=== PATIENT | female | born 1970 | race Caucasian/White ===

== ENCOUNTER 2016-08-02 17:43 | Emergency (ER) | payer OTHER ==
[2016-08-02] MEDS ORDERED: MORPHINE SULFATE 4 MG/ML SYRINGE IVP STA (18:19)
[2016-08-02] MEDS ORDERED: ONDANSETRON 4 MG/2 ML VIAL IVP STA (18:19)
[2016-08-02] MEDS ORDERED: SODIUM CHLORIDE 0.9% 1,000 ML IV ONE (18:19)
[2016-08-02 18:27] VITALS: RESP 18
[2016-08-02 18:36] LABS: Basophils % (A) 0 %; CH 33.9; CHCM 33.6; Eosinophils # (A) 0.4 k/uL (0-0.7); Eosinophils % (A) 4 %; HDW 2.15; HGB 14.3 gm/dL (11.4-16.0); Luc # (Auto) 0.26; Luc % (Auto) 3; Lymphocytes # (A) 2.9 k/uL (1.0-4.8); Lymphocytes % (A) 31 %; MCH 33.7 pg (25.0-35.0); MCHC 33.2 g/dL (31.0-37.0); MCV 101.5 fL (80.0-100.0); Mean Platelet Volume 6.4; Monocytes # (A) 0.5 k/uL (0-1.0); Monocytes % (A) 6 %; Neutrophils # (A) 5.3 k/uL (1.3-7.7); Neutrophils % (A) 56 %; RBC 4.24 m/uL (3.80-5.40); RDW 12.4 % (11.5-15.5); WBC 9.4 k/uL (3.8-10.6); WBC (Perox) 9.91
[2016-08-02 18:37] LABS: Appearance,Urine Cloudy (Clear); Bacteria,Urine Few /hpf; Bilirubin,Urine Negative (Negative); Glucose,Urine (UA) Negative (Negative); Ketones,Urine Negative (Negative); Leukocyte Esterase,Urine Negative (Negative); Mucus,Urine Rare /hpf; Nitrite,Urine Positive (Negative); Particle Count 68070; Protein,Urine Negative (Negative); RBC,Urine 2 /hpf (0-5); Specific Gravity,Urine 1.012 (1.001-1.035); Squamous Epithelial Cell,Urine 3 /hpf (0-4); UA Billing (MACRO vs. MICRO) MICRO; Urobilinogen,Urine <2.0 mg/dL (<2.0); WBC,Urine 5 /hpf (0-5)
[2016-08-02 18:57] LABS: ALT 26 U/L (9-52); AST 18 U/L (14-36); Alkaline Phosphatase 77 U/L (38-126); Anion Gap 10 mmol/L; Blood Urea Nitrogen 10 mg/dL (7-17); Calcium 9.2 mg/dL (8.4-10.2); Carbon Dioxide 26 mmol/L (22-30); Chloride 102 mmol/L (98-107); Glucose 91 mg/dL (74-99); Non-African American GFR(MDRD) >60 (>60 ml/min/1.73 sqM); Potassium 4.1 mmol/L (3.5-5.1); Sodium 138 mmol/L (137-145); Total Bilirubin 0.4 mg/dL (0.2-1.3); Total Protein 7.3 g/dL (6.3-8.2)
--- NOTE | 2016-08-02 19:13 | ED ---
Abdominal Pain HPI - General Chief Complaint: Abdominal Pain Stated Complaint: abd pain Time Seen by Provider: 08/02/16 18:03 Source: patient, RN notes reviewed Mode of arrival: ambulatory Limitations: no limitations - History of Present Illness Initial Comments: Patient is a 46-year-old female presents to the emergency room for evaluation of right lower quadrant pain. Patient states she had issues with uterine bleeding. Patient states she had a history of uterine bleeding every 2 weeks. Patient states that she had a uterine ablation done in August. Patient states the bleeding has subsided but she began getting right lower quadrant pain. Patient states she has been to various emergency rooms and has been following up with her INVESTMENT SALES ASSISTANT. Patient states she's received CT scans and ultrasounds. Patient states no one is able to figure out why she is having this pain. Patient does admit to history of chronic low back pain. Patient states she has a history of sciatica. Patient states the pain sometimes starts in her right lower back and radiates to her right groin. Patient also states that she has a history of recurrent urinary tract infections. Patient states she's been placed on Bactrim multiple times this past year. Patient states she' s had about 6 urinary tract infections this year. Patient states that she has some pain and burning during urination. Patient denies history of STDs. Patient states that she just saw her INVESTMENT SALES ASSISTANT last week. Patient states that she was told she had Trichomonas on Thursday and was treated with 1 tablet of Flagyl. Patient denies any abnormal vaginal discharge. Patient denies vaginal bleeding. Patient states she's been nauseous the past few days with some vomiting. Patient denies constipation or diarrhea. Patient has had dizziness. Patient denies chest pain or shortness of breath. Patient denies fevers or chills. - Related Data Home Medications Medication Instructions Recorded Confirmed Acetaminophen/Diphenhydramine 1 tab PO HS PRN 08/02/16 08/02/16 [Tylenol PM 500-25mg] Citalopram Hydrobromide [CeleXA] 60 mg PO DAILY 08/02/16 08/02/16 LORazepam [Ativan] 2 mg PO HS 08/02/16 08/02/16 Morphine Sulfate ER [Ms Contin 15 mg PO ONCE 08/02/16 08/02/16 15Mg] [place](Unknown) 1 tab PO TID 08/02/16 08/02/16 Omeprazole 20 mg PO BID 08/02/16 08/02/16 Zantac(Unknown) 1 tab PO DAILY 08/02/16 08/02/16 tiZANidine [Zanaflex] 4 mg PO BID PRN 08/02/16 08/02/16 Previous Rx's Medication Instructions Recorded Ciprofloxacin HCl [Cipro] 500 mg PO Q12HR 5 Days 08/02/16 Allergies Allergy/AdvReac Type Severity Reaction Status Date / Time famotidine [From Pepcid] Allergy Confusion Verified 08/02/16 18:09 Review of Systems ROS Statement: Those systems with pertinent positive or pertinent negative responses have been documented in the HPI. ROS Other: All systems not noted in ROS Statement are negative. Past Medical History Past Medical History: GERD/Reflux Additional Past Medical History / Comment(s): back pain, sciatica History of Any Multi-Drug Resistant Organisms: None Reported Past Surgical History: Bariatric Surgery, Uterine Ablation Past Psychological History: Anxiety, Depression Smoking Status: Current every day smoker Past Alcohol Use History: Occasional Past Drug Use History: None Reported General Exam - General Exam Comments Initial Comments: Sitting in exam room in no acute distress. Limitations: no limitations General appearance: alert, in no apparent distress Head exam: Present: atraumatic, normocephalic, normal inspection Eye exam: Present: normal appearance ENT exam: Present: normal exam Neck exam: Present: normal inspection Respiratory exam: Present: normal lung sounds bilaterally. Absent: respiratory distress Cardiovascular Exam: Present: regular rate, normal rhythm, normal heart sounds GI/Abdominal exam: Present: soft, tenderness (RLQ/groin), normal bowel sounds. Absent: distended, guarding, rebound, rigid External exam: Present: normal external exam Speculum exam: Present: vaginal discharge By manual exam: Present: normal by manual exam. Absent: cervical motion tenderness Extremities exam: Present: normal inspection Back exam: Present: normal inspection Neurological exam: Present: alert, oriented X3, CN II-XII intact, normal gait Psychiatric exam: Present: normal affect, normal mood Skin exam: Present: warm, dry, intact, normal color. Absent: rash Course Vital Signs 08/02/16 08/02/16 08/02/16 17:55 18:26 19:19 Temperature 98.4 F 99.0 F 98.5 F Pulse Rate 94 65 73 Respiratory 20 18 18 Rate Blood Pressure 126/94 140/89 129/61 O2 Sat by Pulse 99 96 99 Oximetry Medical Decision Making - Medical Decision Making Patient is a 46-year-old female presents to the emergency room for evaluation of recurrent right lower quadrant pain since August. Labs showed so significant findings. Patient's urine positive for nitrates. Will place patient on antibiotics to treat for urinary tract infection. Patient asked if she could have urology to follow-up with for recurrent urinary tract infections. Will provide patient with on-call urologist. Trichamonas negative. Other genital cultures pending. Advised patient to continue following up with her AUTOMATIC DRY STARCH OPERATOR. Patient's pain could also related to her chronic low back pain. Patient does admit that before her uterine ablation she used to receive hip injections and never had this right lower groin pain. Patient states as soon as the injections stopped, along the time she received her uterine ablation, she began having pain in the right lower quadrant/groin area. Advised patient to follow-up with her primary care provider for further evaluation of low back pain. Patient states she understands everything that was discussed with her. Return parameters discussed. Case discussed with Dr. Cortes. - Lab Data Result diagrams: 08/02/16 18:03 08/02/16 18:03 Lab Results 08/02/16 08/02/16 08/02/16 Range/Units 18:03 18:03 18:03 WBC 9.4 (3.8-10.6) k/uL RBC 4.24 (3.80-5.40) m/uL Hgb 14.3 (11.4-16.0) gm/dL Hct 43.0 (34.0-46.0) % MCV 101.5 H (80.0-100.0) fL MCH 33.7 (25.0-35.0) pg MCHC 33.2 (31.0-37.0) g/dL RDW 12.4 (11.5-15.5) % Plt Count 395 (150-450) k/uL Neutrophils % 56 % Lymphocytes % 31 % Monocytes % 6 % Eosinophils % 4 % Basophils % 0 % Neutrophils # 5.3 (1.3-7.7) k/uL Lymphocytes # 2.9 (1.0-4.8) k/uL Monocytes # 0.5 (0-1.0) k/uL Eosinophils # 0.4 (0-0.7) k/uL Basophils # 0.0 (0-0.2) k/uL Sodium 138 (137-145) mmol/L Potassium 4.1 (3.5-5.1) mmol/L Chloride 102 (98-107) mmol/L Carbon Dioxide 26 (22-30) mmol/L Anion Gap 10 mmol/L BUN 10 (7-17) mg/dL Creatinine 0.69 (0.52-1.04) mg/dL Est GFR (MDRD) Af Amer >60 (>60 ml/min/1.73 sqM) Est GFR (MDRD) Non-Af >60 (>60 ml/min/1.73 sqM) Glucose 91 (74-99) mg/dL Calcium 9.2 (8.4-10.2) mg/dL Total Bilirubin 0.4 (0.2-1.3) mg/dL AST 18 (14-36) U/L ALT 26 (9-52) U/L Alkaline Phosphatase 77 (38-126) U/L Total Protein 7.3 (6.3-8.2) g/dL Albumin 4.1 (3.5-5.0) g/dL Urine Color Yellow Urine Appearance Cloudy H (Clear) Urine pH 6.0 (5.0-8.0) Ur Specific [place] 1.012 (1.001-1.035) Urine Protein Negative (Negative) Urine Glucose (UA) Negative (Negative) Urine Ketones Negative (Negative) Urine Blood Trace H (Negative) Urine Nitrate Positive H (Negative) Urine Bilirubin Negative (Negative) Urine Urobilinogen <2.0 (<2.0) mg/dL Ur Leukocyte Esterase Negative (Negative) Urine RBC 2 (0-5) /hpf Urine WBC 5 (0-5) /hpf Ur Squamous Epith Cells 3 (0-4) /hpf Urine Bacteria Few H (None) /hpf Urine Mucus Rare H (None) /hpf Trichomonas Ag (Rapid) (Negative) 08/02/16 Range/Units 19:15 WBC (3.8-10.6) k/uL RBC (3.80-5.40) m/uL Hgb (11.4-16.0) gm/dL Hct (34.0-46.0) % MCV (80.0-100.0) fL MCH (25.0-35.0) pg MCHC (31.0-37.0) g/dL RDW (11.5-15.5) % Plt Count (150-450) k/uL Neutrophils % % Lymphocytes % % Monocytes % % Eosinophils % % Basophils % % Neutrophils # (1.3-7.7) k/uL Lymphocytes # (1.0-4.8) k/uL Monocytes # (0-1.0) k/uL Eosinophils # (0-0.7) k/uL Basophils # (0-0.2) k/uL Sodium (137-145) mmol/L Potassium (3.5-5.1) mmol/L Chloride (98-107) mmol/L Carbon Dioxide (22-30) mmol/L Anion Gap mmol/L BUN (7-17) mg/dL Creatinine (0.52-1.04) mg/dL Est GFR (MDRD) Af Amer (>60 ml/min/1.73 sqM) Est GFR (MDRD) Non-Af (>60 ml/min/1.73 sqM) Glucose (74-99) mg/dL Calcium (8.4-10.2) mg/dL Total Bilirubin (0.2-1.3) mg/dL AST (14-36) U/L ALT (9-52) U/L Alkaline Phosphatase (38-126) U/L Total Protein (6.3-8.2) g/dL Albumin (3.5-5.0) g/dL Urine Color Urine Appearance (Clear) Urine pH (5.0-8.0) Ur Specific [place] (1.001-1.035) Urine Protein (Negative) Urine Glucose (UA) (Negative) Urine Ketones (Negative) Urine Blood (Negative) Urine Nitrate (Negative) Urine Bilirubin (Negative) Urine Urobilinogen (<2.0) mg/dL Ur Leukocyte Esterase (Negative) Urine RBC (0-5) /hpf Urine WBC (0-5) /hpf Ur Squamous Epith Cells (0-4) /hpf Urine Bacteria (None) /hpf Urine Mucus (None) /hpf Trichomonas Ag (Rapid) Negative (Negative) Disposition Clinical Impression: Urinary tract infection Disposition: HOME SELF-CARE Condition: Good Instructions: Urinary Tract Infection in Women (ED) Additional Instructions: Take antibiotics as directed. Please follow up with INVESTMENT SALES ASSISTANT 1-2 days for reevaluation. Can also follow up with urologist for recurrent urinary tract infections. Continue taking her home pain medications as needed. If any new symptom arises, symptoms worsen or fever develops, return to ER as soon as possible. Prescriptions: Ciprofloxacin HCl [Cipro] 500 mg PO Q12HR 5 Days Referrals: Luis Alberto Gustafson DO [Primary Care Provider] - 1-2 days Wilian Benitez MD [STAFF PHYSICIAN] - 08/11/16 Time of Disposition: 19:57
[2016-08-02] MEDS ORDERED: KETOROLAC 30 MG/ML 1 ML VIAL IVP STA (19:52)
[2016-08-02 20:11] VITALS: BP 133/63; PULSE 64; TEMP 98.1
== END 2016-08-02 20:11 | disposition home or self-care (01) ==
LOC: EC 17:43
DX: N39.0 Urinary tract infection, site not specified (principal); K21.9 Gastro-esophageal reflux disease without esophagitis; F41.9 Anxiety disorder, unspecified; F32.9 Major depressive disorder, single episode, unspecified; F17.200 Nicotine dependence, unspecified, uncomplicated; Z88.8 Allergy status to other drugs, medicaments and biological substances; Z87.440 Personal history of urinary (tract) infections; Z79.899 Other long term (current) drug therapy
CPT/HCPCS: 36415; 80053; 87591; 87491; 85025; 81001; 87808; 87070; 87086; 87077; 87186; 99284; 96374; 96375 ×2; 96361; J2270; J2405; J1885; 87205

== ENCOUNTER 2016-10-28 07:21 | Day surgery (SDC) | payer OTHER ==
[2016-10-23 14:12] VITALS: BMI 26.6
[~2016-10-28 07:21] MED LIST: LIDOCAINE 1% 20 ML VIAL (10MG/ML) FOR IV START INTRADERMA PRN
[2016-10-28] MEDS: LACTATED RINGERS 1,000 ML IV SCH ×2 (07:56→08:27)
[2016-10-28 08:13] VITALS: RESP 16; TEMP 98.3
[2016-10-28] MEDS ORDERED: KETOROLAC 30 MG/ML 1 ML VIAL IM STA (08:18)
[2016-10-28] MEDS ORDERED: LIDOCAINE 1% INJ 10MG/ML (20 ML MDV) ONE (08:25)
[2016-10-28] MEDS ORDERED: PROPOFOL 10 MG/ML 20 ML VIAL IV ONE (08:25)
[2016-10-28] MEDS ORDERED: MIDAZOLAM 2 MG/2 ML VIAL ONE (08:25)
--- NOTE | 2016-10-28 08:54 | P.GSHP ---
History of Present Illness H&P Date: 10/28/16 Chief Complaint: Family history of colon cancer and GERD This a 46-year-old female who presents today for EGD colonoscopy. She has a strong family history of colon cancer. She states her sister was diagnosed HER in her 40s. She is also had issues with GERD and Sadler's esophagus. She presents today for EGD and colonoscopy. - Constitutional Constitutional: Reports as per HPI Past Medical History Past Medical History: GERD/Reflux, Hyperlipidemia, Musculoskeletal Disorder, Osteoarthritis (OA) Additional Past Medical History / Comment(s): DDD, SPINAL STENOSIS, HX OF MURMUR , SADLER'S ESOPHAGUS History of Any Multi-Drug Resistant Organisms: None Reported Past Surgical History: Bariatric Surgery, Section, Cholecystectomy, Orthopedic Surgery, Tubal Ligation, Uterine Ablation Additional Past Surgical History / Comment(s): GASTRIC BYPASS, GANGLION CYST REMOVED, LEFT THYMB TRIGGER FINGER, CARPAL TUNNEL ALYSON WRIST, BENIGN CYST REMOVED FROM OVARY RECTUM AND TAILBONE, MULT. D&C Past Anesthesia/Blood Transfusion Reactions: Previous Problems w/ Anesthesia Additional Past Anesthesia/Blood Transfusion Reaction / Comment(s): STATES HYPERVENTILATES WHEN SEES NEEDLES Past Psychological History: Anxiety, Depression Smoking Status: Current every day smoker Past Alcohol Use History: Occasional Additional Past Alcohol Use History / Comment(s): SMOKES 1/2 PPD SINCE AGE 15 ( 1984) Past Drug Use History: None Reported - Past Family History Sister(s) Family Medical History: Cancer Additional Family Medical History / Comment(s): COLON AND RECTAL CA Brother(s) Family Medical History: Cancer Additional Family Medical History / Comment(s): NON-HODGKIN'S LYMPHOMA Mother Family Medical History: Cancer Additional Family Medical History / Comment(s): NON-HODGKIN'S LYMPHOMA Medications and Allergies Home Medications Medication Instructions Recorded Confirmed Type Acetaminophen/Diphenhydramine 1 tab PO HS PRN 08/02/16 10/28/16 History [Tylenol PM 500-25mg] Citalopram Hydrobromide [CeleXA] 60 mg PO DAILY 08/02/16 10/28/16 History Omeprazole 20 mg PO BID 08/02/16 10/28/16 History tiZANidine [Zanaflex] 4 mg PO BID PRN 08/02/16 10/28/16 History Atorvastatin [Lipitor] 10 mg PO DAILY 10/23/16 10/28/16 History Diclofenac Potassium [Cataflam] 50 mg PO TID PRN 10/23/16 10/28/16 History Estradiol [Estrace Cream] 1 applicator VAGINAL DAILY PRN 10/23/16 10/28/16 History Gabapentin [Neurontin] 300 mg PO HS 10/23/16 10/28/16 History LORazepam [Lorazepam] 0.5 mg PO BID 10/23/16 10/28/16 History Metoclopramide [Reglan] 10 mg PO TID 10/23/16 10/28/16 History Ranitidine HCl [Zantac] 300 mg PO BID PRN 10/23/16 10/28/16 History Sulfamethox-Tmp 400-80Mg [Bactrim 1 tab PO DAILY 10/23/16 10/28/16 History SS 400-80 mg] HYDROcodone/APAP 5-325MG [Stephan 1 tab PO TID PRN 10/28/16 10/28/16 History 5-325] Allergies Allergy/AdvReac Type Severity Reaction Status Date / Time Cephalosporins Allergy RECTAL Verified 10/28/16 08:04 BLEEDING famotidine [From Pepcid] Allergy Confusion Verified 10/28/16 08:04 Surgical - Exam Vital Signs Temp Pulse Resp BP Pulse Ox 98.3 F 71 16 138/76 93 L 10/28/16 08:11 10/28/16 08:11 10/28/16 08:11 10/28/16 08:11 10/28/16 08:11 - General well developed, no distress - Eyes PERRL - ENT normal pinna - Neck no masses - Respiratory normal expansion - Cardiovascular Rhythm: regular - Abdomen Abdomen: soft, non tender Assessment and Plan Plan: GERD, family history colon cancer. We'll perform EGD and screening colonoscopy.
--- NOTE | 2016-10-28 09:21 | P.OP ---
Date of Procedure: 10/28/16 Preoperative Diagnosis: Screening colonoscopy Family history colon cancer GERD Postoperative Diagnosis: Antral gastritis Small hiatal hernia Mild esophagitis Normal colon with limited view of the mucosa secondary to poor prep Procedure(s) Performed: EGD Colonoscopy Anesthesia: MAC Surgeon: Dillon Alvarado Pathology: other (Antrum, esophagus) Condition: stable Disposition: PACU Description of Procedure: The patient's placed on the endoscopy table in the lateral. She received IV sedation. The gastroscope some placed oropharynx passed into the esophagus and into the stomach. Scope was then placed through the pylorus. The first and second portion of the duodenum this appeared Normal. Scope was then brought back the antrum this. Mildly inflamed. A biopsies was performed. The scope was then retroflexed and there was a small hiatal hernia. The distal esophagus was mildly inflamed a biopsy was performed. The proximal esophagus appeared normal. Scope was withdrawn for patient. Next digital rectal exam was performed which revealed no abnormalities. There is a large amount of stool the rectum. The colonoscope was then placed patient anus passed throughout the entire colon. Due to the large amount liquid stool there was a limited view of the mucosa. No tumors could be seen. There no polyps seen there were no diverticula seen. The view was quite limited due to the large amount liquid stool. The scope was then brought back the rectum and this appeared normal. Scope was withdrawn for patient.
[2016-10-28 09:50] VITALS: BP 112/79; PULSE 79
== END 2016-10-28 10:07 | disposition home or self-care (01) ==
LOC: ORWHC2ENDO 07:21
PROVIDERS: ATTEND Surgery
DX: Z12.11 Encounter for screening for malignant neoplasm of colon (principal); K21.0 Gastro-esophageal reflux disease with esophagitis; Z80.0 Family history of malignant neoplasm of digestive organs; K29.50 Unspecified chronic gastritis without bleeding; K44.9 Diaphragmatic hernia without obstruction or gangrene; Z98.84 Bariatric surgery status; E78.5 Hyperlipidemia, unspecified; F41.9 Anxiety disorder, unspecified; F32.9 Major depressive disorder, single episode, unspecified; F17.200 Nicotine dependence, unspecified, uncomplicated; Z79.02 Long term (current) use of antithrombotics/antiplatelets; Z79.891 Long term (current) use of opiate analgesic; Z79.899 Other long term (current) drug therapy; Z79.2 Long term (current) use of antibiotics; Z88.1 Allergy status to other antibiotic agents; Z88.8 Allergy status to other drugs, medicaments and biological substances
CPT/HCPCS: 88305; 88342; 84703; 43239; J2250; J2001; J1885; J2704; G0105; 45378

== ENCOUNTER → 2016-11-28 | Outpatient (CLI) | payer OTHER ==
--- NOTE | 2016-11-28 11:05 | FL ---
Upper GI with esophagram EXAMINATION TYPE: FL UGI w esophagus DATE OF EXAM: 11/28/2016 10:34 AM CLINICAL HISTORY: K21.9 GERD COMPARISON: NONE Patient ingested thin liquid barium without difficulty or delay. No evidence for esophageal filling d efect or mucosal irregularity. There is a small sliding-type hiatal hernia. Cervical esophagram revea ls no evidence for aspiration penetration or mass. There is been prior bariatric surgery with gastric pouch noted. There is narrowing at the gastroenteric anastomosis. Luminal narrowing is estimated at approximately 25%. There is no evidence for obstruction however. Contrast is noted to flow into irina l caliber small bowel. IMPRESSION: 1.There is narrowing at the gastroenteric anastomosis. Luminal narrowing is estimated at approximatel y 25%. 2. Small sliding-type hiatal hernia.
== END | disposition home or self-care (01) ==
LOC: RADFLWHC 09:48
PROVIDERS: ATTEND Surgery
DX: K22.8 Other specified diseases of esophagus (principal); K44.9 Diaphragmatic hernia without obstruction or gangrene; K21.9 Gastro-esophageal reflux disease without esophagitis
CPT/HCPCS: 74246

== ENCOUNTER 2016-12-09 10:49 | Inpatient (IN) | payer OTHER ==
[2016-12-03 13:38] VITALS: BMI 26.4
[2016-12-09] MEDS ORDERED: LIDOCAINE 1% 20 ML VIAL (10MG/ML) FOR IV START SQ ONE (11:07)
[2016-12-09] MEDS: LACTATED RINGERS 1,000 ML IV SCH (11:07)
--- NOTE | 2016-12-09 11:49 | P.GSHP ---
History of Present Illness H&P Date: 12/09/16 Chief Complaint: Dysphagia This a 46-year-old female who has a prior history of gastric bypass surgery. Patient has completed to dysphagia. Her recent esophagram shows evidence of stenosis of her gastrojejunostomy. Patient presents today for EGD. - Constitutional Constitutional: Reports as per HPI Past Medical History Past Medical History: GERD/Reflux, Hyperlipidemia, Musculoskeletal Disorder, Osteoarthritis (OA) Additional Past Medical History / Comment(s): DDD, SPINAL STENOSIS, HX OF MURMUR , SADLER'S ESOPHAGUS-states "no symptoms shown with last EGD",states "on UGI showed narrowing at the bottom of gastric bypass pouch and still having periods of vomiting". History of Any Multi-Drug Resistant Organisms: None Reported Past Surgical History: Bariatric Surgery, Section, Cholecystectomy, Orthopedic Surgery, Tubal Ligation, Uterine Ablation Additional Past Surgical History / Comment(s): GASTRIC BYPASS, GANGLION CYST REMOVED, LEFT THUMB TRIGGER FINGER, CARPAL TUNNEL ALYSON WRIST, BENIGN CYST REMOVED FROM OVARY RECTUM AND TAILBONE, MULT. D&C,C SECT X2 Past Anesthesia/Blood Transfusion Reactions: Previous Problems w/ Anesthesia Additional Past Anesthesia/Blood Transfusion Reaction / Comment(s): STATES HYPERVENTILATES WHEN SEES NEEDLES Past Psychological History: Anxiety, Depression Smoking Status: Current every day smoker Past Alcohol Use History: Occasional Additional Past Alcohol Use History / Comment(s): SMOKES 1/2 PPD SINCE AGE 15 ( 1984) Past Drug Use History: None Reported - Past Family History Sister(s) Family Medical History: Cancer Additional Family Medical History / Comment(s): COLON AND RECTAL CA Brother(s) Family Medical History: Cancer Additional Family Medical History / Comment(s): NON-HODGKIN'S LYMPHOMA Mother Family Medical History: Cancer Additional Family Medical History / Comment(s): NON-HODGKIN'S LYMPHOMA Medications and Allergies Home Medications Medication Instructions Recorded Confirmed Type Acetaminophen/Diphenhydramine 1 tab PO HS PRN 08/02/16 12/09/16 History [Tylenol PM 500-25mg] Citalopram Hydrobromide [CeleXA] 60 mg PO DAILY 08/02/16 12/09/16 History Omeprazole 20 mg PO BID 08/02/16 12/09/16 History tiZANidine [Zanaflex] 4 mg PO BID PRN 08/02/16 12/09/16 History Atorvastatin [Lipitor] 10 mg PO DAILY 10/23/16 12/09/16 History Diclofenac Potassium [Cataflam] 50 mg PO TID PRN 10/23/16 12/09/16 History Estradiol [Estrace Cream] 1 applicator VAGINAL DAILY PRN 10/23/16 12/09/16 History Gabapentin [Neurontin] 300 mg PO HS 10/23/16 12/09/16 History LORazepam [Lorazepam] 0.5 mg PO BID 10/23/16 12/09/16 History Metoclopramide [Reglan] 15 mg PO TID 10/23/16 12/09/16 History Ranitidine HCl [Zantac] 300 mg PO BID PRN 10/23/16 12/09/16 History Sulfamethox-Tmp 400-80Mg [Bactrim 1 tab PO DAILY 10/23/16 12/09/16 History SS 400-80 mg] Acetaminophen-Codeine 300-30mg 1 tab PO DAILY PRN 12/03/16 12/09/16 History [Tylenol #3] QUEtiapine FUMARATE [SEROquel] 300 mg PO HS 12/03/16 12/09/16 History Allergies Allergy/AdvReac Type Severity Reaction Status Date / Time Cephalosporins Allergy RECTAL Verified 12/09/16 11:09 BLEEDING famotidine [From Pepcid] Allergy Confusion Verified 12/09/16 11:09 Surgical - Exam Vital Signs Temp Pulse Resp BP Pulse Ox 97.9 F 73 16 146/86 98 12/09/16 11:02 12/09/16 11:02 12/09/16 11:02 12/09/16 11:02 12/09/16 11:02 - General well developed, no distress - Eyes PERRL - ENT normal pinna - Neck no masses - Respiratory normal expansion - Cardiovascular Rhythm: regular - Abdomen Abdomen: soft, non tender Assessment and Plan Plan: Surgeon gastric bypass, dysphagia. We'll perform EGD.
[2016-12-09] MEDS ORDERED: fentaNYL (PF) 50 MCG/ML 2 ML AMP ONE ×2 (11:50→13:05)
[2016-12-09] MEDS ORDERED: PROPOFOL 10 MG/ML 20 ML VIAL IV ONE ×2 (11:50→13:05)
[2016-12-09] MEDS ORDERED: LIDOCAINE 1% INJ 10MG/ML (20 ML MDV) ONE ×2 (11:50→13:05)
--- NOTE | 2016-12-09 12:07 | P.OP ---
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 She received IV sedation. The gastroscope some placed oropharynx and passed into the esophagus and into the stomach. The gastrojejunostomy was visualized. The gastrojejunostomy. Be stenotic. The scope was placed into the jejunum. At this point the scope was withdrawn and the 20 mm balloon was placed across the jejunostomy. The balloon was then insufflated and the gastrojejunostomy was dilated. The balloon was then withdrawn. The gastroscope some placed into the gastroenterostomy. And there appeared to be extraluminal fat in the gastrojejunostomy site. This was suggestive of a disruption of the anastomosis. At this point the procedure was Doppler. The scope was withdrawn. The patient was prepared for exploratory laparotomy to repair the gastrojejunostomy.
[2016-12-09] MEDS ORDERED: ENOXAPARIN 40 MG/0.4 ML SYRINGE SQ ONE (12:15)
[2016-12-09] MEDS ORDERED: LEVOFLOXACIN 500MG-D5W PMX 500 MG in DEXTROSE/WATER 1 100ML.BAG IVPB STA (12:17)
[2016-12-09] MEDS ORDERED: IV FLUID CONTINUATION 1,000 ML IV ONE (12:27)
[2016-12-09] MEDS: HYDROmorphone 1 MG/ML 1 ML SYRINGE IVP ONE ×2 (12:27→12:32)
[2016-12-09 12:51] LABS: Basophils # (A) 0.1 k/uL (0-0.2); Basophils % (A) 1 %; CH 32.7; CHCM 32.3; Eosinophils # (A) 0.5 k/uL (0-0.7); Eosinophils % (A) 7 %; HCT 42.1 % (34.0-46.0); HDW 2.39; HGB 13.7 gm/dL (11.4-16.0); Luc # (Auto) 0.18; Luc % (Auto) 2; Lymphocytes # (A) 2.6 k/uL (1.0-4.8); Lymphocytes % (A) 34 %; MCH 33.2 pg (25.0-35.0); MCHC 32.7 g/dL (31.0-37.0); MCV 101.7 fL (80.0-100.0); Macrocytosis Slight; Mean Platelet Volume 6.7; Monocytes # (A) 0.4 k/uL (0-1.0); Monocytes % (A) 5 %; Neutrophils # (A) 3.9 k/uL (1.3-7.7); Neutrophils % (A) 51 %; RBC 4.14 m/uL (3.80-5.40); RDW 13.5 % (11.5-15.5); WBC 7.6 k/uL (3.8-10.6); WBC (Perox) 7.55
[2016-12-09] MEDS ORDERED: fentaNYL (PF) 50 MCG/ML 2 ML AMP IV ONE (12:52)
[2016-12-09] MEDS ORDERED: SUCCINYLCHOLINE CHLORIDE 100 MG/5 ML SYR IV ONE (13:05)
[2016-12-09] MEDS ORDERED: ROCURONIUM BROMIDE 10 MG/ML 10 ML VIAL IV ONE (13:05)
[2016-12-09] MEDS ORDERED: MIDAZOLAM 2 MG/2 ML VIAL ONE (13:05)
[2016-12-09] MEDS ORDERED: GLYCOPYRROLATE 0.2 MG/ML 2 ML VIAL ONE (13:05)
[2016-12-09] MEDS ORDERED: NEOSTIGMINE 1 MG/ML 10 ML VIAL ONE (13:05)
[2016-12-09] MEDS ORDERED: ONDANSETRON 4 MG/2 ML VIAL IVP PRN (14:35)
[2016-12-09] MEDS ORDERED: LACTATED RINGERS 1,000 ML IV ONE (14:35)
[2016-12-09] MEDS ORDERED: NALOXONE 0.4 MG/ML 1 ML VIAL IV PRN (14:35)
--- NOTE | 2016-12-09 14:35 | P.OP ---
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 She received general anesthesia. Her abdomen was entered through a midline incision. The Bookwalter retractors placed a wound. The patient had a previous laparoscopic gastric bypass. There was a large gastric remnant seen. At the gastrojejunostomy there was evidence of a perforation at the stricture site. At this point the proximal jejunum was transected just below the gastrojejunostomy. The stomach was adherent to the defunctionalized stomach in this was dissected by lysing adhesions. Then using a TX 60 the gastrojejunostomy was excluded. The specimen sent to pathology. Next using a PAULETTE and TA stapler a [id number] functional end-to-end staple anastomosis created between the jejunum and stomach. A 3-0 GI silk sutures using a crotch stitch. The stomach was then insufflated with methylene blue normal saline. There is no evidence of any extravasation. There was free flow of saline into the jejunum. At this point the abdomen was irrigated. There is no bleeding seen. The fascia was closed with looped #1 PDS suture. The skin was closed cortez. Patient top she will was sent to recovery in stable condition.
[2016-12-09] MEDS ORDERED: HYDROmorphone 1 MG/ML 1 ML SYRINGE IVP ONE ×3 (15:19→15:24)
[2016-12-09] MEDS ORDERED: ONDANSETRON 4 MG/2 ML VIAL IVP ONE (15:19)
[2016-12-09] MEDS ORDERED: MEPERIDINE 50 MG/ML SYRINGE IVP ONE (15:25)
[2016-12-09] MEDS: HYDROmorphone 1 MG/ML 1 ML SYRINGE IVP PRN ×2 (17:52→20:58)
[2016-12-09] MEDS: AMPICILLIN-SULBACTAM 3 GM in SODIUM CHLORIDE 0.9% 100 ML IVPB SCH (17:52)
[2016-12-09] MEDS: KETOROLAC 30 MG/ML 1 ML VIAL IVP SCH ×2 (17:52→23:54)
[2016-12-09 18:18] LABS: Anion Gap 5 mmol/L; Blood Urea Nitrogen 9 mg/dL (7-17); Calcium 8.7 mg/dL (8.4-10.2); Carbon Dioxide 27 mmol/L (22-30); Chloride 106 mmol/L (98-107); Glucose 115 mg/dL (74-99); Non-African American GFR(MDRD) >60 (>60 ml/min/1.73 sqM); Potassium 4.3 mmol/L (3.5-5.1); Sodium 138 mmol/L (137-145)
[2016-12-09] MEDS: FLUCONAZOLE IN NACL,ISO-OSM 200 MG in SALINE 1 100ML.BAG IVPB SCH (22:20)
[2016-12-10] MEDS: AMPICILLIN-SULBACTAM 3 GM in SODIUM CHLORIDE 0.9% 100 ML IVPB SCH ×5 (00:01→23:40)
[2016-12-10] MEDS: HYDROmorphone 1 MG/ML 1 ML SYRINGE IVP PRN ×5 (00:01→12:06)
[2016-12-10] MEDS: KETOROLAC 30 MG/ML 1 ML VIAL IVP SCH ×4 (05:51→23:40)
[2016-12-10] MEDS: LACTATED RINGERS 1,000 ML IV SCH ×3 (05:58→18:02)
--- NOTE | 2016-12-10 07:41 | CONS ---
DATE OF CONSULTATION: 12/09/2016 REASON FOR CONSULTATION: Perforated stomach and secondary peritonitis and antibiotic recommendation with antibiotic allergies. HISTORY OF PRESENT ILLNESS: The patient is a 46-year-old female with past medical history significant for gastric bypass surgery. The patient has been complaining of dysphagia for which the patient did have a recent esophagram that did show evidence of stenosis of the gastrojejunostomy. Patient has been electively admitted to the hospital for an EGD and the balloon dilatation of the gastrojejunostomy stricture. After the proceed the patient noticed to have gastric disruption. Patient subsequently taken to the OR and is status post laparotomy with lysis of adhesion, partial gastrectomy with excision of the previous gastrojejunostomy and creation of a new gastrojejunostomy. Patient subsequently has been admitted to the hospital where the patient started on Levaquin. I was asked to see the patient for further recommendation. Patient has been complaining of abdominal pain which is dull, diffuse, aching. 7-8/10 and no radiation. The patient complaining of nausea, but no vomiting. Not passing any gas. Denies any high grade fever or chills. REVIEW OF SYSTEMS: CONSTITUTIONAL: Positive for weakness and fever. EYES: No complaint. ENT: No complaint. RESPIRATORY: No complaint. CARDIOVASCULAR: No complaint. GENITOURINARY: No complaint. GASTROINTESTINAL: As per HPI. MUSCULOSKELETAL: No complaint. INTEGUMENTARY: No complaint. PSYCHOLOGIC: No complaint. ENDOCRINE: No complaint. NEUROLOGIC: No complaint. PAST MEDICAL HISTORY: Significant for hyperlipidemia, spinal stenosis, gastroesophageal reflux disease, Anna's esophagus. PAST SURGICAL HISTORY: Bariatric surgery with gastrojejunostomy, , cholecystectomy, tubal ligation, uterine ablation. SOCIAL HISTORY: Patient currently an ever day smoker, smoked since the age of 15. Rarely drinks. No drug use. FAMILY HISTORY: Sister with history of colorectal cancer. Brother and mother with history of non-Hodgkin lymphoma ALLERGIES: CEPHALOSPORIN. The patient did mention she was put on Ceftin for a tooth infection and hence, she developed some bloody stool. Denies having any rash or any anaphylaxis Medications currently include the patient is on Lovenox, Dilaudid, Toradol, lactated Ringer, Narcan and Zofran, Protonix and Levaquin. On examination, blood pressure 132/86 with a pulse of 83, temperature 97.1. She is 92% on 2-L nasal cannula. General description is a middle-age female lying in bed in no distress. No tachypnea or accessory muscle of respiration use. HEENT shows no pallor or scleral icterus. Oral mucus membrane dry. NECK: Trachea central. There is no thyromegaly. LUNGS: Unlabored breathing. Clear to auscultation anteriorly. No wheeze or crackle. HEART: S1, S2. Regular rate and rhythm. ABDOMEN: Soft. She was mildly distended and tender with no guarding, no rigidity. EXTREMITIES: No edema of feet. SKIN: No rash or mass palpable. NEUROLOGICAL: The patient is awake, alert, oriented x3. Mood and affect normal. LABS: Hemoglobin is 13.7, white count 7.6 with a BUN of 9, creatinine 0.65. No OR culture. DIAGNOSTIC IMPRESSION AND PLAN: 1. Patient with secondary peritonitis from distention of the gastrojejunostomy site after balloon dilatation. The likely organism that we need to cover would be the enteric gram-negative and the less likely [place]. 2. Patient did have several allergies seem to be more of a side effect rather than true allergy. PLAN: 1. Discontinue the Levaquin. 2. Start the patient on Unasyn 3 grams q.6 and Diflucan 200 daily. 3. Blood cultures have been obtained. I would repeat if the patient spiking any new fever. 4. Will follow up on the clinical condition and cultures to further adjust the medication if needed. Thank you for this consultation. We will follow this patient along with you. MATEO
[2016-12-10 08:08] LABS: Basophils % (A) 0 %; CH 32.7; CHCM 32.4; Eosinophils # (A) 0.3 k/uL (0-0.7); Eosinophils % (A) 3 %; HCT 35.8 % (34.0-46.0); HDW 2.24; HGB 11.9 gm/dL (11.4-16.0); Luc # (Auto) 0.09; Luc % (Auto) 1; Lymphocytes # (A) 0.4 k/uL (1.0-4.8); Lymphocytes % (A) 3 %; MCH 33.7 pg (25.0-35.0); MCHC 33.2 g/dL (31.0-37.0); MCV 101.5 fL (80.0-100.0); Macrocytosis Slight; Mean Platelet Volume 6.6; Monocytes # (A) 0.4 k/uL (0-1.0); Monocytes % (A) 3 %; Neutrophils # (A) 11.2 k/uL (1.3-7.7); Neutrophils % (A) 90 %; RBC 3.53 m/uL (3.80-5.40); RDW 13.3 % (11.5-15.5); WBC 12.4 k/uL (3.8-10.6); WBC (Perox) 13.23
[2016-12-10 08:22] LABS: ALT 35 U/L (9-52); AST 36 U/L (14-36); Alkaline Phosphatase 58 U/L (38-126); Anion Gap 7 mmol/L; Blood Urea Nitrogen 8 mg/dL (7-17); Calcium 8.2 mg/dL (8.4-10.2); Carbon Dioxide 25 mmol/L (22-30); Chloride 106 mmol/L (98-107); Glucose 103 mg/dL (74-99); Non-African American GFR(MDRD) >60 (>60 ml/min/1.73 sqM); Potassium 3.7 mmol/L (3.5-5.1); Sodium 138 mmol/L (137-145); Total Bilirubin 0.9 mg/dL (0.2-1.3); Total Protein 5.4 g/dL (6.3-8.2)
[2016-12-10] MEDS: ENOXAPARIN 40 MG/0.4 ML SYRINGE SQ SCH (09:02)
[2016-12-10] MEDS: PANTOPRAZOLE 40 MG/10 ML VIAL IV SCH (09:02)
[2016-12-10] MEDS: FLUCONAZOLE IN NACL,ISO-OSM 200 MG in SALINE 1 100ML.BAG IVPB SCH (09:02)
[2016-12-10] MEDS ORDERED: LEVOFLOXACIN 500MG-D5W PMX 500 MG in DEXTROSE/WATER 1 100ML.BAG IVPB SCH (12:00)
[2016-12-10] MEDS ORDERED: NALOXONE 0.4 MG/ML 1 ML VIAL IV PRN (14:16)
[2016-12-10] MEDS: HYDROmorphone PCA 5 MG/25 ML SYRINGE IV PRN ×2 (14:32→21:32)
[2016-12-10] MEDS: LORazepam 2 MG/ML SYRINGE IV PRN ×3 (15:18→23:40)
--- NOTE | 2016-12-10 15:43 | P.PN ---
Subjective Patient is a 46-year-old female, patient of Dr. Mónica Morris in the outpatient setting, with medical history significant for prior gastric bypass surgery. Patient had been having problems with dysphagia with recent esophagram showing evidence of stenosis of her gastrojejunostomy. Patient presented to the hospital on 12/09/2016 for elective EGD with balloon dilatation. During procedure, the gastrojejunostomy stricture perforated. Patient subsequently underwent exploratory laparotomy with lysis of adhesions; partial gastrectomy with excision of gastrojejunostomy; and creation of a new gastric jejunostomy. Patient tolerated procedure well. Patient is evaluated on the surgical unit, where she is postop day #1. Patient is sitting up in a chair complaining of intractable abdominal pain. Patient currently rates pain 10 out of 10. Denies chills, fever, nausea, vomiting, shortness of breath, or chest pain. Patient is very anxious and worried about not getting her anti- anxiety and antidepressant medications. Patient denies flatus or bowel movement. T-max the last 24 hours 99 at 2 AM last night. WBC 12.4. Objective - Vital Signs Vital signs: Vital Signs Temp 98.2 F 12/10/16 07:00 Pulse 80 12/10/16 14:53 Resp 16 12/10/16 14:53 BP 139/81 12/10/16 14:53 Pulse Ox 92 L 12/10/16 14:53 Intake & Output 12/09/16 12/10/16 12/10/16 18:59 06:59 18:59 Intake Total 2100 1700 Output Total 700 900 350 Balance 1400 800 -350 Intake: IV 2100 Intake, IV Titration 1700 Amount Ampicillin-Sulbactam 3 gm 100 In Sodium Chloride 0.9% 100 ml @ 100 mls/hr IVPB Q6HR [facility] Rx#:[id number] Fluconazole in NaCl,Iso- 100 Osm 200 mg In Saline 1 100ml.bag @ 100 mls/hr IVPB DAILY [facility] Rx#: [id number] Lactated Ringers 1,000 ml 1500 @ 150 mls/hr IV .Q6H40M [facility] Rx#:[id number] Output: Urine 600 900 350 Uretheral (Paige) 350 Estimated Blood Loss 100 Other: Voiding Method Indwelling Catheter Indwelling Catheter - Exam GENERAL: Pt awake and alert, sitting up in a chair, appears anxious. LUNGS: Breath sounds clear to auscultation bilaterally. No wheezes, rales, or rhonchi. HEART: Heart S1, S2, no S3 or S4. Regular rate and rhythm. No murmurs, rubs or gallops. ABDOMEN: Soft, incisional tenderness, nondistended, hypoactive bowel sounds. Voluntary guarding. Abdominal incision with old serosanguineous drainage. EXTREMITIES: 2+ peripheral pulses. No edema, clubbing or cyanosis. No calf tenderness. NEUROLOGICAL: Pt oriented x 3. - Labs CBC & Chem 7: 12/10/16 07:33 12/10/16 07:33 Labs: Abnormal Lab Results - Last 24 Hours (Table) 12/09/16 12/10/16 12/10/16 Range/Units 17:39 07:33 07:33 WBC 12.4 H (3.8-10.6) k/uL RBC 3.53 L (3.80-5.40) m/uL MCV 101.5 H (80.0-100.0) fL Neutrophils # 11.2 H (1.3-7.7) k/uL Lymphocytes # 0.4 L (1.0-4.8) k/uL Glucose 115 H 103 H (74-99) mg/dL Calcium 8.2 L (8.4-10.2) mg/dL Total Protein 5.4 L (6.3-8.2) g/dL Albumin 2.8 L (3.5-5.0) g/dL Assessment and Plan Plan: Impression: 1. 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 2. Secondary peritonitis status post balloon dilatation and perforation. 3. Intractable abdominal pain, postoperative. Plan: Continue IV antibiotics per infectious disease consult. Will start patient on a SACK REPAIRER pump for better pain control. Keep patient nothing by mouth. Continue GI and DVT prophylaxis. Continue IV hydration. Continue incentive spirometry 10 times an hour while awake. Consult Dr. Comer for medical management. Repeat CBC and BMP in a.m. The above impression and plan have been discussed and directed by Dr. Vidales. Yarely RAO-Ashlie acting as scribe for Dr. Alvarado.
--- NOTE | 2016-12-10 17:23 | PN ---
DATE OF SERVICE: 12/10/2016 REASON FOR FOLLOWUP: Secondary peritonitis. INTERVAL HISTORY: The patient is afebrile. She seems to be slightly upset and was asking questions about what happened yesterday. The patient, though, denies significant chest pain or cough. Abdominal pain is currently controlled with pain medication. No nausea or vomiting. On examination, blood pressure is 139/81 with a pulse of 80, temperature 98. She is 92% on 3 L nasal cannula. General description is a middle-aged female up in the chair in no distress. RESPIRATORY SYSTEM: Unlabored breathing. Clear to auscultation anteriorly. HEART: S1, S2. Regular rate and rhythm. ABDOMEN: Soft. Mildly tender LABS: Hemoglobin 11.9, white count 12.4. BUN of 8, creatinine 0.64. Cultures so far negative. DIAGNOSTIC IMPRESSION AND PLAN: Patient with secondary peritonitis from disruption of the gastrojejunostomy anastomotic site, currently on Unasyn and Diflucan. That will be continued while waiting for the culture to finalize. Continue supportive care. MTDD
[2016-12-11] MEDS: LACTATED RINGERS 1,000 ML IV SCH ×4 (02:37→19:56)
[2016-12-11] MEDS: LORazepam 2 MG/ML SYRINGE IV PRN ×3 (04:41→18:13)
[2016-12-11] MEDS: KETOROLAC 30 MG/ML 1 ML VIAL IVP SCH ×2 (06:09→12:45)
[2016-12-11] MEDS: AMPICILLIN-SULBACTAM 3 GM in SODIUM CHLORIDE 0.9% 100 ML IVPB SCH ×4 (06:56→23:18)
[2016-12-11 07:28] LABS: Basophils % (A) 0 %; CH 32.6; CHCM 32.2; Eosinophils # (A) 0.5 k/uL (0-0.7); Eosinophils % (A) 6 %; HCT 33.7 % (34.0-46.0); HDW 2.25; Luc % (Auto) 1; Lymphocytes # (A) 0.9 k/uL (1.0-4.8); Lymphocytes % (A) 9 %; MCH 33.3 pg (25.0-35.0); MCHC 32.7 g/dL (31.0-37.0); MCV 101.7 fL (80.0-100.0); Macrocytosis Slight; Mean Platelet Volume 6.5; Monocytes # (A) 0.4 k/uL (0-1.0); Monocytes % (A) 5 %; Neutrophils # (A) 7.4 k/uL (1.3-7.7); Neutrophils % (A) 80 %; RBC 3.31 m/uL (3.80-5.40); RDW 13.2 % (11.5-15.5); WBC 9.4 k/uL (3.8-10.6)
[2016-12-11 07:49] LABS: Anion Gap 7 mmol/L; Blood Urea Nitrogen 8 mg/dL (7-17); Calcium 8.3 mg/dL (8.4-10.2); Carbon Dioxide 24 mmol/L (22-30); Chloride 107 mmol/L (98-107); Glucose 84 mg/dL (74-99); Non-African American GFR(MDRD) >60 (>60 ml/min/1.73 sqM); Potassium 3.8 mmol/L (3.5-5.1); Sodium 138 mmol/L (137-145)
[2016-12-11] MEDS: FLUCONAZOLE IN NACL,ISO-OSM 200 MG in SALINE 1 100ML.BAG IVPB SCH (08:40)
[2016-12-11] MEDS: PANTOPRAZOLE 40 MG/10 ML VIAL IV SCH (08:40)
[2016-12-11] MEDS: ENOXAPARIN 40 MG/0.4 ML SYRINGE SQ SCH (08:40)
[2016-12-11] MEDS: NICOTINE 21MG/24HR PATCH TRANSDERM SCH (10:59)
[2016-12-11] MEDS: HYDROmorphone PCA 5 MG/25 ML SYRINGE IV PRN (12:37)
--- NOTE | 2016-12-11 15:25 | P.CONS ---
History of Present Illness - Reason for Consult Consult date: 12/11/16 Medical management Requesting physician: Dillon Alvarado - Chief Complaint Dysphagia - History of Present Illness This is a 46-year-old female with a known past medical history of hyperlipidemia , GERD, nicotine dependence, previous history of Sadler's esophagus, anxiety and depression. Patient underwent an elective EGD on 12/09/2016 with a balloon dilation. During procedure, the gastrojejunostomy stricture perforated. Patient then underwent exploratory laparotomy with lysis of adhesions, partial gastrectomy with excision of gastrojejunostomy, and creation of new gastrojejunostomy. We have been consulted for medical management. Patient is currently on IV antibiotics to treat the peritonitis due to the perforation. Patient's oxygen saturation drops down to the 80s on room air. On 2 L she setting in the 90s. She denies any cough or shortness of breath. Denies any lung problems. However she is a smoker she smokes about a pack a day. She reports no history of official diagnosis of COPD or obstructive sleep apnea. She denies any chest pain, nausea or vomiting, abdominal pain, urinary symptoms. She is passing gas no bowel movement yet. She is currently nothing by mouth. Scheduled for esophagram tomorrow Review of Systems Please refer to HPI otherwise unremarkable Past Medical History Past Medical History: GERD/Reflux, Hyperlipidemia, Musculoskeletal Disorder, Osteoarthritis (OA) Additional Past Medical History / Comment(s): DDD, SPINAL STENOSIS, HX OF MURMUR , SADLER'S ESOPHAGUS-states "no symptoms shown with last EGD",states "on UGI showed narrowing at the bottom of gastric bypass pouch and still having periods of vomiting". History of Any Multi-Drug Resistant Organisms: None Reported Past Surgical History: Bariatric Surgery, Section, Cholecystectomy, Orthopedic Surgery, Tubal Ligation, Uterine Ablation Additional Past Surgical History / Comment(s): GASTRIC BYPASS, GANGLION CYST REMOVED, LEFT THUMB TRIGGER FINGER, CARPAL TUNNEL ALYSON WRIST, BENIGN CYST REMOVED FROM OVARY RECTUM AND TAILBONE, MULT. D&C,C SECT X2 Past Anesthesia/Blood Transfusion Reactions: Previous Problems w/ Anesthesia Additional Past Anesthesia/Blood Transfusion Reaction / Comm: STATES HYPERVENTILATES WHEN SEES NEEDLES Past Psychological History: Anxiety, Depression Smoking Status: Current every day smoker Past Alcohol Use History: Occasional Additional Past Alcohol Use History / Comment(s): SMOKES 1/2 PPD SINCE AGE 15 ( 1984) Past Drug Use History: None Reported - Past Family History Sister(s) Family Medical History: Cancer Additional Family Medical History / Comment(s): COLON AND RECTAL CA Brother(s) Family Medical History: Cancer Additional Family Medical History / Comment(s): NON-HODGKIN'S LYMPHOMA Mother Family Medical History: Cancer Additional Family Medical History / Comment(s): NON-HODGKIN'S LYMPHOMA Medications and Allergies Home Medications Medication Instructions Recorded Confirmed Type Acetaminophen/Diphenhydramine 1 tab PO HS PRN 08/02/16 12/09/16 History [Tylenol PM 500-25mg] Citalopram Hydrobromide [CeleXA] 60 mg PO DAILY 08/02/16 12/09/16 History Omeprazole 20 mg PO BID 08/02/16 12/09/16 History tiZANidine [Zanaflex] 4 mg PO BID PRN 08/02/16 12/09/16 History Atorvastatin [Lipitor] 10 mg PO DAILY 10/23/16 12/09/16 History Diclofenac Potassium [Cataflam] 50 mg PO TID PRN 10/23/16 12/09/16 History Estradiol [Estrace Cream] 1 applicator VAGINAL DAILY PRN 10/23/16 12/09/16 History Gabapentin [Neurontin] 300 mg PO HS 10/23/16 12/09/16 History LORazepam [Lorazepam] 0.5 mg PO BID 10/23/16 12/09/16 History Metoclopramide [Reglan] 15 mg PO TID 10/23/16 12/09/16 History Ranitidine HCl [Zantac] 300 mg PO BID PRN 10/23/16 12/09/16 History Sulfamethox-Tmp 400-80Mg [Bactrim 1 tab PO DAILY 10/23/16 12/09/16 History SS 400-80 mg] Acetaminophen-Codeine 300-30mg 1 tab PO DAILY PRN 12/03/16 12/09/16 History [Tylenol #3] QUEtiapine FUMARATE [SEROquel] 300 mg PO HS 12/03/16 12/09/16 History Allergies Allergy/AdvReac Type Severity Reaction Status Date / Time Cephalosporins Allergy RECTAL Verified 12/09/16 18:27 BLEEDING famotidine [From Pepcid] Allergy Confusion Verified 12/09/16 18:27 Physical Exam Vitals: Vital Signs Temp Pulse Pulse Resp BP Pulse Ox 12/11/16 15:00 98.0 F 83 16 111/68 94 L 12/11/16 14:16 95 12/11/16 08:00 85 89 16 12/11/16 07:00 98.8 F 89 16 123/73 90 L 12/11/16 02:32 98.3 F 84 16 105/58 94 L Intake and Output 12/11/16 12/11/16 12/11/16 06:59 14:59 22:59 Intake Total 1700 Output Total 950 400 Balance 750 -400 Intake: Intake, IV Titration 1700 Amount Ampicillin-Sulbactam 3 gm 200 In Sodium Chloride 0.9% 100 ml @ 100 mls/hr IVPB Q6HR [facility] Rx#:[id number] Lactated Ringers 1,000 ml 1500 @ 150 mls/hr IV .Q6H40M [facility] Rx#:[id number] Output: Urine 950 400 Other: Voiding Method Toilet # Voids 3 Head normocephalic Neck supple Lungs diminished Heart regular rate and rhythm S1-S2, no rub or gallop Abdomen is soft and abdominal binder in place area tender incision site Extremities no edema Neuro alert and orientated to 3 Results CBC & Chem 7: 12/11/16 07:05 12/11/16 07:05 Labs: Abnormal Lab Results - Last 24 Hours (Table) 12/11/16 12/11/16 Range/Units 07:05 07:05 RBC 3.31 L (3.80-5.40) m/uL Hgb 11.0 L (11.4-16.0) gm/dL Hct 33.7 L (34.0-46.0) % MCV 101.7 H (80.0-100.0) fL Lymphocytes # 0.9 L (1.0-4.8) k/uL Calcium 8.3 L (8.4-10.2) mg/dL Microbiology - Last 24 Hours (Table) 12/09/16 18:11 Blood Culture - Preliminary Blood No Growth after 24 hours 12/09/16 17:39 Blood Culture - Preliminary Blood No Growth after 24 hours Assessment and Plan Plan: 1. Gastrojejunostomy stricture status post EGD with perforation after balloon dilation requiring lysis of adhesions, partial gastrectomy with excision of gastrojejunostomy and creation of new gastrojejunostomy. Patient scheduled for esophagram on Thursday. She is currently nothing by mouth 2. Peritonitis secondary to gastrojejunostomy perforation: Continue with antibiotics per infectious disease. White count improved. Blood cultures negative so far 3. Hypoxia with oxygen saturation at in the 80s on room air. Check chest x- ray add nebulizer treatments. Continue incentive spirometer 4. GERD continue with IV Protonix 5. Nicotine dependence: Start nicotine patch 6. Generalized anxiety disorder and depression home medications currently on hold due to nothing by mouth status. Agree with Ativan IV as needed GI prophylaxis Protonix and DVT prophylaxis Lovenox Thank you for this consultation. We will continue to follow along with you Time with Patient: Greater than 30 (Greater than 50% of the total time spent in counseling and coordination of care. I performed an examination of the patient and discussed their management with the physician Dental Hygienist. I have reviewed the Physician Dental Hygienist's notes and agree with the documented findings and plan of care)
[2016-12-11] MEDS: IPRATROPIUM-ALBUTEROL 3 ML NEB INHALATION SCH ×2 (15:57→20:22)
--- NOTE | 2016-12-11 16:08 | XR ---
EXAMINATION TYPE: XR chest 2V DATE OF EXAM: 12/11/2016 4:02 PM COMPARISON: NONE HISTORY: hypoxia TECHNIQUE: Frontal and lateral views of the chest are obtained. FINDINGS: Basilar atelectasis and small effusions. Developing infiltrate difficult to exclude. No evidence for pneumothorax. The cardiac silhouette size is within normal limits. The osseous structures are grossly intact. IMPRESSION: 1. Basilar atelectasis and small effusions. Developing infiltrate difficult to exclude.
--- NOTE | 2016-12-11 17:31 | P.PN ---
Subjective Patient is a 46-year-old female, patient of Dr. Mónica Morris in the outpatient setting, with medical history significant for prior gastric bypass surgery. Patient had been having problems with dysphagia with recent esophagram showing evidence of stenosis of her gastrojejunostomy. Patient presented to the hospital on 12/09/2016 for elective EGD with balloon dilatation. During procedure, the gastrojejunostomy stricture perforated. Patient subsequently underwent exploratory laparotomy with lysis of adhesions; partial gastrectomy with excision of gastrojejunostomy; and creation of a new gastric jejunostomy. Patient tolerated procedure well. Patient is evaluated on the surgical unit, where she is postop day #2. Patient reports improvement in abdominal pain since yesterday. Denies chills, fever, nausea, vomiting, shortness of breath, or chest pain. Patient reports flatus without bowel movement. Afebrile. WBC 9.4. Hemoglobin stable at 11. Objective - Vital Signs Vital signs: Vital Signs Temp 98.0 F 12/11/16 15:00 Pulse 89 12/11/16 16:00 Resp 16 12/11/16 16:00 BP 111/68 12/11/16 15:00 Pulse Ox 94 L 12/11/16 15:00 Intake & Output 12/10/16 12/11/16 12/11/16 18:59 06:59 18:59 Intake Total 900 1700 240 Output Total 581 564 2958 Balance 550 750 -960 Intake: IV 900 Lactated Ringers 1,000 ml 900 @ 150 mls/hr IV .Q6H40M [facility] Rx#:[id number] Intake, IV Titration 1700 Amount Ampicillin-Sulbactam 3 gm 200 In Sodium Chloride 0.9% 100 ml @ 100 mls/hr IVPB Q6HR [facility] Rx#:[id number] Lactated Ringers 1,000 ml 1500 @ 150 mls/hr IV .Q6H40M [facility] Rx#:[id number] Oral 240 Output: Urine 161 811 1824 Uretheral (Paige) 350 Other: Voiding Method Indwelling Catheter Toilet # Voids 3 - Exam GENERAL: Pt awake and alert, lying in bed, in no apparent distress. LUNGS: Breath sounds clear to auscultation bilaterally. No wheezes, rales, or rhonchi. HEART: Heart S1, S2, no S3 or S4. Regular rate and rhythm. No murmurs, rubs or gallops. ABDOMEN: Soft, incisional tenderness, nondistended, hypoactive bowel sounds. No peritoneal signs. Abdominal incision with old serosanguineous drainage. NEUROLOGICAL: Pt oriented x 3. - Labs CBC & Chem 7: 12/11/16 07:05 12/11/16 07:05 Labs: Abnormal Lab Results - Last 24 Hours (Table) 12/11/16 12/11/16 Range/Units 07:05 07:05 RBC 3.31 L (3.80-5.40) m/uL Hgb 11.0 L (11.4-16.0) gm/dL Hct 33.7 L (34.0-46.0) % MCV 101.7 H (80.0-100.0) fL Lymphocytes # 0.9 L (1.0-4.8) k/uL Calcium 8.3 L (8.4-10.2) mg/dL Microbiology - Last 24 Hours (Table) 12/09/16 18:11 Blood Culture - Preliminary Blood No Growth after 24 hours 12/09/16 17:39 Blood Culture - Preliminary Blood No Growth after 24 hours Assessment and Plan Plan: Impression: 1. Gastro-jejunostomy stricture status post EGD with perforation after balloon dilatation status post lysis of adhesions; partial gastrectomy with excision of gastrojejunostomy; and creation of new gastrojejunostomy on 12/10/2016 on 2016. 2. Secondary peritonitis status post balloon dilatation and perforation. Plan: Continue IV antibiotics per infectious disease consult. Keep patient nothing by mouth. Continue GI and DVT prophylaxis. Continue IV hydration. Continue incentive spirometry 10 times an hour while awake. Patient will undergo esophagram tomorrow. Continue to follow with medical service. Repeat CBC and BMP in a.m. The above impression and plan have been discussed and directed by Dr. Vidales. Yarely MALONE acting as scribe for Dr. Alvarado.
[2016-12-12] MEDS: LORazepam 2 MG/ML SYRINGE IV PRN ×3 (03:33→12:15)
[2016-12-12] MEDS: LACTATED RINGERS 1,000 ML IV SCH ×3 (05:17→17:48)
[2016-12-12] MEDS: AMPICILLIN-SULBACTAM 3 GM in SODIUM CHLORIDE 0.9% 100 ML IVPB SCH ×3 (05:18→17:46)
[2016-12-12 07:27] LABS: ALT 27 U/L (9-52); AST 21 U/L (14-36); Alkaline Phosphatase 56 U/L (38-126); Anion Gap 11 mmol/L; Blood Urea Nitrogen 8 mg/dL (7-17); Calcium 8.2 mg/dL (8.4-10.2); Carbon Dioxide 20 mmol/L (22-30); Chloride 107 mmol/L (98-107); Glucose 69 mg/dL (74-99); Non-African American GFR(MDRD) >60 (>60 ml/min/1.73 sqM); Potassium 3.4 mmol/L (3.5-5.1); Sodium 138 mmol/L (137-145); Total Bilirubin 0.9 mg/dL (0.2-1.3); Total Protein 5.5 g/dL (6.3-8.2)
[2016-12-12 07:28] LABS: Basophils % (A) 0 %; CH 33.2; Eosinophils # (A) 0.9 k/uL (0-0.7); Eosinophils % (A) 10 %; HDW 2.41; HGB 11.1 gm/dL (11.4-16.0); Luc # (Auto) 0.13; Luc % (Auto) 1; Lymphocytes % (A) 11 %; MCH 33.1 pg (25.0-35.0); MCHC 33.7 g/dL (31.0-37.0); MCV 98.1 fL (80.0-100.0); Mean Platelet Volume 6.5; Monocytes # (A) 0.3 k/uL (0-1.0); Monocytes % (A) 4 %; Neutrophils # (A) 6.8 k/uL (1.3-7.7); Neutrophils % (A) 74 %; RBC 3.36 m/uL (3.80-5.40); RDW 13.1 % (11.5-15.5); WBC 9.2 k/uL (3.8-10.6); WBC (Perox) 9.69
[2016-12-12] MEDS: IPRATROPIUM-ALBUTEROL 3 ML NEB INHALATION SCH ×4 (07:46→21:04)
--- NOTE | 2016-12-12 08:37 | PN ---
DATE OF SERVICE: 12/11/2016 Reason for followup is secondary peritonitis with gastrojejunostomy site perforation. INTERVAL HISTORY: The patient is afebrile. The patient's pain is currently controlled with Dilaudid. No nausea or vomiting has been noticed or any significant diarrhea. On examination, blood pressure is 142/78 with the pulse of 77, temperature 98. She is 96% on 2 L nasal cannula. General description is a middle-age female lying in bed in no distress. RESPIRATORY SYSTEM: Unlabored breathing. Clear to auscultation anteriorly. HEART: S1, S2. Regular rate and rhythm. ABDOMEN: Soft. LABS: Hemoglobin is 11, white count 9.4, BUN of 8, creatinine 0.62. Blood culture so far negative. DIAGNOSTIC IMPRESSION AND PLAN: Patient with secondary peritonitis from a gastrojejunostomy perforation Patient's white count has normalized. The patient is continued on Unasyn and Diflucan. Cultures so far are negative. Once oral intake is improved and the patient continues to improve, hopefully finish therapy with oral antibiotics. Continue supportive care. MATEO
[2016-12-12] MEDS ORDERED: Potassium Replacement Protocol 1 EACH MISC MISCELLANE PRN (08:51)
[2016-12-12] MEDS: FLUCONAZOLE IN NACL,ISO-OSM 200 MG in SALINE 1 100ML.BAG IVPB SCH (09:21)
[2016-12-12] MEDS: ENOXAPARIN 40 MG/0.4 ML SYRINGE SQ SCH (09:21)
[2016-12-12] MEDS: PANTOPRAZOLE 40 MG/10 ML VIAL IV SCH (09:22)
[2016-12-12] MEDS: NICOTINE 21MG/24HR PATCH TRANSDERM SCH (09:22)
[2016-12-12] MEDS: HYDROmorphone PCA 5 MG/25 ML SYRINGE IV PRN (10:22)
--- NOTE | 2016-12-12 10:22 | FL ---
EXAMINATION TYPE: FL UGI air w esophagus DATE OF EXAM: 12/12/2016 9:11 AM COMPARISON: 28 Nov 2016 HISTORY: post instrumentation, perforation TECHNIQUE: Limited exam for evaluation at surgical site, gastroesophageal junction FINDINGS: Bibasilar increased density is present, there is blunting of the costophrenic angles. Posto p changes noted to the abdomen. Following contrast ingestion postop changes are noted at the level of the stomach, gastroesophageal j unction. There is no extravasation of contrast evident. No obstruction to flow. Retained contrast is present within the colon from previous exam. IMPRESSION: No evident complication status post esophageal dilation and repair.
[2016-12-12] MEDS: POTASSIUM CHLORIDE 10 MEQ, LIDOCAINE 2% INJ 10 MG in SODIUM CHLORIDE 0.9% 100 ML IV SCH ×2 (11:54→13:25)
--- NOTE | 2016-12-12 12:04 | CDI ---
In responding to this query, please exercise your independent professional judgment. The [facility] Coding Staff and Clinical Documentation Specialists appreciate your assistance in clarifying documentation, maintaining compliance with coding guidelines, accurately documenting patients condition and capturing severity of illness. The fact that a question is asked does not imply that any particular answer is desired or expected. Communication forms are a method of clarifying documentation and are not made part of the Legal Health Record. Thank you in advance for your clarification. Last Revision, Aug 2016 Artur Mehta [address] [place] [address] Documentation Clarification Form Date: 12/12/2016 11:37:00 AM From: Coleenmichele Jansen Admit Date: 12/09/2016 3:08:00 PM Patient Name: Lary Dent Visit Number: [id number] Discharge Date: Dr. Dillon Alvarado Gastrojejunostomy stricture with perforation is documented in the Operative report and progress notes. Patients Admitting Diagnosis: Gastro-jejunostomy stricture Post-Operative Diagnosis: Gastrojejunostomy stricture with anastomotic disruption after balloon dilation Procedure performed: EGD with balloon dilation, Partial gastrectomy with excision of gastrojejunostomy, Creation of new gastrojejunostomy, Lysis of adhesions History/Risk Factors: Gastric bypass, Dysphagia, current every day smoker, Clinical Indicators: Dysphagia. with recent esophagram showing evidence of stenosis of her gastrojejunostomy. Treatment: EGD with balloon dilation, Partial gastrectomy with excision of gastrojejunostomy, Creation of new gastrojejunostomy, Lysis of adhesions Unasyn IV Dilaudid [employer] IV Fluids Zofran IV PRN In order to accurately reflect this patients severity of illness, please clarify if the post-operative diagnosis is: An expected post-procedural or post-surgical condition Integral to the procedure Inherent to the procedure An unexpected post-procedural or post-surgical condition, related to surgical care, or related to patient comorbidities (specify) Other, please specify Unable to determine Please document in your progress notes and discharge summary in order to capture severity of illness and risk of mortality. Include clinical findings that support your diagnosis. FYI: Press F11 to launch patient chart Place X here if this finding has no clinical significance, is not applicable or if you are not able to provide any additional documentation. MTDD
[2016-12-12] MEDS ORDERED: FAMOTIDINE 20 MG TAB PO PRN (12:50)
--- NOTE | 2016-12-12 12:56 | P.PN ---
Subjective this is a 46-year-old female with a known past medical history of hyperlipidemia , GERD, nicotine dependence, previous history of Anna's esophagus, anxiety and depression. Patient underwent an elective EGD on 12/09/2016 with a balloon dilation. During procedure, the gastrojejunostomy stricture perforated. Patient then underwent exploratory laparotomy with lysis of adhesions, partial gastrectomy with excision of gastrojejunostomy, and creation of new gastrojejunostomy. We have been consulted for medical management. Patient is currently on IV antibiotics to treat the peritonitis due to the perforation. Patient's oxygen saturation drops down to the 80s on room air. On 2 L she setting in the 90s. Chest x-ray showed evidence of atelectasis. She was started on nebulizer treatments and the incident extremities are yesterday. Oxygen saturation saturations been in the mid 90s on 2 L. Patient's underwent the esophagram today and has been started on a bariatric clear liquid diet. Therefore we will proceed with restarting her home medications. After the esophagram patient reported to nursing staff that she was having chest pain in the center of her chest that went up into her jaw. EKG was performed and showing a normal sinus rhythm. Patient has no cardiac history. Symptoms resolved on their own. At this time patient is reporting no chest pain, shortness of breath, nausea or vomiting. She is passing gas no bowel movement yet. No difficulty urinating. Objective - Vital Signs Vital signs: Vital Signs Temp 97.8 F 12/12/16 07:00 Pulse 83 12/12/16 11:26 Resp 14 12/12/16 07:58 BP 126/73 12/12/16 07:00 Pulse Ox 96 12/12/16 07:49 Intake & Output 12/11/16 12/12/16 12/12/16 18:59 06:59 18:59 Intake Total 240 Output Total 1200 600 400 Balance -960 -600 -400 Intake: Oral 240 Output: Urine 1200 600 400 Other: Voiding Method Toilet # Voids 3 - Exam Head normocephalic Neck supple Lungs diminished at bases Heart regular rate and rhythm S1-S2, no rub or gallop Abdomen is soft and abdominal binder in place positive bowel sounds Extremities no edema Neuro alert and orientated to 3 - Labs CBC & Chem 7: 12/12/16 06:50 12/12/16 06:47 Labs: Abnormal Lab Results - Last 24 Hours (Table) 12/12/16 12/12/16 Range/Units 06:47 06:50 RBC 3.36 L (3.80-5.40) m/uL Hgb 11.1 L (11.4-16.0) gm/dL Hct 33.0 L (34.0-46.0) % Eosinophils # 0.9 H (0-0.7) k/uL Potassium 3.4 L (3.5-5.1) mmol/L Carbon Dioxide 20 L (22-30) mmol/L Glucose 69 L (74-99) mg/dL Calcium 8.2 L (8.4-10.2) mg/dL Total Protein 5.5 L (6.3-8.2) g/dL Albumin 2.8 L (3.5-5.0) g/dL Microbiology - Last 24 Hours (Table) 12/09/16 18:11 Blood Culture - Preliminary Blood No Growth after 48 hours 12/09/16 17:39 Blood Culture - Preliminary Blood No Growth after 48 hours Assessment and Plan Plan: 1. Gastrojejunostomy stricture status post EGD with perforation after balloon dilation requiring lysis of adhesions, partial gastrectomy with excision of gastrojejunostomy and creation of new gastrojejunostomy. Patient completed esophagram has been started on a bariatric clear liquid diet per surgery 2. Peritonitis secondary to gastrojejunostomy perforation: Continue with antibiotics per infectious disease. White count improved. Blood cultures negative so far 3. Hypoxia with oxygen saturation at in the 80s on room air. Likely secondary to atelectasis. Encourage incentive spirometry use. Chest x-ray showed evidence of atelectasis by basilar and small effusion. 4. GERD continue with IV Protonix 5. Nicotine dependence: Start nicotine patch 6. Generalized anxiety disorder and depression: Resume patient's home medications Medications have been reviewed. Home medications have been restarted. We'll leave the Reglan surgery to restart GI prophylaxis Protonix and DVT prophylaxis Lovenox
--- NOTE | 2016-12-12 15:40 | P.PN ---
Subjective Patient is a 46-year-old female, patient of Dr. Mónica Morris in the outpatient setting, with medical history significant for prior gastric bypass surgery. Patient had been having problems with dysphagia with recent esophagram showing evidence of stenosis of her gastrojejunostomy. Patient presented to the hospital on 12/09/2016 for elective EGD with balloon dilatation. During procedure, the gastrojejunostomy stricture perforated. Patient subsequently underwent exploratory laparotomy with lysis of adhesions; partial gastrectomy with excision of gastrojejunostomy; and creation of a new gastric jejunostomy. Patient tolerated procedure well. Patient is evaluated on the surgical unit, where she is postop day #3. Patient reports improvement in abdominal pain since yesterday. Denies chills, fever, nausea, vomiting, shortness of breath, or chest pain. Patient reports flatus without bowel movement. Esophagram with no evidence of leak or obstruction. Afebrile. WBC 9.2. Hemoglobin stable at 11.1. Objective - Vital Signs Vital signs: Vital Signs Temp 97.8 F 12/12/16 15:00 Pulse 88 12/12/16 15:00 Resp 16 12/12/16 15:00 BP 131/75 12/12/16 15:00 Pulse Ox 96 12/12/16 15:00 Intake & Output 12/11/16 12/12/16 12/12/16 18:59 06:59 18:59 Intake Total 240 Output Total 1200 600 400 Balance -960 -600 -400 Weight 59.421 kg Intake: Oral 240 Output: Urine 1200 600 400 Other: Voiding Method Toilet # Voids 3 2 - Exam GENERAL: Pt awake and alert, lying in bed, in no apparent distress. LUNGS: Breath sounds clear to auscultation bilaterally. No wheezes, rales, or rhonchi. HEART: Heart S1, S2, no S3 or S4. Regular rate and rhythm. No murmurs, rubs or gallops. ABDOMEN: Soft, incisional tenderness, nondistended, active bowel sounds. No peritoneal signs. Abdominal incision with old serosanguineous drainage. NEUROLOGICAL: Pt oriented x 3. - Labs CBC & Chem 7: 12/12/16 06:50 12/12/16 06:47 Labs: Abnormal Lab Results - Last 24 Hours (Table) 12/12/16 12/12/16 Range/Units 06:47 06:50 RBC 3.36 L (3.80-5.40) m/uL Hgb 11.1 L (11.4-16.0) gm/dL Hct 33.0 L (34.0-46.0) % Eosinophils # 0.9 H (0-0.7) k/uL Potassium 3.4 L (3.5-5.1) mmol/L Carbon Dioxide 20 L (22-30) mmol/L Glucose 69 L (74-99) mg/dL Calcium 8.2 L (8.4-10.2) mg/dL Total Protein 5.5 L (6.3-8.2) g/dL Albumin 2.8 L (3.5-5.0) g/dL Microbiology - Last 24 Hours (Table) 12/09/16 18:11 Blood Culture - Preliminary Blood No Growth after 48 hours 12/09/16 17:39 Blood Culture - Preliminary Blood No Growth after 48 hours Assessment and Plan Plan: Impression: 1. Gastro-jejunostomy stricture status post EGD with perforation after balloon dilatation status post lysis of adhesions; partial gastrectomy with excision of gastrojejunostomy; and creation of new gastrojejunostomy on 12/10/2016 on 2016. 2. Secondary peritonitis status post balloon dilatation and perforation. Plan: Continue IV antibiotics per infectious disease consult. Start patient on clear liquid diet. Continue GI and DVT prophylaxis. Continue IV hydration. Continue incentive spirometry 10 times an hour while awake. Continue to follow with medical service. Repeat CBC and BMP in a.m. The above impression and plan have been discussed and directed by Dr. Vidales. Yarely MALONE acting as scribe for Dr. Alvarado.
[2016-12-12] MEDS: PANTOPRAZOLE 40 MG TABLET PO SCH (17:47)
[2016-12-12] MEDS ORDERED: OLANZapine 2.5 MG TAB PO SCH (21:00)
[2016-12-12] MEDS ORDERED: GABAPENTIN 300 MG CAP PO SCH (21:00)
[2016-12-12] MEDS: LORazepam 0.5 MG TAB PO SCH (21:19)
[2016-12-12 21:40] VITALS: RESP 14
--- NOTE | 2016-12-12 22:32 | PN ---
DATE OF SERVICE: 12/12/2016 REASON FOR FOLLOWUP: Secondary peritonitis from disruption of the gastrojejunostomy anastomosis. INTERVAL HISTORY: The patient is afebrile. Her pain is currently controlled. Denies significant nausea. No vomiting. The patient denies having any diarrhea or chest pain. On examination, blood pressure 154/80 with a pulse of 84, temperature 97.8. She is 98% on room air. General description is a middle-aged female up in the bed in no distress. RESPIRATORY SYSTEM: Unlabored breathing. Clear to auscultation anteriorly. HEART: S1, S2. Regular rate and rhythm. ABDOMEN: Soft. No tenderness. LABS: Hemoglobin is 11.1, white count 9.2 with a BUN of 8, creatinine 0.67. Blood culture has been negative so far. The patient did have an upper GI series with no evidence of any leakage. DIAGNOSTIC IMPRESSION AND PLAN: Patient with secondary peritonitis from disruption of the gastrojejunostomy perforation. So far the patient seems to be responding to Unasyn. That will be continued. Once her oral intake has improved and ready to be discharged, she will be switched to oral antibiotic therapy. Family present at the bedside. Their questions were answered. MATEO
[2016-12-13] MEDS: AMPICILLIN-SULBACTAM 3 GM in SODIUM CHLORIDE 0.9% 100 ML IVPB SCH ×2 (00:36→05:56)
[2016-12-13] MEDS: HYDROmorphone PCA 5 MG/25 ML SYRINGE IV PRN (00:36)
[2016-12-13] MEDS: LACTATED RINGERS 1,000 ML IV SCH (05:56)
[2016-12-13 07:01] VITALS: BP 152/84; TEMP 98.1
[2016-12-13 07:24] LABS: Basophils % (A) 0 %; CH 33.4; CHCM 34.2; Eosinophils # (A) 1.1 k/uL (0-0.7); Eosinophils % (A) 15 %; HCT 36.3 % (34.0-46.0); HDW 2.45; HGB 12.1 gm/dL (11.4-16.0); Luc # (Auto) 0.14; Luc % (Auto) 2; Lymphocytes # (A) 1.3 k/uL (1.0-4.8); Lymphocytes % (A) 17 %; MCH 32.7 pg (25.0-35.0); MCHC 33.3 g/dL (31.0-37.0); MCV 98.1 fL (80.0-100.0); Mean Platelet Volume 6.4; Monocytes # (A) 0.4 k/uL (0-1.0); Monocytes % (A) 6 %; Neutrophils # (A) 4.4 k/uL (1.3-7.7); Neutrophils % (A) 60 %; RDW 13.3 % (11.5-15.5); WBC 7.4 k/uL (3.8-10.6); WBC (Perox) 7.29
[2016-12-13 07:41] LABS: ALT 22 U/L (9-52); AST 16 U/L (14-36); Alkaline Phosphatase 64 U/L (38-126); Anion Gap 10 mmol/L; Blood Urea Nitrogen 4 mg/dL (7-17); Calcium 8.6 mg/dL (8.4-10.2); Carbon Dioxide 24 mmol/L (22-30); Chloride 106 mmol/L (98-107); Glucose 89 mg/dL (74-99); Non-African American GFR(MDRD) >60 (>60 ml/min/1.73 sqM); Potassium 3.4 mmol/L (3.5-5.1); Sodium 140 mmol/L (137-145); Total Bilirubin 0.8 mg/dL (0.2-1.3)
[2016-12-13] MEDS: PANTOPRAZOLE 40 MG TABLET PO SCH (07:55)
[2016-12-13] MEDS: NICOTINE 21MG/24HR PATCH TRANSDERM SCH (07:55)
[2016-12-13] MEDS: ENOXAPARIN 40 MG/0.4 ML SYRINGE SQ SCH (07:55)
[2016-12-13] MEDS: IPRATROPIUM-ALBUTEROL 3 ML NEB INHALATION SCH (07:57)
[2016-12-13] MEDS: LORazepam 0.5 MG TAB PO SCH (07:59)
[2016-12-13] MEDS: FLUCONAZOLE IN NACL,ISO-OSM 200 MG in SALINE 1 100ML.BAG IVPB SCH (07:59)
[2016-12-13] MEDS ORDERED: ATORVASTATIN 10 MG TAB PO SCH (09:00)
[2016-12-13 09:31] VITALS: PULSE 73
[2016-12-13] MEDS: POTASSIUM CHLORIDE ER 20 MEQ TAB.ER PO SCH ×2 (09:48→10:37)
[2016-12-13] MEDS ORDERED: HYDROcodone/APAP 7.5-325MG 1 EACH TAB PO PRN (10:14)
--- NOTE | 2016-12-13 10:26 | P.DS ---
Providers Date of admission: 12/09/16 15:08 Expected date of discharge: 12/13/16 Attending physician: Dillon Alvarado Consults: 12/09/16 14:35 Consult Physician Routine Consulting Provider: Aurora Comer Consult Reason/Comments: Medical management Do you want consulting provider notified?: Yes Consult Physician Routine Consulting Provider: Marlin Conde Consult Reason/Comments: Antibiotic coverage, sepsis Do you want consulting provider notified?: Yes Primary care physician: Mónica Morris Hospital Course: This a 46-year-old female who underwent repair of gastrojejunostomy after balloon dilatation of gastrojejunostomy. The patient was found to have disruption of her gastrojejunostomy.. Patient did well postoperative. Please see hospital chart for details. Procedures: Gastrojejunostomy Patient Condition at Discharge: Good Plan - Discharge Summary New Discharge Prescriptions: Docusate [Colace] 100 mg PO BID #20 capsule HYDROcodone/APAP 7.5-325MG [[place] 7.5] 1 each PO Q4H PRN #60 tab PRN Reason: Pain Discharge Medication List Acetaminophen/Diphenhydramine [Tylenol PM 500-25mg] 1 tab PO HS PRN 08/02/16 [ History] Omeprazole 20 mg PO BID 08/02/16 [History] tiZANidine [Zanaflex] 4 mg PO BID PRN 08/02/16 [History] Atorvastatin [Lipitor] 10 mg PO DAILY 10/23/16 [History] Diclofenac Potassium [Cataflam] 50 mg PO TID PRN 10/23/16 [History] Estradiol [Estrace Cream] 1 applicator VAGINAL DAILY PRN 10/23/16 [History] Gabapentin [Neurontin] 300 mg PO HS 10/23/16 [History] LORazepam [Lorazepam] 0.5 mg PO BID 10/23/16 [History] Metoclopramide [Reglan] 15 mg PO TID 10/23/16 [History] Ranitidine HCl [Zantac] 300 mg PO BID PRN 10/23/16 [History] Hydrocodone/Acetaminophen [[place] 5-325 mg Tablet] 1 tab PO TID 12/12/16 [ History] OLANZapine [ZyPREXA] 1 tab PO HS 12/12/16 [History] Docusate [Colace] 100 mg PO BID #20 capsule 12/13/16 [Rx] HYDROcodone/APAP 7.5-325MG [[place] 7.5] 1 each PO Q4H PRN #60 tab 12/13/16 [Rx] Follow up Appointment(s)/Referral(s): Dillon Avlarado MD [STAFF PHYSICIAN] - 1 Week (FOLLOW UP WITH DR ALVARADO Thursday12-18-2016) Activity/Diet/Wound Care/Special Instructions: Full liquid diet
== END 2016-12-13 11:41 | disposition home or self-care (01) | DRG 326 ==
LOC: ORWHC2ENDO 10:49 → 3SUR 15:08
PROVIDERS: ADMIT Surgery; ATTEND Surgery
PROC: 0D7A8ZZ Dilation of Jejunum, Via Natural or Artificial Opening Endoscopic (ICD-10-PCS; principal; 2016-12-09 09:15)
PROC: 0DB60ZZ Excision of Stomach, Open Approach (ICD-10-PCS; principal; 2016-12-09 09:15)
PROC: 0D768ZZ Dilation of Stomach, Via Natural or Artificial Opening Endoscopic (ICD-10-PCS; principal; 2016-12-09 09:15)
PROC: 0D160ZA Bypass Stomach to Jejunum, Open Approach (ICD-10-PCS; principal; 2016-12-09 09:15)
DX: K95.89 Other complications of other bariatric procedure (principal); K65.9 Peritonitis, unspecified; J98.11 Atelectasis; E78.5 Hyperlipidemia, unspecified; K94.23 Gastrostomy malfunction; Y83.2 Surgical operation with anastomosis, bypass or graft as the cause of abnormal reaction of the patient, or of later complication, without mention of misadventure at the time of the procedure; F17.210 Nicotine dependence, cigarettes, uncomplicated; K21.9 Gastro-esophageal reflux disease without esophagitis; K22.70 Barrett's esophagus without dysplasia; R13.10 Dysphagia, unspecified; Z79.899 Other long term (current) drug therapy; Z80.0 Family history of malignant neoplasm of digestive organs; Z88.1 Allergy status to other antibiotic agents
CPT/HCPCS: 44799; 71020; 74246; 80048; 80053; 84132; 85025; 87040; 88307; 93005; 94640; 94760; 94762

== ENCOUNTER → 2017-01-23 | Outpatient (CLI) | payer OTHER ==
--- NOTE | 2017-01-26 07:17 | MR ---
EXAMINATION TYPE: MR lumbar spine wo con DATE OF EXAM: 01/23/2017 COMPARISON: Report of 05/23/2016. Images were not available from thumb MRI. HISTORY: lumbago, lower back pain radiating to legs TECHNIQUE: T1 and T2 axial and sagittal images of the lumbar spine are submitted. FINDINGS: There is no abnormal signal seen within the visualized spinal cord or paraspinal soft tissu es. At L1-2 there is no disc herniation, canal stenosis, or foraminal encroachment. At L2-3 there is no disc herniation, canal stenosis, or foraminal encroachment. At L3-4 there is moderate degenerative disc disease. Significant facet arthropathy noted with mild li gamentum flavum atrophy. Mild circumferential disc bulging greater laterally to left with mild bilate ral foraminal encroachment greater on the left. Borderline central stenosis. At L4-5 there is mild degenerative change. Mild circumferential disc bulging and facet arthropathy. N o Canal stenosis. Mild bilateral foraminal encroachment which appears greater on the left on today's exam secondary to greater lateral disc bulging to the left.. At L5-S1 there is degenerative disc disease with central disc broad-based protrusion with annular tea r. There is posterior extrusion of the disc extending along the posterior margin of the superior aspe ct of S1 measuring 1.7 cm. Mild bilateral foraminal encroachment. No Canal stenosis.. There is mild e ffacement of thecal sac anteriorly. Neural foramina patent. IMPRESSION: 1. Annular tear with central disc protrusion L5-S1. There is extrusion along the posterior superior m argin of S1 measuring 1.7 mm and previously measuring 2.8 mm. 2. Degenerative disc changes at levels L3-S1. 3. Disc bulging and hypertrophic changes L5-S1 greater laterally to left with mild bilateral foramina l encroachment greater on the left and borderline canal stenosis
== END | disposition home or self-care (01) ==
LOC: RADMRIMAIN 08:45
PROVIDERS: ATTEND Nurse Practitioner Acute Care
DX: M51.27 Other intervertebral disc displacement, lumbosacral region (principal); M48.07 Spinal stenosis, lumbosacral region; M51.37 Other intervertebral disc degeneration, lumbosacral region
CPT/HCPCS: 72148

== ENCOUNTER → 2017-02-13 | Outpatient (CLI) | payer OTHER ==
[2017-02-13 11:01] LABS: EKG EKG PERFORMED
[2017-02-13 11:20] LABS: Basophils # (A) 0.1 k/uL (0-0.2); Basophils % (A) 1 %; CH 31.8; Eosinophils # (A) 0.5 k/uL (0-0.7); Eosinophils % (A) 4 %; HCT 37.9 % (34.0-46.0); HDW 2.38; HGB 12.4 gm/dL (11.4-16.0); Luc # (Auto) 0.21; Luc % (Auto) 2; Lymphocytes # (A) 4.2 k/uL (1.0-4.8); Lymphocytes % (A) 31 %; MCH 32.7 pg (25.0-35.0); MCHC 32.7 g/dL (31.0-37.0); MCV 99.9 fL (80.0-100.0); Macrocytosis Slight; Mean Platelet Volume 6.4; Monocytes # (A) 0.5 k/uL (0-1.0); Monocytes % (A) 4 %; Neutrophils # (A) 8.1 k/uL (1.3-7.7); Neutrophils % (A) 59 %; RDW 14.6 % (11.5-15.5); WBC 13.6 k/uL (3.8-10.6); WBC (Perox) 13.87
[2017-02-13 11:36] LABS: Anion Gap 10 mmol/L; Blood Urea Nitrogen 5 mg/dL (7-17); Calcium 9.1 mg/dL (8.4-10.2); Carbon Dioxide 29 mmol/L (22-30); Chloride 103 mmol/L (98-107); Glucose 80 mg/dL (74-99); Non-African American GFR(MDRD) >60 (>60 ml/min/1.73 sqM); Potassium 4.7 mmol/L (3.5-5.1); Sodium 142 mmol/L (137-145)
== END | disposition home or self-care (01) ==
LOC: LABWHC1 10:53
PROVIDERS: ATTEND Orthopaedic Surgery
DX: D61.3 Idiopathic aplastic anemia (principal); I49.9 Cardiac arrhythmia, unspecified
CPT/HCPCS: 36415; 80048; 85025; 93005

== ENCOUNTER 2017-04-04 14:09 | Emergency (ER) | payer OTHER ==
[2017-04-04 14:16] VITALS: BP 114/63; PULSE 99; RESP 18; TEMP 98
--- NOTE | 2017-04-04 14:51 | ED ---
Psych HPI - General Chief Complaint: Psychiatric Symptoms Stated Complaint: suicidal thoughts Time Seen by Provider: 04/04/17 14:25 Source: patient, family, RN notes reviewed Mode of arrival: ambulatory - History of Present Illness Initial Comments: This is a 46-year-old female who presents with complaints of feeling depressed and suicidal. She states she was just discharged from hospital yesterday but still feels no better. She apparently was evaluated by a psychiatrist at another facility. Patient states she thinks was suicide in different opportunities including shooting himself with a gun jumping out of a tree stand cutting herself with a knife. No definite triggers. Patient denies any recent alcohol or drugs she does occasionally smoke marijuana. She also complains of chronic low back pain she does have a history of OCD. MD Complaint: suicidal ideation, feels depressed - Related Data Home Medications Medication Instructions Recorded Confirmed Omeprazole 20 mg PO BID 08/02/16 04/04/17 Atorvastatin [Lipitor] 10 mg PO HS 10/23/16 04/04/17 Diclofenac Potassium [Cataflam] 50 mg PO TID PRN 10/23/16 04/04/17 Gabapentin [Neurontin] 300 mg PO TID 10/23/16 04/04/17 LORazepam [Lorazepam] 0.5 mg PO Q6H 10/23/16 04/04/17 Ranitidine HCl [Zantac] 150 mg PO BID PRN 10/23/16 04/04/17 Cetirizine HCl [Zyrtec] 10 mg PO HS 04/02/17 04/04/17 Citalopram Hydrobromide [CeleXA] 60 mg PO DAILY 04/02/17 04/04/17 Fluticasone Propionate [Flonase 2 spray EA NOSTRIL DAILY 04/02/17 04/04/17 Allergy Relief] HYDROcodone/APAP 5-325MG [[place] 1 tab PO BID 04/04/17 04/04/17 5-325] Allergies Allergy/AdvReac Type Severity Reaction Status Date / Time Cephalosporins Allergy RECTAL Verified 04/04/17 14:56 BLEEDING famotidine [From Pepcid] Allergy Confusion Verified 04/04/17 14:56 lurasidone [From Latuda] Allergy SUICIDAL Verified 04/04/17 14:56 THOUGHTS olanzapine [From Zyprexa] AdvReac WEIGHT GAIN Verified 04/04/17 14:56 Review of Systems ROS Statement: Those systems with pertinent positive or pertinent negative responses have been documented in the HPI. ROS Other: All systems not noted in ROS Statement are negative. Past Medical History Past Medical History: GERD/Reflux, Hyperlipidemia, Musculoskeletal Disorder, Osteoarthritis (OA) Additional Past Medical History / Comment(s): DDD, SPINAL STENOSIS, HX OF MURMUR , History of Any Multi-Drug Resistant Organisms: None Reported Past Surgical History: Bariatric Surgery, Section, Cholecystectomy, Orthopedic Surgery, Tubal Ligation, Uterine Ablation Additional Past Surgical History / Comment(s): EGD WITH DILATION, REVISION OF GASTROJEJUNOSTOMY, HX GASTRIC BYPASS, GANGLION CYST REMOVED, LEFT THUMB TRIGGER FINGER, CARPAL TUNNEL ALYSON WRIST, AND REVISION. BENIGN CYST REMOVED FROM OVARY RECTUM AND TAILBONE, MULT. D&C, C SEC X2 Past Anesthesia/Blood Transfusion Reactions: Previous Problems w/ Anesthesia Additional Past Anesthesia/Blood Transfusion Reaction / Comment(s): STATES HYPERVENTILATES WHEN SEES NEEDLES Past Psychological History: Anxiety, Depression Smoking Status: Current every day smoker Past Alcohol Use History: Occasional Past Drug Use History: Marijuana - Past Family History Sister(s) Family Medical History: Cancer Additional Family Medical History / Comment(s): COLON AND RECTAL CA Brother(s) Family Medical History: Cancer Additional Family Medical History / Comment(s): NON-HODGKIN'S LYMPHOMA Mother Family Medical History: Cancer Additional Family Medical History / Comment(s): NON-HODGKIN'S LYMPHOMA General Exam - General Exam Comments Initial Comments: This is a well-developed well-nourished awake alert oriented 3 female Limitations: no limitations General appearance: alert, in no apparent distress Head exam: Present: atraumatic, normocephalic, normal inspection Eye exam: Present: normal appearance, PERRL, EOMI. Absent: scleral icterus, conjunctival injection, periorbital swelling ENT exam: Present: normal exam, mucous membranes moist Neck exam: Present: normal inspection. Absent: tenderness, meningismus, lymphadenopathy Respiratory exam: Present: normal lung sounds bilaterally. Absent: respiratory distress, wheezes, rales, rhonchi, stridor Cardiovascular Exam: Present: regular rate, normal rhythm, normal heart sounds. Absent: systolic murmur, diastolic murmur, rubs, gallop, clicks GI/Abdominal exam: Present: soft, normal bowel sounds. Absent: distended, tenderness, guarding, rebound, rigid Extremities exam: Present: normal inspection, full ROM, normal capillary refill. Absent: tenderness, pedal edema, joint swelling, calf tenderness Back exam: Present: normal inspection Neurological exam: Present: alert, oriented X3, CN II-XII intact Psychiatric exam: Present: depressed, flat affect, suicidal ideation Skin exam: Present: warm, dry, intact, normal color. Absent: rash Course Vital Signs 04/04/17 14:12 Temperature 98.0 F Pulse Rate 99 Respiratory 18 Rate Blood Pressure 114/63 O2 Sat by Pulse 97 Oximetry Medical Decision Making - Medical Decision Making Patient was evaluated by psychiatric service he currently is not a risk to herself she'll be discharged with outpatient follow-up. Patient is good with this she will not hurt herself or do anything and she was invited back if anything happens to the contrary. Disposition Clinical Impression: Adjustment reaction, Depression Disposition: HOME SELF-CARE Condition: Good Instructions: Depression (ED), Anxiety (ED), Suicide Prevention for Adults (ED) Referrals: Mónica Morris DO [Primary Care Provider] - 1-2 days
[2017-04-04] MEDS ORDERED: NICOTINE 21MG/24HR PATCH TRANSDERM STA (15:51)
[2017-04-04] MEDS ORDERED: LORazepam 1 MG TAB PO STA (17:02)
== END 2017-04-04 17:48 | disposition home or self-care (01) ==
LOC: EC 14:09
DX: F32.9 Major depressive disorder, single episode, unspecified (principal); F43.20 Adjustment disorder, unspecified; K21.9 Gastro-esophageal reflux disease without esophagitis; E78.5 Hyperlipidemia, unspecified; M19.90 Unspecified osteoarthritis, unspecified site; F41.9 Anxiety disorder, unspecified; F17.200 Nicotine dependence, unspecified, uncomplicated; Z79.899 Other long term (current) drug therapy; Z88.1 Allergy status to other antibiotic agents; Z88.8 Allergy status to other drugs, medicaments and biological substances
CPT/HCPCS: 82075; 99284; S4990

== ENCOUNTER → 2017-04-07 | Outpatient (CLI) | payer OTHER ==
[2017-04-07 10:52] LABS: Basophils # (A) 0.1 k/uL (0-0.2); Basophils % (A) 1 %; CH 32.2; CHCM 32.9; Eosinophils # (A) 0.7 k/uL (0-0.7); Eosinophils % (A) 8 %; HCT 39.7 % (34.0-46.0); HDW 2.35; HGB 12.6 gm/dL (11.4-16.0); Luc % (Auto) 2; Lymphocytes # (A) 2.9 k/uL (1.0-4.8); Lymphocytes % (A) 32 %; MCH 31.1 pg (25.0-35.0); MCHC 31.6 g/dL (31.0-37.0); MCV 98.4 fL (80.0-100.0); Mean Platelet Volume 6.7; Monocytes # (A) 0.5 k/uL (0-1.0); Monocytes % (A) 6 %; Neutrophils # (A) 4.6 k/uL (1.3-7.7); Neutrophils % (A) 52 %; RBC 4.04 m/uL (3.80-5.40); RDW 15.3 % (11.5-15.5); WBC 8.9 k/uL (3.8-10.6); WBC (Perox) 8.96
[2017-04-07 11:03] LABS: ALT 34 U/L (9-52); AST 22 U/L (14-36); Alkaline Phosphatase 92 U/L (38-126); Anion Gap 8 mmol/L; Blood Urea Nitrogen 14 mg/dL (7-17); Calcium 9.2 mg/dL (8.4-10.2); Carbon Dioxide 29 mmol/L (22-30); Chloride 100 mmol/L (98-107); Glucose 89 mg/dL (74-99); Non-African American GFR(MDRD) >60 (>60 ml/min/1.73 sqM); Potassium 4.6 mmol/L (3.5-5.1); Sodium 137 mmol/L (137-145); Total Bilirubin 0.3 mg/dL (0.2-1.3)
== END | disposition home or self-care (01) ==
LOC: LABPAT 09:59
PROVIDERS: ATTEND Surgery
DX: Z01.812 Encounter for preprocedural laboratory examination (principal)
CPT/HCPCS: 80053; 85025

== ENCOUNTER 2017-04-08 07:30 | Day surgery (SDC) | payer OTHER ==
[2017-04-02 09:54] VITALS: BMI 29.7
[~2017-04-08 07:30] MED LIST changes: +HEPARIN SODIUM,PORCINE 5,000 UNIT/ML 1 ML VIAL SQ ONE; +HYDROmorphone 1 MG/ML 1 ML SYRINGE IVP PRN; +LACTATED RINGERS 1,000 ML IV SCH; -LIDOCAINE 1% 20 ML VIAL (10MG/ML) FOR IV START INTRADERMA PRN; +ceFAZolin 2 GM in SODIUM CHLORIDE 0.9% 100 ML IVPB ONE; +fentaNYL (PF) 50 MCG/ML 2 ML AMP IV PRN
[2017-04-08 07:50] VITALS: RESP 16
[2017-04-08] MEDS ORDERED: LIDOCAINE 1% 20 ML VIAL (10MG/ML) FOR IV START INTRADERMA ONE (08:04)
[2017-04-08] MEDS ORDERED: ONDANSETRON 4 MG/2 ML VIAL IVP ONE ×2 (08:06→10:41)
[2017-04-08] MEDS ORDERED: DEXAMETHASONE SOD PHOSPHATE 10 MG/ML 1 ML VIAL IV ONE (08:08)
[2017-04-08] MEDS ORDERED: MIDAZOLAM 2 MG/2 ML VIAL ONE (08:47)
[2017-04-08] MEDS ORDERED: NEOSTIGMINE 1 MG/ML 10 ML VIAL ONE (08:47)
[2017-04-08] MEDS ORDERED: SODIUM CHLORIDE 0.9% 100 ML with CLINDAMYCIN 600 MG IV ONE ×2 (08:47)
[2017-04-08] MEDS ORDERED: ROCURONIUM BROMIDE 10 MG/ML 10 ML VIAL IV ONE (08:47)
[2017-04-08] MEDS ORDERED: PROPOFOL 10 MG/ML 20 ML VIAL IV ONE (08:47)
[2017-04-08] MEDS ORDERED: SUCCINYLCHOLINE CHLORIDE 100 MG/5 ML SYR IV ONE (08:47)
[2017-04-08] MEDS ORDERED: fentaNYL (PF) 50 MCG/ML 2 ML AMP ONE (08:47)
[2017-04-08] MEDS ORDERED: LIDOCAINE 1% INJ 10MG/ML (20 ML MDV) ONE (08:47)
[2017-04-08] MEDS ORDERED: KETOROLAC 30 MG/ML 1 ML VIAL ONE (08:47)
[2017-04-08] MEDS ORDERED: GLYCOPYRROLATE 0.2 MG/ML 2 ML VIAL ONE (08:47)
[2017-04-08] MEDS ORDERED: HYDROmorphone (PF) 1 MG/ML ONE (08:47)
--- NOTE | 2017-04-08 08:58 | P.GSHP ---
History of Present Illness H&P Date: 04/08/17 Chief Complaint: Incisional hernia This is a 46-year-old female referred from Nanda Hernandez. Patient presents today for laparoscopic robotic system repair of incisional hernia. She's had a previous history of an open gastric bypass. Past Medical History Past Medical History: GERD/Reflux, Hyperlipidemia, Musculoskeletal Disorder, Osteoarthritis (OA) Additional Past Medical History / Comment(s): DDD, SPINAL STENOSIS, HX OF MURMUR , History of Any Multi-Drug Resistant Organisms: None Reported Past Surgical History: Bariatric Surgery, Section, Cholecystectomy, Orthopedic Surgery, Tubal Ligation, Uterine Ablation Additional Past Surgical History / Comment(s): EGD WITH DILATION, REVISION OF GASTROJEJUNOSTOMY, HX GASTRIC BYPASS, GANGLION CYST REMOVED, LEFT THUMB TRIGGER FINGER, CARPAL TUNNEL ALYSON WRIST, AND REVISION. BENIGN CYST REMOVED FROM OVARY RECTUM AND TAILBONE, MULT. D&C, C SEC X2 Past Anesthesia/Blood Transfusion Reactions: Previous Problems w/ Anesthesia Additional Past Anesthesia/Blood Transfusion Reaction / Comment(s): STATES HYPERVENTILATES WHEN SEES NEEDLES Past Psychological History: Anxiety, Depression Smoking Status: Current every day smoker Past Alcohol Use History: Occasional Past Drug Use History: Marijuana - Past Family History Sister(s) Family Medical History: Cancer Additional Family Medical History / Comment(s): COLON AND RECTAL CA Brother(s) Family Medical History: Cancer Additional Family Medical History / Comment(s): NON-HODGKIN'S LYMPHOMA Mother Family Medical History: Cancer Additional Family Medical History / Comment(s): NON-HODGKIN'S LYMPHOMA Medications and Allergies Home Medications Medication Instructions Recorded Confirmed Type Omeprazole 20 mg PO BID 08/02/16 04/08/17 History Atorvastatin [Lipitor] 10 mg PO HS 10/23/16 04/08/17 History Diclofenac Potassium [Cataflam] 50 mg PO TID PRN 10/23/16 04/08/17 History Gabapentin [Neurontin] 300 mg PO TID 10/23/16 04/08/17 History LORazepam [Lorazepam] 0.5 mg PO Q6H 10/23/16 04/08/17 History Ranitidine HCl [Zantac] 150 mg PO BID PRN 10/23/16 04/08/17 History Cetirizine HCl [Zyrtec] 10 mg PO HS 04/02/17 04/08/17 History Citalopram Hydrobromide [CeleXA] 60 mg PO DAILY 04/02/17 04/08/17 History Fluticasone Propionate [Flonase 2 spray EA NOSTRIL DAILY 04/02/17 04/08/17 History Allergy Relief] HYDROcodone/APAP 5-325MG [[place] 1 tab PO BID 04/04/17 04/08/17 History 5-325] Allergies Allergy/AdvReac Type Severity Reaction Status Date / Time Cephalosporins Allergy RECTAL Verified 04/08/17 07:50 BLEEDING famotidine [From Pepcid] Allergy Confusion Verified 04/08/17 07:50 lurasidone [From Latuda] Allergy SUICIDAL Verified 04/08/17 07:50 THOUGHTS olanzapine [From Zyprexa] AdvReac WEIGHT GAIN Verified 04/08/17 07:50 Surgical - Exam Vital Signs Temp Pulse Resp BP Pulse Ox 97.3 F L 70 16 108/67 97 04/08/17 07:49 04/08/17 07:49 04/08/17 07:49 04/08/17 07:49 04/08/17 07:49 - General well developed, no distress - Eyes PERRL - ENT normal pinna - Neck no masses - Respiratory normal expansion - Cardiovascular Rhythm: regular - Abdomen Abdomen: soft, non tender Hernia: incisional (5 cm incisional hernia located at the midportion of her incision scar.) Assessment and Plan Plan: Incisional hernia. We'll perform laparoscopic robotic assistance repair.
[2017-04-08] MEDS ORDERED: BUPIVACAIN-EPI 0.5%-1:200,000 30 ML VIAL SQ ONE (09:06)
[2017-04-08] MEDS ORDERED: LACTATED RINGERS 1,000 ML IV ONE ×2 (09:31→12:30)
[2017-04-08] MEDS: MEPERIDINE 50 MG/ML SYRINGE IVP ONE ×2 (10:40→10:56)
[2017-04-08] MEDS ORDERED: METOCLOPRAMIDE 5 MG/ML 2 ML VIAL IVP ONE ×2 (10:46→10:59)
[2017-04-08] MEDS ORDERED: PROMETHAZINE INJ 25 MG/ML 1 ML VIAL IVPB ONE (10:49)
[2017-04-08 10:53] VITALS: TEMP 97.2
[2017-04-08] MEDS ORDERED: HYDROcodone/APAP 7.5-325MG 1 EACH TAB PO ONE (12:47)
[2017-04-08 14:11] VITALS: BP 124/67; PULSE 80
--- NOTE | 2017-04-08 14:17 | P.OP ---
Date of Procedure: 04/08/17 Preoperative Diagnosis: Incisional hernia Postoperative Diagnosis: Incisional hernia Adhesions Procedure(s) Performed: Laparoscopic robotic-assisted repair of incisional hernia Lysis of adhesions Anesthesia: DELMA Surgeon: Dillon Alvarado Estimated Blood Loss (ml): 5 Pathology: none sent Condition: stable Disposition: PACU Description of Procedure: Patient's placed on the operative table in supine position. She received general anesthesia. Her abdomen was prepped and draped usual sterile fashion. The skin incision sites were anesthetized 1% local Xylocaine. Using an 11 blade the skin was incised in the left upper quadrant. Next a 5 mm blade was trocar was placed. Cavity under direct visualization. The abdomen was insufflated after adequate insufflation the laparoscope was placed in the peritoneal cavity. Next a 5 mm trocar was placed in the left lower quadrant and a 12 mm trocar was placed the left lateral position. And the original 55 mm trocar was exchanged for an 8 mm robotic trocar. The patient was undocked the robot in the left side up position. The patient had extensive adhesions along her midline incision. These were lysed using electrocautery and sharp dissection. The incisional hernia was then seen. The fascia was closed with # 1 strep suture. And then the ventral light ST mesh was placed over top of the repair and secured with 20 strep exudative. This point the patient was undocked the robot. The needles were retrieved. The 12 mm trocar site was closed with 0 Ethibond suture. The skin was closed interrupted 3-0 Monocryl suture. Dermabond was applied.
== END 2017-04-08 15:29 | disposition home or self-care (01) ==
LOC: OR 07:30
PROVIDERS: ATTEND Surgery
DX: K43.2 Incisional hernia without obstruction or gangrene (principal); E78.5 Hyperlipidemia, unspecified; F32.9 Major depressive disorder, single episode, unspecified; K21.9 Gastro-esophageal reflux disease without esophagitis; M19.90 Unspecified osteoarthritis, unspecified site; Z98.84 Bariatric surgery status; F17.200 Nicotine dependence, unspecified, uncomplicated; Z79.899 Other long term (current) drug therapy; Z88.5 Allergy status to narcotic agent; Z88.3 Allergy status to other anti-infective agents
CPT/HCPCS: 81025; 86900; 86901; 86850; 49654; C1781; J2250; J1644; J1100; J2550; J2710; J2765; J2175; J2405; J2001; J3010; J1885; J1170; J0330; J2704

== ENCOUNTER → 2017-06-15 | Outpatient (CLI) | payer OTHER ==
--- NOTE | 2017-06-16 10:37 | MM ---
Reason for exam: screening (asymptomatic). Last mammogram was performed 1 year and 7 months ago. History: Family history of breast cancer in 5 aunts and breast cancer in cousin. Physical Findings: A clinical breast exam by your physician is recommended on an annual basis and results should be correlated with mammographic findings. MG 3D Screening Mammo W/Cad Bilateral CC and MLO view(s) were taken. Prior study comparison: November 22, 2015, mammogram, performed at [facility]. April 10, 2015, mammogram, performed at [facility]. The breast tissue is heterogeneously dense. This may lower the sensitivity of mammography. There is no discrete abnormality. No significant changes when compared with prior studies. ASSESSMENT: Negative, BI-RAD 1 RECOMMENDATION: Routine screening mammogram of both breasts in 1 year.
== END | disposition home or self-care (01) ==
LOC: RADMAMWWP 14:33
PROVIDERS: ATTEND Family Medicine
DX: Z12.31 Encounter for screening mammogram for malignant neoplasm of breast (principal)
CPT/HCPCS: 77063; G0202

== ENCOUNTER 2017-08-02 13:55 | Emergency (ER) | payer OTHER ==
[2017-08-02] MEDS ORDERED: ALBUTEROL NEBULIZED 2.5 MG/3 ML INHALATION STA (14:13)
[2017-08-02] MEDS ORDERED: SODIUM CHLORIDE 0.9% 1,000 ML IV STA (14:13)
[2017-08-02] MEDS ORDERED: DEXAMETHASONE SOD PHOSPHATE 10 MG/ML 1 ML VIAL IV STA (14:13)
[2017-08-02] MEDS ORDERED: ACETAMINOPHEN TAB 500 MG TAB PO STA (14:13)
[2017-08-02] MEDS ORDERED: IPRATROPIUM 0.5 MG/2.5 ML NEBU INHALATION STA (14:13)
--- NOTE | 2017-08-02 14:17 | ED ---
General Adult HPI - General Chief complaint: Upper Respiratory Infection Stated complaint: flu symptoms Time Seen by Provider: 08/02/17 14:06 Source: patient, RN notes reviewed Mode of arrival: ambulatory Limitations: no limitations - History of Present Illness Initial comments: 47-year-old female presenting for evaluation of cough and fever. Patient has past medical history of COPD. She has had a productive cough for the past 24 hours. She also complains of fever and diffuse body aches. Patient states she did receive influenza vaccine this year. She has a family member with similar symptoms who she has been in contact with. Denies any central radiating chest pain. She does have some chest congestion. Denies sore throat or rhinorrhea. Denies nausea vomiting. She's had one episode of diarrhea. No abdominal pain. - Related Data Home Medications Medication Instructions Recorded Confirmed Atorvastatin [Lipitor] 10 mg PO HS 10/23/16 08/02/17 Diclofenac Potassium [Cataflam] 50 mg PO TID PRN 10/23/16 08/02/17 Cetirizine HCl [Zyrtec] 10 mg PO HS 04/02/17 08/02/17 Citalopram Hydrobromide [CeleXA] 60 mg PO DAILY 04/02/17 08/02/17 Fluticasone Propionate [Flonase 2 spray EA NOSTRIL DAILY 04/02/17 08/02/17 Allergy Relief] HYDROcodone/APAP 5-325MG [[place] 1 tab PO BID 04/04/17 08/02/17 5-325] ARIPiprazole [Abilify] 5 mg PO DAILY 08/02/17 08/02/17 Albuterol Inhaler [Ventolin Hfa 1 - 2 puff INHALATION RT-Q6H PRN 08/02/17 Inhaler] Budesonide/Formoterol Fumarate 2 puff INHALATION RT-BID 08/02/17 08/02/17 [Symbicort 160-4.5 Mcg Inhaler] Gabapentin 600 mg PO TID 08/02/17 08/02/17 Mirtazapine [Remeron] 15 mg PO HS 08/02/17 08/02/17 Montelukast Sodium [Singulair] 10 mg PO DAILY 08/02/17 08/02/17 Sulfamethox-Tmp 800-160Mg [Bactrim 1 tab PO Q12HR 08/02/17 08/02/17 DS 800-160 mg] Topiramate [Topamax] 100 mg PO DAILY 08/02/17 08/02/17 buPROPion HCL [Wellbutrin XL] 150 mg PO DAILY 08/02/17 08/02/17 Previous Rx's Medication Instructions Recorded Oseltamivir [Tamiflu] 75 mg PO Q12HR #10 cap 08/02/17 predniSONE 50 mg PO DAILY #5 tab 08/02/17 Allergies Allergy/AdvReac Type Severity Reaction Status Date / Time Cephalosporins Allergy RECTAL Verified 08/02/17 14:18 BLEEDING famotidine [From Pepcid] Allergy Confusion Verified 08/02/17 14:18 lurasidone [From Latuda] Allergy SUICIDAL Verified 08/02/17 14:18 THOUGHTS olanzapine [From Zyprexa] AdvReac WEIGHT GAIN Verified 08/02/17 14:18 Review of Systems ROS Statement: Those systems with pertinent positive or pertinent negative responses have been documented in the HPI. ROS Other: All systems not noted in ROS Statement are negative. Past Medical History Past Medical History: COPD, GERD/Reflux, Hyperlipidemia, Musculoskeletal Disorder, Osteoarthritis (OA) Additional Past Medical History / Comment(s): DDD, SPINAL STENOSIS, HX OF MURMUR , History of Any Multi-Drug Resistant Organisms: None Reported Past Surgical History: Bariatric Surgery, Section, Cholecystectomy, Orthopedic Surgery, Tubal Ligation, Uterine Ablation Additional Past Surgical History / Comment(s): EGD WITH DILATION, REVISION OF GASTROJEJUNOSTOMY, HX GASTRIC BYPASS, GANGLION CYST REMOVED, LEFT THUMB TRIGGER FINGER, CARPAL TUNNEL ALYSON WRIST, AND REVISION. BENIGN CYST REMOVED FROM OVARY RECTUM AND TAILBONE, MULT. D&C, C SEC X2 Past Anesthesia/Blood Transfusion Reactions: Previous Problems w/ Anesthesia Additional Past Anesthesia/Blood Transfusion Reaction / Comment(s): STATES HYPERVENTILATES WHEN SEES NEEDLES Past Psychological History: Anxiety, Depression Smoking Status: Current every day smoker Past Alcohol Use History: Occasional Past Drug Use History: Marijuana - Past Family History Sister(s) Family Medical History: Cancer Additional Family Medical History / Comment(s): COLON AND RECTAL CA Brother(s) Family Medical History: Cancer Additional Family Medical History / Comment(s): NON-HODGKIN'S LYMPHOMA Mother Family Medical History: Cancer Additional Family Medical History / Comment(s): NON-HODGKIN'S LYMPHOMA General Exam Limitations: no limitations General appearance: alert, in no apparent distress Head exam: Present: atraumatic, normocephalic Eye exam: Present: normal appearance, PERRL, EOMI ENT exam: Present: normal exam Neck exam: Present: normal inspection. Absent: tenderness, meningismus Respiratory exam: Present: prolonged expiratory, other (Bronchospastic cough). Absent: respiratory distress Cardiovascular Exam: Present: normal rhythm, tachycardia GI/Abdominal exam: Present: soft. Absent: distended, tenderness, guarding Extremities exam: Present: normal inspection, normal capillary refill. Absent: pedal edema Back exam: Present: normal inspection, full ROM Neurological exam: Present: alert, oriented X3, CN II-XII intact. Absent: motor sensory deficit Psychiatric exam: Present: normal affect, normal mood Skin exam: Present: warm, intact, diaphoretic Course Vital Signs 08/02/17 08/02/17 08/02/17 14:02 14:35 15:17 Temperature 100 F H 98.4 F Pulse Rate 114 H 84 110 H Respiratory 20 16 20 Rate Blood Pressure 99/55 105/56 O2 Sat by Pulse 99 95 Oximetry Medical Decision Making - Medical Decision Making 47-year-old female history of COPD presenting with flulike symptoms. Patient's is influenza positive. Her flu test is negative although I have a high suspicion given her symptoms. Laboratory studies are obtained, white blood cell count normal 7.6, hemoglobin 11.2, creatinine 1.25 elevated from baseline 0.8, patient does receive 1 L IV hydration in the emergency department. BMP 107 which is normal, troponin negative. Chest x-ray shows no focal pneumonia. Patient will be empirically started on Tamiflu given her COPD history as well as a short course of oral steroids. She will continue her breathing treatments at home. Return with any worsening symptoms. UTI shows 14 WBCs, patient has chronic cystitis, she is currently on Bactrim. Diagnosis: COPD exacerbation, suspect influenza. - Lab Data Result diagrams: 08/02/17 14:22 08/02/17 14:22 Lab Results 08/02/17 08/02/17 08/02/17 Range/Units 14:22 14:22 14:22 WBC 7.6 (3.8-10.6) k/uL RBC 3.70 L (3.80-5.40) m/uL Hgb 11.2 L (11.4-16.0) gm/dL Hct 35.7 (34.0-46.0) % MCV 96.5 (80.0-100.0) fL MCH 30.2 (25.0-35.0) pg MCHC 31.3 (31.0-37.0) g/dL RDW 16.9 H (11.5-15.5) % Plt Count 373 (150-450) k/uL Neutrophils % 81 % Lymphocytes % 9 % Monocytes % 3 % Eosinophils % 6 % Basophils % 0 % Neutrophils # 6.2 (1.3-7.7) k/uL Lymphocytes # 0.7 L (1.0-4.8) k/uL Monocytes # 0.2 (0-1.0) k/uL Eosinophils # 0.5 (0-0.7) k/uL Basophils # 0.0 (0-0.2) k/uL Hypochromasia Slight Anisocytosis Slight Macrocytosis Slight Sodium 141 (137-145) mmol/L Potassium 4.3 (3.5-5.1) mmol/L Chloride 110 H (98-107) mmol/L Carbon Dioxide 23 (22-30) mmol/L Anion Gap 8 mmol/L BUN 13 (7-17) mg/dL Creatinine 1.25 H (0.52-1.04) mg/dL Est GFR (MDRD) Af Amer 56 (>60 ml/min/1.73 sqM) Est GFR (MDRD) Non-Af 46 (>60 ml/min/1.73 sqM) Glucose 114 H (74-99) mg/dL Calcium 8.5 (8.4-10.2) mg/dL Magnesium 1.9 (1.6-2.3) mg/dL Total Bilirubin 0.2 (0.2-1.3) mg/dL AST 23 (14-36) U/L ALT 38 (9-52) U/L Alkaline Phosphatase 82 (38-126) U/L Total Creatine Kinase 70 (30-135) U/L CK-MB (CK-2) 0.6 (0.0-2.4) ng/mL CK-MB (CK-2) Rel Index 0.9 Troponin I <0.012 (0.000-0.034) ng/mL NT-Pro-B Natriuret Pep pg/mL Total Protein 6.3 (6.3-8.2) g/dL Albumin 3.5 (3.5-5.0) g/dL Urine Color Urine Appearance (Clear) Urine pH (5.0-8.0) Ur Specific [place] (1.001-1.035) Urine Protein (Negative) Urine Glucose (UA) (Negative) Urine Ketones (Negative) Urine Blood (Negative) Urine Nitrite (Negative) Urine Bilirubin (Negative) Urine Urobilinogen (<2.0) mg/dL Ur Leukocyte Esterase (Negative) Urine RBC (0-5) /hpf Urine WBC (0-5) /hpf Ur Squamous Epith Cells (0-4) /hpf Urine Bacteria (None) /hpf Urine Mucus (None) /hpf Influenza Type A RNA (Not Detectd) Influenza Type B (PCR) (Not Detectd) 08/02/17 08/02/17 08/02/17 Range/Units 14:22 14:22 15:56 WBC (3.8-10.6) k/uL RBC (3.80-5.40) m/uL Hgb (11.4-16.0) gm/dL Hct (34.0-46.0) % MCV (80.0-100.0) fL MCH (25.0-35.0) pg MCHC (31.0-37.0) g/dL RDW (11.5-15.5) % Plt Count (150-450) k/uL Neutrophils % % Lymphocytes % % Monocytes % % Eosinophils % % Basophils % % Neutrophils # (1.3-7.7) k/uL Lymphocytes # (1.0-4.8) k/uL Monocytes # (0-1.0) k/uL Eosinophils # (0-0.7) k/uL Basophils # (0-0.2) k/uL Hypochromasia Anisocytosis Macrocytosis Sodium (137-145) mmol/L Potassium (3.5-5.1) mmol/L Chloride (98-107) mmol/L Carbon Dioxide (22-30) mmol/L Anion Gap mmol/L BUN (7-17) mg/dL Creatinine (0.52-1.04) mg/dL Est GFR (MDRD) Af Amer (>60 ml/min/1.73 sqM) Est GFR (MDRD) Non-Af (>60 ml/min/1.73 sqM) Glucose (74-99) mg/dL Calcium (8.4-10.2) mg/dL Magnesium (1.6-2.3) mg/dL Total Bilirubin (0.2-1.3) mg/dL AST (14-36) U/L ALT (9-52) U/L Alkaline Phosphatase (38-126) U/L Total Creatine Kinase (30-135) U/L CK-MB (CK-2) (0.0-2.4) ng/mL CK-MB (CK-2) Rel Index Troponin I (0.000-0.034) ng/mL NT-Pro-B Natriuret Pep 107 pg/mL Total Protein (6.3-8.2) g/dL Albumin (3.5-5.0) g/dL Urine Color Yellow Urine Appearance Cloudy H (Clear) Urine pH 5.5 (5.0-8.0) Ur Specific [place] 1.015 (1.001-1.035) Urine Protein Negative (Negative) Urine Glucose (UA) Negative (Negative) Urine Ketones Negative (Negative) Urine Blood Negative (Negative) Urine Nitrite Negative (Negative) Urine Bilirubin Negative (Negative) Urine Urobilinogen <2.0 (<2.0) mg/dL Ur Leukocyte Esterase Moderate H (Negative) Urine RBC 1 (0-5) /hpf Urine WBC 14 H (0-5) /hpf Ur Squamous Epith Cells 9 H (0-4) /hpf Urine Bacteria Few H (None) /hpf Urine Mucus Rare H (None) /hpf Influenza Type A RNA Not Detected (Not Detectd) Influenza Type B (PCR) Not Detected (Not Detectd) Disposition Clinical Impression: Influenza, COPD exacerbation Disposition: HOME SELF-CARE Condition: Fair Instructions: Influenza (ED), COPD (Chronic Obstructive Pulmonary Disease) (ED) Prescriptions: Oseltamivir [Tamiflu] 75 mg PO Q12HR #10 cap predniSONE 50 mg PO DAILY #5 tab Referrals: Mónica Morris DO [Primary Care Provider] - 1-2 days Time of Disposition: 16:24
[2017-08-02 14:33] LABS: Anisocytosis Slight; Basophils % (A) 0 %; Eosinophils # (A) 0.5 k/uL (0-0.7); Eosinophils % (A) 6 %; HCT 35.7 % (34.0-46.0); HGB 11.2 gm/dL (11.4-16.0); Hypochromasia Slight; Lymphocytes # (A) 0.7 k/uL (1.0-4.8); Lymphocytes % (A) 9 %; MCH 30.2 pg (25.0-35.0); MCHC 31.3 g/dL (31.0-37.0); MCV 96.5 fL (80.0-100.0); Macrocytosis Slight; Monocytes # (A) 0.2 k/uL (0-1.0); Monocytes % (A) 3 %; Neutrophils # (A) 6.2 k/uL (1.3-7.7); Neutrophils % (A) 81 %; Platelet Count 373 k/uL (150-450); RDW 16.9 % (11.5-15.5); WBC 7.6 k/uL (3.8-10.6)
[2017-08-02 14:44] LABS: Albumin 3.5 g/dL (3.5-5.0); Calcium 8.5 mg/dL (8.4-10.2); Magnesium 1.9 mg/dL (1.6-2.3); Potassium 4.3 mmol/L (3.5-5.1); Total Bilirubin 0.2 mg/dL (0.2-1.3); Total Protein 6.3 g/dL (6.3-8.2)
[2017-08-02 15:04] LABS: Creatine Kinase 70 U/L (30-135)
--- NOTE | 2017-08-02 15:12 | XR ---
EXAMINATION TYPE: XR chest 2V DATE OF EXAM: 08/02/2017 COMPARISON: 12/11/2016 HISTORY: Difficulty breathing TECHNIQUE: Frontal and lateral views of the chest are obtained. FINDINGS: There is improved aeration of the lungs in comparison to the prior. There is no focal air space opacity, pleural effusion, or pneumothorax seen. The cardiac silhouette size is within normal limits. The osseous structures are intact. Minimal multilevel degenerative changes of the thoracic spine are noted. IMPRESSION: No acute cardiopulmonary process. Improved aeration of the lungs in comparison to the pr ior exam.
[2017-08-02 15:16] LABS: Creatine Kinase MB 0.6 ng/mL (0.0-2.4); Troponin I <0.012 ng/mL (0.000-0.034)
[2017-08-02 15:18] VITALS: RESP 20
[2017-08-02 16:22] LABS: Appearance,Urine Cloudy (Clear); Bacteria,Urine Few /hpf; Bilirubin,Urine Negative (Negative); Blood,Urine Negative (Negative); Color,Urine Yellow; Glucose,Urine (UA) Negative (Negative); Ketones,Urine Negative (Negative); Leukocyte Esterase,Urine Moderate (Negative); Mucus,Urine Rare /hpf; Nitrite,Urine Negative (Negative); PH, Urine 5.5 (5.0-8.0); Protein,Urine Negative (Negative); RBC,Urine 1 /hpf (0-5); Specific Gravity,Urine 1.015 (1.001-1.035); Squamous Epithelial Cell,Urine 9 /hpf (0-4); Urobilinogen,Urine <2.0 mg/dL (<2.0); WBC,Urine 14 /hpf (0-5)
[2017-08-02 16:34] VITALS: BP 105/66; PULSE 78; TEMP 98.5
== END 2017-08-02 16:33 | disposition home or self-care (01) ==
LOC: EC 13:55
DX: J11.1 Influenza due to unidentified influenza virus with other respiratory manifestations (principal); J44.1 Chronic obstructive pulmonary disease with (acute) exacerbation; E78.5 Hyperlipidemia, unspecified; K21.9 Gastro-esophageal reflux disease without esophagitis; M19.90 Unspecified osteoarthritis, unspecified site; F32.9 Major depressive disorder, single episode, unspecified; F41.9 Anxiety disorder, unspecified; F17.200 Nicotine dependence, unspecified, uncomplicated; Z79.51 Long term (current) use of inhaled steroids; Z79.899 Other long term (current) drug therapy; Z88.1 Allergy status to other antibiotic agents; Z88.8 Allergy status to other drugs, medicaments and biological substances
CPT/HCPCS: 36415; 94640; 83880; 80053; 82550; 82553; 83735; 84484; 85025; 81001; 87502; 71046; 99284; 96374; 96361 ×2; J1100

== ENCOUNTER → 2017-10-20 | Outpatient (CLI) | payer OTHER ==
--- NOTE | 2017-10-21 05:54 | CT ---
EXAMINATION TYPE: CT abdomen pelvis w con DATE OF EXAM: 10/20/2017 COMPARISON: NONE HISTORY: 47-year-old female left ventral hernia, ABDOMINAL PAIN WITH LEFT SIDE LUMP TECHNIQUE: Contiguous axial scanning of the abdomen and pelvis following administration of 100 ml Omn ipaque 300 IV contrast. Delayed images through the kidneys and coronal/sagittal reconstructions perf ormed. CT DLP: 1565 mGycm Automated exposure control for dose reduction was used. FINDINGS: The heart is normal size without pericardial effusion. Emphysematous changes noted in the visualized lower lungs with some strandy middle lobe and inferior lingular atelectasis. No pleural effusion. Liver measures upper limits of normal in size at 16.7 cm. No focal lesion. Portal venous system is pa tent. The splenic vein appears somewhat small in caliber. Bile duct mildly prominent status post chol ecystectomy. Adrenal glands, kidneys, spleen, and mildly atrophic pancreas show no gross abnormality. Post surgical changes of Chris-en-Y gastric bypass. No dilated small bowel, free fluid, or free air. F ew scattered prominent mesenteric lymph nodes measure up to 5 mm. No retroperitoneal lymphadenopathy. There is prior ventral abdominal wall hernia repair along the supraumbilical region. There is persist ent rectus diastases and fatty hernia bulge above the mesh material measuring 5.9 cm wide, axial imag e 27 and sagittal image 38. Additional persistent fat containing umbilical hernia below the mesh mate rial measuring 3.8 cm wide, axial image 45 and sagittal image 38. In addition, there is a left-sided spigelian hernia with the abdominal wall defect measuring 4.8 cm w yang hernia measuring 8.2 cm wide by 8.3 cm craniocaudal by 2.4 cm thick. The hernia contains opacified and nonopacified bowel loops. No abnormal dilatation to suggest bowel o bstruction. Normal appendix. Mild to moderate stool in the right hemicolon. No pericolonic inflammatory change. Mild circumferential bladder wall thickening. Uterus and ovaries are visualized. Tubal ligation clips are present. No abnormal fluid collection in the pelvis or pelvic lymphadenopathy. Bones: No osseous destructive process. IMPRESSION: 1. LEFT-SIDED SPIGELIAN HERNIA AT THE PALPABLE SITE CONTAINING A FEW SMALL BOWEL LOOPS. THE HERNIA RDZ S A 4.8 CM WIDE NECK AND MEASURES 8.2 X 8.3 X 2.4 CM. 2. PRIOR SUPRAUMBILICAL VENTRAL ABDOMINAL WALL HERNIA REPAIR. THERE IS SMALL AREA OF PERSISTENT RECTU S DIASTASES ABOVE THE MESH MATERIAL WITH BULGING FAT AND ADDITIONAL FAT CONTAINING UMBILICAL HERNIA B ELOW THE MESH MATERIAL DESCRIBED ABOVE. 3. MILD CIRCUMFERENTIAL BLADDER WALL THICKENING COULD REPRESENT CHRONIC BLADDER WALL HYPERTROPHY OR C YSTITIS. CLINICALLY CORRELATE.
== END | disposition home or self-care (01) ==
LOC: RADCTMAIN 15:44
PROVIDERS: ATTEND Surgery
DX: K43.2 Incisional hernia without obstruction or gangrene (principal); Q79.59 Other congenital malformations of abdominal wall
CPT/HCPCS: 74177; Q9967

== ENCOUNTER 2017-11-04 09:31 | Day surgery (SDC) | payer OTHER ==
[2017-10-28 16:20] VITALS: BMI 38.7
[~2017-11-04 09:31] MED LIST changes: +DEXAMETHASONE SOD PHOSPHATE 10 MG/ML 1 ML VIAL IV ONE; -HYDROmorphone 1 MG/ML 1 ML SYRINGE IVP PRN; -LACTATED RINGERS 1,000 ML IV SCH; +LIDOCAINE 1% 20 ML VIAL (10MG/ML) FOR IV START INTRADERMA PRN; +SCOPOLAMINE 1.5MG/72HR PATCH TRANSDERM ONE; -ceFAZolin 2 GM in SODIUM CHLORIDE 0.9% 100 ML IVPB ONE; +ceFAZolin IN SWFI 2 GM/20 ML SYRINGE IVP ONE; -fentaNYL (PF) 50 MCG/ML 2 ML AMP IV PRN
--- NOTE | 2017-11-04 12:05 | P.GSHP ---
History of Present Illness H&P Date: 11/04/17 Chief Complaint: Left spigelian hernia This is a 47-year-old female who is complaints of left lateral abdominal wall mass. Patient awake CAT scan is found have evidence of a left spigelian hernia. She presents today for laparoscopic robotic-assisted repair. 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 History of Any Multi-Drug Resistant Organisms: None Reported Past Surgical History: Bariatric Surgery, Section, Cholecystectomy, Orthopedic Surgery, Tubal Ligation, Uterine Ablation Additional Past Surgical History / Comment(s): EGD WITH DILATION, REVISION OF GASTROJEJUNOSTOMY, HX GASTRIC BYPASS, GANGLION CYST REMOVED, LEFT THUMB TRIGGER FINGER, CARPAL TUNNEL ALYSON WRIST, AND REVISION. BENIGN CYST REMOVED FROM OVARY RECTUM AND TAILBONE, MULT. D&C, C SEC X2, WRIST TENDONITIS SURGERY. Past Anesthesia/Blood Transfusion Reactions: No Reported Reaction Additional Past Anesthesia/Blood Transfusion Reaction / Comment(s): STATES HYPERVENTILATES WHEN SEES NEEDLES Past Psychological History: Anxiety, Depression Smoking Status: Current every day smoker Past Alcohol Use History: Occasional Additional Past Alcohol Use History / Comment(s): SMOKES 1/2 - 3/4 PPD . SMOKING SINCE AGE 15. SMOKING 35 YEARS. Past Drug Use History: Marijuana Additional Drug Use History / Comment(s): OCCASIONAL USE, INSTRUCTED TO HOLD 24 HRS PRIOR TO SURGERY. - Past Family History Sister(s) Family Medical History: Cancer Additional Family Medical History / Comment(s): COLON AND RECTAL CA Brother(s) Family Medical History: Cancer Additional Family Medical History / Comment(s): NON-HODGKIN'S LYMPHOMA Mother Family Medical History: Cancer Additional Family Medical History / Comment(s): NON-HODGKIN'S LYMPHOMA Medications and Allergies Home Medications Medication Instructions Recorded Confirmed Type Atorvastatin [Lipitor] 10 mg PO DAILY 10/23/16 11/04/17 History Diclofenac Potassium [Cataflam] 50 mg PO TID PRN 10/23/16 11/04/17 History Cetirizine HCl [Zyrtec] 10 mg PO HS 09/14/17 04/11/18 History Fluticasone Propionate [Flonase 2 spray EA NOSTRIL DAILY 04/02/17 10/28/17 History Allergy Relief] Albuterol Inhaler [Ventolin Hfa 1 - 2 puff INHALATION Q6HR PRN 08/02/17 History Inhaler] Budesonide/Formoterol Fumarate 2 puff INHALATION BID 08/02/17 11/04/17 History [Symbicort 160-4.5 Mcg Inhaler] Gabapentin 600 mg PO BID 08/02/17 10/28/17 History Montelukast Sodium [Singulair] 10 mg PO DAILY 08/02/17 10/28/17 History Topiramate [Topamax] 100 mg PO DAILY 08/02/17 10/28/17 History Acetaminophen [Tylenol Extra 500 mg PO Q8HR PRN 10/28/17 11/04/17 History Strength] Aclidinium Sprague [Tudorza 1 puff PO HS 10/28/17 10/28/17 History Pressair] Gabapentin [Neurontin] 300 mg PO DAILY@1500 10/28/17 11/04/17 History Gas Relief 1 dose PO DAILY PRN 10/28/17 History Mirtazapine [Remeron] 45 mg PO HS 10/28/17 10/28/17 History Ranitidine HCl [Zantac] 150 mg PO BID 10/28/17 10/28/17 History Sulfamethoxazole/Trimethoprim 1 each PO HS 10/28/17 11/04/17 History [Bactrim SS 400-80 mg] buPROPion HCL [Wellbutrin XL] 300 mg PO DAILY 10/28/17 10/28/17 History hydrOXYzine PAMOATE [Vistaril] 25 mg PO BID PRN 10/28/17 11/04/17 History Allergies Allergy/AdvReac Type Severity Reaction Status Date / Time Cephalosporins Allergy RECTAL Verified 10/28/17 15:22 BLEEDING famotidine [From Pepcid] Allergy Confusion Verified 10/28/17 15:22 lurasidone [From Latuda] Allergy SUICIDAL Verified 10/28/17 15:22 THOUGHTS olanzapine [From Zyprexa] AdvReac WEIGHT GAIN Verified 10/28/17 15:22 Surgical - Exam Vital Signs Temp Pulse Resp BP Pulse Ox 98.4 F 92 18 117/84 96 11/04/17 11:21 11/04/17 11:21 11/04/17 11:21 11/04/17 11:21 11/04/17 11:21 - General well developed, no distress - Eyes PERRL - ENT normal pinna - Neck no masses - Respiratory normal expansion - Cardiovascular Rhythm: regular - Abdomen 10 cm left lateral abdominal wall hernia consistent with a spigelian hernia. Abdomen: soft, non tender Assessment and Plan Plan: Left spigelian hernia. We'll perform laparoscopic robotic-assisted repair.
[2017-11-04] MEDS: LACTATED RINGERS 1,000 ML IV SCH (12:16)
[2017-11-04] MEDS: ONDANSETRON 4 MG/2 ML VIAL IVP ONE ×2 (12:17→14:08)
[2017-11-04] MEDS ORDERED: SUCCINYLCHOLINE CHLORIDE 100 MG/5 ML SYR IV ONE (12:36)
[2017-11-04] MEDS ORDERED: PHENYLEPHRINE-0.9% NACL SYG 1 MG/10 ML SYRINGE ONE (12:36)
[2017-11-04] MEDS ORDERED: ESMOLOL 100 MG/10 ML VIAL ONE (12:36)
[2017-11-04] MEDS ORDERED: LIDOCAINE 1% INJ 10MG/ML (20 ML MDV) ONE (12:36)
[2017-11-04] MEDS ORDERED: fentaNYL (PF) 50 MCG/ML 2 ML AMP ONE (12:36)
[2017-11-04] MEDS ORDERED: MEPERIDINE 50 MG/ML SYRINGE ONE (12:36)
[2017-11-04] MEDS ORDERED: GLYCOPYRROLATE 0.2 MG/ML 2 ML VIAL ONE (12:36)
[2017-11-04] MEDS ORDERED: NEOSTIGMINE 1 MG/ML 10 ML VIAL ONE (12:36)
[2017-11-04] MEDS ORDERED: ROCURONIUM BROMIDE 10 MG/ML 10 ML VIAL IV ONE (12:36)
[2017-11-04] MEDS ORDERED: PROPOFOL 10 MG/ML 20 ML VIAL IV ONE (12:36)
[2017-11-04] MEDS ORDERED: BUPIVACAINE (PF) 0.25% 30 ML VIAL SQ ONE (12:54)
[2017-11-04 13:59] VITALS: TEMP 97.1
[2017-11-04] MEDS: MORPHINE SULFATE 2 MG/ML SYRINGE IV PRN ×4 (14:04→14:53)
[2017-11-04] MEDS ORDERED: KETOROLAC 30 MG/ML 1 ML VIAL IVP ONE (14:07)
[2017-11-04] MEDS ORDERED: diphenhydrAMINE 50 MG/ML 1 ML VIAL IVP ONE (14:08)
[2017-11-04 14:14] VITALS: RESP 16
[2017-11-04] MEDS ORDERED: fentaNYL (PF) 50 MCG/ML 2 ML AMP IVP ONE (15:05)
[2017-11-04] MEDS ORDERED: HYDROcodone/APAP 7.5-325MG 1 EACH TAB PO ONE (15:40)
[2017-11-04 15:56] VITALS: BP 122/79; PULSE 73
--- NOTE | 2017-11-05 12:01 | P.OP ---
Date of Procedure: 11/04/17 Preoperative Diagnosis: Left spigelian hernia Postoperative Diagnosis: Left incisional hernia Procedure(s) Performed: Laparoscopic robotic is repair of incisional hernia Anesthesia: DELMA Surgeon: Dillon Alvarado Estimated Blood Loss (ml): 5 Pathology: none sent Condition: stable Disposition: PACU Description of Procedure: The patient was placed on the operating table in the supine position. He received general anesthesia. His abdomen was prepped and draped usual fashion. Using a 5 mm optical trocar under direct visualization the peritoneal cavity was entered in the right lower quadrant. The abdomen was then insufflated. The laparoscope was placed back into the perineal cavity. Next a 8 mm robotic trocar was placed in the right upper quadrant and a 12 mm robotic trocar was placed in the left lateral position. The original 5 mm trocar was exchanged for a 8 mm robotic trocar. The patient's placed in the left side up position. And the patient was docked to the robot. The incisional hernia was visualized. The hernia was originally thought to be a spigelian hernia. However a Prolene suture could be seen in the hernia sac. It. This hernia was related to her gastric bypass and appeared to be where the stapler was then placed for her laparoscopic gastric bypass. Using hook cautery the peritoneum over the incisional hernia was excised. The fascial opening was repaired using 0V LOC suture. Next a piece of 11 cm round ventral light ST mesh was placed into the. Cavity and secured with 2 OV lock suture. The patient was undocked the robot. The needles were retrieved. The fascia of the 12 mm trocar site was closed with 0 Ethibond suture. Skin was closed interrupted 3-0 Monocryl suture. Dermabond dressings was applied. Patient tolerated procedure well and was sent to recovery room stable condition.
== END 2017-11-04 16:34 | disposition home or self-care (01) ==
LOC: OR 09:31
PROVIDERS: ATTEND Surgery
DX: K43.2 Incisional hernia without obstruction or gangrene (principal); J44.9 Chronic obstructive pulmonary disease, unspecified; K21.9 Gastro-esophageal reflux disease without esophagitis; E78.5 Hyperlipidemia, unspecified; M19.90 Unspecified osteoarthritis, unspecified site; M51.26 Other intervertebral disc displacement, lumbar region; M48.00 Spinal stenosis, site unspecified; F41.9 Anxiety disorder, unspecified; F32.9 Major depressive disorder, single episode, unspecified; F17.210 Nicotine dependence, cigarettes, uncomplicated; Z79.51 Long term (current) use of inhaled steroids; Z79.899 Other long term (current) drug therapy; Z88.1 Allergy status to other antibiotic agents; Z88.8 Allergy status to other drugs, medicaments and biological substances; Z87.440 Personal history of urinary (tract) infections; Z98.84 Bariatric surgery status; Z90.49 Acquired absence of other specified parts of digestive tract; Z98.51 Tubal ligation status
CPT/HCPCS: 49654; 86900; 86901; 86850; 36415; C1781; J1200; J1644; J1100; J2710; J2175; J2405; J2001; J3010; J1885; J2270; J2370; J0330; J2704; J0690

== ENCOUNTER → 2018-06-16 | Outpatient (CLI) | payer OTHER ==
[2018-06-09 11:15] VITALS: BMI 41.5
--- NOTE | 2018-06-16 16:19 | P.PAINCN ---
History of Present Illness - Reason for Consult Consult date: 06/16/18 - Chief Complaint Low back pain - History of Present Illness This a 48 showed woman with a long-standing history of chronic back pain. She was referred to our office by her primary care team for bilateral sacroiliac joint injections. She has had these in the past and they've afforded her significant relief of her low back and leg pain. She also complains of significant orthopedic history in her feet. She reports her pain is worse with standing as well as sitting. It tends to run always down her legs into her feet. She says her Achilles tendons are exquisitely tender. 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 History of Any Multi-Drug Resistant Organisms: None Reported Past Surgical History: Bariatric Surgery, Section, Cholecystectomy, Hernia Repair, Orthopedic Surgery, Tubal Ligation, Uterine Ablation Additional Past Surgical History / Comment(s): EGD WITH DILATION, REVISION OF GASTROJEJUNOSTOMY (2016), HX GASTRIC BYPASS (2004), GANGLION CYST REMOVED, LEFT THUMB TRIGGER FINGER, CARPAL TUNNEL ALYSON WRIST, AND REVISION. BENIGN CYST REMOVED FROM OVARY RECTUM AND TAILBONE, MULT. D&C, C SEC X2, WRIST TENDONITIS SURGERY., INCISIONAL HERNIA. Past Anesthesia/Blood Transfusion Reactions: No Reported Reaction Additional Past Anesthesia/Blood Transfusion Reaction / Comm: STATES HYPERVENTILATES WHEN SEES NEEDLES Smoking Status: Current every day smoker - Past Family History Sister(s) Family Medical History: Cancer Additional Family Medical History / Comment(s): COLON AND RECTAL CA Brother(s) Family Medical History: Cancer Additional Family Medical History / Comment(s): NON-HODGKIN'S LYMPHOMA Mother Family Medical History: Cancer Additional Family Medical History / Comment(s): NON-HODGKIN'S LYMPHOMA Medications and Allergies Home Medications Medication Instructions Recorded Confirmed Type Atorvastatin [Lipitor] 10 mg PO HS 10/23/16 06/09/18 History Diclofenac Potassium [Cataflam] 50 mg PO TID PRN 10/23/16 06/09/18 History Cetirizine HCl [Zyrtec] 10 mg PO HS 04/02/17 06/09/18 History Fluticasone Propionate [Flonase 2 spray EA NOSTRIL DAILY 04/02/17 06/09/18 History Allergy Relief] Albuterol Inhaler [Ventolin Hfa 1 - 2 puff INHALATION Q4-6H PRN 08/02/17 History Inhaler] Budesonide/Formoterol Fumarate 2 puff INHALATION BID 08/02/17 06/09/18 History [Symbicort 160-4.5 Mcg Inhaler] Gabapentin 600 mg PO QID 08/02/17 06/16/18 History Montelukast Sodium [Singulair] 10 mg PO HS 08/02/17 06/09/18 History Topiramate [Topamax] 100 mg PO DAILY 08/02/17 06/09/18 History Aclidinium [place] [Tudorza 1 puff PO HS PRN 10/28/17 06/09/18 History Pressair] Ranitidine HCl [Zantac] 150 mg PO BID 10/28/17 06/09/18 History Sulfamethoxazole/Trimethoprim 1 each PO HS 10/28/17 06/09/18 History [Bactrim SS 400-80 mg] buPROPion HCL [Wellbutrin XL] 300 mg PO DAILY 10/28/17 06/09/18 History Escitalopram [Lexapro] 20 mg PO DAILY 06/09/18 06/09/18 History Hydrocodone/Acetaminophen [[place] 1 tab PO DAILY PRN 06/09/18 06/09/18 History 5-325] metFORMIN HCL [Glucophage] 500 mg PO DAILY 06/09/18 06/09/18 History traZODone HCL [Desyrel] 100 mg PO HS 06/09/18 06/09/18 History HYDROcodone/APAP 7.5-325MG [[place] 1 tab PO TID 06/16/18 06/16/18 History 7.5-325] Allergies Allergy/AdvReac Type Severity Reaction Status Date / Time Cephalosporins Allergy RECTAL Verified 06/09/18 10:36 BLEEDING famotidine [From Pepcid] Allergy Confusion Verified 06/09/18 10:36 lurasidone [From Latuda] Allergy SUICIDAL Verified 06/09/18 10:36 THOUGHTS olanzapine [From Zyprexa] AdvReac WEIGHT GAIN Verified 06/09/18 10:36 Physical Exam - Musculoskeletal Lower extremities: Strength is normal bilaterally. Sensation is normal bilaterally. Reflexes are preserved and symmetric bilaterally. Straight leg raise is negative bilaterally.Exquisitely tender to palpation bilaterally over her Achilles tendons. She is also tender over her quadratus lumborum muscles bilaterally in her sacroiliac joints bilaterally. Musculoskeletal: strength equal bilaterally - Psychiatric Patient is intermittently tearful and crying. Results Results: Patient has a lumbar spine MRI from 2017 which demonstrated a herniated nucleus pulposus at L5-S1 with neural foraminal narrowing. Assessment and Plan Plan: Plan of Care 1. Medications: I will prescribe [place] 7.5/325 one by mouth 3 times a day for this patient. I will do this for 1 month. She will then return back to her primary care physician [facility] for opiate prescribing. She will continue with gabapentin. In the future, I believe that lowering this dose would be appropriate however given her current state of discomfort I think it would be unwise. I have reviewed the patient's MAPS report and it reveals expected results. Patient has signed an opiate agreement as well as opiate consent for treatment in our clinic. They understand the risks and benefits of opiate medications. They are aware of the potential for addiction. 2. Interventions: We will schedule her for bilateral sacroiliac joint injections at these have been helpful in the past for her. We will then consider a lumbar epidural steroid injection at L5-S1. 3. Referrals: None 4. Testing: None 5. Follow-up: Bilateral sacroiliac joint injections under fluoroscopy. PQRS Measure Charge Sheet PQRS Narrative: Smoking Status Current every day smoker Do You Want the Pneumonia Vaccine Up to Date Vaccine AT THIS TIME? Pain Intensity [Generalized] 8 Hx Alcohol Use (MH) No Home Medications: Ambulatory Orders Atorvastatin [Lipitor] 10 mg PO HS 10/23/16 Diclofenac Potassium [Cataflam] 50 mg PO TID PRN 10/23/16 Cetirizine HCl [Zyrtec] 10 mg PO HS 04/02/17 Fluticasone Propionate [Flonase Allergy Relief] 2 spray EA NOSTRIL DAILY Albuterol Inhaler [Ventolin Hfa Inhaler] 1 - 2 puff INHALATION Q4-6H PRN Budesonide/Formoterol Fumarate [Symbicort 160-4.5 Mcg Inhaler] 2 puff INHALATION BID 08/02/17 Gabapentin 600 mg PO QID 08/02/17 Montelukast Sodium [Singulair] 10 mg PO HS 08/02/17 Topiramate [Topamax] 100 mg PO DAILY 08/02/17 Aclidinium [place] [Tudorza Pressair] 1 puff PO HS PRN 10/28/17 Ranitidine HCl [Zantac] 150 mg PO BID 10/28/17 Sulfamethoxazole/Trimethoprim [Bactrim SS 400-80 mg] 1 each PO HS 10/28/17 buPROPion HCL [Wellbutrin XL] 300 mg PO DAILY 10/28/17 Escitalopram [Lexapro] 20 mg PO DAILY 06/09/18 Hydrocodone/Acetaminophen [[place] 5-325] 1 tab PO DAILY PRN 06/09/18 metFORMIN HCL [Glucophage] 500 mg PO DAILY 06/09/18 traZODone HCL [Desyrel] 100 mg PO HS 06/09/18 HYDROcodone/APAP 7.5-325MG [[place] 7.5-325] 1 tab PO TID 06/16/18
== END ==
LOC: PNWHC3 12:59
PROVIDERS: ATTEND Pain Medicine Pain Medicine
DX: G89.29 Other chronic pain (principal); M51.27 Other intervertebral disc displacement, lumbosacral region; E78.5 Hyperlipidemia, unspecified; J44.9 Chronic obstructive pulmonary disease, unspecified; K21.9 Gastro-esophageal reflux disease without esophagitis; F17.200 Nicotine dependence, unspecified, uncomplicated; Z79.899 Other long term (current) drug therapy; Z79.2 Long term (current) use of antibiotics; Z79.84 Long term (current) use of oral hypoglycemic drugs; Z79.891 Long term (current) use of opiate analgesic; Z88.8 Allergy status to other drugs, medicaments and biological substances
CPT/HCPCS: 99211

== ENCOUNTER 2018-06-30 07:48 | Day surgery (SDC) | payer OTHER ==
[~2018-06-30 07:48] MED LIST changes: -DEXAMETHASONE SOD PHOSPHATE 10 MG/ML 1 ML VIAL IV ONE; -HEPARIN SODIUM,PORCINE 5,000 UNIT/ML 1 ML VIAL SQ ONE; -LIDOCAINE 1% 20 ML VIAL (10MG/ML) FOR IV START INTRADERMA PRN; -SCOPOLAMINE 1.5MG/72HR PATCH TRANSDERM ONE; +SODIUM CHLORIDE 0.9% 500 ML 500 ML IV SCH; -ceFAZolin IN SWFI 2 GM/20 ML SYRINGE IVP ONE
[2018-06-30] MEDS ORDERED: LACTATED RINGERS 1,000 ML IV ONE (09:00)
[2018-06-30] MEDS ORDERED: LIDOCAINE 1% 20 ML VIAL (10MG/ML) FOR IV START INTRADERMA ONE (09:00)
[2018-06-30 09:14] VITALS: TEMP 97.4
[2018-06-30 09:22] LABS: Glucose,Whole Blood 106 mg/dL (75-99)
[2018-06-30] MEDS ORDERED: IV FLUID CONTINUATION 1,000 ML IV ONE ×2 (09:53)
[2018-06-30 10:11] VITALS: BP 109/70; PULSE 72; RESP 18
--- NOTE | 2018-06-30 10:32 | P.PCN ---
Date of Procedure: 06/30/18 Surgeon: Kev Dill Description of Procedure: Preoperative diagnoses: Bilateral sacroilitis Postoperative diagnoses: Bilateral sacroilitis. Procedure: Bilateral sacroiliac joint steroid injection under fluoroscopic guidance. Surgeon: Kev Dill MD Anesthesia: IV sedation per hospital guidelines EBL: None Procedure indication: The patient had a history of severe chronic low back pain , diagnosed with bilateral sacroiliitis unresponsive to conservative treatment. Procedure description: The patient was seen and identified in the preoperative holding area, risks and benefits and alternative of the procedure and possible complications discussed with the patient, and he agreed with the preceding, patient signed the consent, an IV was started, and vital signs were monitored and were stable throughout the procedure, patient was placed in the prone position or table and the lumbosacral area was prepped and draped with a sterile fashion, vital signs were closely monitored during the procedure, the fluoroscopy camera was placed in the contralateral oblique view on the right sacroiliac joint and the lower part of the joint was identified a 2 mL then a 25 -gauge Quincke-type spinal needle advanced slowly under fluoroscopy and placed in the posterior and inferior border of the right sacroiliac joint, placement confirmed with AP and lateral view, and after appropriate needle placement confirmed and after negative aspiration for heme and CSF and there was , 3 ml of Marcaine 0.5% and 40 mg of Kenalog injected after negative aspiration, no paresthesia during the injection, no resistance to injection, and the needle was removed. The entire same procedure was repeated for the left sacroiliac joint Patient tolerated the procedure well without any complication. The patient returned to supine position after the back was cleaned and a Band- Aid applied, the patient transported to recovery room in stable condition and he was monitored for 30 minutes before he was discharged home and then patient was reexamined before going home and patient was discharged in stable condition and patient will follow up with the pain clinic in a few weeks
--- NOTE | 2018-06-30 12:08 | FL ---
EXAMINATION TYPE: FL guided pain mgmt statistic DATE OF EXAM: 06/30/2018 COMPARISON: NONE HISTORY: Sacroiliac joint pain TECHNIQUE: Fluoroscopy. FINDINGS/IMPRESSION: Fluoroscopic guidance was provided during procedure performed by Dr. Dill. A total of 4 seconds of fluoroscopic time was utilized during the procedure and 2 spot images was acqu ired demonstrating localization of the sacroiliac joint spaces and surgical clips within the pelvis.
== END 2018-06-30 10:26 | disposition home or self-care (01) ==
LOC: ORPAIN 07:48
PROVIDERS: ATTEND Pain Medicine Pain Medicine
DX: G89.29 Other chronic pain (principal); M46.1 Sacroiliitis, not elsewhere classified; M48.00 Spinal stenosis, site unspecified; M51.26 Other intervertebral disc displacement, lumbar region; J44.9 Chronic obstructive pulmonary disease, unspecified; K21.9 Gastro-esophageal reflux disease without esophagitis; E78.5 Hyperlipidemia, unspecified; M19.90 Unspecified osteoarthritis, unspecified site; R73.03 Prediabetes; F17.200 Nicotine dependence, unspecified, uncomplicated; Z79.51 Long term (current) use of inhaled steroids; Z79.899 Other long term (current) drug therapy; Z79.2 Long term (current) use of antibiotics; Z79.84 Long term (current) use of oral hypoglycemic drugs; Z88.1 Allergy status to other antibiotic agents; Z88.8 Allergy status to other drugs, medicaments and biological substances; Z98.84 Bariatric surgery status; Z90.49 Acquired absence of other specified parts of digestive tract; Z98.51 Tubal ligation status; Z87.440 Personal history of urinary (tract) infections
CPT/HCPCS: 81025; J2250; J3301; G0260

== ENCOUNTER → 2018-07-14 | Outpatient (CLI) | payer OTHER ==
--- NOTE | 2018-07-16 09:28 | MM ---
Reason for exam: screening (asymptomatic). Last mammogram was performed 1 year and 1 month ago. History: Family history of breast cancer in 5 aunts and breast cancer in cousin. Physical Findings: A clinical breast exam by your physician is recommended on an annual basis and results should be correlated with mammographic findings. MG Screening Mammo w CAD Bilateral CC and MLO view(s) were taken. XCCL view(s) were taken of the right breast. Prior study comparison: June 15, 2017, bilateral MG 3d screening mammo w/cad. November 22, 2015, mammogram, performed at [facility]. There are scattered fibroglandular densities. There is chronic nodularity bilaterally. No significant changes when compared with prior studies. ASSESSMENT: Negative, BI-RAD 1 RECOMMENDATION: Routine screening mammogram of both breasts in 1 year.
== END | disposition home or self-care (01) ==
LOC: RADMAMWWP 07:54
PROVIDERS: ATTEND Family Medicine
DX: Z12.31 Encounter for screening mammogram for malignant neoplasm of breast (principal)
CPT/HCPCS: 77067

== ENCOUNTER 2018-07-21 07:46 | Day surgery (SDC) | payer OTHER ==
[2018-07-14 18:26] VITALS: BMI 38.1
[2018-07-21] MEDS ORDERED: LACTATED RINGERS 1,000 ML IV ONE (08:19)
[2018-07-21] MEDS ORDERED: LIDOCAINE 1% 20 ML VIAL (10MG/ML) FOR IV START INTRADERMA ONE (08:20)
[2018-07-21 08:27] VITALS: TEMP 97.2
[2018-07-21 08:39] LABS: Glucose,Whole Blood 109 mg/dL (75-99)
--- NOTE | 2018-07-21 09:43 | P.PCN ---
Date of Procedure: 07/21/18 Surgeon: Yessica Campbell Pathology: none sent Condition: stable Disposition: PACU Description of Procedure: Preoperative diagnoses= Bilateral sacroiliac joint dysfunction and sacroiliitis Postoperative diagnoses= same as preoperative diagnosis. Procedure= Bilateral sacroiliac joint steroid injection under fluoroscopic guidance. Anesthesia= local anesthesia with lidocaine 1% and IV moderate conscious sedation with fentanyl and Versed Estimated blood loss=minimal. Procedure indication= the patient had a history of severe chronic low back pain , diagnosed with sacroiliitis and lumbar sacral facet arthropathy unresponsive to conservative treatment. Procedure description= the patient was seen and identified in the preoperative holding area, risks and benefits and alternative of the procedure and possible complications discussed with the patient, patient signed the consent. an IV was started, and vital signs were monitored and were stable throughout the procedure , patient was placed in the prone position or table and the lumbosacral area was prepped and draped with a sterile fashion, vital signs were closely monitored during the procedure.The sacroiliac joint was identified on the AP view of fluoroscopy then the C-arm was tilted to the contralateral oblique position to superimpose the anterior and posterior joint lines on each other and to have a unified joint line with the target point at the inferior one third of this line. I used 22-gauge 3-1/2 inch Quincke spinal needle for this procedure and after getting into the right sacroiliac joint I injected 20 mg of Kenalog +2 MLS of Ropivacaine 0.5%. The procedure was repeated in the same manner on the left side. Patient tolerated the procedure well without any complication, The patient returned to supine position after the back was cleaned and a Band- Aid applied, the patient transported to recovery room in stable condition and he was monitored for 30 minutes before he was discharged home and then patient was reexamined before going home and patient was discharged in stable condition and patient will follow up with the pain clinic in a few weeks
[2018-07-21] MEDS ORDERED: IV FLUID CONTINUATION 1,000 ML IV ONE (09:50)
[2018-07-21 09:53] VITALS: RESP 18
[2018-07-21 10:12] VITALS: BP 111/66; PULSE 72
--- NOTE | 2018-07-21 10:42 | FL ---
EXAMINATION TYPE: FL guided pain mgmt statistic DATE OF EXAM: 07/21/2018 COMPARISON: NONE HISTORY: Sacroiliac joint pain TECHNIQUE: Fluoroscopy. FINDINGS/IMPRESSION: Fluoroscopic guidance was provided during procedure performed by Dr. Campbell. A total of 11 seconds of fluoroscopic time was utilized during the procedure and 2 spot images was acquired.
== END 2018-07-21 10:25 | disposition home or self-care (01) ==
LOC: ORPAIN 07:46
PROVIDERS: ATTEND Anesthesiology
DX: M53.3 Sacrococcygeal disorders, not elsewhere classified (principal); J44.9 Chronic obstructive pulmonary disease, unspecified; E11.9 Type 2 diabetes mellitus without complications; E66.9 Obesity, unspecified; Z68.38 Body mass index [BMI] 38.0-38.9, adult; Z88.8 Allergy status to other drugs, medicaments and biological substances
CPT/HCPCS: 81025; J2250; J3301; J3010; G0260

== ENCOUNTER → 2018-08-05 | Outpatient (CLI) | payer OTHER ==
[2018-08-05 17:13] LABS: Basophils % (A) 0 %; Eosinophils # (A) 0.2 k/uL (0-0.7); Eosinophils % (A) 2 %; HCT 40.3 % (34.0-46.0); HGB 12.6 gm/dL (11.4-16.0); Hypochromasia Slight; Lymphocytes # (A) 3.4 k/uL (1.0-4.8); Lymphocytes % (A) 30 %; MCH 32.5 pg (25.0-35.0); MCHC 31.3 g/dL (31.0-37.0); MCV 103.7 fL (80.0-100.0); Macrocytosis Moderate; Mean Platelet Volume 6.4; Monocytes # (A) 0.5 k/uL (0-1.0); Monocytes % (A) 5 %; Neutrophils # (A) 7.2 k/uL (1.3-7.7); Neutrophils % (A) 62 %; Platelet Count 469 k/uL (150-450); RBC 3.88 m/uL (3.80-5.40); RDW 14.9 % (11.5-15.5); WBC 11.6 k/uL (3.8-10.6)
== END ==
LOC: LABPAT 15:45
PROVIDERS: ATTEND Surgery
DX: Z01.812 Encounter for preprocedural laboratory examination (principal); K43.2 Incisional hernia without obstruction or gangrene; K43.9 Ventral hernia without obstruction or gangrene
CPT/HCPCS: 36415; 85025; 86850; 86900; 86901

== ENCOUNTER 2018-08-11 09:37 | Observation (INO) | payer OTHER ==
[2018-08-06 12:50] VITALS: BMI 40.4
[~2018-08-11 09:37] MED LIST changes: +CLINDAMYCIN 900 MG in DEXTROSE 5% IN WATER 50 ML IVPB ONE; +DEXAMETHASONE SOD PHOSPHATE 10 MG/ML 1 ML VIAL IV ONE; +HEPARIN SODIUM,PORCINE 5,000 UNIT/ML 1 ML VIAL SQ ONE; +LIDOCAINE 1% 20 ML VIAL (10MG/ML) FOR IV START INTRADERMA PRN; +MIDAZOLAM (PF) 2 MG/2 ML VIAL IV PRN; -SODIUM CHLORIDE 0.9% 500 ML 500 ML IV SCH
[2018-08-11] MEDS: LACTATED RINGERS 1,000 ML IV SCH ×3 (10:13→15:23)
[2018-08-11 10:23] LABS: Glucose,Whole Blood 108 mg/dL (75-99)
[2018-08-11] MEDS: ONDANSETRON 4 MG/2 ML VIAL IVP ONE ×2 (10:24→13:28)
[2018-08-11] MEDS ORDERED: DEXAMETHASONE SOD PHOSPHATE 10 MG/ML 1 ML VIAL IV ONE (10:25)
[2018-08-11] MEDS: fentaNYL (PF) 50 MCG/ML 2 ML AMP IV PRN ×4 (10:40→14:10)
--- NOTE | 2018-08-11 10:46 | P.GSHP ---
History of Present Illness H&P Date: 08/11/18 Chief Complaint: Incisional hernia This a 48-year-old female who developed a periumbilical incisional hernia. Patient presents today for laparoscopic robotic repair. She's had a previous midline surgery scar related to previous gastric bypass revision of gastric bypass. 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 History of Any Multi-Drug Resistant Organisms: None Reported Past Surgical History: Bariatric Surgery, Section, Cholecystectomy, Hernia Repair, Orthopedic Surgery, Tubal Ligation, Uterine Ablation Additional Past Surgical History / Comment(s): EGD WITH DILATION, REVISION OF GASTROJEJUNOSTOMY, HX GASTRIC BYPASS, GANGLION CYST REMOVED, LEFT THUMB TRIGGER FINGER, CARPAL TUNNEL BILATERAL WRISTS, AND REVISION. BENIGN CYSTS REMOVED FROM OVARY, RECTUM AND TAILBONE, MULTIPLE. D&C's, C- SECTION X2, WRIST TENDONITIS SURGERY. Pain Injections. Past Anesthesia/Blood Transfusion Reactions: No Reported Reaction Additional Past Anesthesia/Blood Transfusion Reaction / Comment(s): STATES HYPERVENTILATES WHEN SEES NEEDLES, but that this has gotten better recently. Past Psychological History: Anxiety, Depression Additional Psychological History / Comment(s): Mood Disorder. Smoking Status: Current every day smoker Past Alcohol Use History: None Reported Additional Past Alcohol Use History / Comment(s): SMOKES 1/2 PPD. HAS BEEN SMOKING FOR 33 YEARS. Past Drug Use History: None Reported - Past Family History Sister(s) Family Medical History: Cancer Additional Family Medical History / Comment(s): COLORECTAL CANCER. Brother(s) Family Medical History: Cancer Additional Family Medical History / Comment(s): NON-HODGKIN'S LYMPHOMA. Mother Family Medical History: Cancer Additional Family Medical History / Comment(s): NON-HODGKIN'S LYMPHOMA. Medications and Allergies Home Medications Medication Instructions Recorded Confirmed Type Atorvastatin [Lipitor] 10 mg PO HS 10/23/16 08/11/18 History Diclofenac Potassium [Cataflam] 50 mg PO TID PRN 10/23/16 08/11/18 History Cetirizine HCl [Zyrtec] 10 mg PO HS 04/02/17 08/11/18 History Fluticasone Propionate [Flonase 2 spray EA NOSTRIL DAILY 04/02/17 08/11/18 History Allergy Relief] Albuterol Inhaler [Ventolin Hfa 1 - 2 puff INHALATION Q4-6H PRN 08/02/17 History Inhaler] Budesonide/Formoterol Fumarate 2 puff INHALATION HS 08/02/17 08/11/18 History [Symbicort 160-4.5 Mcg Inhaler] Gabapentin 600 mg PO QID 08/02/17 08/11/18 History Montelukast Sodium [Singulair] 10 mg PO HS 08/02/17 08/11/18 History Topiramate [Topamax] 100 mg PO DAILY 08/02/17 08/11/18 History Aclidinium [place] [[place]or[place] 1 puff PO HS PRN 10/28/17 08/11/18 History Pressair] Ranitidine HCl [Zantac] 150 mg PO BID 10/28/17 08/11/18 History Sulfamethoxazole/Trimethoprim 1 each PO HS 10/28/17 08/11/18 History [Bactrim SS 400-80 mg] buPROPion HCL [Wellbutrin XL] 300 mg PO QAM 10/28/17 08/11/18 History Escitalopram [Lexapro] 20 mg PO QAM 06/09/18 08/11/18 History metFORMIN HCL [Glucophage] 500 mg PO BID 06/09/18 08/11/18 History traZODone HCL [Desyrel] 100 mg PO HS 06/09/18 08/11/18 History HYDROcodone/APAP 5-325MG [[place] 1 tab PO DAILY 08/06/18 08/11/18 History 5-325] Vitamin B Complex 1 each PO DAILY 08/06/18 08/11/18 History Allergies Allergy/AdvReac Type Severity Reaction Status Date / Time Cephalosporins Allergy RECTAL Verified 08/11/18 09:56 BLEEDING famotidine [From Pepcid] Allergy Confusion Verified 08/11/18 09:56 lurasidone [From Latuda] Allergy SUICIDAL Verified 08/11/18 09:56 THOUGHTS olanzapine [From Zyprexa] AdvReac WEIGHT GAIN Verified 08/11/18 09:56 Surgical - Exam Vital Signs Temp Pulse Resp BP Pulse Ox 97 F L 77 16 121/80 97 08/11/18 09:58 08/11/18 09:58 08/11/18 09:58 08/11/18 09:58 08/11/18 09:58 - General well developed, well nourished, no distress - Eyes PERRL - ENT normal pinna - Neck no masses - Respiratory normal expansion - Cardiovascular Rhythm: regular - Abdomen 5 cm incisional hernia Abdomen: soft, non tender Results - Labs Abnormal Lab Results - Last 24 Hours (Table) 08/11/18 Range/Units 10:12 POC Glucose (mg/dL) 108 H (75-99) mg/dL Assessment and Plan Assessment: Incisional hernia. We'll perform laparoscopic robotic-assisted repair.
[2018-08-11] MEDS ORDERED: ROPIVACAINE 5 MG/ML 30 ML VIAL ONE (11:05)
[2018-08-11] MEDS ORDERED: SUCCINYLCHOLINE CHLORIDE 100 MG/5 ML SYR IV ONE (11:05)
[2018-08-11] MEDS ORDERED: PROPOFOL 10 MG/ML 20 ML VIAL IV ONE (11:05)
[2018-08-11] MEDS ORDERED: NEOSTIGMINE 1 MG/ML 10 ML VIAL ONE (11:05)
[2018-08-11] MEDS ORDERED: LIDOCAINE 1% INJ 10MG/ML (20 ML MDV) ONE (11:05)
[2018-08-11] MEDS ORDERED: GLYCOPYRROLATE 0.2 MG/ML 2 ML VIAL ONE (11:05)
[2018-08-11] MEDS ORDERED: fentaNYL (PF) 50 MCG/ML 2 ML AMP ONE (11:05)
[2018-08-11] MEDS ORDERED: MIDAZOLAM 2 MG/2 ML VIAL ONE (11:05)
[2018-08-11] MEDS ORDERED: ROCURONIUM BROMIDE 10 MG/ML 10 ML VIAL IV ONE (11:05)
[2018-08-11] MEDS ORDERED: LIDOCAINE 0.5% (PF) 5 MG/ML (50 ML SDV) ONE (11:05)
--- NOTE | 2018-08-11 11:23 | P.ONQ ---
Anesthesiology Proc Note - PNB - Peripheral Nerve Block Performed Bilateral Rectus Abdominis Single Time Out Performed: Yes Procedure Start Time: 10:40 Indication: Acute Post-Operative Pain Specifically requested for management of pain by DrRoss: Dillon Alvarado Sedation Type: Sedate with meaningful contact maintained Preparation: Sterile Prep Position: Supine Catheter: None Needle Types: Other (see comment) (Pajunk) Needle Size: 100mm (4") Needle Gauge: 21 Technique: Ultrasound Injectate: Other (see comment) (0.25% ropivacaine/0.5% lidocaine 30 mL per side) Adjunct: Epinephrine (see comment for dilution ratio) (1:200,000) Blood Aspirated: No Pain Paresthesia on Injection Noted: No Resistance on Injection: Normal Events: Uneventful and Well Tolerated
[2018-08-11] MEDS ORDERED: BUPIVACAIN-EPI 0.25%-1:200,000 30 ML VIAL SQ ONE (11:41)
[2018-08-11] MEDS ORDERED: ACETAMINOPHEN TAB 325 MG TAB PO PRN (13:05)
[2018-08-11] MEDS ORDERED: ONDANSETRON 4 MG/2 ML VIAL IVP PRN (13:05)
[2018-08-11] MEDS ORDERED: NALOXONE 0.4 MG/ML 1 ML VIAL IV PRN (13:05)
--- NOTE | 2018-08-11 13:10 | P.OP ---
Date of Procedure: 08/11/18 Preoperative Diagnosis: Recurrent incisional hernia Postoperative Diagnosis: Recurrent incisional hernia Adhesions Procedure(s) Performed: Endoscopic device pair of recurrent incisional hernia Laparoscopic lysis of adhesions Anesthesia: DELMA Surgeon: Dillon Alvarado Estimated Blood Loss (ml): 10 Pathology: none sent Condition: stable Disposition: PACU Description of Procedure: The patient was placed on the operating table in the supine position. He received general anesthesia. His abdomen was prepped and draped usual fashion. Using a 5 mm optical trocar under direct visualization the peritoneal cavity was entered in the left upper quadrant. The abdomen was then insufflated. The laparoscope was placed back into the perineal cavity. Next a 8 mm robotic trocar was placed in the left lower quadrant and a 12 mm robotic trocar was placed in the left lateral position. The original 5 mm trocar was exchanged for a 8 mm robotic trocar. The patient's placed in the left side up position. And the patient was docked to the robot. There was adhesions along her midline scar. These were lysed using hook cautery. Approximately 20 minutes of operative time used to lyse adhesions. The incisional hernia was visualized. Using hook cautery the peritoneum over the incisional hernia was excised. The fascial opening was repaired using 0V LOC suture. Next a piece of 11 cm round ventral light ST mesh was placed into the. Cavity and secured with 2 OV lock suture. The patient was undocked the robot. The needles were retrieved. The fascia of the 12 mm trocar site was closed with 0 Ethibond suture. Skin was closed interrupted 3-0 Monocryl suture. Dermabond dressings was applied. Patient tolerated procedure well and was sent to recovery room stable condition.
[2018-08-11] MEDS ORDERED: KETOROLAC 30 MG/ML 1 ML VIAL IVP SCH (13:15)
[2018-08-11 13:31] LABS: Glucose,Whole Blood 218 mg/dL (75-99)
[2018-08-11] MEDS ORDERED: SODIUM CHLORIDE 0.9% 1,000 ML IV ONE (13:35)
[2018-08-11] MEDS: HYDROmorphone 1 MG/ML 1 ML SYRINGE IVP PRN ×3 (16:23→22:48)
[2018-08-11] MEDS: DOCUSATE 100 MG CAP PO SCH (19:43)
[2018-08-11] MEDS: LACTATED RINGERS 1,000 ML IV ONE (19:44)
[2018-08-12] MEDS: KETOROLAC 30 MG/ML 1 ML VIAL IVP SCH ×4 (00:15→11:35)
[2018-08-12] MEDS: HYDROcodone/APAP 5-325MG 1 EACH TAB PO PRN ×2 (04:58→11:22)
[2018-08-12] MEDS: LACTATED RINGERS 1,000 ML IV ONE (04:59)
[2018-08-12] MEDS: DOCUSATE 100 MG CAP PO SCH (07:35)
[2018-08-12 07:41] VITALS: BP 113/53; PULSE 61; RESP 16; TEMP 97.7
[2018-08-12] MEDS ORDERED: DICLOFENAC POTASSIUM 50 MG PO PRN (08:25)
[2018-08-12] MEDS ORDERED: ALBUTEROL NEBULIZED 2.5 MG/3 ML INHALATION PRN (08:25)
[2018-08-12] MEDS ORDERED: IPRATROPIUM 0.5 MG/2.5 ML NEBU INHALATION PRN (08:25)
[2018-08-12 08:52] LABS: Basophils % (A) 0 %; Eosinophils # (A) 0.1 k/uL (0-0.7); Eosinophils % (A) 1 %; HCT 35.9 % (34.0-46.0); HGB 11.3 gm/dL (11.4-16.0); Hypochromasia Slight; Lymphocytes # (A) 2.4 k/uL (1.0-4.8); Lymphocytes % (A) 24 %; MCH 32.6 pg (25.0-35.0); MCHC 31.4 g/dL (31.0-37.0); MCV 103.8 fL (80.0-100.0); Macrocytosis Moderate; Mean Platelet Volume 6.2; Monocytes # (A) 0.4 k/uL (0-1.0); Monocytes % (A) 4 %; Neutrophils % (A) 70 %; Platelet Count 380 k/uL (150-450); RBC 3.46 m/uL (3.80-5.40); RDW 15.3 % (11.5-15.5); WBC 10.1 k/uL (3.8-10.6)
[2018-08-12 08:58] LABS: Albumin 3.6 g/dL (3.5-5.0); Calcium 8.9 mg/dL (8.4-10.2); Potassium 4.8 mmol/L (3.5-5.1); Total Bilirubin 0.5 mg/dL (0.2-1.3); Total Protein 6.2 g/dL (6.3-8.2)
[2018-08-12] MEDS ORDERED: NON-FORMULARY DRUG (Ranitidine Hcl [Zantac] 150 MG) PO SCH (09:00)
[2018-08-12] MEDS ORDERED: GABAPENTIN 300 MG CAP PO SCH (09:00)
[2018-08-12] MEDS ORDERED: ESCITALOPRAM 20 MG TAB PO SCH (09:00)
[2018-08-12] MEDS ORDERED: metFORMIN 500 MG TAB PO SCH (09:00)
[2018-08-12] MEDS ORDERED: FLUTICASONE 50MCG/SPRAY NASAL 16GM EA NOSTRIL SCH (09:00)
[2018-08-12] MEDS ORDERED: ENOXAPARIN 40 MG/0.4 ML SYRINGE SQ SCH (09:00)
[2018-08-12] MEDS ORDERED: TOPIRAMATE 100 MG TAB PO SCH (09:00)
[2018-08-12] MEDS ORDERED: NON-FORMULARY DRUG (Vitamin B Complex [Vitamin B Complex] 1 CAP) PO SCH (09:00)
[2018-08-12] MEDS ORDERED: buPROPion XL 300 MG TAB.ER.24H PO SCH (09:00)
--- NOTE | 2018-08-12 11:16 | P.CONS ---
History of Present Illness - Reason for Consult Consult date: 08/12/18 Medical management Requesting physician: Dillon Alvarado - Chief Complaint Incisional hernia - History of Present Illness This is a 48-year-old female, patient of [facility]. Patient has a known past medical history of diabetes mellitus type 2, COPD, GERD, hyperlipidemia, chronic back pain. Patient developed a periumbilical incisional hernia. She presented yesterday to the hospital for a laparoscopic robotic repair of the hernia. Patient underwent surgery yesterday with Dr. Adams as she had laparoscopic lysis of adhesions and umbilical incisional hernia repair. Patient tolerated surgery well. She's tolerating diet. And they're anticipating discharge today. Review of Systems Please refer to HPI otherwise unremarkable Past Medical History Past Medical History: COPD, GERD/Reflux, Hyperlipidemia, Musculoskeletal Disorder, Osteoarthritis (OA) Additional Past Medical History / Comment(s): DDD, SPINAL STENOSIS, HERNIATED DISCS L-4,L-5, HERNIA, BACK PAIN AND BILATERAL ANKLE PAIN, BILATERAL PLANTAR FACSITIS, CHRONIC UTI'S, PAST HX OF DIABETES-RESOLVED WITH BARIATRIC SURGERY, BUT NOW CURRENTLY PRE-DIABETIC AND ON METFORMIN TWICE A DAY. History of Any Multi-Drug Resistant Organisms: None Reported Past Surgical History: Bariatric Surgery, Section, Cholecystectomy, Hernia Repair, Orthopedic Surgery, Tubal Ligation, Uterine Ablation Additional Past Surgical History / Comment(s): EGD WITH DILATION, REVISION OF GASTROJEJUNOSTOMY, HX GASTRIC BYPASS, GANGLION CYST REMOVED, LEFT THUMB TRIGGER FINGER, CARPAL TUNNEL BILATERAL WRISTS, AND REVISION. BENIGN CYSTS REMOVED FROM OVARY, RECTUM AND TAILBONE, MULTIPLE. D&C's, C- SECTION X2, WRIST TENDONITIS SURGERY. Pain Injections. Past Anesthesia/Blood Transfusion Reactions: No Reported Reaction Additional Past Anesthesia/Blood Transfusion Reaction / Comm: STATES HYPERVENTILATES WHEN SEES NEEDLES, but that this has gotten better recently. Past Psychological History: Anxiety, Depression Additional Psychological History / Comment(s): Mood Disorder. Smoking Status: Current every day smoker Past Alcohol Use History: None Reported Additional Past Alcohol Use History / Comment(s): SMOKES 1/2 PPD. HAS BEEN SMOKING FOR 33 YEARS. Past Drug Use History: None Reported Additional Drug Use History / Comment(s): OCCASIONAL USE, INSTRUCTED TO HOLD 24 HRS PRIOR TO SURGERY. - Past Family History Sister(s) Family Medical History: Cancer Additional Family Medical History / Comment(s): COLORECTAL CANCER. Brother(s) Family Medical History: Cancer Additional Family Medical History / Comment(s): NON-HODGKIN'S LYMPHOMA. Mother Family Medical History: Cancer Additional Family Medical History / Comment(s): NON-HODGKIN'S LYMPHOMA. Medications and Allergies Home Medications Medication Instructions Recorded Confirmed Type Atorvastatin [Lipitor] 10 mg PO HS 10/23/16 08/12/18 History Diclofenac Potassium [Cataflam] 50 mg PO TID PRN 10/23/16 08/12/18 History Cetirizine HCl [Zyrtec] 10 mg PO HS 04/02/17 08/12/18 History Fluticasone Propionate [Flonase 2 spray EA NOSTRIL DAILY 04/02/17 08/12/18 History Allergy Relief] Albuterol Inhaler [Ventolin Hfa 1 - 2 puff INHALATION RT-Q6H PRN 08/02/17 History Inhaler] Budesonide/Formoterol Fumarate 2 puff INHALATION RT-HS 08/02/17 08/12/18 History [Symbicort 160-4.5 Mcg Inhaler] Gabapentin 600 mg PO QID 08/02/17 08/12/18 History Montelukast Sodium [Singulair] 10 mg PO HS 08/02/17 08/12/18 History Topiramate [Topamax] 100 mg PO DAILY 08/02/17 08/12/18 History Aclidinium [place] [Tudorza 1 puff PO RT-HS PRN 10/28/17 08/12/18 History Pressair] Ranitidine HCl [Zantac] 150 mg PO BID 10/28/17 08/12/18 History Sulfamethoxazole/Trimethoprim 1 tab PO HS 10/28/17 08/12/18 History [Bactrim SS 400-80 mg] buPROPion HCL [Wellbutrin XL] 300 mg PO QAM 10/28/17 08/12/18 History Escitalopram [Lexapro] 20 mg PO QAM 06/09/18 08/12/18 History metFORMIN HCL [Glucophage] 500 mg PO BID 06/09/18 08/12/18 History traZODone HCL [Desyrel] 100 mg PO HS 06/09/18 08/12/18 History HYDROcodone/APAP 5-325MG [[place] 1 tab PO DAILY 08/06/18 08/12/18 History 5-325] Vitamin B Complex 1 cap PO DAILY 08/06/18 08/12/18 History Docusate [Colace] 100 mg PO BID #30 capsule 08/12/18 Rx HYDROcodone/APAP 5-325MG [[place] 2 each PO Q6HR PRN #24 tab 08/12/18 Rx 5-325] Allergies Allergy/AdvReac Type Severity Reaction Status Date / Time Cephalosporins Allergy RECTAL Verified 08/12/18 07:15 BLEEDING famotidine [From Pepcid] Allergy Confusion Verified 08/12/18 07:15 lurasidone [From Latuda] Allergy SUICIDAL Verified 08/12/18 07:15 THOUGHTS olanzapine [From Zyprexa] AdvReac WEIGHT GAIN Verified 08/12/18 07:15 Physical Exam Vitals: Vital Signs Temp Pulse Pulse Resp BP Pulse Ox 08/12/18 08:00 16 08/12/18 07:20 97.7 F 61 16 113/53 95 08/12/18 05:30 97.9 F 58 L 18 120/78 92 L 08/12/18 00:00 97.9 F 68 18 101/68 92 L 08/11/18 18:35 66 16 102/67 95 08/11/18 17:35 67 16 104/66 94 L 08/11/18 16:35 65 16 108/70 94 L 08/11/18 16:05 73 16 106/67 95 08/11/18 15:35 78 16 101/68 94 L 08/11/18 15:29 16 08/11/18 15:20 79 16 105/70 97 08/11/18 15:05 77 16 113/72 97 08/11/18 14:50 97.0 F L 75 16 108/72 94 L 08/11/18 13:58 76 18 122/66 93 L 08/11/18 13:43 74 16 121/67 94 L 08/11/18 13:27 81 16 128/63 93 L 08/11/18 13:12 80 16 131/63 95 08/11/18 12:57 97.6 F 88 12 129/65 96 Intake and Output 08/11/18 08/12/18 08/12/18 22:59 06:59 14:59 Intake Total 1700 600 Output Total 600 Balance 1100 600 Intake: Oral 1700 600 Output: Urine 600 Other: # Voids 1 1 Head normocephalic Neck supple Lungs clear to auscultation bilaterally no wheezing or crackles Heart regular rate and rhythm S1-S2, no rub or gallop Abdomen is soft positive bowel sounds tender incision sites Extremities no edema Neuro alert and orientated to 3 Results CBC & Chem 7: 08/12/18 08:34 08/12/18 08:34 Labs: Abnormal Lab Results - Last 24 Hours (Table) 08/11/18 08/12/18 08/12/18 Range/Units 13:20 08:34 08:34 RBC 3.46 L (3.80-5.40) m/uL Hgb 11.3 L (11.4-16.0) gm/dL MCV 103.8 H (80.0-100.0) fL Glucose 143 H (74-99) mg/dL POC Glucose (mg/dL) 218 H (75-99) mg/dL Total Protein 6.2 L (6.3-8.2) g/dL Assessment and Plan Assessment: 1. Recurrent incisional hernia and adhesions status post endoscopic device repair of recurrent incisional hernia and laparoscopic lysis of adhesions 2. Diabetes mellitus type 2 continue metformin 3. COPD stable no exacerbation 4. Chronic back pain with known herniated disks and spinal stenosis and degenerative disc disease 5. Osteoarthritis 6. Hyperlipidemia 7. Chronic recurrent UTIs on daily Bactrim Thank you for this consultation. Medications and labs have been reviewed. Patient is medically stable for discharge. We'll have her follow-up with her PCP in 1 week Time with Patient: Greater than 30 (Greater than 50% of the total time spent in counseling and coordination of care.I performed an examination of the patient and discussed their management with the physician Corporate Account Executive. I have reviewed the Physician Corporate Account Executive's notes and agree with the documented findings and plan of care)
--- NOTE | 2018-08-12 11:47 | P.DS ---
Providers Date of admission: 08/11/18 23:46 Expected date of discharge: 08/12/18 Attending physician: Dillon Alvarado Consults: 08/11/18 13:05 Consult Physician Routine Consulting Provider: Aurora Comer Consult Reason/Comments: Medical management Do you want consulting provider notified?: Yes Primary care physician: Mónica [place] Hospital Course: 48 year old female who underwent laparoscopic repair of recurrent incisional hernia and laparoscopic lysis of adhesions. The patient is doing well postoperatively without any immediate consultations. She is tolerating PO intake. Passing flatus. Denies nausea or vomiting. She is hemodynamically stable. Pain is tolerable. The patient is stable for discharge home today. Please see EMR for further details. Discharge diagnosis 1. Status post laparoscopic repair of recurrent incisional hernia and laparoscopic lysis of adhesions Nurse practitioner note has been reviewed by physician. Signing provider agrees with the documented findings, assessment, and plan of care. Plan - Discharge Summary Discharge Rx Participant: Yes New Discharge Prescriptions: New HYDROcodone/APAP 5-325MG [[place] 5-325] 2 each PO Q6HR PRN #24 tab PRN Reason: Moderate To Severe Pain Docusate [Colace] 100 mg PO BID #30 capsule Continue Atorvastatin [Lipitor] 10 mg PO HS Diclofenac Potassium [Cataflam] 50 mg PO TID PRN PRN Reason: Pain Cetirizine HCl [Zyrtec] 10 mg PO HS Fluticasone Propionate [Flonase Allergy Relief] 2 spray EA NOSTRIL DAILY Montelukast Sodium [Singulair] 10 mg PO HS Albuterol Inhaler [Ventolin Hfa Inhaler] 1 - 2 puff INHALATION RT-Q6H PRN PRN Reason: Shortness Of Breath Budesonide/Formoterol Fumarate [Symbicort 160-4.5 Mcg Inhaler] 2 puff INHALATION RT-HS Topiramate [Topamax] 100 mg PO DAILY Gabapentin 600 mg PO QID Aclidinium [place] [Tudorza Pressair] 1 puff PO RT-HS PRN PRN Reason: Shortness Of Breath buPROPion HCL [Wellbutrin XL] 300 mg PO QAM Ranitidine HCl [Zantac] 150 mg PO BID Sulfamethoxazole/Trimethoprim [Bactrim SS 400-80 mg] 1 tab PO HS metFORMIN HCL [Glucophage] 500 mg PO BID Escitalopram [Lexapro] 20 mg PO QAM traZODone HCL [Desyrel] 100 mg PO HS Vitamin B Complex 1 cap PO DAILY Discontinued HYDROcodone/APAP 5-325MG [[place] 5-325] 1 tab PO DAILY Discharge Medication List Atorvastatin [Lipitor] 10 mg PO HS 10/23/16 [History] Diclofenac Potassium [Cataflam] 50 mg PO TID PRN 10/23/16 [History] Cetirizine HCl [Zyrtec] 10 mg PO HS 04/02/17 [History] Fluticasone Propionate [Flonase Allergy Relief] 2 spray EA NOSTRIL DAILY [History] Albuterol Inhaler [Ventolin Hfa Inhaler] 1 - 2 puff INHALATION RT-Q6H PRN [History] Budesonide/Formoterol Fumarate [Symbicort 160-4.5 Mcg Inhaler] 2 puff INHALATION RT-HS 08/02/17 [History] Gabapentin 600 mg PO QID 08/02/17 [History] Montelukast Sodium [Singulair] 10 mg PO HS 08/02/17 [History] Topiramate [Topamax] 100 mg PO DAILY 08/02/17 [History] Aclidinium [place] [Tudorza Pressair] 1 puff PO RT-HS PRN 10/28/17 [History] Ranitidine HCl [Zantac] 150 mg PO BID 10/28/17 [History] Sulfamethoxazole/Trimethoprim [Bactrim SS 400-80 mg] 1 tab PO HS 10/28/17 [ History] buPROPion HCL [Wellbutrin XL] 300 mg PO QAM 10/28/17 [History] Escitalopram [Lexapro] 20 mg PO QAM 06/09/18 [History] metFORMIN HCL [Glucophage] 500 mg PO BID 06/09/18 [History] traZODone HCL [Desyrel] 100 mg PO HS 06/09/18 [History] Vitamin B Complex 1 cap PO DAILY 08/06/18 [History] Docusate [Colace] 100 mg PO BID #30 capsule 08/12/18 [Rx] HYDROcodone/APAP 5-325MG [[place] 5-325] 2 each PO Q6HR PRN #24 tab 01/24/19 [Rx] Follow up Appointment(s)/Referral(s): Mónica Morris DO [Primary Care Provider] - 1 Week Dillon Alvarado MD [STAFF PHYSICIAN] - 08/17/18 3:30 pm Activity/Diet/Wound Care/Special Instructions: No driving while taking [place] No lifting over 10 pounds You may shower. No soaking or tub baths Discharge Disposition: HOME SELF-CARE
[2018-08-12] MEDS ORDERED: INSULIN ASPART 100 UNIT/ML 1 ML 10 ML VIAL SQ SCH (12:30)
[2018-08-12 18:39] LABS: Hemoglobin A1C 6.8 % (4.0-6.0)
[2018-08-12] MEDS ORDERED: SYMBICORT 160-4.5 MCG INHALER INHALATION SCH (20:00)
[2018-08-12] MEDS ORDERED: traZODone HCL 100 MG TAB PO SCH (21:00)
[2018-08-12] MEDS ORDERED: LORATADINE 10 MG TAB PO SCH (21:00)
[2018-08-12] MEDS ORDERED: MONTELUKAST 10 MG TAB PO SCH (21:00)
[2018-08-12] MEDS ORDERED: ATORVASTATIN 10 MG TAB PO SCH (21:00)
== END 2018-08-12 11:49 | disposition home or self-care (01) ==
LOC: OR 09:37 → 6PED 12:48 → OR 23:58
PROVIDERS: ADMIT Surgery; ATTEND Surgery
DX: K43.2 Incisional hernia without obstruction or gangrene (principal); Z98.84 Bariatric surgery status; J44.9 Chronic obstructive pulmonary disease, unspecified; K21.9 Gastro-esophageal reflux disease without esophagitis; E78.5 Hyperlipidemia, unspecified; M19.90 Unspecified osteoarthritis, unspecified site; M48.00 Spinal stenosis, site unspecified; M51.26 Other intervertebral disc displacement, lumbar region; M54.9 Dorsalgia, unspecified; M25.572 Pain in left ankle and joints of left foot; M25.571 Pain in right ankle and joints of right foot; M72.2 Plantar fascial fibromatosis; R73.03 Prediabetes; G89.29 Other chronic pain; F41.9 Anxiety disorder, unspecified; F32.9 Major depressive disorder, single episode, unspecified; F17.200 Nicotine dependence, unspecified, uncomplicated; N39.0 Urinary tract infection, site not specified; Z90.49 Acquired absence of other specified parts of digestive tract; Z80.0 Family history of malignant neoplasm of digestive organs; Z80.7 Family history of other malignant neoplasms of lymphoid, hematopoietic and related tissues; Z79.899 Other long term (current) drug therapy; Z79.84 Long term (current) use of oral hypoglycemic drugs; Z79.891 Long term (current) use of opiate analgesic; Z79.2 Long term (current) use of antibiotics; Z88.8 Allergy status to other drugs, medicaments and biological substances; K66.0 Peritoneal adhesions (postprocedural) (postinfection)
CPT/HCPCS: 81025; 64486; 80053; 85025; 83036; 49656; 49329; G0378 ×2; C1781 ×2; J2250 ×2; J1100; J2710; J2405; J2001 ×2; J1650; J3010; J1885 ×2; J1170; J2795; J0330; J2704

== ENCOUNTER → 2018-08-19 | Outpatient (CLI) | payer OTHER ==
[2018-08-19 14:54] VITALS: BP 129/85; PULSE 95; RESP 16
--- NOTE | 2018-08-19 15:22 | P.PAINPG ---
Subjective Progress Note Date: 08/19/18 This is a follow-up visit for this 48 years old female with a chronic history of low back pain, radiation to the lower extremity bilaterally ,and to the feet , patient diagnosed with sacroiliitis and lumbar herniated disc disease, recently we have done bilateral sacroiliac joint steroid injection, x2 ,patient had no benefit from it, continued to have low back pain with radiation to the lower extremity, she has no fever or night sweats she has no motor or sensory deficit, and no change in the bowel movements or urination. Objective - Vital Signs Vital signs: Vital Signs Temp Pulse 95 08/19/18 14:45 Resp 16 08/19/18 14:45 BP 129/85 08/19/18 14:45 Pulse Ox 96 08/19/18 14:45 Intake & Output 08/18/18 08/19/18 08/19/18 18:59 06:59 18:59 Weight 88.451 kg - Exam Physical Examinations : 1-Constitutiona : Cooperative , not in acute distress . 2-HEENT : nech ; supple , no Lymphadenopathy , normal thyroid size . eyes : no ptosis , no icterus, no photophobia . ENT : normal of hearing , normal oropharynx , no Thrush . 3- Respiratory : Chest clear to auscultations Bilaterally , no wheezing , no Rhonchi . 4- Cardiovascular : regular rate and rhythem , S1 , S2 , no S3 , no S4. 5- Gastrointestinal : abdomen soft no tenderness , bowel sounds , no organomegally . 6- Genitourinary : Defferred . 7- neurologic : Cranial nerve II to XII intact , no focal neurological deffecit . 8-psychatric : alert , oriented X 3 , appropriate affect , intact judgment and insight . 9-Lymphatic : no Lymphadenopathy . 10- musculoskeltal : Lumber spine moter stegnth lower extremities , thigh and legs 5/5 Right side , 5/5 Left side deep tendon reflexes : normal Knee Jerk , normal ankle Jerk lumber facet Loading Test = positive on the left side , negative on the right Range of motion of the lumbar spine Flexion 60 degrees, extension 30 degrees strait leg raising test , positive at 30 degree bilaterally Fabere test positive RT ,and positive LT . moderate tenderness over the Sacroiliac joint on the R and L sides Previous MRI of the lumbar spine= L5-S1 lumbar herniated disc disease Assessment and Plan Plan: Assessment and plan= chronic severe low back pain secondary to lumbar herniated disc disease, sacroiliitis. She had no benefit from bilateral sacroiliac joint steroid injections done twice. she will be good candidate, to have lumbar epidural steroid injection ,at the L5-S1 level, or seizure risk and benefits and alternative Discussed with the patient she agreed with the preceding Time with Patient: Less than 30 PQRS Measure Charge Sheet Measure #130: Documentation of Current Meds in Medical Chart: Patient's medications documented in chart Measure #226: Tobacco Use: Screen & Cessation Intervention: Pt screened for tobacco use AND intervention given Measure #111: Pneumonia Vaccination: Pneumococcal vaccine NOT administered or previously given Measure #47: Advance Care Plan: Advance care planning discussed & documented, pt chose/unable to give Measure #412: Opioid Treatment Agreement: No documentation of signed opioid treatment agreement Measure #408: Opioid Therapy Follow-up Evaluation: Patient had NO f/u eval minimum every 3 months during opioid therapy Measure #317: Preventitive Care & Scrn High Bld Press & F/U: Normal blood pressure, f/u not required Measure #128: Body Mass Index (BMI) Screening & Follow-up: BMI documented ABOVE normal parameters - f/u documented Measure #131: Pain Assessment & Follow-up: Pain positive & plan documented, Follow-up scheduled Measure #431: Unhealthy Alcohol Use Preventative Care & Scrn: Patient not identified as an unhealthy alcohol user PQRS Narrative: Smoking Status Current every day smoker Blood Pressure 129/85 Pain Intensity [Bilateral 8 Lower Back] Scale Used Numeric (1 - 10) Hx Alcohol Use (MH) No Home Medications: Ambulatory Orders Atorvastatin [Lipitor] 10 mg PO HS 10/23/16 Diclofenac Potassium [Cataflam] 50 mg PO TID 10/23/16 Cetirizine HCl [Zyrtec] 10 mg PO HS 04/02/17 Fluticasone Propionate [Flonase Allergy Relief] 2 spray EA NOSTRIL DAILY Albuterol Inhaler [Ventolin Hfa Inhaler] 1 - 2 puff INHALATION RT-Q6H PRN Budesonide/Formoterol Fumarate [Symbicort 160-4.5 Mcg Inhaler] 2 puff INHALATION RT-HS 08/02/17 Gabapentin 600 mg PO QID 08/02/17 Montelukast Sodium [Singulair] 10 mg PO HS 08/02/17 Topiramate [Topamax] 100 mg PO DAILY 08/02/17 Aclidinium [place] [Tudorza Pressair] 1 puff PO RT-HS PRN 10/28/17 Ranitidine HCl [Zantac] 150 mg PO BID 10/28/17 Sulfamethoxazole/Trimethoprim [Bactrim SS 400-80 mg] 1 tab PO HS 10/28/17 buPROPion HCL [Wellbutrin XL] 300 mg PO QAM 10/28/17 Escitalopram [Lexapro] 20 mg PO QAM 06/09/18 metFORMIN HCL [Glucophage] 500 mg PO BID 06/09/18 traZODone HCL [Desyrel] 100 mg PO HS 06/09/18 Vitamin B Complex 1 cap PO DAILY 08/06/18 Docusate [Colace] 100 mg PO BID #30 capsule 08/12/18 HYDROcodone/APAP 5-325MG [[place] 5-325] 1 each PO DAILY PRN 08/19/18 Controlled Substance Measures - Controlled Substance Measures Is patient prescribed a controlled substance at discharge?: No When asked, does pt state using other controlled substances?: No If prescribed controlled substance>3 days was MAPS reviewed?: No If Rx opioid, was Start Talking consent form obtained?: No If opioid is for acute pain is fill amount 7 days or less?: No Was information provided regarding opioid addiction?: No
== END | disposition home or self-care (01) ==
LOC: PNWHC3 14:18
PROVIDERS: ATTEND Specialist
DX: G89.29 Other chronic pain (principal); M51.26 Other intervertebral disc displacement, lumbar region; M46.1 Sacroiliitis, not elsewhere classified; F17.200 Nicotine dependence, unspecified, uncomplicated; Z79.1 Long term (current) use of non-steroidal anti-inflammatories (NSAID)
CPT/HCPCS: 99211

== ENCOUNTER 2018-08-28 08:48 | Emergency (ER) | payer OTHER ==
[2018-08-28 08:57] VITALS: RESP 18
[2018-08-28] MEDS ORDERED: SODIUM CHLORIDE 0.9% 1,000 ML IV STA (09:35)
--- NOTE | 2018-08-28 10:04 | ED ---
General Adult HPI - General Chief complaint: Abdominal Pain Stated complaint: Constipation Time Seen by Provider: 08/28/18 09:19 Source: patient, RN notes reviewed, old records reviewed Mode of arrival: ambulatory Limitations: no limitations - History of Present Illness Initial comments: Patient is a 48-year-old female who presents emergency Department today with complaints of constipation. Patient reports that she had hernia surgery by Dr. Bernal on August 11. Patient states that since then she's been having a difficult time with having bowel movements. Patient relates that she has had episodes of vomiting today. Patient reports that she is follow-up with her primary care provider and has been taking MiraLAX, Colace. She did have one small thin and warm-like stool on . Patient states that she has had no change in urination. She states that she feels very full. She's had his area multiple abdominal surgeries. - Related Data Home Medications Medication Instructions Recorded Confirmed Atorvastatin [Lipitor] 10 mg PO HS 10/23/16 08/28/18 Diclofenac Potassium [Cataflam] 50 mg PO TID 10/23/16 08/28/18 Cetirizine HCl [Zyrtec] 10 mg PO HS 04/02/17 08/28/18 Fluticasone Propionate [Flonase 2 spray EA NOSTRIL DAILY 04/02/17 08/28/18 Allergy Relief] Albuterol Inhaler [Ventolin Hfa 1 - 2 puff INHALATION RT-Q6H PRN 08/02/17 Inhaler] Budesonide/Formoterol Fumarate 2 puff INHALATION RT-DAILY 08/02/17 08/28/18 [Symbicort 160-4.5 Mcg Inhaler] Gabapentin 600 mg PO QID 08/02/17 08/28/18 Montelukast Sodium [Singulair] 10 mg PO HS 08/02/17 08/28/18 Topiramate [Topamax] 100 mg PO DAILY 08/02/17 08/28/18 Aclidinium [place] [Tudorza 1 puff PO RT-HS PRN 10/28/17 08/28/18 Pressair] Ranitidine HCl [Zantac] 150 mg PO BID 10/28/17 08/28/18 Sulfamethoxazole/Trimethoprim 1 tab PO HS 10/28/17 08/28/18 [Bactrim SS 400-80 mg] buPROPion HCL [Wellbutrin XL] 300 mg PO QAM 10/28/17 08/28/18 Escitalopram [Lexapro] 20 mg PO QAM 06/09/18 08/28/18 metFORMIN HCL [Glucophage] 500 mg PO BID 06/09/18 08/28/18 traZODone HCL [Desyrel] 100 mg PO HS 06/09/18 08/28/18 Vitamin B Complex 1 cap PO DAILY 08/06/18 08/28/18 HYDROcodone/APAP 5-325MG [[place] 1 tab PO DAILY PRN 08/19/18 08/28/18 5-325] Previous Rx's Medication Instructions Recorded Docusate [Colace] 100 mg PO BID #30 capsule 08/12/18 Allergies Allergy/AdvReac Type Severity Reaction Status Date / Time Cephalosporins Allergy RECTAL Verified 08/28/18 09:29 BLEEDING famotidine [From Pepcid] Allergy Confusion Verified 08/28/18 09:29 lurasidone [From Latuda] Allergy SUICIDAL Verified 08/28/18 09:29 THOUGHTS olanzapine [From Zyprexa] AdvReac WEIGHT GAIN Verified 08/28/18 09:29 Review of Systems ROS Statement: Those systems with pertinent positive or pertinent negative responses have been documented in the HPI. ROS Other: All systems not noted in ROS Statement are negative. Past Medical History Past Medical History: COPD, Diabetes Mellitus, GERD/Reflux, Hyperlipidemia, Musculoskeletal Disorder, Osteoarthritis (OA) Additional Past Medical History / Comment(s): DDD, SPINAL STENOSIS, HERNIATED DISCS L-4,L-5, HERNIA, BACK PAIN AND BILATERAL ANKLE PAIN, BILATERAL PLANTAR FACSITIS, CHRONIC UTI'S, PAST HX OF DIABETES-RESOLVED WITH BARIATRIC SURGERY, BUT NOW CURRENTLY PRE-DIABETIC AND ON METFORMIN TWICE A DAY. ABDOMINAL INCISIONAL HERNIA RESPAIR WITH MESH 08/11/18 History of Any Multi-Drug Resistant Organisms: None Reported Past Surgical History: Bariatric Surgery, Section, Cholecystectomy, Hernia Repair, Orthopedic Surgery, Tubal Ligation, Uterine Ablation Additional Past Surgical History / Comment(s): EGD WITH DILATION, REVISION OF GASTROJEJUNOSTOMY, HX GASTRIC BYPASS, GANGLION CYST REMOVED, LEFT THUMB TRIGGER FINGER, CARPAL TUNNEL BILATERAL WRISTS, AND REVISION. BENIGN CYSTS REMOVED FROM OVARY, RECTUM AND TAILBONE, MULTIPLE. D&C's, C- SECTION X2, WRIST TENDONITIS SURGERY. Pain Injections. Past Anesthesia/Blood Transfusion Reactions: No Reported Reaction Additional Past Anesthesia/Blood Transfusion Reaction / Comment(s): STATES HYPERVENTILATES WHEN SEES NEEDLES, but that this has gotten better recently. Past Psychological History: Anxiety, Depression Smoking Status: Current every day smoker Past Alcohol Use History: None Reported Past Drug Use History: None Reported - Past Family History Sister(s) Family Medical History: Cancer Additional Family Medical History / Comment(s): COLORECTAL CANCER. Brother(s) Family Medical History: Cancer Additional Family Medical History / Comment(s): NON-HODGKIN'S LYMPHOMA. Mother Family Medical History: Cancer Additional Family Medical History / Comment(s): NON-HODGKIN'S LYMPHOMA. General Exam - General Exam Comments Initial Comments: 48-year-old female. Patient's abdomen is distended. Limitations: no limitations General appearance: alert, in no apparent distress Head exam: Present: atraumatic, normocephalic, normal inspection Eye exam: Present: normal appearance ENT exam: Present: normal exam, mucous membranes moist Neck exam: Present: normal inspection. Absent: tenderness, meningismus, lymphadenopathy Respiratory exam: Present: normal lung sounds bilaterally. Absent: respiratory distress, wheezes, rales, rhonchi, stridor Cardiovascular Exam: Present: regular rate, normal rhythm, normal heart sounds. Absent: systolic murmur, diastolic murmur, rubs, gallop, clicks GI/Abdominal exam: Present: soft, normal bowel sounds. Absent: distended, tenderness, guarding, rebound, rigid Extremities exam: Present: normal inspection, full ROM, normal capillary refill. Absent: tenderness, pedal edema, joint swelling, calf tenderness Back exam: Present: normal inspection Neurological exam: Present: alert, oriented X3, CN II-XII intact Psychiatric exam: Present: normal affect, normal mood Skin exam: Present: warm, dry, intact, normal color. Absent: rash Course Vital Signs 08/28/18 08:53 Temperature 97.8 F Pulse Rate 87 Respiratory 18 Rate Blood Pressure 140/69 O2 Sat by Pulse 98 Oximetry - Reevaluation(s) Reevaluation #1: 08/28/18 13:36 Patient was reevaluated. She is feeling much better at this time after having an enema. Will be discharged with follow-up with PCP. Medical Decision Making - Lab Data Result diagrams: 08/28/18 09:50 08/28/18 09:50 Lab Results 08/28/18 08/28/18 08/28/18 Range/Units 09:50 09:50 09:50 WBC 10.2 (3.8-10.6) k/uL RBC 3.74 L (3.80-5.40) m/uL Hgb 11.7 (11.4-16.0) gm/dL Hct 37.5 (34.0-46.0) % MCV 100.2 H (80.0-100.0) fL MCH 31.2 (25.0-35.0) pg MCHC 31.1 (31.0-37.0) g/dL RDW 15.1 (11.5-15.5) % Plt Count 505 H (150-450) k/uL Neutrophils % 53 % Lymphocytes % 30 % Monocytes % 5 % Eosinophils % 10 % Basophils % 1 % Neutrophils # 5.4 (1.3-7.7) k/uL Lymphocytes # 3.0 (1.0-4.8) k/uL Monocytes # 0.5 (0-1.0) k/uL Eosinophils # 1.0 H (0-0.7) k/uL Basophils # 0.1 (0-0.2) k/uL Macrocytosis Slight PT 9.4 (9.0-12.0) sec INR 0.8 (<1.2) APTT 23.1 (22.0-30.0) sec Sodium 142 (137-145) mmol/L Potassium 4.3 (3.5-5.1) mmol/L Chloride 108 H (98-107) mmol/L Carbon Dioxide 24 (22-30) mmol/L Anion Gap 10 mmol/L BUN 13 (7-17) mg/dL Creatinine 0.98 (0.52-1.04) mg/dL Est GFR (CKD-EPI)AfAm 80 (>60 ml/min/1.73 sqM) Est GFR (CKD-EPI)NonAf 69 (>60 ml/min/1.73 sqM) Glucose 103 H (74-99) mg/dL Calcium 9.4 (8.4-10.2) mg/dL Total Bilirubin 0.3 (0.2-1.3) mg/dL AST 20 (14-36) U/L ALT 37 (9-52) U/L Alkaline Phosphatase 94 (38-126) U/L Total Protein 7.1 (6.3-8.2) g/dL Albumin 4.2 (3.5-5.0) g/dL Amylase 41 (30-110) U/L Lipase 27 (23-300) U/L Urine Color Urine Appearance (Clear) Urine pH (5.0-8.0) Ur Specific [place] (1.001-1.035) Urine Protein (Negative) Urine Glucose (UA) (Negative) Urine Ketones (Negative) Urine Blood (Negative) Urine Nitrite (Negative) Urine Bilirubin (Negative) Urine Urobilinogen (<2.0) mg/dL Ur Leukocyte Esterase (Negative) Urine RBC (0-5) /hpf Urine WBC (0-5) /hpf Ur Squamous Epith Cells (0-4) /hpf Urine Bacteria (None) /hpf 08/28/18 Range/Units 09:50 WBC (3.8-10.6) k/uL RBC (3.80-5.40) m/uL Hgb (11.4-16.0) gm/dL Hct (34.0-46.0) % MCV (80.0-100.0) fL MCH (25.0-35.0) pg MCHC (31.0-37.0) g/dL RDW (11.5-15.5) % Plt Count (150-450) k/uL Neutrophils % % Lymphocytes % % Monocytes % % Eosinophils % % Basophils % % Neutrophils # (1.3-7.7) k/uL Lymphocytes # (1.0-4.8) k/uL Monocytes # (0-1.0) k/uL Eosinophils # (0-0.7) k/uL Basophils # (0-0.2) k/uL Macrocytosis PT (9.0-12.0) sec INR (<1.2) APTT (22.0-30.0) sec Sodium (137-145) mmol/L Potassium (3.5-5.1) mmol/L Chloride (98-107) mmol/L Carbon Dioxide (22-30) mmol/L Anion Gap mmol/L BUN (7-17) mg/dL Creatinine (0.52-1.04) mg/dL Est GFR (CKD-EPI)AfAm (>60 ml/min/1.73 sqM) Est GFR (CKD-EPI)NonAf (>60 ml/min/1.73 sqM) Glucose (74-99) mg/dL Calcium (8.4-10.2) mg/dL Total Bilirubin (0.2-1.3) mg/dL AST (14-36) U/L ALT (9-52) U/L Alkaline Phosphatase (38-126) U/L Total Protein (6.3-8.2) g/dL Albumin (3.5-5.0) g/dL Amylase (30-110) U/L Lipase (23-300) U/L Urine Color Yellow Urine Appearance Cloudy H (Clear) Urine pH 5.5 (5.0-8.0) Ur Specific [place] 1.005 (1.001-1.035) Urine Protein Negative (Negative) Urine Glucose (UA) Negative (Negative) Urine Ketones Negative (Negative) Urine Blood Negative (Negative) Urine Nitrite Negative (Negative) Urine Bilirubin Negative (Negative) Urine Urobilinogen <2.0 (<2.0) mg/dL Ur Leukocyte Esterase Negative (Negative) Urine RBC <1 (0-5) /hpf Urine WBC 3 (0-5) /hpf Ur Squamous Epith Cells 5 H (0-4) /hpf Urine Bacteria Rare H (None) /hpf Disposition Clinical Impression: Constipation Disposition: HOME SELF-CARE Condition: Good Instructions (If sedation given, give patient instructions): Constipation (ED) Additional Instructions: Patient is to use the magnesium citrate at home. Follow-up with her primary care physician and surgeon. Patient should return to the emergency department if any alarming signs or symptoms occur. Is patient prescribed a controlled substance at d/c from ED?: No Referrals: Mónica Morris DO [Primary Care Provider] - 1-2 days Time of Disposition: 13:20
[2018-08-28 10:24] LABS: Basophils # (A) 0.1 k/uL (0-0.2); Basophils % (A) 1 %; Eosinophils % (A) 10 %; HCT 37.5 % (34.0-46.0); HGB 11.7 gm/dL (11.4-16.0); Lymphocytes % (A) 30 %; MCH 31.2 pg (25.0-35.0); MCHC 31.1 g/dL (31.0-37.0); MCV 100.2 fL (80.0-100.0); Macrocytosis Slight; Mean Platelet Volume 6.9; Monocytes # (A) 0.5 k/uL (0-1.0); Monocytes % (A) 5 %; Neutrophils # (A) 5.4 k/uL (1.3-7.7); Neutrophils % (A) 53 %; Platelet Count 505 k/uL (150-450); RBC 3.74 m/uL (3.80-5.40); RDW 15.1 % (11.5-15.5); WBC 10.2 k/uL (3.8-10.6)
--- NOTE | 2018-08-28 10:25 | XR ---
EXAMINATION TYPE: XR KUB DATE OF EXAM: 08/28/2018 10:21 AM CLINICAL HISTORY: Abdominal pain and nausea TECHNIQUE: Single supine KUB image of the abdomen is obtained. COMPARISON: CT abdomen pelvis 10/20/2017. FINDINGS: No evidence of pneumoperitoneum. No dilated large or small bowel. Numerous surgical clips are seen th roughout the abdomen and pelvis. No evidence of visceromegaly. Minimal scoliotic curvature of the tho racolumbar spine. Osseous structures are without acute pathology. IMPRESSION: No acute radiographic process is evident.
[2018-08-28 10:28] LABS: Appearance,Urine Cloudy (Clear); Bacteria,Urine Rare /hpf; Bilirubin,Urine Negative (Negative); Blood,Urine Negative (Negative); Color,Urine Yellow; Glucose,Urine (UA) Negative (Negative); Ketones,Urine Negative (Negative); Leukocyte Esterase,Urine Negative (Negative); Nitrite,Urine Negative (Negative); PH, Urine 5.5 (5.0-8.0); Protein,Urine Negative (Negative); RBC,Urine <1 /hpf (0-5); Specific Gravity,Urine 1.005 (1.001-1.035); Squamous Epithelial Cell,Urine 5 /hpf (0-4); Urobilinogen,Urine <2.0 mg/dL (<2.0); WBC,Urine 3 /hpf (0-5)
[2018-08-28 10:36] LABS: INR 0.8 (<1.2); Partial Thromboplastin Time 23.1 sec (22.0-30.0); Prothrombin Time 9.4 sec (9.0-12.0)
[2018-08-28 10:41] LABS: Albumin 4.2 g/dL (3.5-5.0); Calcium 9.4 mg/dL (8.4-10.2); Potassium 4.3 mmol/L (3.5-5.1); Total Bilirubin 0.3 mg/dL (0.2-1.3); Total Protein 7.1 g/dL (6.3-8.2)
[2018-08-28] MEDS ORDERED: DOCUSATE 283 MG/5 ML ENEMA RECTAL STA (11:12)
[2018-08-28] MEDS ORDERED: MAGNESIUM CITRATE 296 ML BOTTLE PO ONE (13:21)
[2018-08-28 14:08] VITALS: BP 120/84; PULSE 71; TEMP 97.1
== END 2018-08-28 14:07 | disposition home or self-care (01) ==
LOC: EC 08:48
DX: K59.00 Constipation, unspecified (principal); R11.10 Vomiting, unspecified; J44.9 Chronic obstructive pulmonary disease, unspecified; E11.9 Type 2 diabetes mellitus without complications; K21.9 Gastro-esophageal reflux disease without esophagitis; E78.5 Hyperlipidemia, unspecified; M19.90 Unspecified osteoarthritis, unspecified site; F41.9 Anxiety disorder, unspecified; F32.9 Major depressive disorder, single episode, unspecified; F17.200 Nicotine dependence, unspecified, uncomplicated; Z87.19 Personal history of other diseases of the digestive system; Z98.84 Bariatric surgery status; Z90.49 Acquired absence of other specified parts of digestive tract; Z98.890 Other specified postprocedural states; Z98.51 Tubal ligation status; Z79.1 Long term (current) use of non-steroidal anti-inflammatories (NSAID); Z79.51 Long term (current) use of inhaled steroids; Z79.84 Long term (current) use of oral hypoglycemic drugs; Z79.899 Other long term (current) drug therapy; Z88.1 Allergy status to other antibiotic agents; Z88.8 Allergy status to other drugs, medicaments and biological substances
CPT/HCPCS: 36415; 74018; 80053; 81001; 82150; 83690; 85025; 85610; 85730; 96360; 99284

== ENCOUNTER 2018-08-31 06:12 | Day surgery (SDC) | payer OTHER ==
[2018-08-27 15:26] VITALS: BMI 40.8
[2018-08-31] MEDS ORDERED: SODIUM CHLORIDE 0.9% 500 ML 500 ML IV SCH (06:46)
[2018-08-31 07:00] VITALS: TEMP 98.3
[2018-08-31] MEDS ORDERED: LACTATED RINGERS 1,000 ML IV ONE (07:09)
[2018-08-31] MEDS ORDERED: LIDOCAINE 1% 20 ML VIAL (10MG/ML) FOR IV START INTRADERMA ONE (07:10)
[2018-08-31 07:22] LABS: Glucose,Whole Blood 107 mg/dL (75-99)
--- NOTE | 2018-08-31 07:44 | P.PCN ---
Date of Procedure: 08/31/18 Procedure(s) Performed: PREOPERATIVE DIAGNOSIS: 1- Lumbar Degenerative Disc Diseases 2-Lumbar spondylosis with Facet arthropathy without myelopathy 3-sacroiliitis POSTOPERATIVE DIAGNOSIS: 1-Lumber Degenerative Disc Diseases 2-Lumbar spondylosis with Facet arthropathy without myelopathy. 3-sacroiliitis PROCEDURE 1. Lumbar epidural steroid injection under fluoroscopic guidance at the L5-S1 level. 2. Lumbar epidurogram. ANESTHESIA: Local with 1% lidocaine 3 ml and , moderate sedation with intravenous Versed 2 mg ,and fentanyle 150 Mcg EBL: Minimal PROCEDURE INDICATION: The patient with low back pain and radiculitis symptoms unresponsive to conservative treatment. Fluoroscopy was used to optimize visualization of the needle placement and to maximize safety. PROCEDURE DESCRIPTION / TECHNIQUE: The patient was seen and identified in the preoperative area. Risks, benefits , complications including but not limited to infections ,bleeding ,allergic reaction to the medications ,nerve damage and not complete pain releife , and alternatives were discussed with the patient. The patient agreed to proceed with the procedure and signed the consent. IV was started, and vital signs were stable. Patient was taken to the OR and time out was completed. The patient was placed in the prone position on procedure table and a pillow was placed under the abdomen to reduce lumbar lordosis. The lumbosacral area was prepped and draped in the usual sterile fashion.ere closely monitored during the procedure. Conscious sedation was used during the procedure to decrease patients anxiety. Vital signs was monitered during the entire procedure. Using anterior-posterior fluoroscopy, the L5-S1 interlaminar space was identified and the skin over this site was marked and then infiltrated with 1% lidocaine subcutaneously. Subsequently, a 18 -gauge 6 inches long Tuohy epidural needle was inserted and advanced toward the epidural space using the `` Loss of resistance technique and guided by AP and lateral fluoroscopy. The correct needle position in the epidural space was verified with the injection of 2 mL of the water soluble contrast dye Isovue 200 contrast and observing an excellent epidurogram with the epidural spread of the dye, after negative aspiration for blood and CSF and in the absence of paresthesias. Again after negative aspiration, a 6 ml mixture containing 80 mg of Depo-medrol , and 2 ml of preservative free Normal Saline, and 2 ml of preservative free lidocaine 1 % solution was injected and a washout of epidurogram was seen. Needle was withdrawn intact, skin was cleansed, and bandages were applied. COMPLICATIONS: None DISPOSITION / PLANS: The patient was placed in a supine position and transferred to the recovery area in a stable condition for observation. There was no evidence of lower extremity motor or sensory deficit after the procedure. Patient was discharged from the recovery room after meeting discharge criteria. Home discharge instructions were given to the patient by the staff. The patient was reexamined prior to discharge. The patient will schedule a follow up in the clinic in 2-4 weeks.
[2018-08-31] MEDS ORDERED: IV FLUID CONTINUATION 700 ML IV ONE (07:57)
--- NOTE | 2018-08-31 08:10 | FL ---
EXAMINATION TYPE: FL guided pain mgmt statistic DATE OF EXAM: 08/31/2018 CLINICAL HISTORY: Low back pain. TECHNIQUE: Fluoroscopy. COMPARISON: None. FINDINGS: Fluoroscopic guidance was provided during pain relief procedure performed by Dr. Bar . A total of 17 seconds of fluoroscopic time was utilized during the procedure and single spot fluor oscopic image is acquired. Single image acquired shows needle localization at level of L5 with contr ast injection. IMPRESSION: As Above.
[2018-08-31 08:20] VITALS: RESP 18
[2018-08-31 08:28] LABS: Glucose,Whole Blood 123 mg/dL (75-99)
[2018-08-31 09:08] VITALS: BP 110/70; PULSE 80
== END 2018-08-31 09:13 | disposition home or self-care (01) ==
LOC: ORPAIN 06:12
PROVIDERS: ATTEND Specialist
DX: G89.29 Other chronic pain (principal); M47.26 Other spondylosis with radiculopathy, lumbar region; M51.16 Intervertebral disc disorders with radiculopathy, lumbar region; M46.1 Sacroiliitis, not elsewhere classified; J44.9 Chronic obstructive pulmonary disease, unspecified; E11.9 Type 2 diabetes mellitus without complications; F17.200 Nicotine dependence, unspecified, uncomplicated; Z79.84 Long term (current) use of oral hypoglycemic drugs; Z79.51 Long term (current) use of inhaled steroids; Z79.899 Other long term (current) drug therapy; Z88.1 Allergy status to other antibiotic agents; Z88.8 Allergy status to other drugs, medicaments and biological substances
CPT/HCPCS: 81025; 62323; J2250; J1030; J3010; Q9966; 99152

== ENCOUNTER → 2018-09-07 | Outpatient (CLI) | payer OTHER ==
[2018-09-07 13:30] VITALS: BP 125/87; PULSE 95; RESP 18
--- NOTE | 2018-09-07 14:48 | P.PN ---
Subjective Progress Note Date: 09/07/18 Lisa is a 48-year-old female who presents today after having lumbar epidural steroid injection. She reports that the injection did not help her. She reports injection made her pain worse. She is complaining of pain across low back in the same area where she had pain before the injection but reports that there is more pain across both hips and into both legs which is worse than it was before having the injection. She also went on to spend that she had a similar scenario that was done at another physician's office years ago. She feels that her pain is worse than it has been in the past, she sees another pain doctor who manages her pain medications and he did not want to see her until she was seen in our clinic and evaluated. So had SI joint injection in the past which she feels did not help significantly either. Objective - Vital Signs Vital signs: Vital Signs Temp Pulse 95 09/07/18 13:17 Resp 18 09/07/18 13:17 BP 125/87 09/07/18 13:17 Pulse Ox 97 09/07/18 13:17 Intake & Output 09/06/18 09/07/18 09/07/18 18:59 06:59 18:59 Weight 91.172 kg - Exam General: Awake and alert oriented 3 mild distress Respiratory exam: No audible wheezing no accessory muscle usage Cardiovascular exam: regular rate, no obvious lower extremity edema Abdominal exam: Obese abdomen, nontender to palpation over the lateral abdomen Cervical spine: Normal alignment, limited range of motion Lumbar spine: Loss of lumbar lordosis, normal alignment, tender to palpation over bilateral paraspinal muscles as well as over the spinous processes, facet loading is positive bilaterally. There is no signs of erythema, there is no fluctuance noted, there is no swelling noted. Patient has significant pain with lateral sidebending as well as lateral twisting. Twisting motion was significantly limited as the patient does not move her hip she only twists her arms to simulate moving. Greg sign is positive Sacroiliac joints: Tender to palpation over both SI joints Neuro exam: Normal sensation in bilateral upper extremities, deep tendon reflexes are 2+ in the lower extremities over the patella as well as Achilles reflex. Psych exam: Cooperative, anxious Assessment and Plan Assessment: #1 lumbar spondylosis without myelopathy #2 obesity #3 chronic opioid dependence Plan: I discussed with the patient her pain symptoms as well as her signs. I discussed that there is no signs of any ill effects from the epidural steroid injection. There is no local signs of any infection or swelling. There is no red flag symptoms from her history or on examination. The patient is concerned that her primary care physician/pain doctor would not see her until we have seen in our clinic. She is fixated on pain medications and increasing the dose to her primary care physician. I advised her that the epidural steroid injection may not have helped her but I do not see any signs or symptoms of any ill effects from the epidural injection. She did have another epidural steroid injection scheduled and I will cancel on today's visit. I do not believe we have very much to offer this patient. I think that she needs to work on significant weight loss and exercise in order to improve her overall health. I do not believe she will improve with the current medication regimen through a pain physician or with any injections that we have to offer her. At this time I believe the patient should follow-up with her pain doctor and should participate in extensive physical therapy and weight loss regimen to improve her overall health.
== END ==
LOC: PNWHC3 13:07
PROVIDERS: ATTEND Hospitalist
DX: M47.816 Spondylosis without myelopathy or radiculopathy, lumbar region (principal); E66.9 Obesity, unspecified; Z79.891 Long term (current) use of opiate analgesic
CPT/HCPCS: 99211

== ENCOUNTER → 2018-11-26 | Outpatient (CLI) | payer OTHER ==
--- NOTE | 2018-11-26 10:11 | BD ---
EXAMINATION TYPE: Axial Bone Density DATE OF EXAM: 11/26/2018 COMPARISON: NONE CLINICAL HISTORY: Height: 4 FT 11 1/2 IN Weight: 196 FRAX RISK QUESTIONS: Secondary Osteoporosis: 3. Menopause before 45: YES Current Tobacco Use: YES RISK FACTORS HISTORY OF: Surgery to Spine/Hip(right/left)/Wrist (right/left): ALYSON WRIST CARPAL TUNNEL When: 1998 AND 1995 1996 2016 Family History of Osteoporosis: YES Postmenopausal woman: ABLATION 2014 Poor Health: YES MEDICATIONS: Additional Medications: GABAPENTIN, MONTELUKAST, HYDROCODONE, LEXYPRO, BACTRIM,DICLOFENAC SODIUM, MAXWELL TAC, ZERTEC, LIPITOR, TRAZADONE, METFROMIN, TOPIRAMATE, FLONASE, WELLBUTRIN, TUDORZA, SYMBICORT, VENT KAM, VIT B Additional History: GASTRIC BYPASS 2005 REVISION 2018 EXAM MEASUREMENTS: Bone mineral densitometry was performed using the [employer]. Bone mineral density as measured about the Lumbar spine is: ----- L1-L4(G/cm2): 0.953 T Score Values are as follows: ----- L2: -2.3 ----- L3: -1.8 ----- L4: -1.7 ----- L1-L4: -1.9 BASELINE Bone mineral density about the R hip (g/cm2): 0.683 Bone mineral density about the L hip (g/cm2): 0.682 T Score values are as follows: -----R Neck: -2.6 -----L Neck: -2.6 -----R Total: -1.4 -----L Total: -1.3 BASELINE IMPRESSION: Osteopenia NOTE: T-SCORE=SD OF THE YOUNG ADULT MEAN.
== END ==
LOC: RADBDWWP 08:47
PROVIDERS: ATTEND Psychiatry & Neurology Neurology
DX: M85.80 Other specified disorders of bone density and structure, unspecified site (principal)
CPT/HCPCS: 77080

== ENCOUNTER → 2019-03-17 | Outpatient (CLI) | payer OTHER ==
[2019-03-17 10:39] LABS: HGB 11.2 gm/dL (11.4-16.0); MCH 32.2 pg (25.0-35.0); MCHC 32.1 g/dL (31.0-37.0); MCV 100.2 fL (80.0-100.0); Macrocytosis Slight; Mean Platelet Volume 6.5; Platelet Count 442 k/uL (150-450); RBC 3.49 m/uL (3.80-5.40); WBC 7.9 k/uL (3.8-10.6)
[2019-03-17 10:45] LABS: INR 0.9 (<1.2); Partial Thromboplastin Time 23.4 sec (22.0-30.0); Prothrombin Time 9.4 sec (9.0-12.0)
--- NOTE | 2019-03-17 10:50 | XR ---
EXAMINATION TYPE: XR chest 2V DATE OF EXAM: 03/17/2019 COMPARISON: Chest x-ray August 02, 2017. HISTORY: History of COPD, previous back surgery. TECHNIQUE: Frontal and lateral views of the chest are obtained. FINDINGS: There is no focal air space opacity, pleural effusion, or pneumothorax seen. The cardiac silhouette size is within normal limits. Cholecystectomy clips are noted on lateral view. The osseou s structures are intact. IMPRESSION: No acute cardiopulmonary process on current study.
[2019-03-17 16:44] LABS: African American GFR (CKD) 69.7 (60.0-200.0); Albumin/Globulin Ratio 2.22 (1.60-3.17); BUN/Creat Ratio 9.09 Ratio (12.00-20.00); Calcium 8.7 mg/dL (8.7-10.3); Globulin 1.8 g/dL (1.6-3.3); Potassium 4.8 mmol/L (3.5-5.5); Total Bilirubin 0.2 mg/dL (0.2-1.2); Total Protein 5.8 g/dL (6.2-8.2)
== END | disposition home or self-care (01) ==
LOC: LABWHC1 09:54 → EDSTATUS 10:00
PROVIDERS: ATTEND Neurological Surgery
DX: Z01.818 Encounter for other preprocedural examination (principal); Z01.812 Encounter for preprocedural laboratory examination; S33.39 Dislocation of other parts of lumbar spine and pelvis; M54.16 Radiculopathy, lumbar region
CPT/HCPCS: 36415; 71046; 80053; 85027; 85610; 85730; 93005

== ENCOUNTER → 2019-04-01 | Outpatient (CLI) | payer OTHER ==
--- NOTE | 2019-04-01 10:45 | XR ---
EXAMINATION TYPE: XR lumbar spine with bend/flex DATE OF EXAM: 04/01/2019 CLINICAL HISTORY: Low back pain into left leg. History of prior surgery. TECHNIQUE: Frontal, lateral, and dynamic flexion and extension lateral images of the lumbar spine are obtained. COMPARISON: CT abdomen and pelvis October 20, 2017 FINDINGS: There are 5 lumbar type vertebral bodies redemonstrated. The lumbar spine shows new surgi swati change with metallic disc spacer at L5-S1 level. There is new slight grade 1 anterolisthesis of L 3 on L4 on current study. Mild disc space narrowing and spurring is seen at this level. Dynamic image s show limited flexion and extension without increased subluxation or disc space narrowing. Remainder vertebral body heights and disc space heights are maintained. Vascular calcification overlie abdominal aorta is noted. Cholecystectomy clips are seen. There are sc attered sutures and clips throughout the right mid abdomen and left upper quadrant from prior bowel s urgery redemonstrated. IMPRESSION: As above.
== END | disposition home or self-care (01) ==
LOC: RADXRMAIN 10:18
PROVIDERS: ATTEND Neurological Surgery
DX: M48.061 Spinal stenosis, lumbar region without neurogenic claudication (principal); M43.16 Spondylolisthesis, lumbar region; Z98.890 Other specified postprocedural states
CPT/HCPCS: 72114

== ENCOUNTER → 2019-06-10 | Outpatient (CLI) | payer OTHER ==
--- NOTE | 2019-06-10 16:47 | MR ---
EXAMINATION TYPE: MR lumbar spine wo/w con DATE OF EXAM: 06/10/2019 COMPARISON: Plain film 04/03/2019 HISTORY: Rt hip pain and low back pain TECHNIQUE: Multiplanar, multisequence images of the lumbar spine were acquired utilizing [address] gadolinium contrast. L1-L2: Normal disc appearance without desiccation. No herniation, protrusion or disc bulging. No ca nal stenosis is present. Foramina are patent bilaterally. L2-L3: Normal disc appearance without desiccation. No herniation, protrusion or disc bulging. No ca nal stenosis is present. Foramina are patent bilaterally. L3-L4: There is some loss of disc height and signal compatible disc desiccation and degenerative disc disease. No significant foraminal encroachment or spinal stenosis. Some facet arthropathy changes pr esent. L4-L5: Lateral extension of endplate encroaches somewhat on the left neural foramen greater than righ t. No significant spinal stenosis or evident disc herniation. There is some facet arthropathy change present. L5-S1: Circumferential extension of endplate may cause some foraminal encroachment. There is no evide nt spinal stenosis. No disc herniation evident. Lumbar segments are intact. No paraspinal masses are identified. Conus medullaris has a normal appe arance. Postop changes are noted at the lumbosacral junction, there is metallic susceptibility artifa ct. Within the subcutaneous fat there is a T1 hypointense, T2 hyperintense collection extending to th e skin surface measuring approximately 3.9 x 3.1 x 5.7 cm which likely represents postop seroma. Ther e may be some internal septations. There is peripheral enhancement. Laminectomies are present at L5. Enhancing granulation tissue present at the laminectomy site. Mild deformity of the thecal sac this l evel, there is enhancement extending to the posterior margins of the thecal sac. There is a spinal cu rvature. IMPRESSION: There are postop changes as described. Postop fluid collection in the subcutaneous tissues may repres ent seroma but is indeterminate, correlate to exclude infection. Additional findings above.
== END ==
LOC: RADMRIMAIN 14:36
PROVIDERS: ATTEND Neurological Surgery
DX: R93.89 Abnormal findings on diagnostic imaging of other specified body structures (principal); Z98.890 Other specified postprocedural states
CPT/HCPCS: 72158; A9585

== ENCOUNTER → 2019-08-03 | Outpatient (CLI) | payer OTHER | END | disposition home or self-care (01) | LOC: LABWHC1 05:30 | DX: R19.7 Diarrhea, unspecified (principal) | CPT/HCPCS: 83630 ==

== ENCOUNTER 2019-08-04 08:13 | Day surgery (SDC) | payer OTHER ==
[2019-08-02 17:58] VITALS: BMI 36.3
[~2019-08-04 08:13] MED LIST changes: -CLINDAMYCIN 900 MG in DEXTROSE 5% IN WATER 50 ML IVPB ONE; -DEXAMETHASONE SOD PHOSPHATE 10 MG/ML 1 ML VIAL IV ONE; -HEPARIN SODIUM,PORCINE 5,000 UNIT/ML 1 ML VIAL SQ ONE; +LACTATED RINGERS 1,000 ML IV SCH; -LIDOCAINE 1% 20 ML VIAL (10MG/ML) FOR IV START INTRADERMA PRN; -MIDAZOLAM (PF) 2 MG/2 ML VIAL IV PRN
[2019-08-04 08:33] VITALS: TEMP 97.7
[2019-08-04] MEDS ORDERED: LIDOCAINE 1% 20 ML VIAL (10MG/ML) FOR IV START INTRADERMA ONE (08:39)
[2019-08-04 08:49] LABS: Glucose,Whole Blood 120 mg/dL (75-99)
[2019-08-04] MEDS ORDERED: PROPOFOL 10 MG/ML 20 ML VIAL IV ONE (09:12)
--- NOTE | 2019-08-04 09:50 | P.PCN ---
Date of Procedure: 08/04/19 Description of Procedure: BRIEF HISTORY: Patient is a 49-year-old female presenting for outpatient colonoscopy for evaluation of diarrhea. Patient follows up in the gastroenterology clinic and was previously treated for IBS constipation predominant but recently has been having altered bowel function with multiple loose bowel movements. Previous colonoscopy in 2017 was limited due to poor prep. She does have a family history of colon cancer in her sister diagnosed in her 50s. PROCEDURE PERFORMED: Colonoscopy with biopsy. PREOPERATIVE DIAGNOSIS: Diarrhea, altered bowel function, last colonoscopy in 2017 limited due to poor prep. ESTIMATED BLOOD LOSS: Minimal. IV sedation per Anesthesia. PROCEDURE: After informed consent was obtained, the patient, was brought into the endoscopy unit. IV sedation was administered by Anesthesia under continuous monitoring. Digital rectal examination was normal. Initially the Olympus CF-190 flexible video colonoscope was then inserted in the rectum, gradually advanced into the cecum without any difficulty. Careful examination was performed as the scope was gradually being withdrawn. Ileocecal valve and the appendiceal orifice were visualized and appeared normal. Prep was excellent. Mucosa of the cecum, ascending colon, transverse colon, descending colon, sigmoid colon, and rectum appeared normal. Random biopsies taken of the right and left colon in the setting of altered bowel function. Retroflexion was performed in the rectum and no lesions were seen. The patient tolerated the procedure well. IMPRESSION: Normal-appearing colon from rectum to cecum, with random biopsies taken of the right and left colon in the setting of altered bowel function. RECOMMENDATIONS: Findings of this examination were discussed with the patient and her family. Okay to resume diet. Okay to resume medications. Await pathology from tatianai terry. Follow up in gastroenterology clinic as previously scheduled. Recommend repeat colonoscopy in 5 years for family history of colon cancer.
[2019-08-04 10:29] VITALS: RESP 16
[2019-08-04 11:02] VITALS: BP 122/74; PULSE 74
== END 2019-08-04 11:02 | disposition home or self-care (01) ==
LOC: ORWHC2ENDO 08:13
PROVIDERS: ATTEND Internal Medicine
DX: R19.7 Diarrhea, unspecified (principal); J44.9 Chronic obstructive pulmonary disease, unspecified; E78.5 Hyperlipidemia, unspecified; E11.9 Type 2 diabetes mellitus without complications; K21.9 Gastro-esophageal reflux disease without esophagitis; Z80.0 Family history of malignant neoplasm of digestive organs; Z87.891 Personal history of nicotine dependence; Z98.890 Other specified postprocedural states; Z88.1 Allergy status to other antibiotic agents; Z88.8 Allergy status to other drugs, medicaments and biological substances; Z98.84 Bariatric surgery status
CPT/HCPCS: 81025; 88305; 45380; J2704

== ENCOUNTER → 2019-08-04 | Outpatient (CLI) | payer OTHER ==
[2019-08-04 08:40] LABS: HGB 11.9 gm/dL (11.4-16.0); MCH 30.1 pg (25.0-35.0); MCHC 31.3 g/dL (31.0-37.0); MCV 96.1 fL (80.0-100.0); Platelet Count 321 k/uL (150-450); RBC 3.95 m/uL (3.80-5.40); RDW 15.2 % (11.5-15.5)
[2019-08-04 09:51] LABS: Erythrocyte Sedimentation Rate 18 mm/hr (0-20)
[2019-08-04 17:19] LABS: Gliadin AB IgA, Deaminated NEGATIVE (NEGATIVE); Gliadin AB IgA, Unit 0.9 U/mL; Gliadin AB IgG, Deaminated NEGATIVE (NEGATIVE)
[2019-08-04 17:39] LABS: ALT 22 U/L (8-44); AST 20 U/L (13-35); African American GFR (CKD) 69.2 (60.0-200.0); Albumin/Globulin Ratio 2.21 (1.60-3.17); Alkaline Phosphatase 86 U/L (41-126); BUN/Creat Ratio 8.18 Ratio (12.00-20.00); C Reactive Protein <0.4 mg/dL (0.0-0.8); Carbon Dioxide 26.1 mmol/L (21.6-31.8); Chloride 106 mmol/L (96-109); Globulin 1.9 g/dL (1.6-3.3); Glucose 110 mg/dL (70-110); Non-African American GFR(CKD) 59.7 (60.0-200.0); Potassium 4.8 mmol/L (3.5-5.5); Sodium 141 mmol/L (135-145); Total Bilirubin 0.3 mg/dL (0.3-1.2); Total Protein 6.1 g/dL (6.2-8.2)
== END | disposition home or self-care (01) ==
LOC: LABWHC1 07:42
DX: R19.7 Diarrhea, unspecified (principal)
CPT/HCPCS: 36415; 80053; 83516; 84443; 85027; 85652; 86140

== ENCOUNTER → 2019-08-16 | Outpatient (CLI) | payer OTHER ==
--- NOTE | 2019-08-16 10:16 | US ---
EXAMINATION TYPE: US venous doppler duplex LE RT DATE OF EXAM: 08/16/2019 9:58 AM COMPARISON: NONE CLINICAL HISTORY: M25.561 Pain in R leg. Pain in right leg. No swelling. No redness. No hx DVT. N ot on blood thinners. SIDE PERFORMED: Right TECHNIQUE: The lower extremity deep venous system is examined utilizing real time linear array sonog lisa with graded compression, doppler sonography and color-flow sonography. VESSELS IMAGED: External Iliac Vein (EIV) Common Femoral Vein Deep Femoral Vein Greater Saphenous Vein * Femoral Vein Popliteal Vein Small Saphenous Vein * Proximal Calf Veins (* superficial vessels) Grayscale, color doppler, spectral doppler imaging performed of the deep veins of the right lower ext remity. There is normal flow, compressibility, vascular waveforms. Right Leg: Negative for DVT IMPRESSION: No sonographic evidence of deep venous thrombosis within the right lower extremity.
== END | disposition home or self-care (01) ==
LOC: RADUSWWP 09:38
PROVIDERS: ATTEND Orthopaedic Surgery
DX: I80.3 Phlebitis and thrombophlebitis of lower extremities, unspecified (principal); M25.561 Pain in right knee; Z98.1 Arthrodesis status

== ENCOUNTER → 2019-08-18 | Outpatient (CLI) | payer OTHER ==
--- NOTE | 2019-08-18 12:23 | XR ---
EXAMINATION TYPE: XR chest 2V DATE OF EXAM: 08/18/2019 COMPARISON: Chest x-ray March 17, 2019. HISTORY: COPD. TECHNIQUE: Frontal and lateral views of the chest are obtained. FINDINGS: There is no focal air space opacity, pleural effusion, or pneumothorax seen. The cardiac silhouette size is within normal limits. The osseous structures are intact. Cholecystectomy clips n oted on lateral view. IMPRESSION: No acute cardiopulmonary process. No significant change from prior.
== END | disposition home or self-care (01) ==
LOC: RADXRMAIN 12:01
PROVIDERS: ATTEND Internal Medicine Sleep Medicine
DX: J44.9 Chronic obstructive pulmonary disease, unspecified (principal)
CPT/HCPCS: 71046

== ENCOUNTER → 2019-08-18 | Outpatient (CLI) | payer OTHER ==
[2019-08-19 14:46] LABS: Alt. alternata IgE Class CLASS 0; Alternaria alternata IgE <0.10 kU/L (<0.10); Asperg. fumagatus IgE <0.10 kU/L (<0.10); Asperg. fumagatus IgE Class CLASS 0; Candida albicans IgE Class CLASS 0; Clad herbarum IgE <0.10 kU/L (<0.10); Clad herbarum IgE Class CLASS 0; Latex IgE Class CLASS 0; Mucor racemosus IgE <0.10 kU/L (<0.10); Mucor racemosus IgE Class CLASS 0; Penicillium chrysogenum IgE <0.10 kU/L (<0.10); Penicillium chrysogenum IgE Cl CLASS 0
== END | disposition home or self-care (01) ==
LOC: LABWHC1 12:13
PROVIDERS: ATTEND Internal Medicine Sleep Medicine
DX: B44.81 Allergic bronchopulmonary aspergillosis (principal)
CPT/HCPCS: 36415; 82785; 86001; 86003; 86606; 86609

== ENCOUNTER 2019-09-14 06:44 | Day surgery (SDC) | payer OTHER ==
[2019-09-09 15:36] VITALS: BMI 35.3
[~2019-09-14 06:44] MED LIST changes: +LIDOCAINE 1% (10MG/ML) FOR IV START INTRADERMA PRN
[2019-09-14] MEDS ORDERED: LACTATED RINGERS 1,000 ML IV ONE (07:02)
[2019-09-14 07:16] VITALS: TEMP 96.8
[2019-09-14 07:16] LABS: Glucose,Whole Blood 144 mg/dL (75-99)
[2019-09-14] MEDS ORDERED: LIDOCAINE 1% INJ 10MG/ML (20 ML MDV) ONE (07:45)
[2019-09-14] MEDS ORDERED: PROPOFOL 10 MG/ML 20 ML VIAL IV ONE (07:45)
--- NOTE | 2019-09-14 08:00 | P.GSHP ---
History of Present Illness H&P Date: 09/14/19 Chief Complaint: Dysphagia This a 49-year-old female who presents today for EGD. She's had issues with dysphagia. Her recent esophagram shows a possible GE junction stricture. Past Medical History Past Medical History: COPD, Diabetes Mellitus, GERD/Reflux, Hyperlipidemia, Osteoarthritis (OA) Additional Past Medical History / Comment(s): DDD, SPINAL STENOSIS, HERNIA, BACK PAIN AND BILATERAL ANKLE PAIN, BILATERAL PLANTAR FASCIITIS, CHRONIC UTI'S, OCCULAR HYPERTENSION , HX STOMACH ULCERS, IBS/C, STATES HAVING NAUSEA, VOMITING AND WT LOSS. History of Any Multi-Drug Resistant Organisms: None Reported Past Surgical History: Back Surgery, Bariatric Surgery, Section, Cholecystectomy, Hernia Repair, Orthopedic Surgery, Tubal Ligation, Uterine Ablation Additional Past Surgical History / Comment(s): EGD WITH DILATION, REVISION OF GASTROJEJUNOSTOMY, HX GASTRIC BYPASS, GANGLION CYST , LEFT THUMB TRIGGER FINGER, CARPAL TUNNEL ALYSON AND REVISION. BENIGN CYSTS REMOVED FROM OVARY, PILONIDAL CYST SURGERY , MULTIPLE. D&C's, C- SECTION X2, WRIST TENDONITIS SURGERY. Pain Injections. DECOMPRESSION BACK SURGERY L-4 & L-5 AND FUSION L5 & S1 MAR 2019 Past Anesthesia/Blood Transfusion Reactions: No Reported Reaction Additional Past Anesthesia/Blood Transfusion Reaction / Comment(s): STATES HYPERVENTILATES WHEN SEES NEEDLES-BUT HAS IMPROVED. Past Psychological History: Anxiety, Depression Additional Psychological History / Comment(s): Mood Disorder. Smoking Status: Former smoker Past Alcohol Use History: None Reported Additional Past Alcohol Use History / Comment(s): STARTED SMOKING AT AGE 15 QUIT DECEMBER 2018 SMOKED 1PPD Past Drug Use History: Marijuana Additional Drug Use History / Comment(s): SMOKES MARIJUANA - Past Family History Sister(s) Family Medical History: Cancer Additional Family Medical History / Comment(s): COLON CANCER. Brother(s) Family Medical History: Cancer Additional Family Medical History / Comment(s): NON-HODGKIN'S LYMPHOMA. Mother Family Medical History: Cancer Additional Family Medical History / Comment(s): NON-HODGKIN'S LYMPHOMA. Medications and Allergies Home Medications Medication Instructions Recorded Confirmed Type Atorvastatin [Lipitor] 20 mg PO HS 10/23/16 09/14/19 History Diclofenac Potassium [Cataflam] 50 mg PO TID 10/23/16 09/14/19 History Cetirizine HCl [Zyrtec] 10 mg PO HS 04/02/17 09/14/19 History Albuterol Inhaler [Ventolin Hfa 1 - 2 puff INHALATION RT-Q6H PRN 08/02/17 09/14/19 History Inhaler] Montelukast Sodium [Singulair] 10 mg PO HS 08/02/17 09/14/19 History Ranitidine HCl [Zantac] 150 mg PO BID 10/28/17 09/14/19 History Sulfamethoxazole/Trimethoprim 1 tab PO HS 10/28/17 09/14/19 History [Bactrim SS 400-80 mg] metFORMIN HCL [Glucophage] 500 mg PO BID 06/09/18 09/14/19 History Vitamin B Complex 1 cap PO DAILY 08/06/18 09/14/19 History Diazepam [Valium] 5 mg PO TID PRN 08/02/19 09/14/19 History Ergocalciferol [Vitamin D2] 50,000 unit PO 08/02/19 09/14/19 History hydrOXYzine HCL [Atarax] 25 mg PO TID PRN 08/02/19 09/14/19 History tiZANidine [Zanaflex] 4 mg PO BID PRN 08/02/19 09/14/19 History Brimonidine Tartrate [Alphagan P 1 drops BOTH EYES BID 09/09/19 09/14/19 History 0.2% Ophth Soln] Cariprazine HCl [Vraylar] 1.5 mg PO DAILY 09/09/19 09/14/19 History Dicyclomine [Bentyl] 10 mg PO TID 09/09/19 09/14/19 History Fioricet (Unknown Dose) 1 tab PO Q8HR PRN 09/09/19 09/14/19 History Fluticasone Nasal [place] [Flonase 2 spr EA NOSTRIL BID 09/09/19 09/14/19 History Nasal [place]] rOPINIRole HCL [Requip] 0.5 mg PO HS 09/09/19 09/14/19 History traZODone HCL 200 mg PO HS 09/09/19 09/14/19 History Allergies Allergy/AdvReac Type Severity Reaction Status Date / Time Cephalosporins Allergy RECTAL Verified 09/09/19 14:57 BLEEDING famotidine [From Pepcid] Allergy Confusion Verified 09/09/19 14:57 lurasidone [From Latuda] Allergy SUICIDAL Verified 09/09/19 14:57 THOUGHTS olanzapine [From Zyprexa] AdvReac WEIGHT GAIN Verified 09/09/19 14:57 Surgical - Exam Vital Signs Temp Pulse Resp BP Pulse Ox 96.8 F L 87 18 141/77 97 09/14/19 07:14 09/14/19 07:14 09/14/19 07:14 09/14/19 07:14 09/14/19 07:14 - General well developed, well nourished, no distress - Eyes PERRL - ENT normal pinna - Neck no masses - Respiratory normal expansion - Cardiovascular Rhythm: regular - Abdomen Abdomen: soft, non tender Results - Labs Abnormal Lab Results - Last 24 Hours (Table) 09/14/19 Range/Units 07:14 POC Glucose (mg/dL) 144 H (75-99) mg/dL Assessment and Plan Assessment: Dysphagia. We'll perform EGD. With possible balloon dilatation.
[2019-09-14 08:30] VITALS: BP 118/77; PULSE 79; RESP 18
[2019-09-14] MEDS ORDERED: ACETAMINOPHEN TAB 325 MG TAB PO ONE (08:34)
--- NOTE | 2019-09-19 15:23 | P.OP ---
Date of Procedure: 09/14/19 Preoperative Diagnosis: Dysphagia Postoperative Diagnosis: No evidence of gastric outlet obstruction Procedure(s) Performed: EGD Anesthesia: MAC Surgeon: Dillon Alvarado Pathology: other (Esophagus) Condition: stable Disposition: PACU Description of Procedure: The patient's placed on the endoscopy table in the lateral position. She received IV sedation. The gastroscope placed oropharynx and passed in the esophagus and stomach. Patient a previous gastrojejunostomy. The gastrojejunostomy was patent. The scope was placed in the jejunum. There is no evidence of obstruction. Scope summer back and stomach. This appeared to be without evidence of inflammation. The GE junction was at 47 is. The distal esophagus minimally inflamed a biopsy was performed. The proximal esophagus. Normal scope was withdrawn for patient.
== END 2019-09-14 08:56 | disposition home or self-care (01) ==
LOC: ORWHC2ENDO 06:44
PROVIDERS: ATTEND Surgery
DX: R13.19 Other dysphagia (principal); K21.9 Gastro-esophageal reflux disease without esophagitis; J44.9 Chronic obstructive pulmonary disease, unspecified; E11.9 Type 2 diabetes mellitus without complications; E78.5 Hyperlipidemia, unspecified; M19.90 Unspecified osteoarthritis, unspecified site; M51.9 Unspecified thoracic, thoracolumbar and lumbosacral intervertebral disc disorder; M48.00 Spinal stenosis, site unspecified; M72.2 Plantar fascial fibromatosis; H40.059 Ocular hypertension, unspecified eye; K58.1 Irritable bowel syndrome with constipation; R11.2 Nausea with vomiting, unspecified; R63.4 Abnormal weight loss; F41.9 Anxiety disorder, unspecified; F32.9 Major depressive disorder, single episode, unspecified; Z87.19 Personal history of other diseases of the digestive system; Z87.440 Personal history of urinary (tract) infections; Z87.11 Personal history of peptic ulcer disease; Z68.35 Body mass index [BMI] 35.0-35.9, adult; Z98.890 Other specified postprocedural states; Z98.84 Bariatric surgery status; Z90.49 Acquired absence of other specified parts of digestive tract; Z98.51 Tubal ligation status; Z86.69 Personal history of other diseases of the nervous system and sense organs; Z87.42 Personal history of other diseases of the female genital tract; Z87.39 Personal history of other diseases of the musculoskeletal system and connective tissue; Z98.1 Arthrodesis status; Z91.89 Other specified personal risk factors, not elsewhere classified; Z87.891 Personal history of nicotine dependence; Z79.899 Other long term (current) drug therapy; Z79.84 Long term (current) use of oral hypoglycemic drugs; Z88.1 Allergy status to other antibiotic agents; Z88.8 Allergy status to other drugs, medicaments and biological substances; Z97.2 Presence of dental prosthetic device (complete) (partial); Z80.0 Family history of malignant neoplasm of digestive organs; Z80.7 Family history of other malignant neoplasms of lymphoid, hematopoietic and related tissues
CPT/HCPCS: 81025; 88305; 43239; J2001; J2704

== ENCOUNTER → 2019-12-13 | Outpatient (CLI) | payer OTHER ==
--- NOTE | 2019-12-15 10:29 | MM ---
Reason for exam: screening (asymptomatic). Last mammogram was performed 1 year and 5 months ago. History: Family history of breast cancer in 5 aunts and breast cancer in cousin. Physical Findings: A clinical breast exam by your physician is recommended on an annual basis and results should be correlated with mammographic findings. MG 3D Screening Mammo W/Cad Bilateral CC and MLO view(s) were taken. Prior study comparison: July 14, 2018, bilateral MG screening mammo w CAD. June 15, 2017, bilateral MG 3d screening mammo w/cad. The breast tissue is heterogeneously dense. This may lower the sensitivity of mammography. There are benign appearing round calcifications bilaterally. There is chronic nodularity bilaterally. There is no discrete abnormality. ASSESSMENT: Benign, BI-RAD 2 RECOMMENDATION: Routine screening mammogram of both breasts in 1 year.
== END | disposition home or self-care (01) ==
LOC: RADMAMWWP 14:55
PROVIDERS: ATTEND Family Medicine
DX: Z12.31 Encounter for screening mammogram for malignant neoplasm of breast (principal)
CPT/HCPCS: 77063; 77067

== ENCOUNTER → 2020-01-17 | Outpatient (CLI) | payer OTHER ==
--- NOTE | 2020-01-17 13:42 | XR ---
EXAMINATION TYPE: XR chest 2V DATE OF EXAM: 01/17/2020 COMPARISON: 08/18/2019 HISTORY: 49-year-old female presurgical testing for cervical fusion TECHNIQUE: Frontal and lateral views FINDINGS: The cardiomediastinal silhouette, aorta, and pulmonary vasculature are within normal limits. Lungs an d pleural spaces are clear. IMPRESSION: No acute cardiopulmonary process.
[2020-01-17 13:55] LABS: HCT 38.9 % (34.0-46.0); HGB 12.8 gm/dL (11.4-16.0); MCH 32.8 pg (25.0-35.0); MCHC 32.9 g/dL (31.0-37.0); MCV 99.6 fL (80.0-100.0); Platelet Count 396 k/uL (150-450); WBC 11.5 k/uL (3.8-10.6)
[2020-01-17 18:46] LABS: African American GFR (CKD) 62.3 (60.0-200.0); Albumin 4.4 g/dL (3.80-4.90); Albumin/Globulin Ratio 1.83 (1.60-3.17); BUN/Creat Ratio 14.17 Ratio (12.00-20.00); Calcium 9.5 mg/dL (8.7-10.3); Globulin 2.4 g/dL (1.6-3.3); Non-African American GFR(CKD) 53.8 (60.0-200.0); Potassium 4.2 mmol/L (3.5-5.5); Total Bilirubin 0.2 mg/dL (0.2-1.2); Total Protein 6.8 g/dL (6.2-8.2)
[2020-01-17 23:40] LABS: INR 0.94 (0.90-1.11); Partial Thromboplastin Time 25.1 sec (24.7-29.9); Prothrombin Time 10.1 sec (9.9-11.9)
== END | disposition home or self-care (01) ==
LOC: LABWHC1 11:38
PROVIDERS: ATTEND Neurological Surgery
DX: S13.161A Dislocation of C5/C6 cervical vertebrae, initial encounter (principal); S13.171A Dislocation of C6/C7 cervical vertebrae, initial encounter
CPT/HCPCS: 36415; 71046; 80053; 85027; 85610; 85730; 93005

== ENCOUNTER → 2020-09-10 | Outpatient (CLI) | payer OTHER ==
--- NOTE | 2020-09-10 09:46 | XR ---
EXAMINATION TYPE: XR chest 2V DATE OF EXAM: 09/10/2020 COMPARISON: 01/17/2020 HISTORY: 50-year-old female R05, cough TECHNIQUE: Frontal and lateral views FINDINGS: ACDF hardware. Cardiomediastinal silhouette, aorta, and pulmonary vasculature are within normal limit s. Mild interstitial prominence. No consolidation or pleural effusion. Cholecystectomy clips. IMPRESSION: Chronic changes without acute cardiopulmonary process.
== END | disposition home or self-care (01) ==
LOC: RADXRMAIN 09:14
PROVIDERS: ATTEND Internal Medicine Sleep Medicine
DX: J98.4 Other disorders of lung (principal)
CPT/HCPCS: 71046

== ENCOUNTER 2020-11-27 07:59 | Observation (INO) | payer OTHER ==
[2020-11-27] MEDS ORDERED: IOPAMIDOL CONTRAST (ORAL USE) VIAL PO PRN (08:19)
[2020-11-27] MEDS ORDERED: SODIUM CHLORIDE 0.9% 1,000 ML IV STA (08:19)
[2020-11-27] MEDS ORDERED: PANTOPRAZOLE 40 MG/10 ML VIAL IVP STA (08:19)
[2020-11-27] MEDS ORDERED: ONDANSETRON 4 MG/2 ML VIAL IVP STA (08:19)
--- NOTE | 2020-11-27 08:22 | ED ---
General Adult HPI - General Chief complaint: ENT Stated complaint: Dysphagia Time Seen by Provider: 11/27/20 08:05 Source: patient, RN notes reviewed Mode of arrival: ambulatory Limitations: no limitations - History of Present Illness Initial comments: Patient is a pleasant 50-year-old female presenting to the emergency Department with complaints of dysphagia. Patient did have some GI symptoms including mild nausea vomiting diarrhea a couple weeks ago. No upper respiratory symptoms. With the past couple of weeks patient has had some difficulty with oral intake and swelling, significantly increased since yesterday. Patient is having difficulty swallowing her saliva and taking sips of water at this time. Patient does not feel comfortable trying solid food. Patient does have history of similar symptoms previously. Patient had previous bariatric surgery. Patient previously has been dilated. Patient also has complication of previous esop hageal rupture after dilation. No urinary symptoms. - Related Data Home Medications Medication Instructions Recorded Confirmed Atorvastatin [Lipitor] 20 mg PO HS 10/23/16 09/14/19 Diclofenac Potassium [Cataflam] 50 mg PO TID 10/23/16 09/14/19 Cetirizine HCl [Zyrtec] 10 mg PO HS 04/02/17 09/14/19 Albuterol Inhaler (Mhu) [Ventolin 1 - 2 puff INHALATION RT-Q6H PRN 08/02/17 09/14/19 Hfa Inhaler (Mhu)] Montelukast Sodium [Singulair] 10 mg PO HS 08/02/17 09/14/19 Ranitidine HCl [Zantac] 150 mg PO BID 10/28/17 09/14/19 Sulfamethoxazole/Trimethoprim 1 tab PO HS 10/28/17 09/14/19 [Bactrim SS 400-80 mg] metFORMIN HCL [Glucophage] 500 mg PO BID 06/09/18 09/14/19 Vitamin B Complex 1 cap PO DAILY 08/06/18 09/14/19 Diazepam [Valium] 5 mg PO TID PRN 08/02/19 09/14/19 Ergocalciferol [Vitamin D2] 50,000 unit PO TU 08/02/19 09/14/19 hydrOXYzine HCL [Atarax] 25 mg PO TID PRN 08/02/19 09/14/19 tiZANidine [Zanaflex] 4 mg PO BID PRN 08/02/19 09/14/19 Brimonidine Tartrate [Alphagan P 1 drops BOTH EYES BID 09/09/19 09/14/19 0.2% Ophth Soln] Cariprazine HCl [Vraylar] 1.5 mg PO DAILY 09/09/19 09/14/19 Dicyclomine [Bentyl] 10 mg PO TID 09/09/19 09/14/19 Fioricet (Unknown Dose) 1 tab PO Q8HR PRN 09/09/19 09/14/19 Fluticasone Nasal [place] [Flonase 2 spr EA NOSTRIL BID 09/09/19 09/14/19 Nasal [place]] rOPINIRole HCL [Requip] 0.5 mg PO HS 09/09/19 09/14/19 traZODone HCL 200 mg PO HS 09/09/19 09/14/19 Allergies Allergy/AdvReac Type Severity Reaction Status Date / Time Cephalosporins Allergy RECTAL Verified 11/27/20 08:04 BLEEDING famotidine [From Pepcid] Allergy Confusion Verified 11/27/20 08:04 lurasidone [From Latuda] Allergy SUICIDAL Verified 11/27/20 08:04 THOUGHTS olanzapine [From Zyprexa] AdvReac WEIGHT GAIN Verified 11/27/20 08:04 Review of Systems ROS Statement: Those systems with pertinent positive or pertinent negative responses have been documented in the HPI. ROS Other: All systems not noted in ROS Statement are negative. Constitutional: Denies: fever, chills Eyes: Denies: eye pain ENT: Denies: ear pain Respiratory: Denies: cough, dyspnea Cardiovascular: Denies: chest pain Endocrine: Denies: fatigue Gastrointestinal: Reports: as per HPI, nausea Genitourinary: Denies: dysuria Musculoskeletal: Denies: back pain Skin: Denies: rash Past Medical History Past Medical History: COPD, Diabetes Mellitus, GERD/Reflux, Hyperlipidemia, Osteoarthritis (OA) Additional Past Medical History / Comment(s): DDD, SPINAL STENOSIS, HERNIA, BACK PAIN AND BILATERAL ANKLE PAIN, BILATERAL PLANTAR FASCIITIS, CHRONIC UTI'S, OCCULAR HYPERTENSION , HX STOMACH ULCERS, IBS/C, STATES HAVING NAUSEA, VOMITING AND WT LOSS. History of Any Multi-Drug Resistant Organisms: None Reported Past Surgical History: Back Surgery, Bariatric Surgery, Section, Cholecystectomy, Hernia Repair, Orthopedic Surgery, Tubal Ligation, Uterine Ablation Additional Past Surgical History / Comment(s): EGD WITH DILATION, REVISION OF GASTROJEJUNOSTOMY, HX GASTRIC BYPASS, GANGLION CYST , LEFT THUMB TRIGGER FINGER, CARPAL TUNNEL ALYSON AND REVISION. BENIGN CYSTS REMOVED FROM OVARY, PILONIDAL CYST SURGERY , MULTIPLE. D&C's, C- SECTION X2, WRIST TENDONITIS SURGERY. Pain Injections. DECOMPRESSION BACK SURGERY L-4 & L-5 AND FUSION L5 & S1 MAR 2019 Past Anesthesia/Blood Transfusion Reactions: No Reported Reaction Additional Past Anesthesia/Blood Transfusion Reaction / Comment(s): STATES HYPERVENTILATES WHEN SEES NEEDLES-BUT HAS IMPROVED. Past Psychological History: Anxiety, Depression Smoking Status: Current every day smoker Past Alcohol Use History: None Reported Past Drug Use History: Marijuana - Past Family History Sister(s) Family Medical History: Cancer Additional Family Medical History / Comment(s): COLON CANCER. Brother(s) Family Medical History: Cancer Additional Family Medical History / Comment(s): NON-HODGKIN'S LYMPHOMA. Mother Family Medical History: Cancer Additional Family Medical History / Comment(s): NON-HODGKIN'S LYMPHOMA. General Exam Limitations: no limitations General appearance: alert, in no apparent distress Head exam: Present: normocephalic Eye exam: Present: normal appearance Neck exam: Present: normal inspection Respiratory exam: Present: normal lung sounds bilaterally Cardiovascular Exam: Present: regular rate, normal rhythm Expanded Peripheral pulses: 2+: Posterior Tibialis (R), Posterior Tibialis (L) GI/Abdominal exam: Present: soft. Absent: tenderness Extremities exam: Present: normal inspection Neurological exam: Present: alert Psychiatric exam: Present: normal affect, normal mood Skin exam: Present: normal color Course Vital Signs 11/27/20 11/27/20 11/27/20 08:00 08:16 10:28 Temperature 99.7 F H 98.3 F Pulse Rate 120 H 88 Respiratory 20 16 18 Rate Blood Pressure 148/77 110/77 O2 Sat by Pulse 96 96 Oximetry EKG Findings - EKG Comments: EKG Findings:: Normal sinus rhythm at 96. MN 136. QRS 84. QT 346. QTc 437. Normal axis. Normal QRS. No acute ST change. Medical Decision Making - Medical Decision Making Patient reevaluated and updated. Patient updated on pulmonary nodule and need for follow-up regarding this. Case was discussed with Dr. Alvarado who will admit his patient for dehydration and requests esophagram. - Lab Data Result diagrams: 11/27/20 08:26 11/27/20 08:26 Lab Results 11/27/20 11/27/20 11/27/20 Range/Units 08:26 08:26 08:26 WBC 13.9 H (3.8-10.6) k/uL RBC 4.85 (3.80-5.40) m/uL Hgb 15.0 (11.4-16.0) gm/dL Hct 44.7 (34.0-46.0) % MCV 92.2 (80.0-100.0) fL MCH 31.0 (25.0-35.0) pg MCHC 33.6 (31.0-37.0) g/dL RDW 13.9 (11.5-15.5) % Plt Count 418 (150-450) k/uL MPV 7.0 Neutrophils % 79 % Lymphocytes % 13 % Monocytes % 4 % Eosinophils % 4 % Basophils % 0 % Neutrophils # 11.0 H (1.3-7.7) k/uL Lymphocytes # 1.7 (1.0-4.8) k/uL Monocytes # 0.5 (0-1.0) k/uL Eosinophils # 0.6 (0-0.7) k/uL Basophils # 0.0 (0-0.2) k/uL PT 9.3 (9.0-12.0) sec INR 0.8 (<1.2) APTT 22.3 (22.0-30.0) sec Sodium (137-145) mmol/L Potassium (3.5-5.1) mmol/L Chloride (98-107) mmol/L Carbon Dioxide (22-30) mmol/L Anion Gap mmol/L BUN (7-17) mg/dL Creatinine (0.52-1.04) mg/dL Est GFR (CKD-EPI)AfAm (>60 ml/min/1.73 sqM) Est GFR (CKD-EPI)NonAf (>60 ml/min/1.73 sqM) Glucose (74-99) mg/dL Calcium (8.4-10.2) mg/dL Total Bilirubin (0.2-1.3) mg/dL AST (14-36) U/L ALT (4-34) U/L Alkaline Phosphatase (38-126) U/L Troponin I (0.000-0.034) ng/mL Total Protein (6.3-8.2) g/dL Albumin (3.5-5.0) g/dL Amylase (30-110) U/L Lipase (23-300) U/L Urine Color Urine Appearance (Clear) Urine pH (5.0-8.0) Ur Specific [place] (1.001-1.035) Urine Protein (Negative) Urine Glucose (UA) (Negative) Urine Ketones (Negative) Urine Blood (Negative) Urine Nitrite (Negative) Urine Bilirubin (Negative) Urine Urobilinogen (<2.0) mg/dL Ur Leukocyte Esterase (Negative) Urine RBC (0-5) /hpf Urine WBC (0-5) /hpf Ur Squamous Epith Cells (0-4) /hpf Urine Bacteria (None) /hpf Urine Mucus (None) /hpf Coronavirus (PCR) Not Detected (Not Detectd) 11/27/20 11/27/20 11/27/20 Range/Units 08:26 08:26 08:26 WBC (3.8-10.6) k/uL RBC (3.80-5.40) m/uL Hgb (11.4-16.0) gm/dL Hct (34.0-46.0) % MCV (80.0-100.0) fL MCH (25.0-35.0) pg MCHC (31.0-37.0) g/dL RDW (11.5-15.5) % Plt Count (150-450) k/uL MPV Neutrophils % % Lymphocytes % % Monocytes % % Eosinophils % % Basophils % % Neutrophils # (1.3-7.7) k/uL Lymphocytes # (1.0-4.8) k/uL Monocytes # (0-1.0) k/uL Eosinophils # (0-0.7) k/uL Basophils # (0-0.2) k/uL PT (9.0-12.0) sec INR (<1.2) APTT (22.0-30.0) sec Sodium 139 (137-145) mmol/L Potassium 4.2 (3.5-5.1) mmol/L Chloride 105 (98-107) mmol/L Carbon Dioxide 25 (22-30) mmol/L Anion Gap 9 mmol/L BUN 12 (7-17) mg/dL Creatinine 0.92 (0.52-1.04) mg/dL Est GFR (CKD-EPI)AfAm 85 (>60 ml/min/1.73 sqM) Est GFR (CKD-EPI)NonAf 74 (>60 ml/min/1.73 sqM) Glucose 126 H (74-99) mg/dL Calcium 9.5 (8.4-10.2) mg/dL Total Bilirubin 0.5 (0.2-1.3) mg/dL AST 24 (14-36) U/L ALT 15 (4-34) U/L Alkaline Phosphatase 123 (38-126) U/L Troponin I <0.012 (0.000-0.034) ng/mL Total Protein 7.7 (6.3-8.2) g/dL Albumin 4.4 (3.5-5.0) g/dL Amylase 67 (30-110) U/L Lipase 39 (23-300) U/L Urine Color Light Yellow Urine Appearance Cloudy H (Clear) Urine pH 5.5 (5.0-8.0) Ur Specific [place] 1.007 (1.001-1.035) Urine Protein Negative (Negative) Urine Glucose (UA) Negative (Negative) Urine Ketones Negative (Negative) Urine Blood Negative (Negative) Urine Nitrite Negative (Negative) Urine Bilirubin Negative (Negative) Urine Urobilinogen <2.0 (<2.0) mg/dL Ur Leukocyte Esterase Negative (Negative) Urine RBC <1 (0-5) /hpf Urine WBC 2 (0-5) /hpf Ur Squamous Epith Cells 6 H (0-4) /hpf Urine Bacteria Occasional H (None) /hpf Urine Mucus Rare H (None) /hpf Coronavirus (PCR) (Not Detectd) - Radiology Data Radiology results: report reviewed (Computed tomography scan abdomen pelvis does not reveal acute abnormality. There is concern for pulmonary nodule postsurgical changes), image reviewed (Chest x-ray shows no acute process) Disposition Clinical Impression: Dehydration, Dysphagia Disposition: ADMITTED IP TO THIS HOSP Is patient prescribed a controlled substance at d/c from ED?: No Referrals: Mónica Morris DO [Primary Care Provider] - 1-2 days Decision Time: 10:52
[2020-11-27 08:55] LABS: Basophils % (A) 0 %; Eosinophils # (A) 0.6 k/uL (0-0.7); Eosinophils % (A) 4 %; HCT 44.7 % (34.0-46.0); Lymphocytes # (A) 1.7 k/uL (1.0-4.8); Lymphocytes % (A) 13 %; MCHC 33.6 g/dL (31.0-37.0); MCV 92.2 fL (80.0-100.0); Monocytes # (A) 0.5 k/uL (0-1.0); Monocytes % (A) 4 %; Neutrophils % (A) 79 %; Platelet Count 418 k/uL (150-450); RBC 4.85 m/uL (3.80-5.40); RDW 13.9 % (11.5-15.5); WBC 13.9 k/uL (3.8-10.6)
--- NOTE | 2020-11-27 08:56 | XR ---
EXAMINATION TYPE: XR chest 2V DATE OF EXAM: 11/27/2020 COMPARISON: 09/10/2020 INDICATION: Abdomen pain TECHNIQUE: Single frontal view of the chest is obtained. FINDINGS: The heart size is normal. The pulmonary vasculature is normal. The lungs are clear. No radiopaque foreign bodies identified. IMPRESSION: 1. No acute pulmonary process.
[2020-11-27 09:06] LABS: Albumin 4.4 g/dL (3.5-5.0); Calcium 9.5 mg/dL (8.4-10.2); Potassium 4.2 mmol/L (3.5-5.1); Total Bilirubin 0.5 mg/dL (0.2-1.3); Total Protein 7.7 g/dL (6.3-8.2)
[2020-11-27 09:16] LABS: INR 0.8 (<1.2); Partial Thromboplastin Time 22.3 sec (22.0-30.0); Prothrombin Time 9.3 sec (9.0-12.0)
[2020-11-27 09:23] LABS: Appearance,Urine Cloudy (Clear); Bacteria,Urine Occasional /hpf; Bilirubin,Urine Negative (Negative); Blood,Urine Negative (Negative); Color,Urine Light Yellow; Glucose,Urine (UA) Negative (Negative); Ketones,Urine Negative (Negative); Leukocyte Esterase,Urine Negative (Negative); Mucus,Urine Rare /hpf; Nitrite,Urine Negative (Negative); PH, Urine 5.5 (5.0-8.0); Protein,Urine Negative (Negative); RBC,Urine <1 /hpf (0-5); Specific Gravity,Urine 1.007 (1.001-1.035); Squamous Epithelial Cell,Urine 6 /hpf (0-4); Urobilinogen,Urine <2.0 mg/dL (<2.0); WBC,Urine 2 /hpf (0-5)
--- NOTE | 2020-11-27 10:05 | CT ---
EXAMINATION TYPE: CT abdomen pelvis w con DATE OF EXAM: 11/27/2020 COMPARISON: None INDICATION: Feels like a foreign body is stuck in esophagus DLP: 1477.8 mGycm, Automated exposure control for dose reduction was used. CONTRAST: 100 mL of Isovue 300. Study performed with Oral Contrast TECHNIQUE: Axial images were obtained from above the diaphragm to the pubic rami in the axial plane a t 5 mm thick sections. Reconstructed images are reviewed on the computer in the coronal plane. FINDINGS: Limited CT sections are obtained the lung bases. There is a 0.6 cm nodule in the posterior right roman g base. Series 201 image 3.. There is a small amount of oral contrast within the distal esophagus. N o radiopaque foreign body is evident. CT ABDOMEN: There is an anterior abdominal wall hernia in the periumbilical space containing mesenter ic fat. No loops of bowel are involved. Previous Bell's hernia is not identified. Liver: Normal Spleen: Normal Pancreas: Atrophic Adrenal glands: The adrenal glands are normal. Gallbladder: Surgically absent Kidneys: No masses are evident. No hydronephrosis is present. No cysts are present. Delayed images were obtained through the kidneys, which remain unremarkable. Aorta: Vascular calcification is within the aorta. Inferior vena cava: Normal. CT PELVIS: Loops of bowel within the abdomen and pelvis are normal. There are loops of bowel which are incom pletely distended or lack oral contrast limiting their evaluation. Postsurgical changes are within th e stomach and within the proximal jejunum. There is some prominence of the distal duodenal loops. Thi s is similar to the 10/20/2017 comparison. Appendix: Normal as visualized. Urinary bladder: Normal. Genitourinary structures: Uterus contains hypodense endometrial canal. Surgical clips are in the broa d ligament. Adnexal regions appear unremarkable. No free fluid is within the pelvis. Osseous structures: No suspicious lytic or sclerotic lesions. Postsurgical changes are in the L5-S1 l evel. IMPRESSIONS: 1. No suspicious distal esophageal abnormality. 2. Postsurgical changes within the stomach and proximal small bowel. 3. Posterior right lung base nodule. Follow-up is recommended, CT chest 6 months.
[2020-11-27 10:28] VITALS: TEMP 98.3
[2020-11-27] MEDS ORDERED: NALOXONE 0.4 MG/ML 1 ML VIAL IV PRN (10:53)
[2020-11-27] MEDS ORDERED: ONDANSETRON 4 MG/2 ML VIAL IVP PRN (10:54)
[2020-11-27] MEDS ORDERED: SODIUM CHLORIDE 0.9% 1,000 ML IV SCH (11:00)
[2020-11-27 11:53] VITALS: BP 115/72; PULSE 86; RESP 16
--- NOTE | 2020-11-27 11:53 | FL ---
EXAMINATION TYPE: FL esophagus cervic/pharynx DATE OF EXAM: 11/27/2020 HISTORY: Dysphasia COMPARISON: NONE TECHNIQUE: A single contrast esophagram is performed utilizing air and barium. 50 seconds of fluoro scopy provided. 31 images submitted. 50 cc of [id number] utilized. FINDINGS: The esophagus shows normal motility and emptying into the stomach. No evidence of obstruction or str icture noted. No significant gastroesophageal reflux was seen during real time performance of this st udy. Postsurgical change overlying the cervical spine. IMPRESSION: No significant abnormality is seen to account for patient's symptoms.
--- NOTE | 2020-11-27 15:15 | P.GSHP ---
History of Present Illness H&P Date: 11/27/20 CHIEF COMPLAINT: Dysphagia HISTORY OF PRESENT ILLNESS: This is a 50-year-old female with a known past medical history of gastric bypass in 2004 out of [facility]. 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 tello. Patient has had prior EGD with dilation's. Her last EGD was in September 2019. She also has a surgical history of cholecystectomy, incisional hernia repair and . Patient presents to the hospital with complaints of difficulty with swallowing. She reports that she had been doing with nausea and vomiting over the last 3 weeks. She felt that symptoms were again starting to be related to an esophageal stricture. Yesterday she started having difficulty with swallowing. She was even unable to swallow her own spit. Therefore she came into the ER for further evaluation and treatment. She denies any abdominal pain. She feels that when she tries to swallow things are getting stuck and sitting in the center of her chest. She has complaints of heartburn and indigestion. Computed tomography scan of the abdomen and pelvis shows no suspicious distal esophageal abnormality. Postsurgical changes within the stomach and proximal small bowel. Posterior right lung base nodule. Upper GI no significant abnormality is seen to account for patient's symptoms. Patient also complaining of feeling bloated and has history of IBS. Patient denies any change in bowel habits. Denies any fever chills or sweats. PAST MEDICAL HISTORY: See list. PAST SURGICAL HISTORY: See list. MEDICATIONS: See list. ALLERGIES: See list. SOCIAL HISTORY: No illicit drug use. REVIEW OF SYSTEMS: CONSTITUTIONAL: Denies fever or chills. HEENT: Denies blurred vision, vision changes, or eye pain. Denies hemoptysis CARDIOVASCULAR: Denies chest pain or pressure. RESPIRATORY: No shortness of breath. GASTROINTESTINAL: See HPI for pertinent findings HEMATOLOGIC: Denies bleeding disorders. GENITOURINARY: Denies any blood in urine or increased urinary frequency. SKIN: Denies pruitis. Denies rash. PHYSICAL EXAM: VITAL SIGNS: Reviewed GENERAL: Well-developed in no acute distress. HEENT: No sclera icterus. Extraocular movements grossly intact. Moist buccal mucosa. Head is atraumatic, normocephalic. No nasal drainage. ABDOMEN: Soft. Obese. nondistended. Nontender NEUROLOGIC: Alert and oriented. Cranial nerves II through XII grossly intact. LABORATORY DATA: WBC 13.9 hemoglobin 15.418 sodium 139 BUN 12 and 0.92 glucose 126 LFTs normal Troponin negative lipase amylase normal UA negative for infection COVID-19 negative IMAGING: Chest x-ray no acute pulmonary process Computed tomography scan of the abdomen and pelvis shows no suspicious distal esophageal abnormality. Postsurgical changes within the stomach and proximal small bowel. Posterior right lung base nodule. Upper GI no significant abnormality is seen to account for patient's symptoms. ASSESSMENT: 1. Dysphagia 2. Nausea and vomiting 3. History of gastric bypass in 2004 4. 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 Signing provider agrees with the documented findings, assessment, and plan of care. Past Medical History Past Medical History: COPD, Diabetes Mellitus, GERD/Reflux, Hyperlipidemia, Osteoarthritis (OA) Additional Past Medical History / Comment(s): DDD, SPINAL STENOSIS, HERNIA, BACK PAIN AND BILATERAL ANKLE PAIN, BILATERAL PLANTAR FASCIITIS, CHRONIC UTI'S, OCCUL AR HYPERTENSION , HX STOMACH ULCERS, IBS/C, STATES HAVING NAUSEA, VOMITING AND WT LOSS. History of Any Multi-Drug Resistant Organisms: None Reported Past Surgical History: Back Surgery, Bariatric Surgery, Section, Cholecystectomy, Hernia Repair, Orthopedic Surgery, Tubal Ligation, Uterine Ablation Additional Past Surgical History / Comment(s): EGD WITH DILATION, REVISION OF GASTROJEJUNOSTOMY, HX GASTRIC BYPASS, GANGLION CYST , LEFT THUMB TRIGGER FINGER, CARPAL TUNNEL ALYSON AND REVISION. BENIGN CYSTS REMOVED FROM OVARY, PILONIDAL CYST SURGERY , MULTIPLE. D&C's, C- SECTION X2, WRIST TENDONITIS SURGERY. Pain Inje ctions. DECOMPRESSION BACK SURGERY L-4 & L-5 AND FUSION L5 & S1 MAR 2019 Past Anesthesia/Blood Transfusion Reactions: No Reported Reaction Additional Past Anesthesia/Blood Transfusion Reaction / Comment(s): STATES HYPERVENTILATES WHEN SEES NEEDLES-BUT HAS IMPROVED. Past Psychological History: Anxiety, Depression Smoking Status: Current every day smoker Past Alcohol Use History: None Reported Past Drug Use History: Marijuana - Past Family History Sister(s) Family Medical History: Cancer Additional Family Medical History / Comment(s): COLON CANCER. Brother(s) Family Medical History: Cancer Additional Family Medical History / Comment(s): NON-HODGKIN'S LYMPHOMA. Mother Family Medical History: Cancer Additional Family Medical History / Comment(s): NON-HODGKIN'S LYMPHOMA. Medications and Allergies Home Medications Medication Instructions Recorded Confirmed Type Atorvastatin [Lipitor] 20 mg PO HS 10/23/16 11/27/20 History Diclofenac Potassium [Cataflam] 50 mg PO TID 10/23/16 11/27/20 History Montelukast Sodium [Singulair] 10 mg PO HS 08/02/17 11/27/20 History Sulfamethoxazole/Trimethoprim 1 tab PO HS 10/28/17 11/27/20 History [Bactrim SS 400-80 mg] metFORMIN HCL [Glucophage] 500 mg PO BID 06/09/18 11/27/20 History Diazepam [Valium] 5 mg PO TID PRN 08/02/19 11/27/20 History Ergocalciferol [Vitamin D2] 50,000 unit PO TU 08/02/19 11/27/20 History hydrOXYzine HCL [Atarax] 25 mg PO TID PRN 08/02/19 11/27/20 History tiZANidine [Zanaflex] 4 mg PO BID PRN 08/02/19 11/27/20 History Cariprazine HCl [Vraylar] 1.5 mg PO Q48H 09/09/19 11/27/20 History Dicyclomine [Bentyl] 10 mg PO TID 09/09/19 11/27/20 History rOPINIRole HCL [Requip] 0.5 mg PO HS 09/09/19 11/27/20 History Butalb/Asprin/Caff 50-325-40Mg 1 cap PO Q8H PRN 11/27/20 11/27/20 History [Fiorinal 50-325-40 MG] Kenalog 0.5% Ointment 1 applic TOPICAL DAILY PRN 11/27/20 11/27/20 History Metoclopramide HCl [Reglan] 5 mg PO BID PRN 11/27/20 11/27/20 History Pantoprazole Sodium [Protonix] 40 mg PO DAILY 11/27/20 11/27/20 History Tiotropium Br/Olodaterol HCl 2 spray INHALATION RT-DAILY 11/27/20 11/27/20 History [Stiolto Respimat Inhal [place]] Allergies Allergy/AdvReac Type Severity Reaction Status Date / Time Cephalosporins AdvReac RECTAL Verified 11/27/20 10:56 BLEEDING famotidine [From Pepcid] AdvReac Confusion Verified 11/27/20 10:56 lurasidone [From Latuda] AdvReac SUICIDAL Verified 11/27/20 10:56 THOUGHTS olanzapine [From Zyprexa] AdvReac WEIGHT GAIN Verified 11/27/20 10:56 Surgical - Exam Vital Signs Temp Pulse Resp BP Pulse Ox 99.7 F H 120 H 20 148/77 96 11/27/20 08:00 11/27/20 08:00 11/27/20 08:00 11/27/20 08:00 11/27/20 08:00 Results - Labs 11/27/20 08:26 11/27/20 08:26 Abnormal Lab Results - Last 24 Hours (Table) 11/27/20 11/27/20 11/27/20 Range/Units 08:26 08:26 08:26 WBC 13.9 H (3.8-10.6) k/uL Neutrophils # 11.0 H (1.3-7.7) k/uL Glucose 126 H (74-99) mg/dL Urine Appearance Cloudy H (Clear) Ur Squamous Epith Cells 6 H (0-4) /hpf Urine Bacteria Occasional H (None) /hpf Urine Mucus Rare H (None) /hpf Diabetes panel 11/27/20 Range/Units 08:26 Sodium 139 (137-145) mmol/L Potassium 4.2 (3.5-5.1) mmol/L Chloride 105 (98-107) mmol/L Carbon Dioxide 25 (22-30) mmol/L BUN 12 (7-17) mg/dL Creatinine 0.92 (0.52-1.04) mg/dL Glucose 126 H (74-99) mg/dL Calcium 9.5 (8.4-10.2) mg/dL AST 24 (14-36) U/L ALT 15 (4-34) U/L Alkaline Phosphatase 123 (38-126) U/L Total Protein 7.7 (6.3-8.2) g/dL Albumin 4.4 (3.5-5.0) g/dL Calcium panel 11/27/20 Range/Units 08:26 Calcium 9.5 (8.4-10.2) mg/dL Albumin 4.4 (3.5-5.0) g/dL Pituitary panel 11/27/20 Range/Units 08:26 Sodium 139 (137-145) mmol/L Potassium 4.2 (3.5-5.1) mmol/L Chloride 105 (98-107) mmol/L Carbon Dioxide 25 (22-30) mmol/L BUN 12 (7-17) mg/dL Creatinine 0.92 (0.52-1.04) mg/dL Glucose 126 H (74-99) mg/dL Calcium 9.5 (8.4-10.2) mg/dL Adrenal panel 11/27/20 Range/Units 08:26 Sodium 139 (137-145) mmol/L Potassium 4.2 (3.5-5.1) mmol/L Chloride 105 (98-107) mmol/L Carbon Dioxide 25 (22-30) mmol/L BUN 12 (7-17) mg/dL Creatinine 0.92 (0.52-1.04) mg/dL Glucose 126 H (74-99) mg/dL Calcium 9.5 (8.4-10.2) mg/dL Total Bilirubin 0.5 (0.2-1.3) mg/dL AST 24 (14-36) U/L ALT 15 (4-34) U/L Alkaline Phosphatase 123 (38-126) U/L Total Protein 7.7 (6.3-8.2) g/dL Albumin 4.4 (3.5-5.0) g/dL
[2020-11-27] MEDS ORDERED: ACETAMINOPHEN TAB 325 MG TAB PO PRN (17:03)
[2020-11-27] MEDS ORDERED: HEPARIN SODIUM,PORCINE/PF 5,000 UNIT/0.5 ML SYRINGE SQ SCH (21:00)
[2020-11-28] MEDS ORDERED: PANTOPRAZOLE 40 MG/10 ML VIAL IV SCH (09:00)
== END 2020-11-27 17:59 | disposition home or self-care (01) ==
LOC: EC 07:59 → 4SSUR 11:03
PROVIDERS: ADMIT Surgery; ATTEND Surgery
DX: R13.10 Dysphagia, unspecified (principal); E86.0 Dehydration; R91.1 Solitary pulmonary nodule; K30 Functional dyspepsia; R11.2 Nausea with vomiting, unspecified; E11.9 Type 2 diabetes mellitus without complications; E78.5 Hyperlipidemia, unspecified; J44.9 Chronic obstructive pulmonary disease, unspecified; K21.9 Gastro-esophageal reflux disease without esophagitis; M19.90 Unspecified osteoarthritis, unspecified site; M48.00 Spinal stenosis, site unspecified; F32.9 Major depressive disorder, single episode, unspecified; F41.9 Anxiety disorder, unspecified; K58.9 Irritable bowel syndrome, unspecified; H40.059 Ocular hypertension, unspecified eye; M25.571 Pain in right ankle and joints of right foot; M25.572 Pain in left ankle and joints of left foot; M54.9 Dorsalgia, unspecified; M72.2 Plantar fascial fibromatosis; F17.200 Nicotine dependence, unspecified, uncomplicated; Z20.822 Contact with and (suspected) exposure to COVID-19; Z79.84 Long term (current) use of oral hypoglycemic drugs; Z79.899 Other long term (current) drug therapy; Z88.1 Allergy status to other antibiotic agents; Z88.8 Allergy status to other drugs, medicaments and biological substances; Z98.84 Bariatric surgery status; Z87.11 Personal history of peptic ulcer disease; Z90.49 Acquired absence of other specified parts of digestive tract; Z98.891 History of uterine scar from previous surgery; Z90.3 Acquired absence of stomach [part of]; Z98.1 Arthrodesis status; Z87.19 Personal history of other diseases of the digestive system; Z87.440 Personal history of urinary (tract) infections; Z98.51 Tubal ligation status; Z98.890 Other specified postprocedural states; Z80.0 Family history of malignant neoplasm of digestive organs; Z80.7 Family history of other malignant neoplasms of lymphoid, hematopoietic and related tissues
CPT/HCPCS: 96361; 96374; 96375; 99285; 36415; 93005; 80053; 82150; 83690; 84484; 85025; 85610; 85730; 81001; 87635; 74210; 71046; 74177; G0378; J2405; C9113; Q9967

== ENCOUNTER 2020-12-06 07:08 | Day surgery (SDC) | payer OTHER ==
[2020-12-06 07:40] LABS: Glucose,Whole Blood 119 mg/dL (75-99)
[2020-12-06] MEDS ORDERED: LACTATED RINGERS 1,000 ML IV ONE (07:40)
[2020-12-06] MEDS ORDERED: LIDOCAINE 1% (10MG/ML) FOR IV START INTRADERMA ONE (07:40)
[2020-12-06 07:44] VITALS: RESP 16; TEMP 98.4
[2020-12-06] MEDS ORDERED: PROPOFOL 10 MG/ML 20 ML VIAL IV ONE (08:06)
[2020-12-06] MEDS ORDERED: fentaNYL (PF) 50 MCG/ML 2 ML AMP ONE (08:06)
[2020-12-06] MEDS ORDERED: MIDAZOLAM 2 MG/2 ML VIAL ONE (08:06)
--- NOTE | 2020-12-06 08:24 | P.GSHP ---
History of Present Illness H&P Date: 12/06/20 Chief Complaint: GERD, dysphagia This a 42-year-old female presents today for EGD. She's had issues with GERD and dysphagia. Patient's previous history of Chris-en-Y gastric bypass. Past Medical History Past Medical History: COPD, Diabetes Mellitus, GERD/Reflux, Hyperlipidemia, Osteoarthritis (OA), Skin Disorder Additional Past Medical History / Comment(s): DYSPAGIA. CHRONIC UTI. STRESS HIVES. DDD, SPINAL STENOSIS, HERNIA, BACK PAIN AND BILATERAL ANKLE PAIN, BILATERAL PLANTAR FASCIITIS, CHRONIC UTI'S, OCCULAR HYPERTENSION , HX STOMACH ULCERS, IBS/C, STATES HAVING NAUSEA, VOMITING AND WT LOSS. History of Any Multi-Drug Resistant Organisms: None Reported Past Surgical History: Back Surgery, Bariatric Surgery, Section, Cholecystectomy, Hernia Repair, Orthopedic Surgery, Tubal Ligation, Uterine Ablation Additional Past Surgical History / Comment(s): 09/19/20 LEFT HAND SURGERY @ [facility]. EGD WITH DILATION, REVISION OF GASTROJEJUNOSTOMY, HX GASTRIC BYPASS (2014), GANGLION CYST , LEFT THUMB TRIGGER FINGER, CARPAL TUNNEL ALYSON AND REVISION. BENIGN CYSTS REMOVED FROM OVARY, PILONIDAL CYST SURGERY , MULTIPLE. D& C's, C- SECTION X2, WRIST TENDONITIS SURGERY. Pain Injections. DECOMPRESSION BACK SURGERY L-4 & L-5 AND FUSION L5 & S1 MAR 2019 Past Anesthesia/Blood Transfusion Reactions: No Reported Reaction Additional Past Anesthesia/Blood Transfusion Reaction / Comment(s): STATES HYPERVENTILATES WHEN SEES NEEDLES-BUT HAS IMPROVED. Past Psychological History: Anxiety, Depression Additional Psychological History / Comment(s): Mood Disorder. Smoking Status: Current every day smoker Past Alcohol Use History: None Reported Additional Past Alcohol Use History / Comment(s): STARTED SMOKING AT AGE 15 QUIT DECEMBER 2018. 1PP EVERY 3 DAYS. Past Drug Use History: Marijuana Additional Drug Use History / Comment(s): SMOKES MARIJUANA - Past Family History Sister(s) Family Medical History: Cancer Additional Family Medical History / Comment(s): COLON CANCER. Brother(s) Family Medical History: Cancer Additional Family Medical History / Comment(s): NON-HODGKIN'S LYMPHOMA. Mother Family Medical History: Cancer Additional Family Medical History / Comment(s): NON-HODGKIN'S LYMPHOMA. Medications and Allergies Home Medications Medication Instructions Recorded Confirmed Type Atorvastatin [Lipitor] 20 mg PO HS 10/23/16 12/03/20 History Diclofenac Potassium [Cataflam] 50 mg PO TID 10/23/16 12/03/20 History Montelukast Sodium [Singulair] 10 mg PO HS 08/02/17 12/03/20 History Sulfamethoxazole/Trimethoprim 1 tab PO HS 10/28/17 12/03/20 History [Bactrim SS 400-80 mg] metFORMIN HCL [Glucophage] 500 mg PO BID 06/09/18 12/03/20 History Diazepam [Valium] 5 mg PO TID PRN 08/02/19 12/03/20 History Ergocalciferol [Vitamin D2] 50,000 unit PO TU 08/02/19 12/03/20 History hydrOXYzine HCL [Atarax] 25 mg PO TID PRN 08/02/19 12/03/20 History tiZANidine [Zanaflex] 4 mg PO BID PRN 08/02/19 12/03/20 History Cariprazine HCl [Vraylar] 1.5 mg PO Q48H 09/09/19 12/03/20 History Dicyclomine [Bentyl] 10 mg PO TID 09/09/19 12/03/20 History rOPINIRole HCL [Requip] 0.5 mg PO HS 09/09/19 12/03/20 History Butalb/Asprin/Caff 50-325-40Mg 1 cap PO Q8H PRN 11/27/20 12/03/20 History [Fiorinal 50-325-40 MG] Metoclopramide HCl [Reglan] 10 mg PO BID PRN 11/27/20 12/03/20 History Pantoprazole Sodium [Protonix] 40 mg PO QAM 11/27/20 12/03/20 History Tiotropium Br/Olodaterol HCl 2 puff INHALATION QAM 11/27/20 12/03/20 History [Stiolto Respimat Inhal [place]] Albuterol Sulfate [Proair Hfa] 1 puff INHALATION BID PRN 12/03/20 12/03/20 History Triamcinolone 0.5% Cream [Kenalog 1 applic TOPICAL DIRECTED PRN 12/03/20 12/03/20 History 0.5% Cream] Allergies Allergy/AdvReac Type Severity Reaction Status Date / Time Cephalosporins AdvReac RECTAL Verified 12/06/20 07:17 BLEEDING famotidine [From Pepcid] AdvReac Confusion Verified 12/06/20 07:17 lurasidone [From Latuda] AdvReac SUICIDAL Verified 12/06/20 07:17 THOUGHTS olanzapine [From Zyprexa] AdvReac WEIGHT GAIN Verified 12/06/20 07:17 Surgical - Exam Vital Signs Temp Pulse Resp BP Pulse Ox 98.4 F 75 16 118/65 97 12/06/20 07:42 12/06/20 07:42 12/06/20 07:42 12/06/20 07:42 12/06/20 07:42 - General well developed, well nourished, no distress - Eyes PERRL - ENT normal pinna - Neck no masses - Respiratory normal expansion - Cardiovascular Rhythm: regular - Abdomen Abdomen: soft, non tender Results - Labs Abnormal Lab Results - Last 24 Hours (Table) 12/06/20 Range/Units 07:38 POC Glucose (mg/dL) 119 H (75-99) mg/dL Assessment and Plan Assessment: GERD, dysphagia. We'll perform EGD.
--- NOTE | 2020-12-06 08:26 | P.OP ---
Date of Procedure: 12/06/20 Preoperative Diagnosis: GERD Postoperative Diagnosis: No evidence of gastric obstruction. No significant esophagitis. Procedure(s) Performed: EGD Anesthesia: MAC Surgeon: Dillon Alvarado Pathology: other (Stomach) Condition: stable Disposition: PACU Description of Procedure: The patient's placed on the endoscopy table in the lateral position. She received IV sedation. The gastroscope placed oropharynx passed in the esophagus and stomach. The previous gastric bypass. The gastrojejunostomy was patent without evidence of obstruction. The gastroscope placed in the jejunal limb. There is no obstruction seen. Scope was brought back. A random gastric biopsies performed. There is inflammationsto mach.[id number].Normal.Theproximalesophagusappeare dnormal.Scopewaswithdrawnforpatient.
[2020-12-06 08:41] VITALS: BP 110/75; PULSE 77
== END 2020-12-06 08:55 | disposition home or self-care (01) ==
LOC: ORWHC2ENDO 07:08
PROVIDERS: ATTEND Surgery
DX: K21.9 Gastro-esophageal reflux disease without esophagitis (principal); E11.9 Type 2 diabetes mellitus without complications; J44.9 Chronic obstructive pulmonary disease, unspecified; E78.5 Hyperlipidemia, unspecified; M19.90 Unspecified osteoarthritis, unspecified site; Z98.84 Bariatric surgery status; Z87.891 Personal history of nicotine dependence; Z79.899 Other long term (current) drug therapy; Z79.84 Long term (current) use of oral hypoglycemic drugs; Z80.0 Family history of malignant neoplasm of digestive organs
CPT/HCPCS: 88305; 43239; J2250; J3010; J2704

== ENCOUNTER → 2021-01-17 | Outpatient (CLI) | payer OTHER | END | disposition home or self-care (01) | LOC: RADMAMWWP 12:54 | PROVIDERS: ATTEND Family Medicine | DX: Z12.31 Encounter for screening mammogram for malignant neoplasm of breast (principal); Z80.3 Family history of malignant neoplasm of breast | CPT/HCPCS: 77063; 77067 ==

== ENCOUNTER → 2021-06-24 | Outpatient (CLI) | payer MEDICARE, OTHER ==
--- NOTE | 2021-06-25 06:56 | CT ---
EXAMINATION TYPE: CT chest wo con DATE OF EXAM: 06/24/2021 COMPARISON: CT abdomen and pelvis November 27, 2020 HISTORY: Solitary lung nodule, prior abnormal CT CT DLP: 372.40 mGycm. Automated Exposure Control for Dose Reduction was Utilized. TECHNIQUE: CT scan of the thorax is performed without IV contrast. FINDINGS: LUNGS: [id number] underlying emphysematous change is present. There is 6 x 5 mm posterior right lower lobe nodule axial image 27. There is mild to moderate bibasilar linear scarring and/or atelect asis. No additional greater than 5 mm pulmonary nodules. No pleural effusion or pneumothorax seen bruno aterally. MEDIASTINUM: Lack of IV contrast is noted to limit evaluation for mediastinal and especially hilar ad enopathy. There are no definitive greater than 1 cm mediastinal lymph nodes. No cardiomegaly or per icardial effusion is seen. OTHER: Cholecystectomy clips are redemonstrated. Focal eventration in the midline of the anterior abd ominal wall again seen. Surgical changes epigastric region from gastric bypass procedure redemonstrat ed. IMPRESSION: Single 6 x 5 mm posterior right lower lobe nodule. No additional greater than 5 mm noncal cified pulmonary nodules. Optional CT follow-up in 12 months time is advised as per Fleischner Society recommendations to reass ess.
== END | disposition home or self-care (01) ==
LOC: RADCTMAIN 18:05
PROVIDERS: ATTEND Internal Medicine
DX: R91.1 Solitary pulmonary nodule (principal)
CPT/HCPCS: 71250

== ENCOUNTER → 2021-09-11 | Outpatient (CLI) | payer MEDICARE, OTHER ==
--- NOTE | 2021-09-11 23:23 | XR ---
EXAMINATION TYPE: XR foot complete LT DATE OF EXAM: 09/11/2021 COMPARISON: None available INDICATION: Pain and lump at the lateral aspect TECHNIQUE: 3 views of the left foot FINDINGS: No definite acute fracture line identified. Inferior calcaneal spur. IMPRESSION: As above
== END | disposition home or self-care (01) ==
LOC: RADXRMAIN 09:18
PROVIDERS: ATTEND Internal Medicine
DX: M77.32 Calcaneal spur, left foot (principal)

== ENCOUNTER → 2021-11-12 | Outpatient (CLI) | payer MEDICARE, OTHER ==
[2021-11-12 08:50] VITALS: BP 116/73; PULSE 92; RESP 12; TEMP 98.1
--- NOTE | 2021-11-12 10:54 | P.HPOB ---
History of Present Illness H&P Date: 11/12/21 Chief Complaint: The patient is here for her routine gynecologic exam. This is a 51-year-old with an LMP of 2014. The patient is here to establish with this office. She is status post tubal ligation. It has been about 1 year since her last pelvic exam. She is status post endometrial ablation in 2014 and has been amenorrheic since then. She has experienced some hot flashes over the past 2 years and these are tolerable. She believes the hot flashes are declining. She is status post breast reduction surgery in July 2021. Since the breast reduction surgery, she has noticed some firmness above the nipples. She had a normal mammogram on 01/17/2021 prior to the breast reduction. She is otherwise without complaints. Review of Systems The patient has gained 10-15 pounds over the last year. She denies respiratory, cardiac, or G.I. problems. Past Medical History Past Medical History: COPD, Diabetes Mellitus, GERD/Reflux, Hyperlipidemia, Osteoarthritis (OA), Skin Disorder Additional Past Medical History / Comment(s): Type 2 diabetes, restless leg syndrome, osteopenia. STRESS HIVES. DDD, SPINAL STENOSIS, HERNIA, BACK PAIN AND BILATERAL ANKLE PAIN, BILATERAL PLANTAR FASCIITIS, CHRONIC UTI'S, OCCULAR HYPERTENSION , HX STOMACH ULCERS, IBS/C. 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 History of Any Multi-Drug Resistant Organisms: None Reported Past Surgical History: Back Surgery, Bariatric Surgery, Breast Surgery, Section, Cholecystectomy, Hernia Repair, Orthopedic Surgery, Tubal Ligation, Uterine Ablation Additional Past Surgical History / Comment(s): 09/19/20 LEFT HAND SURGERY @ [facility]. EGD WITH DILATION, REVISION OF GASTROJEJUNOSTOMY, HX GASTRIC BYPASS (2014), GANGLION CYST , LEFT THUMB TRIGGER FINGER, CARPAL TUNNEL [facility] AND REVISION. BENIGN CYSTS REMOVED FROM OVARY, PILONIDAL CYST SURGERY , MULTIPLE. D&C's, C- SECTION X2, WRIST TENDONITIS SURGERY. Pain Injections. Endometrial ablation 2014. DECOMPRESSION BACK SURGERY L-4 & L-5 AND FUSION L5 & S1 MAR 2019, 2021 [facility] BREAST REDUCTION Past Anesthesia/Blood Transfusion Reactions: No Reported Reaction Additional Past Anesthesia/Blood Transfusion Reaction / Comment(s): STATES HYPERVENTILATES WHEN SEES NEEDLES-BUT HAS IMPROVED. Past Psychological History: Anxiety, Depression (She denies current depression on her medications.) Additional Psychological History / Comment(s): Mood Disorder. Smoking Status: Current every day smoker (Half a pack per day but is trying to quit.) Past Alcohol Use History: None Reported Additional Past Alcohol Use History / Comment(s): STARTED SMOKING AT AGE 15 QUIT DECEMBER 2018. 1PP EVERY 3 DAYS. Past Drug Use History: None Reported - Past Family History Sister(s) Family Medical History: Cancer Additional Family Medical History / Comment(s): COLON CANCER and lung cancer. Brother(s) Family Medical History: Cancer Additional Family Medical History / Comment(s): NON-HODGKIN'S LYMPHOMA. 2 other brothers had a factor V Leiden mutation. Mother Family Medical History: Cancer, Congestive Heart Failure (CHF) Additional Family Medical History / Comment(s): NON-HODGKIN'S LYMPHOMA. Maternal aunt had breast cancer as did a maternal cousin. Father Family Medical History: Congestive Heart Failure (CHF) Medications and Allergies Home Medications Medication Instructions Recorded Confirmed Type Atorvastatin [Lipitor] 20 mg PO HS 10/23/16 11/12/21 History Montelukast Sodium [Singulair] 10 mg PO HS 08/02/17 11/12/21 History metFORMIN HCL [Glucophage] 500 mg PO BID 06/09/18 11/12/21 History hydrOXYzine HCL [Atarax] 25 mg PO TID PRN 08/02/19 11/12/21 History Cariprazine HCl [Vraylar] 1.5 mg PO Q48H 09/09/19 11/12/21 History rOPINIRole HCL [Requip] 0.5 mg PO HS 09/09/19 11/12/21 History Pantoprazole Sodium [Protonix] 40 mg PO QAM 11/27/20 11/12/21 History Albuterol Sulfate [Proair Hfa] 1 puff INHALATION BID PRN 12/03/20 11/12/21 History Baclofen 10 mg PO TID 11/12/21 11/12/21 History Fluticasone Nasal [place] [Flonase 1 spray NASAL DIRECTED PRN 11/12/21 11/12/21 History Nasal [place]] Varenicline [Chantix Continuing 1 mg PO DIRECTED 11/12/21 11/12/21 History Pack] Allergies Allergy/AdvReac Type Severity Reaction Status Date / Time Cephalosporins AdvReac RECTAL Verified 11/12/21 08:40 BLEEDING famotidine [From Pepcid] AdvReac Confusion Verified 11/12/21 08:40 lurasidone [From Latuda] AdvReac SUICIDAL Verified 11/12/21 08:40 THOUGHTS olanzapine [From Zyprexa] AdvReac WEIGHT GAIN Verified 11/12/21 08:40 Exam Vital Signs Temp Pulse Resp BP Pulse Ox 11/12/21 08:43 98.1 F 92 12 116/73 98 Intake and Output 11/11/21 11/12/21 11/12/21 22:59 06:59 14:59 Other: Weight 82.554 kg Height 4 feet 11 inches, weight 182 pounds, BMI 36.8. This is a well-developed well-nourished white female who is alert and oriented times 3 in no acute distress. HEENT: Within normal limits. NECK: Supple without mass or thyromegaly. CHEST AND LUNGS: Clear to auscultation. HEART: Regular rate and rhythm. BREASTS: Are consistent with bilateral breast reduction surgery. There are scars from the surgery on the lower half of the breast. There is symmetrical firmness directly above the nipples on both sides. The patient states she has noticed firmness since the breast reduction surgery. There are no other abnormal findings. The breasts are nontender. AXILLARY EXAM: Negative for adenopathy. BACK: Negative for CVA tenderness. ABDOMEN: Soft, nontender, without palpable masses. PELVIC EXAM: Normal external genitalia with minimal atrophy. Cervix and vagina appear normal with minimal atrophy. There is no unusual discharge. There is no evidence of prolapse. The uterus is midposition, nongravid size and nontender. There are no palpable adnexal masses or tenderness. RECTAL EXAM: Rectovaginal exam is negative for mass or tenderness and is negative for occult blood. EXTREMITIES: Nontender. IMPRESSION: 1. 51-year-old perimenopausal female who has been amenorrheic since her 2015 endometrial ablation. 2. Normal gynecologic exam. 3. Status post bilateral breast reduction surgery earlier this year with bilateral firmness above the nipples, probably secondary to her surgery. 4. History of osteopenia. PLAN: 1. Pap smear cotest was performed. 2. Self breast awareness was discussed with the patient. We have also discussed symptoms associated with inflammatory breast cancer. 3. We have discussed the breast findings that she has noticed since her breast reduction surgery in July of this year. Since she had a benign mammogram in January 2021, I feel of the bilateral firmness above the nipple is probably secondary to her breast reduction surgery. She states she has an upcoming appointment with her breast surgeon. She will let the surgeon note that she has felt some firmness above the nipples to see if anything further needs to be done. Screening mammogram will be done in January 2021 and the order slip was given to the patient for this. 4. Osteoporosis prevention was discussed. I have stressed the importance of adequate calcium, vitamin D and regular exercise. Recommended amounts of calcium and vitamin D were also discussed. Her first bone density test was done on 11/26/2018 and showed osteopenia. We will plan on repeating this at her next well woman visit in 2022. 5. She was advised to return in one year for her annual well woman exam.
== END ==
LOC: WWCWWP 08:24
PROVIDERS: ATTEND Obstetrics & Gynecology
DX: Z01.419 Encounter for gynecological examination (general) (routine) without abnormal findings (principal); N91.2 Amenorrhea, unspecified; E11.9 Type 2 diabetes mellitus without complications; E78.5 Hyperlipidemia, unspecified; I10 Essential (primary) hypertension; J44.9 Chronic obstructive pulmonary disease, unspecified; M19.90 Unspecified osteoarthritis, unspecified site; F41.9 Anxiety disorder, unspecified; F32.A Depression, unspecified; F17.210 Nicotine dependence, cigarettes, uncomplicated; Z79.84 Long term (current) use of oral hypoglycemic drugs; K21.9 Gastro-esophageal reflux disease without esophagitis; Z88.1 Allergy status to other antibiotic agents; Z98.890 Other specified postprocedural states; Z78.0 Asymptomatic menopausal state; Z87.39 Personal history of other diseases of the musculoskeletal system and connective tissue; Z88.8 Allergy status to other drugs, medicaments and biological substances

== ENCOUNTER → 2021-11-13 | Outpatient (CLI) | payer MEDICARE, OTHER ==
--- NOTE | 2021-11-19 07:53 | US ---
EXAMINATION TYPE: US arterial LE single level DATE OF EXAM: 11/13/2021 1:39 PM CLINICAL HISTORY: R25.2 LEG CRAMPING. Doppler Waveforms: Right: Triphasic and biphasic Left: Triphasic and biphasic Ankle-Brachial Indices: Right: 1.01 Left: 0.95 Toe Brachial Indices: Right: 0.62 Left: 0.52 IMPRESSION: 1. Normal MEHUL 2. TBI suggests possible claudication correlate clinically.
== END | disposition home or self-care (01) ==
LOC: RADUSWWP 12:21
PROVIDERS: ATTEND Internal Medicine
DX: R25.2 Cramp and spasm (principal)
CPT/HCPCS: 93922

== ENCOUNTER → 2021-12-03 | Outpatient (CLI) | payer MEDICARE, OTHER ==
[2021-12-03 18:40] LABS: HCT 42.5 % (37.2-46.3); HGB 14.1 g/dL (12.0-15.0); MCH 31.5 pg (27.0-32.0); MCHC 33.2 g/dL (32.0-37.0); MCV 95.1 fL (80.0-97.0); Mean Platelet Volume 9.4 fL (9.5-12.2); NRBC Per 100 WBC 0 /100 WBCS (0.0-0.0); Platelet Count 439 X 10*3/uL (140-440); RBC 4.47 X 10*6/uL (4.10-5.20); RDW 14.5 % (11.5-14.5); WBC 11.96 X 10*3/uL (4.50-10.00)
== END | disposition home or self-care (01) ==
LOC: LABWHC1 13:51
PROVIDERS: ATTEND Surgery
DX: Z01.812 Encounter for preprocedural laboratory examination (principal)
CPT/HCPCS: 36415; 83036; 85027

== ENCOUNTER 2021-12-11 07:22 | Day surgery (SDC) | payer MEDICARE, OTHER ==
[2021-12-09 16:16] VITALS: BMI 37.3
[~2021-12-11 07:22] MED LIST changes: +DEXAMETHASONE SOD PHOSPHATE 4 MG/ML 1 ML VIAL IV ONE; +HEPARIN SODIUM,PORCINE/PF 5,000 UNIT/0.5 ML SYRINGE SQ PRN; +ONDANSETRON 4 MG/2 ML VIAL IVP ONE; +SCOPOLAMINE 1 MG/72 HR PATCH TRANSDERM ONE
[2021-12-11 08:39] LABS: Glucose,Whole Blood 118 mg/dL (75-99)
[2021-12-11] MEDS: ACETAMINOPHEN TAB 500 MG TAB PO PRN ×2 (08:45→08:48)
[2021-12-11] MEDS ORDERED: MIDAZOLAM 2 MG/2 ML VIAL IVP ONE (09:02)
--- NOTE | 2021-12-11 09:26 | P.GSHP ---
History of Present Illness H&P Date: 12/11/21 Chief Complaint: Incisional hernia Is a 51-year-old female who has developed recurrence of hernia. Patient presents today for open repair. Patient developed an incisional hernia located the superior portion of her midline scar. Past Medical History Past Medical History: COPD, Diabetes Mellitus, GERD/Reflux, Hyperlipidemia, Osteoarthritis (OA), Skin Disorder Additional Past Medical History / Comment(s): Type 2 diabetes, restless leg syndrome, osteopenia. STRESS HIVES. DDD, SPINAL STENOSIS, HERNIA, BACK PAIN AND BILATERAL ANKLE PAIN, BILATERAL PLANTAR FASCIITIS, CHRONIC UTI'S, OCCULAR HYPERTENSION , HX STOMACH ULCERS, IBS/C. 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 History of Any Multi-Drug Resistant Organisms: None Reported Past Surgical History: Back Surgery, Bariatric Surgery, Breast Surgery, Section, Cholecystectomy, Hernia Repair, Orthopedic Surgery, Tubal Ligation, Uterine Ablation Additional Past Surgical History / Comment(s): 09/19/20 LEFT HAND SURGERY @ [facility]. EGD WITH DILATION, REVISION OF GASTROJEJUNOSTOMY, HX GASTRIC BYPASS (2014), GANGLION CYST , LEFT THUMB TRIGGER FINGER, CARPAL TUNNEL [facility] AND REVISION. BENIGN CYSTS REMOVED FROM OVARY, PILONIDAL CYST SURGERY , MULTIPLE. D&C's, C- SECTION X2, WRIST TENDONITIS SURGERY. Pain Injections. Endometrial ablation 2014. DECOMPRESSION BACK SURGERY L-4 & L-5 AND FUSION L5 & S1 MAR 2019, 2021 [facility] BREAST REDUCTIONM MULTIPLE HERNIA SURGERIES Past Anesthesia/Blood Transfusion Reactions: No Reported Reaction Additional Past Anesthesia/Blood Transfusion Reaction / Comment(s): STATES HYPERVENTILATES WHEN SEES NEEDLES-BUT HAS IMPROVED. Smoking Status: Current every day smoker - Past Family History Sister(s) Family Medical History: Cancer Additional Family Medical History / Comment(s): COLON CANCER and lung cancer. Brother(s) Family Medical History: Cancer Additional Family Medical History / Comment(s): NON-HODGKIN'S LYMPHOMA. 2 other brothers had a factor V Leiden mutation. Mother Family Medical History: Cancer, Congestive Heart Failure (CHF) Additional Family Medical History / Comment(s): NON-HODGKIN'S LYMPHOMA. Maternal aunt had breast cancer as did a maternal cousin. Father Family Medical History: Congestive Heart Failure (CHF) Medications and Allergies Home Medications Medication Instructions Recorded Confirmed Type Atorvastatin [Lipitor] 20 mg PO HS 10/23/16 12/09/21 History Montelukast Sodium [Singulair] 10 mg PO HS 08/02/17 12/09/21 History metFORMIN HCL [Glucophage] 500 mg PO BID 06/09/18 12/11/21 History hydrOXYzine HCL [Atarax] 25 mg PO TID PRN 08/02/19 12/11/21 History Cariprazine HCl [Vraylar] 1.5 mg PO Q48H 09/09/19 12/11/21 History rOPINIRole HCL [Requip] 0.5 mg PO HS 09/09/19 12/09/21 History Pantoprazole Sodium [Protonix] 40 mg PO QAM 11/27/20 12/11/21 History Albuterol Sulfate [Proair Hfa] 1 puff INHALATION BID PRN 12/03/20 12/11/21 History Fluticasone Nasal [place] [Flonase 1 spray NASAL DIRECTED PRN 11/12/21 12/11/21 History Nasal [place]] Aspirin [Adult Low Dose Aspirin EC] 81 mg PO DAILY 12/09/21 12/09/21 History Ergocalciferol [Vitamin D2 (1250 1,250 mcg PO TU 12/09/21 12/11/21 History Mcg = 43641 Iu)] Allergies Allergy/AdvReac Type Severity Reaction Status Date / Time Cephalosporins AdvReac RECTAL Verified 12/11/21 08:10 BLEEDING famotidine [From Pepcid] AdvReac Confusion Verified 12/11/21 08:10 lurasidone [From Latuda] AdvReac SUICIDAL Verified 12/11/21 08:10 THOUGHTS olanzapine [From Zyprexa] AdvReac WEIGHT GAIN Verified 12/11/21 08:10 Surgical - Exam Vital Signs Temp Pulse Resp BP Pulse Ox 97.7 F 72 18 110/73 96 12/11/21 08:17 12/11/21 08:17 12/11/21 08:17 12/11/21 08:17 12/11/21 08:17 - General well developed, well nourished, no distress - Eyes PERRL - ENT normal pinna - Neck no masses - Respiratory normal expansion - Cardiovascular Rhythm: regular - Abdomen 10 cm incisional hernia located. At the superior Portion of midline scar Abdomen: soft, non tender Results - Labs Abnormal Lab Results - Last 24 Hours (Table) 12/11/21 12/11/21 Range/Units 08:27 08:27 POC Glucose (mg/dL) 118 H 118 H (75-99) mg/dL Assessment and Plan Assessment: Incisional hernia. We'll perform open repair.
[2021-12-11] MEDS ORDERED: NEOSTIGMINE 1 MG/ML 10 ML VIAL ONE (09:49)
[2021-12-11] MEDS ORDERED: KETOROLAC 15 MG/ML 1 ML VIAL ONE (09:49)
[2021-12-11] MEDS ORDERED: KETAMINE 10 MG/ML 20 ML VIAL ONE (09:49)
[2021-12-11] MEDS ORDERED: MIDAZOLAM 2 MG/2 ML VIAL ONE (09:49)
[2021-12-11] MEDS ORDERED: SUCCINYLCHOLINE CHLORIDE 100 MG/5 ML SYR IV ONE (09:49)
[2021-12-11] MEDS ORDERED: ROCURONIUM 10 MG/ML (5 ML VIAL) IV ONE (09:49)
[2021-12-11] MEDS ORDERED: fentaNYL (PF) 50 MCG/ML 2 ML AMP ONE (09:49)
[2021-12-11] MEDS ORDERED: PROPOFOL 10 MG/ML 20 ML VIAL IV ONE (09:49)
[2021-12-11] MEDS ORDERED: GLYCOPYRROLATE 0.2 MG/ML 2 ML VIAL ONE (09:49)
[2021-12-11] MEDS ORDERED: LIDOCAINE 2% INJ 20 MG/ML (2 ML VIAL) ONE (09:49)
[2021-12-11] MEDS ORDERED: BUPIVACAINE (PF) 0.25% 30 ML VIAL SQ ONE ×2 (09:53→10:40)
--- NOTE | 2021-12-11 10:51 | P.OP ---
Date of Procedure: 12/11/21 Preoperative Diagnosis: Incisional hernia Postoperative Diagnosis: Incisional hernia Procedure(s) Performed: Open repair of incisional hernia with Prolene mesh Anesthesia: DELMA Surgeon: Dillon Alvarado Estimated Blood Loss (ml): 5 Pathology: none sent Condition: stable Disposition: PACU Operative Findings: Hernia measured 15 x 5 cm Prolene mesh placed on top of the fascia hernia repair Description of Procedure: The patient was placed on the operating table in the supine position. She received general endotracheal tube anesthesia. Her abdomen was prepped and draped usual sterile fashion. The patient had an incisional hernia located superior portion of her incision. The skin was incised. Then using blunt and sharp dissection with cautery the hernia sac was dissected away from some taste tissues. The fascia external oblique was exposed. Using left cautery. The hernia was repaired by inverting the hernia sac back into the pleural cavity. The fascia was repaired using #1 Teresa fix suture. After this is performed. A Prolene mesh was placed on top of fashion secured to the fascia using the secure strap tacker. A DANILO drains placed over top with mesh repair. And then Osvaldo's fascia close [place]. Skin was closed [place]. Patient top she will was sent to recovery room in stable condition.
[2021-12-11 10:57] VITALS: TEMP 97.1
[2021-12-11] MEDS: HYDROmorphone 0.5 MG/0.5 ML SYRINGE IVP PRN ×2 (11:13→11:20)
[2021-12-11] MEDS ORDERED: SODIUM CHLORIDE 0.9% 1,000 ML IV ONE (11:34)
[2021-12-11 12:04] VITALS: RESP 20
[2021-12-11 12:34] VITALS: BP 107/69; PULSE 63
== END 2021-12-11 13:21 | disposition home or self-care (01) ==
LOC: OR 07:22
PROVIDERS: ATTEND Surgery
DX: K43.2 Incisional hernia without obstruction or gangrene (principal); E11.9 Type 2 diabetes mellitus without complications; E78.5 Hyperlipidemia, unspecified; F17.200 Nicotine dependence, unspecified, uncomplicated; G25.81 Restless legs syndrome; I10 Essential (primary) hypertension; J44.9 Chronic obstructive pulmonary disease, unspecified; K21.9 Gastro-esophageal reflux disease without esophagitis; K58.9 Irritable bowel syndrome, unspecified; M19.90 Unspecified osteoarthritis, unspecified site; M85.80 Other specified disorders of bone density and structure, unspecified site; Z79.82 Long term (current) use of aspirin; Z79.84 Long term (current) use of oral hypoglycemic drugs; Z80.1 Family history of malignant neoplasm of trachea, bronchus and lung; Z80.3 Family history of malignant neoplasm of breast; Z82.49 Family history of ischemic heart disease and other diseases of the circulatory system; Z87.11 Personal history of peptic ulcer disease; Z87.440 Personal history of urinary (tract) infections; Z88.1 Allergy status to other antibiotic agents; Z90.49 Acquired absence of other specified parts of digestive tract; Z90.721 Acquired absence of ovaries, unilateral; Z98.84 Bariatric surgery status
CPT/HCPCS: 49560; 49568; 81025; C1781; J2250; J1100; J2710; J0690; J2405; J3010; J1885; J0330; J2704; J1170; J2001

== ENCOUNTER 2021-12-20 15:23 | Emergency (ER) | payer MEDICARE, OTHER ==
[2021-12-20 15:34] VITALS: TEMP 98.4
[2021-12-20] MEDS ORDERED: MORPHINE SULFATE 4 MG/ML SYRINGE IM STA (15:56)
--- NOTE | 2021-12-20 16:06 | ED ---
General Adult HPI - General Chief complaint: Recheck/Abnormal Lab/Rx Stated complaint: 12/11 Surgery/Pain Time Seen by Provider: 12/20/21 15:35 Source: patient Mode of arrival: ambulatory Limitations: no limitations - History of Present Illness Initial comments: Dictation was produced using [employer] dictation software. please excuse any grammatical, word or spelling errors. Chief Complaint: 51-year-old female presents with surgical site pain History of Present Illness: 42-year-old female she presents to the emergency department for surgical site pain. Patient had hernia repair with mesh placement performed approximately 10 days ago. Patient states that last night she went to bed and this more she woke up realizing that she was pulling on her DANILO drain. States that site in her skin over the DANILO drain is, now is very tender. Patient is concerned that it might be infected. She states her some purulent drainage. Patient has a follow-up appointment next Thursday. She does have an appointment for postop evaluation this past Thursday. The ROS documented in this emergency department record has been reviewed and confirmed by me. Those systems with pertinent positive or negative responses have been documented in the HPI. All other systems are other negative and/or noncontributory. PHYSICAL EXAM: General Impression: Alert and oriented x3, not in acute distress HEENT: Normocephalic atraumatic, extra-ocular movements intact, pupils equal and reactive to light bilaterally, mucous membranes moist. Cardiovascular: Heart regular rate and rhythm Chest: Able to complete full sentences, no retractions, no tachypnea Abdomen: abdomen soft, non-tender, non-distended, no organomegaly, surgical incisions clean dry and intact, fluid in the DANILO drain is nonpurulent Musculoskeletal: Pulses present and equal in all extremities, no peripheral edema Motor: no focal deficits noted Neurological: CN II-XII grossly intact, no focal motor or sensory deficits noted Skin: Intact with no visualized rashes Psych: Normal affect and mood ED course:-year-old female presents to the emergency department for surgical site pain. She states it the skin around the surgical site where the DANILO drain is is. Tender to palpation. Incisional sites are clean dry and intact. There is no physical exam findings to suggest infection. Vital signs upon arrival are within acceptable limits. History suggests that patient likely experienced some trauma from unintentional traction placed on the DANILO drain while she was sleeping. Patient given IM analgesia. Case discussed with Dr. Alvarado who requests the patient be started on Keflex. Patient has an appointment next week that she is advised to pain. She is told to contact Dr. Alvarado for any further instructions. - Related Data Home Medications Medication Instructions Recorded Confirmed metFORMIN HCL [Glucophage] 500 mg PO BID 06/09/18 12/20/21 hydrOXYzine HCL [Atarax] 25 mg PO TID PRN 08/02/19 12/20/21 Cariprazine HCl [Vraylar] 1.5 mg PO DAILY 09/09/19 12/20/21 rOPINIRole HCL [Requip] 0.5 mg PO HS PRN 09/09/19 12/20/21 Pantoprazole Sodium [Protonix] 40 mg PO DAILY PRN 11/27/20 12/20/21 Albuterol Sulfate [Proair Hfa] 1 puff INHALATION RT-BID PRN 12/03/20 12/20/21 Fluticasone Nasal [place] [Flonase 1 spr NASAL BID PRN 11/12/21 12/20/21 Nasal [place]] Aspirin [Adult Low Dose Aspirin EC] 81 mg PO DAILY 12/09/21 12/20/21 Ergocalciferol [Vitamin D2 (1250 1,250 mcg PO TU 12/09/21 12/20/21 Mcg = 42462 Iu)] Acetaminophen Tab [Tylenol] 650 mg PO Q6H PRN 12/20/21 12/20/21 Atorvastatin [Lipitor] 40 mg PO HS 12/20/21 12/20/21 Docusate [Colace] 100 mg PO BID PRN 12/20/21 12/20/21 Ibuprofen [Motrin] 600 mg PO Q6H PRN 12/20/21 12/20/21 Previous Rx's Medication Instructions Recorded Cephalexin [Keflex] 500 mg PO Q6HR 5 Days #20 cap 12/20/21 Allergies Allergy/AdvReac Type Severity Reaction Status Date / Time Cephalosporins AdvReac RECTAL Verified 12/20/21 16:29 BLEEDING famotidine [From Pepcid] AdvReac Confusion Verified 12/20/21 16:29 lurasidone [From Latuda] AdvReac SUICIDAL Verified 12/20/21 16:29 THOUGHTS olanzapine [From Zyprexa] AdvReac WEIGHT GAIN Verified 12/20/21 16:29 Review of Systems ROS Statement: Those systems with pertinent positive or pertinent negative responses have been documented in the HPI. ROS Other: All systems not noted in ROS Statement are negative. Past Medical History Past Medical History: COPD, Diabetes Mellitus, GERD/Reflux, Hyperlipidemia, Osteoarthritis (OA), Skin Disorder Additional Past Medical History / Comment(s): Type 2 diabetes, restless leg syndrome, osteopenia. STRESS HIVES. DDD, SPINAL STENOSIS, HERNIA, BACK PAIN AND BILATERAL ANKLE PAIN, BILATERAL PLANTAR FASCIITIS, CHRONIC UTI'S, OCCULAR HYPERTENSION , HX STOMACH ULCERS, IBS/C. 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 History of Any Multi-Drug Resistant Organisms: None Reported Past Surgical History: Back Surgery, Bariatric Surgery, Breast Surgery, Section, Cholecystectomy, Hernia Repair, Orthopedic Surgery, Tubal Ligation, Uterine Ablation Additional Past Surgical History / Comment(s): 09/19/20 LEFT HAND SURGERY @ [facility]. EGD WITH DILATION, REVISION OF GASTROJEJUNOSTOMY, HX GASTRIC BYPASS (2014), GANGLION CYST , LEFT THUMB TRIGGER FINGER, CARPAL TUNNEL [facility] AND REVISION. BENIGN CYSTS REMOVED FROM OVARY, PILONIDAL CYST SURGERY , MULTIPLE. D&C's, C- SECTION X2, WRIST TENDONITIS SURGERY. Pain Injections. Endometrial ablation 2014. DECOMPRESSION BACK SURGERY L-4 & L-5 AND FUSION L5 & S1 MAR 2019, 2021 [facility] BREAST REDUCTIONM MULTIPLE HERNIA SURGERIES Past Anesthesia/Blood Transfusion Reactions: No Reported Reaction Additional Past Anesthesia/Blood Transfusion Reaction / Comment(s): STATES HYPERVENTILATES WHEN SEES NEEDLES-BUT HAS IMPROVED. Past Psychological History: Anxiety, Depression Smoking Status: Current every day smoker Past Alcohol Use History: None Reported Past Drug Use History: None Reported - Past Family History Sister(s) Family Medical History: Cancer Additional Family Medical History / Comment(s): COLON CANCER and lung cancer. Brother(s) Family Medical History: Cancer Additional Family Medical History / Comment(s): NON-HODGKIN'S LYMPHOMA. 2 other brothers had a factor V Leiden mutation. Mother Family Medical History: Cancer, Congestive Heart Failure (CHF) Additional Family Medical History / Comment(s): NON-HODGKIN'S LYMPHOMA. Maternal aunt had breast cancer as did a maternal cousin. Father Family Medical History: Congestive Heart Failure (CHF) General Exam Limitations: no limitations Course Vital Signs 12/20/21 15:29 Temperature 98.4 F Pulse Rate 98 Respiratory 20 Rate Blood Pressure 129/82 O2 Sat by Pulse 95 Oximetry Disposition Clinical Impression: Pain at surgical site Disposition: HOME SELF-CARE Condition: Good Instructions (If sedation given, give patient instructions): Cephalexin (By mouth) Prescriptions: Cephalexin [Keflex] 500 mg PO Q6HR 5 Days #20 cap Is patient prescribed a controlled substance at d/c from ED?: No Referrals: Dillon Alvarado MD [STAFF PHYSICIAN] - 12/24/21
[2021-12-20 17:13] VITALS: BP 124/74; PULSE 91; RESP 18
== END 2021-12-20 17:13 | disposition home or self-care (01) ==
LOC: EC 15:23
DX: G89.18 Other acute postprocedural pain (principal); F17.200 Nicotine dependence, unspecified, uncomplicated; E11.9 Type 2 diabetes mellitus without complications; E78.5 Hyperlipidemia, unspecified; G25.81 Restless legs syndrome; I10 Essential (primary) hypertension; J44.9 Chronic obstructive pulmonary disease, unspecified; K21.9 Gastro-esophageal reflux disease without esophagitis; M19.90 Unspecified osteoarthritis, unspecified site; Z79.1 Long term (current) use of non-steroidal anti-inflammatories (NSAID); Z79.82 Long term (current) use of aspirin; Z79.84 Long term (current) use of oral hypoglycemic drugs; Z88.1 Allergy status to other antibiotic agents; Z88.8 Allergy status to other drugs, medicaments and biological substances; Z79.899 Other long term (current) drug therapy
CPT/HCPCS: 99283; 96372; J2270

== ENCOUNTER → 2021-12-25 | Outpatient (CLI) | payer MEDICARE, OTHER ==
--- NOTE | 2021-12-25 10:32 | US ---
EXAMINATION TYPE: US venous doppler duplex LE DATE OF EXAM: 12/25/2021 9:53 AM COMPARISON: 2019 CLINICAL HISTORY: D68.59 HYPERCOAGUABLE STATE. No hx of DVT. Patient states she has a family history of Factor V. Hypercoagulable state. Patient takes aspirin. SIDE PERFORMED: Bilateral TECHNIQUE: The lower extremity deep venous system is examined utilizing real time linear array sonog lisa with graded compression, doppler sonography and color-flow sonography. VESSELS IMAGED: Common Femoral Vein Deep Femoral Vein Greater Saphenous Vein * Femoral Vein Popliteal Vein Small Saphenous Vein * Proximal Calf Veins (* superficial vessels) Right Leg: No evidence of DVT in veins imaged at this time. Left Leg: No evidence of DVT in veins imaged at this time. IMPRESSION: No evidence of DVT at this time.
== END | disposition home or self-care (01) ==
LOC: RADUSWWP 09:23
PROVIDERS: ATTEND Internal Medicine Hematology & Oncology
DX: D68.59 Other primary thrombophilia (principal); Z79.82 Long term (current) use of aspirin
CPT/HCPCS: 93970

== ENCOUNTER → 2022-01-23 | Outpatient (CLI) | payer MEDICARE, OTHER ==
--- NOTE | 2022-01-24 18:14 | MM ---
Reason for Exam: Screening (asymptomatic). Last screening mammogram was performed 12 month(s) ago. Patient History: Menarche at age 13. First Full-Term at age 23. 08/12/2021, Bilateral Reduction. Maternal cousin had breast cancer. Maternal aunt had breast cancer. Maternal aunt had breast cancer. Maternal aunt had breast cancer. Maternal aunt had breast cancer. Maternal aunt had breast cancer. Last menstrual period: 07/20/2014 Risk Values: Sunitha 5 year model risk: 0.9%. NCI Lifetime model risk: 8.9%. Prior Study Comparison: 07/14/2018 Bilateral Screening Mammogram, [facility]. 12/13/2019 Bilateral Screening Mammogram, [facility]. 01/17/2021 Bilateral Screening Mammogram, [facility]. Tissue Density: There are scattered fibroglandular densities. Findings: Analyzed By CAD. Interval bilateral reduction mammoplasties. No significant mass, suspicious microcalcification, or other discrete abnormality is seen. Overall Assessment: Benign, BI-RAD 2 Management: Screening Mammogram of both breasts in 1 year. 1. Patient should continue monthly self breast exams. 2. A clinical breast exam by your physician is recommended on an annual basis. 3. This exam should not preclude additional follow-up of suspicious palpable abnormalities. Electronically signed and approved by: Holden Michel M.D. Radiologist
== END | disposition home or self-care (01) ==
LOC: RADMAMWWP 14:36
PROVIDERS: ATTEND Obstetrics & Gynecology
DX: Z12.31 Encounter for screening mammogram for malignant neoplasm of breast (principal); Z80.3 Family history of malignant neoplasm of breast
CPT/HCPCS: 77063; 77067

== ENCOUNTER 2022-01-29 08:25 | Emergency (ER) | payer MEDICARE, OTHER ==
[2022-01-29 08:44] VITALS: BP 106/65; PULSE 85; RESP 18; TEMP 97.7
--- NOTE | 2022-01-29 09:13 | ED ---
General Adult HPI - General Chief complaint: Extremity Problem,Nontraumatic Stated complaint: pain in feet Time Seen by Provider: 01/29/22 08:45 Source: patient, RN notes reviewed Mode of arrival: ambulatory Limitations: no limitations - History of Present Illness Initial comments: Patient is a pleasant 51-year-old female presenting to the emergency department with bilateral foot pain. Symptoms have been occurring for 9 months. Patient has seen 7 doctors for this. Patient did have ultrasounds done. One ultrasound didn't have some concern for intermittent claudication. Patient does state that her symptoms worsen with exertion and occasionally position. No color change of the feet. Feet have discomfort. Discomfort is mostly bilateral feet. Patient is noticing some swelling. 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 No weakness. No abdominal pain. Patient does have back discomfort however this is chronic and unchanged. - Related Data Home Medications Medication Instructions Recorded Confirmed metFORMIN HCL [Glucophage] 500 mg PO BID 06/09/18 12/20/21 hydrOXYzine HCL [Atarax] 25 mg PO TID PRN 08/02/19 12/20/21 Cariprazine HCl [Vraylar] 1.5 mg PO DAILY 09/09/19 12/20/21 rOPINIRole HCL [Requip] 0.5 mg PO HS PRN 09/09/19 12/20/21 Pantoprazole Sodium [Protonix] 40 mg PO DAILY PRN 11/27/20 12/20/21 Albuterol Sulfate [Proair Hfa] 1 puff INHALATION RT-BID PRN 12/03/20 12/20/21 Fluticasone Nasal [place] [Flonase 1 spr NASAL BID PRN 11/12/21 12/20/21 Nasal [place]] Aspirin [Adult Low Dose Aspirin EC] 81 mg PO DAILY 12/09/21 12/20/21 Ergocalciferol [Vitamin D2 (1250 1,250 mcg PO TU 12/09/21 12/20/21 Mcg = 22417 Iu)] Acetaminophen Tab [Tylenol] 650 mg PO Q6H PRN 12/20/21 12/20/21 Atorvastatin [Lipitor] 40 mg PO HS 12/20/21 12/20/21 Docusate [Colace] 100 mg PO BID PRN 12/20/21 12/20/21 Ibuprofen [Motrin] 600 mg PO Q6H PRN 12/20/21 12/20/21 Previous Rx's Medication Instructions Recorded Cephalexin [Keflex] 500 mg PO Q6HR 5 Days #20 cap 12/20/21 Allergies Allergy/AdvReac Type Severity Reaction Status Date / Time Cephalosporins AdvReac RECTAL Verified 01/29/22 08:44 BLEEDING famotidine [From Pepcid] AdvReac Confusion Verified 01/29/22 08:44 lurasidone [From Latuda] AdvReac SUICIDAL Verified 01/29/22 08:44 THOUGHTS olanzapine [From Zyprexa] AdvReac WEIGHT GAIN Verified 01/29/22 08:44 Review of Systems ROS Statement: Those systems with pertinent positive or pertinent negative responses have been documented in the HPI. ROS Other: All systems not noted in ROS Statement are negative. Constitutional: Denies: fever Eyes: Denies: eye pain ENT: Denies: ear pain Respiratory: Denies: cough Cardiovascular: Denies: chest pain Endocrine: Denies: fatigue Gastrointestinal: Denies: abdominal pain Genitourinary: Denies: dysuria Musculoskeletal: Reports: as per HPI Skin: Denies: rash Neurological: Reports: as per HPI. Denies: weakness Past Medical History Past Medical History: COPD, Diabetes Mellitus, GERD/Reflux, Hyperlipidemia, Osteoarthritis (OA), Skin Disorder Additional Past Medical History / Comment(s): Type 2 diabetes, restless leg syndrome, osteopenia. STRESS HIVES. DDD, SPINAL STENOSIS, HERNIA, BACK PAIN AND BILATERAL ANKLE PAIN, BILATERAL PLANTAR FASCIITIS, CHRONIC UTI'S, OCCULAR HYPERTENSION , HX STOMACH ULCERS, IBS/C. 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 factor 5 liden History of Any Multi-Drug Resistant Organisms: None Reported Past Surgical History: Back Surgery, Bariatric Surgery, Breast Surgery, Section, Cholecystectomy, Hernia Repair, Orthopedic Surgery, Tubal Ligation, Uterine Ablation Additional Past Surgical History / Comment(s): 09/19/20 LEFT HAND SURGERY @ [facility]. EGD WITH DILATION, REVISION OF GASTROJEJUNOSTOMY, HX GASTRIC BYPASS (2014), GANGLION CYST , LEFT THUMB TRIGGER FINGER, CARPAL TUNNEL [facility] AND REVISION. BENIGN CYSTS REMOVED FROM OVARY, PILONIDAL CYST SURGERY , MULTIPLE. D&C's, C- SECTION X2, WRIST TENDONITIS SURGERY. Pain Injections. Endometrial ablation 2014. DECOMPRESSION BACK SURGERY L-4 & L-5 AND FUSION L5 & S1 MAR 2019, 2021 [facility] BREAST REDUCTIONM MULTIPLE HERNIA SURGERIES Past Anesthesia/Blood Transfusion Reactions: No Reported Reaction Additional Past Anesthesia/Blood Transfusion Reaction / Comment(s): STATES HYPERVENTILATES WHEN SEES NEEDLES-BUT HAS IMPROVED. Past Psychological History: Anxiety, Depression Smoking Status: Current every day smoker Past Alcohol Use History: None Reported Past Drug Use History: None Reported - Past Family History Sister(s) Family Medical History: Cancer Additional Family Medical History / Comment(s): COLON CANCER and lung cancer. Brother(s) Family Medical History: Cancer Additional Family Medical History / Comment(s): NON-HODGKIN'S LYMPHOMA. 2 other brothers had a factor V Leiden mutation. Mother Family Medical History: Cancer, Congestive Heart Failure (CHF) Additional Family Medical History / Comment(s): NON-HODGKIN'S LYMPHOMA. Maternal aunt had breast cancer as did a maternal cousin. Father Family Medical History: Congestive Heart Failure (CHF) General Exam Limitations: no limitations General appearance: alert, in no apparent distress Head exam: Present: normocephalic Eye exam: Present: normal appearance Neck exam: Present: normal inspection Respiratory exam: Present: normal lung sounds bilaterally Cardiovascular Exam: Present: regular rate, normal rhythm Expanded Peripheral pulses: 2+: Posterior Tibialis (R), Posterior Tibialis (L), Dorsalis Pedis (R), Dorsalis Pedis (L) GI/Abdominal exam: Present: soft. Absent: tenderness Extremities exam: Present: normal inspection, normal capillary refill. Absent: tenderness, pedal edema, calf tenderness Neurological exam: Present: alert Psychiatric exam: Present: normal affect, normal mood Skin exam: Present: normal color. Absent: cyanosis Course Vital Signs 01/29/22 08:40 Temperature 97.7 F Pulse Rate 85 Respiratory 18 Rate Blood Pressure 106/65 O2 Sat by Pulse 98 Oximetry Medical Decision Making - Medical Decision Making Patient reevaluated and resting comfortably in bed. Patient family updated on results and need for follow-up. Also given warning signs for need to return - Radiology Data Radiology results: image reviewed (Bilateral foot x-ray reveals no acute) Disposition Clinical Impression: Bilateral foot pain Disposition: HOME SELF-CARE Condition: Stable Instructions (If sedation given, give patient instructions): Peripheral Vascular Disease (ED) Additional Instructions: Please follow-up with primary care physician as well as vascular doctor in the next couple days for recheck. Return for increased pain, color change, coolness of the foot, worsening or change in symptoms, or any other concerns. Is patient prescribed a controlled substance at d/c from ED?: No Referrals: Deric Ortiz MD [Primary Care Provider] - 1-2 days Gurpreet Solares DO [Doctor of Osteopathic Medicine] - 1-2 days Time of Disposition: 10:03
--- NOTE | 2022-01-29 09:44 | XR ---
EXAMINATION TYPE: XR foot complete bilateral DATE OF EXAM: 01/29/2022 CLINICAL HISTORY: pain TECHNIQUE: Frontal, lateral and oblique images of the bilateral feet are obtained. COMPARISON: None. FINDINGS: There is no acute fracture/dislocation evident. The joint spaces appear within normal doe its. The overlying soft tissue appears unremarkable. Moderate plantar calcaneal spur seen bilaterall y. IMPRESSION: There is no acute fracture or dislocation. ICD 10 NO FRACTURE, INITIAL EVALUATION
[2022-01-29] MEDS ORDERED: MORPHINE SULFATE 4 MG/ML SYRINGE IM STA (10:02)
== END 2022-01-29 10:14 | disposition home or self-care (01) ==
LOC: EC 08:25
DX: M79.671 Pain in right foot (principal); M79.672 Pain in left foot; E11.9 Type 2 diabetes mellitus without complications; J44.9 Chronic obstructive pulmonary disease, unspecified; K21.9 Gastro-esophageal reflux disease without esophagitis; M19.90 Unspecified osteoarthritis, unspecified site; E78.5 Hyperlipidemia, unspecified; F32.A Depression, unspecified; F41.9 Anxiety disorder, unspecified; F17.200 Nicotine dependence, unspecified, uncomplicated; Z88.1 Allergy status to other antibiotic agents; Z88.8 Allergy status to other drugs, medicaments and biological substances; Z88.4 Allergy status to anesthetic agent; Z79.899 Other long term (current) drug therapy
CPT/HCPCS: 73630; 99283; 96372; J2270

== ENCOUNTER → 2022-02-17 | Outpatient (CLI) | payer MEDICARE, OTHER ==
[2022-02-17 18:09] LABS: African American GFR (CKD) 75.7 (60.0-200.0); Albumin 4.3 g/dL (3.8-4.9); Albumin/Globulin Ratio 1.45 (1.60-3.17); Anion Gap 10.5 mmol/L (10.00-18.00); BUN/Creat Ratio 8.21 Ratio (12.00-20.00); Blood Urea Nitrogen 8.3 mg/dL (9.0-27.0); Non-African American GFR(CKD) 65.3 (60.0-200.0); Potassium 4.3 mmol/L (3.5-5.5); Total Bilirubin 0.3 mg/dL (0.30-1.20); Total Protein 7.2 g/dL (6.2-8.2)
[2022-02-17 18:11] LABS: Protein, Total 6.9 g/dL (6.2-8.2)
[2022-02-17 18:15] LABS: Immunoglobulin M 79.4 mg/dL (40.0-280.0)
[2022-02-19 07:02] LABS: Methylmalonic Acid 0.13 umol/L (<0.40)
== END | disposition home or self-care (01) ==
LOC: LABWHC1 11:36
PROVIDERS: ATTEND Psychiatry & Neurology Neurology
DX: G62.9 Polyneuropathy, unspecified (principal)
CPT/HCPCS: 36415; 80053; 82607; 82784; 82785; 83921; 84165; 84443; 85652; 86038

== ENCOUNTER 2022-03-04 06:26 | Emergency (ER) | payer MEDICARE, OTHER ==
[2022-03-04 06:31] VITALS: BP 158/74; PULSE 83; RESP 22; TEMP 97.6
[2022-03-04] MEDS ORDERED: ONDANSETRON ODT 4 MG TAB PO STA (06:51)
--- NOTE | 2022-03-04 06:56 | ED ---
General Adult HPI - General Chief complaint: Abdominal Pain Stated complaint: Recheck abdominal pain Time Seen by Provider: 03/04/22 06:38 Source: patient, RN notes reviewed, old records reviewed Mode of arrival: ambulatory Limitations: no limitations - History of Present Illness Initial comments: Patient presents on a return visit from last night with complaints of left groin pain and dysuria. Patient states that she was seen last night for right groin pain which has now moved to her left groin. She reviewed her portal and seen that she has a urinary tract infection and would like to be treated. She states that she does have some dysuria, feels like she needs to urinate but only a little bit comes out. She states in the past she has had chronic UTIs and was placed on Bactrim indefinitely however her primary care doctor has taken her off this medication. She states that she did have some old Bactrim at home and did take a dose last night and a dose this morning. She states she does have an appointment for CTA at 11:[address] Wright for her leg pain. -: hour(s) Location: left, lower extremity Radiation: distal Severity scale (1-10): 9 Quality: other (shooting) Improves with: none Worsens with: none Associated Symptoms: other (dysuria) Treatments Prior to Arrival: other (bactrim and aspirin) - Related Data Home Medications Medication Instructions Recorded Confirmed metFORMIN HCL [Glucophage] 500 mg PO BID 06/09/18 12/20/21 hydrOXYzine HCL [Atarax] 25 mg PO TID PRN 08/02/19 12/20/21 Cariprazine HCl [Vraylar] 1.5 mg PO DAILY 09/09/19 12/20/21 rOPINIRole HCL [Requip] 0.5 mg PO HS PRN 09/09/19 12/20/21 Pantoprazole Sodium [Protonix] 40 mg PO DAILY PRN 11/27/20 12/20/21 Albuterol Sulfate [Proair Hfa] 1 puff INHALATION RT-BID PRN 12/03/20 12/20/21 Fluticasone Nasal [place] [Flonase 1 spr NASAL BID PRN 11/12/21 12/20/21 Nasal [place]] Aspirin [Adult Low Dose Aspirin EC] 81 mg PO DAILY 12/09/21 12/20/21 Ergocalciferol [Vitamin D2 (1250 1,250 mcg PO TU 12/09/21 12/20/21 Mcg = 76277 Iu)] Acetaminophen Tab [Tylenol] 650 mg PO Q6H PRN 12/20/21 12/20/21 Atorvastatin [Lipitor] 40 mg PO HS 12/20/21 12/20/21 Docusate [Colace] 100 mg PO BID PRN 12/20/21 12/20/21 Ibuprofen [Motrin] 600 mg PO Q6H PRN 12/20/21 12/20/21 Previous Rx's Medication Instructions Recorded Cephalexin [Keflex] 500 mg PO Q6HR 5 Days #20 cap 12/20/21 predniSONE 60 mg PO DAILY #30 tab 03/03/22 traMADol HCl [Ultram] 50 mg PO Q6H PRN #20 tab 03/03/22 Sulfamethox-Tmp 800-160Mg [Bactrim 1 each PO Q12HR 5 Days #10 tab 03/04/22 Ds] Allergies Allergy/AdvReac Type Severity Reaction Status Date / Time Cephalosporins AdvReac RECTAL Verified 03/04/22 06:31 BLEEDING famotidine [From Pepcid] AdvReac Confusion Verified 03/04/22 06:31 lurasidone [From Latuda] AdvReac SUICIDAL Verified 03/04/22 06:31 THOUGHTS olanzapine [From Zyprexa] AdvReac WEIGHT GAIN Verified 03/04/22 06:31 Review of Systems ROS Statement: Those systems with pertinent positive or pertinent negative responses have been documented in the HPI. ROS Other: All systems not noted in ROS Statement are negative. Past Medical History Past Medical History: COPD, Diabetes Mellitus, GERD/Reflux, Hyperlipidemia, Osteoarthritis (OA), Skin Disorder Additional Past Medical History / Comment(s): Type 2 diabetes, restless leg syndrome, osteopenia. STRESS HIVES. DDD, SPINAL STENOSIS, HERNIA, BACK PAIN AND BILATERAL ANKLE PAIN, BILATERAL PLANTAR FASCIITIS, CHRONIC UTI'S, OCCULAR HYPERTENSION , HX STOMACH ULCERS, IBS/C. 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 factor 5 liden History of Any Multi-Drug Resistant Organisms: None Reported Past Surgical History: Back Surgery, Bariatric Surgery, Breast Surgery, Section, Cholecystectomy, Hernia Repair, Orthopedic Surgery, Tubal Ligation, Uterine Ablation Additional Past Surgical History / Comment(s): 09/19/20 LEFT HAND SURGERY @ [facility]. EGD WITH DILATION, REVISION OF GASTROJEJUNOSTOMY, HX GASTRIC BYPASS (2014), GANGLION CYST , LEFT THUMB TRIGGER FINGER, CARPAL TUNNEL [facility] AND REVISION. BENIGN CYSTS REMOVED FROM OVARY, PILONIDAL CYST SURGERY , MULTIPLE. D&C's, C- SECTION X2, WRIST TENDONITIS SURGERY. Pain Injections. Endometrial ablation 2014. DECOMPRESSION BACK SURGERY L-4 & L-5 AND FUSION L5 & S1 MAR 2019, 2021 [facility] BREAST REDUCTIONM MULTIPLE HERNIA SURGERIES Past Anesthesia/Blood Transfusion Reactions: No Reported Reaction Additional Past Anesthesia/Blood Transfusion Reaction / Comment(s): STATES HYPERVENTILATES WHEN SEES NEEDLES-BUT HAS IMPROVED. Past Psychological History: Anxiety, Depression Smoking Status: Current every day smoker Past Alcohol Use History: None Reported Past Drug Use History: None Reported - Past Family History Sister(s) Family Medical History: Cancer Additional Family Medical History / Comment(s): COLON CANCER and lung cancer. Brother(s) Family Medical History: Cancer Additional Family Medical History / Comment(s): NON-HODGKIN'S LYMPHOMA. 2 other brothers had a factor V Leiden mutation. Mother Family Medical History: Cancer, Congestive Heart Failure (CHF) Additional Family Medical History / Comment(s): NON-HODGKIN'S LYMPHOMA. Maternal aunt had breast cancer as did a maternal cousin. Father Family Medical History: Congestive Heart Failure (CHF) General Exam Limitations: no limitations General appearance: alert, in no apparent distress Head exam: Present: atraumatic Neck exam: Absent: meningismus Respiratory exam: Present: normal lung sounds bilaterally. Absent: respiratory distress, accessory muscle use Cardiovascular Exam: Present: regular rate, normal heart sounds GI/Abdominal exam: Present: soft Extremities exam: Present: full ROM, normal capillary refill Neurological exam: Present: alert, oriented X3, normal gait Psychiatric exam: Present: normal affect, normal mood Skin exam: Present: warm, dry, normal color. Absent: cyanosis, diaphoretic Course Vital Signs 03/04/22 06:27 Temperature 97.6 F Pulse Rate 83 Respiratory 22 Rate Blood Pressure 158/74 O2 Sat by Pulse 97 Oximetry Medical Decision Making - Medical Decision Making Patient was seen earlier today CTA of right groin done which was negative. She does have a scheduled appointment with Dr. Wright today for CTA for this chronic groin pain. Instructed to continue her Ultram and prednisone as prescribed earlier for pain. I will treat her for UTI today, she states that she normally has good results with Bactrim. She'll be directed to follow-up with her primary care doctor this week for continuation of care. Case discussed with Dr. Tamayo Disposition Clinical Impression: UTI (urinary tract infection) Disposition: HOME SELF-CARE Condition: Good Instructions (If sedation given, give patient instructions): Urinary Tract Infection in Women (ED) Additional Instructions: Increase your fluid intake. Take Bactrim as prescribed. Follow up with your primary care doctor this week. Keep your appointment with Dr. Wright today for CT. Prescriptions: Sulfamethox-Tmp 800-160Mg [Bactrim Ds] 1 each PO Q12HR 5 Days #10 tab Is patient prescribed a controlled substance at d/c from ED?: No Referrals: Deric Ortiz MD [Primary Care Provider] - 1-2 days Time of Disposition: 06:56
== END 2022-03-04 07:05 | disposition home or self-care (01) ==
LOC: EC 06:26
DX: N39.0 Urinary tract infection, site not specified (principal); J44.9 Chronic obstructive pulmonary disease, unspecified; E11.9 Type 2 diabetes mellitus without complications; K21.9 Gastro-esophageal reflux disease without esophagitis; E78.5 Hyperlipidemia, unspecified; M19.90 Unspecified osteoarthritis, unspecified site; F41.9 Anxiety disorder, unspecified; F32.A Depression, unspecified; F17.200 Nicotine dependence, unspecified, uncomplicated; Z88.8 Allergy status to other drugs, medicaments and biological substances; Z88.4 Allergy status to anesthetic agent; Z79.82 Long term (current) use of aspirin; Z79.899 Other long term (current) drug therapy; Z79.84 Long term (current) use of oral hypoglycemic drugs; Z79.4 Long term (current) use of insulin
CPT/HCPCS: 99283

== ENCOUNTER → 2022-03-04 | Outpatient (CLI) | payer MEDICARE, OTHER ==
[2022-03-04 11:09] LABS: African American GFR (CKD) >90 (>60 ml/min/1.73 sqM); Blood Urea Nitrogen 11 mg/dL (7-17); Non-African American GFR(CKD) 82 (>60 ml/min/1.73 sqM)
--- NOTE | 2022-03-04 12:53 | CT ---
EXAMINATION TYPE: CT angio abd aorta w/Runoff CT DLP: 1825.3 mGycm, Automated exposure control for dose reduction was used. DATE OF EXAM: 03/04/2022 12:07 PM COMPARISON: CT abdomen pelvis 11/27/2020 CLINICAL INDICATION:Female, 51 years old with history of I74.3 EMBOLISM AND THROMBOSIS OF ARTERIES; b ilateral leg pain and swelling TECHNIQUE: Multiple thin slice sub-millimeter images were obtained through the abdomen, pelvis, and l ower extremities after administration of contrast. 3-D reconstructed images and maximum intensity pr ojection images were obtained of the abdomen, pelvis, and lower extremities. CT Contrast: Contrast used:125mL mL of Isovue 370 with IV Contrast, Oral contrast used: None FINDINGS: CTA Abdomen and pelvis: The abdominal aorta does not demonstrate aneurysmal dilatation. Atherosclero tic plaquing is identified within the abdominal aorta. The origins of the superior mesenteric artery , renal arteries, inferior mesenteric artery, and celiac axis are patent. There is one renal artery bilaterally. The iliac vessels are normal in morphology. Atherosclerotic plaque is seen along the com mon iliac arteries and external iliac arteries without focal high-grade stenosis. CTA Lower extremities: Right: The common femoral and superficial femoral arteries are patent. There is mild atherosclerotic calcified plaque at the bifurcation of the common femoral artery. The popliteal artery is patent. Ant erior and posterior tibial arteries as well as the peroneal artery are patent. Anterior and posterior tibial arteries cross the ankle. There is minimal atherosclerosis throughout the lower extremity art erial vasculature. No evidence of subcutaneous edema. Left: The common femoral and superficial femoral arteries are patent. The popliteal artery is patent. Anterior and posterior tibial arteries as well as the peroneal artery are patent. Anterior and poste rior tibial arteries cross the ankle. There is minimal atherosclerosis throughout the lower extremity arterial vasculature. No evidence of subcutaneous edema. LIVER: Diffusely hypoattenuating parenchyma. GALLBLADDER AND BILE DUCTS: The gallbladder is surgically absent. PANCREAS: Unremarkable. SPLEEN: Wedge-shaped area of decreased enhancement of the spleen and ADRENAL GLANDS: Unremarkable. KIDNEYS AND URETERS: No evidence of hydronephrosis or renal calculus. The ureters are unremarkable. PELVIS BLADDER: Unremarkable REPRODUCTIVE: There is fluid within the endometrium with hyperemic mucosa which may relate to patient 's menstruation cycle. ABDOMEN & PELVIS STOMACH AND BOWEL: Gastric postsurgical changes are present. Few scattered clonic diverticula are pre sent. No evidence of bowel obstruction. PERITONEUM: No evidence of pneumoperitoneum or free fluid. VASCULATURE: No evidence of aortic aneurysm. MUSCULOSKELETAL: No acute osseous abnormalities LYMPH NODES: No gross evidence for lymphadenopathy. SOFT TISSUE/ABDOMINAL WALL: Anterior ventral wall abdominal hernia herniating into the abdominal wall but does not appear to enter into the subcutaneous tissues. IMPRESSION 1. No evidence of vascular occlusion. 2. Minimal atherosclerosis and lower extremity vasculature. 3. At least two vessels are seen crossing the ankle joint. 4. Endometrial fluid with hyperemia of the endometrium administration consider pelvic ultrasound. 5. Wedge-shaped area of decreased enhancement of the spleen which could be due to phase of contrast v ersus splenic infarct. 6. Hepatic steatosis
== END | disposition home or self-care (01) ==
LOC: RADCTMAIN 10:06
PROVIDERS: ATTEND Surgery
DX: I74.3 Embolism and thrombosis of arteries of the lower extremities (principal); I70.203 Unspecified atherosclerosis of native arteries of extremities, bilateral legs; K76.0 Fatty (change of) liver, not elsewhere classified
CPT/HCPCS: 82565; 84520; 75635; 36415; Q9967

== ENCOUNTER → 2022-03-21 | Outpatient (CLI) | payer MEDICARE, OTHER ==
--- NOTE | 2022-03-21 15:55 | US ---
EXAMINATION TYPE: US pelvis complete transvag DATE OF EXAM: 03/21/2022 COMPARISON: NONE CLINICAL HISTORY: R93.89 ABNORMAL FINDINGS ON DX IMAGING OF OTH BODY. ablation 2015. 2 c-sections, tu bal ligation TECHNIQUE: Transvaginal (TV) and Transabdominal (TA) . Transabdominal sonographic images of the pel vis were acquired. Transvaginal sonographic images were medically necessary to better assess the fol lowing anatomy: endometrium Date of LMP: 2014 EXAM MEASUREMENTS: Uterus: 7.5 x 3.8 x 4.4 cm Right Ovary: unable to visualize Left Ovary: unable to visualize 1. Uterus: Anteverted heterogeneous 2. Endometrium: not clearly identified, although mild fluid within the fundal endometrium. 3. Right Ovary: Obscured by overlying bowel gas 4. Left Ovary: Obscured by overlying bowel gas 5. Bilateral Adnexa: wnl 6. Posterior cul-de-sac: wnl IMPRESSION: 1. Small amount of fluid within endometrium.
== END | disposition home or self-care (01) ==
LOC: RADUSWWP 14:52
PROVIDERS: ATTEND Obstetrics & Gynecology
DX: R93.89 Abnormal findings on diagnostic imaging of other specified body structures (principal)
CPT/HCPCS: 76830; 76856

== ENCOUNTER → 2022-05-20 | Outpatient (CLI) | payer MEDICARE, OTHER ==
--- NOTE | 2022-05-20 14:41 | US ---
EXAMINATION TYPE: US kidneys/renal and bladder DATE OF EXAM: 05/20/2022 COMPARISON: CT CLINICAL HISTORY: N39.0 UTI. Recurrent UTI EXAM MEASUREMENTS: Right Kidney: 10.7 x 5.3 x 4.7 cm Left Kidney: 10.6 x 4.9 x 5.2 cm Urinary bladder is sonolucent. Posterior wall is normal Right Kidney: No hydronephrosis or masses seen Left Kidney: No hydronephrosis or masses seen Bladder: Appears anechoic Bilateral Jets seen: Yes IMPRESSION: 1. Normal renal ultrasound
== END | disposition home or self-care (01) ==
LOC: RADUSWWP 13:36
PROVIDERS: ATTEND Urology
DX: N39.0 Urinary tract infection, site not specified (principal)
CPT/HCPCS: 76770

== ENCOUNTER 2022-05-22 07:34 | Day surgery (SDC) | payer MEDICARE, OTHER ==
[2022-05-19 15:57] VITALS: BMI 37.5
[2022-05-22 07:54] VITALS: TEMP 98.1
[2022-05-22] MEDS: LACTATED RINGERS 1,000 ML IV SCH ×2 (08:08→08:25)
[2022-05-22 08:18] LABS: Glucose,Whole Blood 139 mg/dL (70-110)
[2022-05-22] MEDS ORDERED: PROPOFOL 10 MG/ML 20 ML VIAL IV ONE (08:30)
[2022-05-22] MEDS ORDERED: LIDOCAINE 2% INJ 20 MG/ML (2 ML VIAL) ONE (08:30)
--- NOTE | 2022-05-22 08:30 | P.GSHP ---
History of Present Illness H&P Date: 05/22/22 Chief Complaint: Screening colonoscopy This a 51-year-old female who presents today for screening colonoscopy. Patient denies a significant GI complaints. Past Medical History Past Medical History: Blood Disorder, COPD, Diabetes Mellitus, GERD/Reflux, Hyperlipidemia, Osteoarthritis (OA), Skin Disorder, Sleep Apnea/CPAP/BIPAP Additional Past Medical History / Comment(s): Type 2 diabetes, restless leg syndrome, osteopenia. STRESS HIVES. DDD, SPINAL STENOSIS, HERNIA, BILATERAL PLANTAR FASCIITIS, CHRONIC UTI'S, OCCULAR HYPERTENSION , HX STOMACH ULCERS, IBS. factor 5 liden, no cpap used History of Any Multi-Drug Resistant Organisms: None Reported Past Surgical History: Back Surgery, Bariatric Surgery, Breast Surgery, Section, Cholecystectomy, Hernia Repair, Orthopedic Surgery, Tubal Ligation, Uterine Ablation Additional Past Surgical History / Comment(s): 09/19/20 [facility]. EGD WITH DILATION, REVISION OF GASTROJEJUNOSTOMY, HX GASTRIC BYPASS, RT GANGLION CYST , LEFT THUMB TRIGGER FINGER, CARPAL TUNNEL ALYSON AND REVISION. BENIGN CYSTS REMOVED FROM OVARY, PILONIDAL CYST SURGERY , MULTIPLE. D&C's, C- SECTION X2, WRIST TENDONITIS SURGERY. Pain Injections. Endometrial ablation 2014. DECOMPRESSION BACK SURGERY L-4 & L-5 AND FUSION L5 & S1 MAR 2019, 2021 ALYSON BREAST REDUCTIONM MULTIPLE HERNIA SURGERIES, "2 cysts removed from rectum" Past Anesthesia/Blood Transfusion Reactions: No Reported Reaction Additional Past Anesthesia/Blood Transfusion Reaction / Comment(s): . Past Psychological History: Anxiety, Bipolar, Depression Additional Psychological History / Comment(s): . Smoking Status: Current every day smoker Past Alcohol Use History: None Reported Additional Past Alcohol Use History / Comment(s): STARTED SMOKING AT AGE 15 down to 6 cigarettes daily Past Drug Use History: None Reported Additional Drug Use History / Comment(s): CBD oil, edibles - Past Family History Sister(s) Family Medical History: Cancer Additional Family Medical History / Comment(s): rectal CANCER and lung cancer.3 sisters with factor V Brother(s) Family Medical History: Cancer Additional Family Medical History / Comment(s): NON-HODGKIN'S LYMPHOMA. 3 other brothers had a factor V Leiden mutation. Mother Family Medical History: Cancer, Congestive Heart Failure (CHF) Additional Family Medical History / Comment(s): NON-HODGKIN'S LYMPHOMA. Father Family Medical History: Congestive Heart Failure (CHF) Daughter(s) Family Medical History: Blood Disorder Additional Family Medical History / Comment(s): factor V Medications and Allergies Home Medications Medication Instructions Recorded Confirmed Type metFORMIN HCL [Glucophage] 500 mg PO BID 06/09/18 05/22/22 History hydrOXYzine HCL [Atarax] 25 mg PO TID PRN 08/02/19 05/22/22 History Cariprazine HCl [Vraylar] 1.5 mg PO Q2D 09/09/19 05/22/22 History rOPINIRole HCL [Requip] 0.5 mg PO HS 09/09/19 05/22/22 History Pantoprazole Sodium [Protonix] 40 mg PO DAILY PRN 11/27/20 05/22/22 History Albuterol Sulfate [Proair Hfa] 1 puff INHALATION RT-BID PRN 12/03/20 05/22/22 History Fluticasone Nasal [place] [Flonase 1 spr NASAL BID PRN 11/12/21 05/22/22 History Nasal Hyampom] Aspirin [Adult Low Dose Aspirin EC] 81 mg PO DAILY 12/09/21 05/19/22 History Atorvastatin [Lipitor] 80 mg PO HS 12/20/21 05/22/22 History Ergocalciferol [Vitamin D2 (1250 1,250 mcg PO SÁNCHEZ 05/19/22 05/22/22 History Mcg = 42295 Iu)] Lacosamide [Vimpat] 150 mg PO BID 05/19/22 05/22/22 History Varenicline [Chantix Continuing 1 mg PO BID 05/19/22 05/22/22 History Pack] tiZANidine HCL [Zanaflex] 4 mg PO BID PRN 05/19/22 05/22/22 History Allergies Allergy/AdvReac Type Severity Reaction Status Date / Time cephalexin [From Keflex] Allergy rectal Verified 05/22/22 08:13 bleeding Cephalosporins AdvReac RECTAL Verified 05/22/22 08:13 BLEEDING famotidine [From Pepcid] AdvReac Confusion Verified 05/22/22 08:13 lurasidone [From Latuda] AdvReac SUICIDAL Verified 05/22/22 08:13 THOUGHTS olanzapine [From Zyprexa] AdvReac WEIGHT GAIN Verified 05/22/22 08:13 Surgical - Exam Vital Signs Temp Pulse Resp BP Pulse Ox 98.1 F 104 H 16 128/70 93 L 05/22/22 07:53 05/22/22 07:53 05/22/22 07:53 05/22/22 07:53 05/22/22 07:53 - General well developed, well nourished, no distress - Eyes PERRL - ENT normal pinna - Neck no masses - Respiratory normal expansion - Cardiovascular Rhythm: regular - Abdomen Abdomen: soft, non tender Results - Labs Abnormal Lab Results - Last 24 Hours (Table) 05/22/22 Range/Units 08:01 POC Glucose (mg/dL) 139 H (70-110) mg/dL Assessment and Plan Assessment: We'll perform screening colonoscopy
--- NOTE | 2022-05-22 08:53 | P.OP ---
Date of Procedure: 05/22/22 Preoperative Diagnosis: Screening colonoscopy Postoperative Diagnosis: Diverticulosis Procedure(s) Performed: Colonoscopy Anesthesia: MAC Surgeon: Dillon Alvarado Pathology: none sent Condition: stable Disposition: PACU Description of Procedure: Patient's placed on the endoscopy table in the lateral position. She received IV sedation. Digital rectal exam was performed which revealed no ebonized. The flexible colonoscope was then placed patient anus and passed throughout throughout the colon. The scope could not be placed into the cecum secondary to tortuosity colon. Multiple times made to pass the scope in the cecum however this was impossible. Scope was withdrawn. The ascending colon that was visualized. Normal. The transverse colon appeared normal. In the descending and sigmoid colon there was moderate diverticular changes. Scope was brought back the rectum and this appeared normal. Scope withdrawn for patient.
[2022-05-22 08:58] VITALS: RESP 18
[2022-05-22 09:11] VITALS: BP 113/83; PULSE 70
== END 2022-05-22 09:36 | disposition home or self-care (01) ==
LOC: ORWHC2ENDO 07:34
PROVIDERS: ATTEND Surgery
DX: Z12.11 Encounter for screening for malignant neoplasm of colon (principal); K57.30 Diverticulosis of large intestine without perforation or abscess without bleeding; J44.9 Chronic obstructive pulmonary disease, unspecified; E11.9 Type 2 diabetes mellitus without complications; K21.9 Gastro-esophageal reflux disease without esophagitis; E78.5 Hyperlipidemia, unspecified; M19.90 Unspecified osteoarthritis, unspecified site; D75.9 Disease of blood and blood-forming organs, unspecified; G47.33 Obstructive sleep apnea (adult) (pediatric); M72.2 Plantar fascial fibromatosis; N39.0 Urinary tract infection, site not specified; F17.210 Nicotine dependence, cigarettes, uncomplicated; K58.9 Irritable bowel syndrome, unspecified; Z87.11 Personal history of peptic ulcer disease; Z98.84 Bariatric surgery status; Z98.891 History of uterine scar from previous surgery; Z98.82 Breast implant status; Z98.890 Other specified postprocedural states; Z98.49 Cataract extraction status, unspecified eye; Z98.51 Tubal ligation status; Z80.1 Family history of malignant neoplasm of trachea, bronchus and lung; Z80.49 Family history of malignant neoplasm of other genital organs; Z80.7 Family history of other malignant neoplasms of lymphoid, hematopoietic and related tissues; Z82.49 Family history of ischemic heart disease and other diseases of the circulatory system; Z79.84 Long term (current) use of oral hypoglycemic drugs; Z79.51 Long term (current) use of inhaled steroids; Z79.899 Other long term (current) drug therapy; Z79.82 Long term (current) use of aspirin; Z88.1 Allergy status to other antibiotic agents
CPT/HCPCS: 81025; J2704; J2001; G0121

== ENCOUNTER → 2022-06-05 | Outpatient (CLI) | payer MEDICARE, OTHER ==
--- NOTE | 2022-06-05 14:03 | CT ---
EXAMINATION TYPE: CT pelvis wo con DATE OF EXAM: 06/05/2022 COMPARISON: 03/04/2022 HISTORY: pt states she has bladder pain CT DLP: 537.6 mGycm Automated exposure control for dose reduction was used. FINDINGS: Postsurgical change involving the anterior abdominal wall suspected. There is hypertrophic and degene rative changes of the spine with postsurgical changes noted at L5-S1. Visualized bowel gas pattern nonspecific. Previous fallopian tube and surgery noted. Vascular calcifi cation the aorta. Appendix normal. Visualized portion of the right and left kidney unremarkable. No free fluid. No pathologic adenopathy. Bladder distends normally. IMPRESSION: NO ACUTE PROCESS. NONCONTRAST CT EVALUATION OF BLADDER WITHIN NORMAL LIMITS. POSTSURGICAL CHANGES.
== END | disposition home or self-care (01) ==
LOC: RADCTMAIN 11:20
PROVIDERS: ATTEND Urology
DX: R10.31 Right lower quadrant pain (principal)
CPT/HCPCS: 72192

== ENCOUNTER → 2022-07-21 | Outpatient (CLI) | payer MEDICARE, OTHER ==
--- NOTE | 2022-07-21 21:29 | CT ---
EXAMINATION TYPE: CT chest wo con CT DLP: 493.30 mGycm, Automated exposure control for dose reduction was used. DATE OF EXAM: 07/21/2022 5:25 PM COMPARISON: 06/24/2021. CLINICAL INDICATION:Female, 52 years old with history of R911 solitary lung nodule; , Solitary pulmon rios nodule. TECHNIQUE: Multiple axial images were obtained through the chest. Sagittal and coronal reformats were created for review. Contrast used: none. Oral contrast used: none. FINDINGS: LUNGS/ PLEURA: Stable 6 x 5 right lower lobe pulmonary nodule. No focal consolidation, pneumothorax o r pleural effusion. No new or enlarging pulmonary nodules. Mild emphysema changes in mosaic pattern t o the lung parenchyma similar to prior. AIRWAY: Patent and unremarkable. HEART: Size within normal limits. MEDIASTINUM: No gross evidence of adenopathy. VASCULATURE: No aortic aneurysm. Atherosclerosis of the arterial vasculature. MUSCULOSKELETAL: No acute osseous abnormalities, mild multilevel disc degeneration changes spine. SOFT TISSUES/LYMPH NODES: Unremarkable. LOWER NECK: No significant findings. UPPER ABDOMEN: Diffuse low-attenuation to the liver parenchyma. Postsurgical changes to the stomach. The gallbladder surgically absent. Ventral wall fat-containing hernia extending into the wall itself. IMPRESSION: Stable right lower lobe pulmonary nodule measuring up to 6 x 5 mm.
== END | disposition home or self-care (01) ==
LOC: RADCTMAIN 16:56
PROVIDERS: ATTEND Internal Medicine
DX: R91.1 Solitary pulmonary nodule (principal)
CPT/HCPCS: 71250

== ENCOUNTER → 2022-07-21 | Outpatient (CLI) | payer MEDICARE, OTHER ==
--- NOTE | 2022-07-21 21:50 | MR ---
EXAMINATION TYPE: MR abdomen wo/w con DATE OF EXAM: 07/21/2022 6:32 PM INDICATION: Patient age:Female; 52 years old; Reason for study: M45.50 Low Back Pain, R10.2 Pelvic and Perineal Pain. Pelvic, hip and back pain. COMPARISON: CT scan abdomen from CT pelvis 06/05/2022, CT abdominal aorta 03/04/2022, CT abdomen pelv is 11/27/2020. TECHNIQUE: Multiplanar multi-sequence imaging was performed without contrast. Post contrast imaging was performed. Post IV contrast subtraction images were also submitted for review. IV Contrast: 8 cc Gadavist FINDINGS: LOWER CHEST: No gross irregularity. ABDOMEN Liver: Signal dropout the parenchyma on chemical shift imaging out of phase sequences. Gallbladder and Bile ducts: Gallbladder surgically absent the common duct measures up to 10 mm which can be seen in the setting of postcholecystectomy physiology. Pancreas: Unremarkable. Spleen: Unremarkable. Adrenal glands: Unremarkable. Kidneys: No evidence for hydronephrosis. Stomach and Bowel: Postsurgical changes of the bowel and stomach consistent with Chris-en-Y. No bowel wall thickening is identified. Few scattered clonic diverticula are present. Peritoneum: No evidence of pneumoperitoneum, free fluid, or adenopathy. Vasculature: No aortic aneurysm. Musculoskeletal: The osseous structures appear intact. Abdominal wall: Postsurgical change the anterior abdominal wall with fat herniating into the abdomina l wall myofascial planes. IMPRESSION: 1. Postsurgical changes consistent with Chris-en-Y without evidence for acute intra-abdominal process . 2. Postsurgical changes anterior abdominal wall with fat herniating into the ventral wall myofascial planes. 3. Hepatic steatosis. 4. Colonic diverticulosis.
== END | disposition home or self-care (01) ==
LOC: RADMRIMAIN 17:01
PROVIDERS: ATTEND Psychiatry & Neurology Pain Medicine
DX: K76.0 Fatty (change of) liver, not elsewhere classified (principal); K43.9 Ventral hernia without obstruction or gangrene; K57.30 Diverticulosis of large intestine without perforation or abscess without bleeding; R10.2 Pelvic and perineal pain
CPT/HCPCS: 74183; A9585

== ENCOUNTER → 2022-07-24 | Outpatient (CLI) | payer MEDICARE, OTHER ==
[2022-07-24 18:12] LABS: African American GFR (CKD) 75.2 (60.0-200.0); Blood Urea Nitrogen 15.9 mg/dL (9.0-27.0); Non-African American GFR(CKD) 64.9 (60.0-200.0)
== END | disposition home or self-care (01) ==
LOC: LABWHC1 10:47
PROVIDERS: ATTEND Psychiatry & Neurology Pain Medicine
DX: Z01.812 Encounter for preprocedural laboratory examination (principal)
CPT/HCPCS: 36415; 82565; 84520

== ENCOUNTER → 2022-07-25 | Outpatient (CLI) | payer MEDICARE, OTHER ==
--- NOTE | 2022-07-26 11:06 | MR ---
EXAMINATION TYPE: MR pelvis wo/w con, MR sacrum/coccyx wo con DATE OF EXAM: 07/25/2022 COMPARISON: CT pelvis 06/05/2022 CT abdomen pelvis 11/27/2020, MR abdomen 07/21/2022, MRI lumbar spine 1 08/10/2018 CLINICAL INDICATION:Female, 52 years old with history of pelvic, hip and back pain TECHNIQUE: Triplane multisequence imaging was performed of the pelvis with and without IV contrast. Multisequence multiplanar imaging of the sacroiliac joints including T1, short-term inversion recover y, and T2. IV Contrast: 8 cc Gadavist FINDINGS: Reproductive: * Vagina: Unremarkable. * Uterus: The uterus is anteverted in position. Uterus measures 4.5 x 3.1 x 3.7 cm. The endometrium and junctional zone are within normal limits. A nabothian cyst is present. * Ovaries: Ovaries are suboptimally visualized due to tubal ligation clips. Bladder: Unremarkable. Bowel: Appendix is normal. Few scattered clonic diverticula present. Peritoneum: No free fluid present. Lymph nodes: No evidence of adenopathy. Vasculature: Unremarkable. Musculoskeletal: Post surgical changes at L5-S1. There is susceptibility artifact at this level. Susc eptibility artifact involving tubal ligation clips bilaterally. No abnormal inversion recovery signal seen around the sacroiliac joints. Bone marrow signal is homoge nous. Minimal if any degeneration changes of the sacroiliac joints which appear symmetrical. Abdominal wall/soft tissues: Unremarkable. IMPRESSION: 1. No evidence of suspicious pelvic mass. 2. No evidence for acute process. 3. Sacroiliac joints appear symmetric with minimal degeneration, no acute osseous pathology or inflam mation identified.. 4. Colonic diverticulosis.
== END | disposition home or self-care (01) ==
LOC: RADMRIMAIN 13:28
PROVIDERS: ATTEND Psychiatry & Neurology Pain Medicine
DX: M53.3 Sacrococcygeal disorders, not elsewhere classified (principal); K57.30 Diverticulosis of large intestine without perforation or abscess without bleeding; R10.2 Pelvic and perineal pain
CPT/HCPCS: 72197; 72195; A9585

== ENCOUNTER → 2022-11-05 | Outpatient (CLI) | payer MEDICARE, OTHER ==
--- NOTE | 2022-11-05 10:38 | XR ---
EXAMINATION TYPE: XR chest 2V DATE OF EXAM: 11/05/2022 10:28 AM COMPARISON: Chest radiographs from 11/27/2020, CT chest 07/21/22 TECHNIQUE: XR chest 2V Frontal and lateral views of the chest. CLINICAL INDICATION:Female, 52 years old with history of J44.9 COPD; FINDINGS: Lungs/Pleura: There is flattening of the diaphragm with increased lucency of the lungs. No evidence o f pneumothorax, pleural effusion or focal consolidation. Pulmonary vascularity: Unremarkable. Heart/mediastinum: Cardiomediastinal silhouette is unremarkable. Musculoskeletal: No acute osseous pathology. Cervical fusion hardware. Other: Surgical clips in the upper abdomen. IMPRESSION: 1. No acute cardiopulmonary disease process. 2. COPD changes.
== END | disposition home or self-care (01) ==
LOC: RADXRMAIN 10:14
PROVIDERS: ATTEND Internal Medicine
DX: J44.9 Chronic obstructive pulmonary disease, unspecified (principal)
CPT/HCPCS: 71046

== ENCOUNTER → 2022-11-14 | Outpatient (CLI) | payer MEDICARE, OTHER ==
[2022-11-14 20:04] LABS: Basophils # (A) 0.05 X 10*3/uL (0.00-0.10); Basophils % (A) 0.5 %; Eosinophils # (A) 0.44 X 10*3/uL (0.04-0.35); Eosinophils % (A) 4.2 %; HCT 44.9 % (37.2-46.3); HGB 14.7 g/dL (12.0-15.0); Immature Grans, Automated 0.4 %; Lymphocytes # (A) 3.27 X 10*3/uL (0.90-5.00); Lymphocytes % (A) 30.9 %; MCH 32.3 pg (27.0-32.0); MCHC 32.7 g/dL (32.0-37.0); MCV 98.7 fL (80.0-97.0); Mean Platelet Volume 9.8 fL (9.5-12.2); Monocytes # (A) 0.62 X 10*3/uL (0.20-1.00); Monocytes % (A) 5.9 %; NRBC Per 100 WBC 0 /100 WBCS (0.0-0.0); Neutrophils # (A) 6.16 X 10*3/uL (1.80-7.70); Neutrophils % (A) 58.1 %; Platelet Count 385 X 10*3/uL (140-440); RBC 4.55 X 10*6/uL (4.10-5.20); RDW 13.8 % (11.5-14.5); WBC 10.58 X 10*3/uL (4.50-10.00)
== END | disposition home or self-care (01) ==
LOC: LABPAT 11:12
PROVIDERS: ATTEND Orthopaedic Surgery
DX: Z01.812 Encounter for preprocedural laboratory examination (principal); D72.829 Elevated white blood cell count, unspecified
CPT/HCPCS: 36415; 85025

== ENCOUNTER 2022-11-18 05:51 | Day surgery (SDC) | payer MEDICARE, OTHER ==
[2022-11-12 12:37] VITALS: BMI 37.1
--- NOTE | 2022-11-17 18:38 | P.HPOR ---
History of Present Illness H&P Date: 11/12/22 .D:Date: 11/12/22 : 04:55pm .T:Title: *[facility]... COPY... Date of :[birth year] R14 Allergies: Age: 52 year Height: 4'11" Weight: 186 lbs BMI: 37.57 kg/m2 Occupation: Disabled VAS: 8 CHIEF COMPLAINT: Lumbar / SI pain DOI: Chronic DOS: n/a Duration of current treatment regiment:treatment started in 2014 HISTORY : Xrays No new xrays taken in office Trauma or injury No Work-Related No Pain description dull, aching, sharp. Location posterior Patient notes that their pain radiates to right lower extremity Activity Modification yes Hand Dominance right TREATMENTS COMPLETED: 6 weeks of PT completed? Month and Year of last PT date? Was in physical therapy but made her symptoms worse Physician directed home exercise completed? No Medications yes List: Flexeril Alternative interventions Chiropractic: yes Massage therapy: yes R.I.C.E: yes SI belt with no relief, left shoe insert with no relief Injections Yes How many? multiple, 4 a year for 6 years including CECILE and SI Patient has right SI injection series 2 shots 6 weeks apart approx 3 months ago and had 80% relief for 1-2 weeks. Patient also had multiple hip injection with no relief Did they help? yes, temp relief RFA: No SUBJECTIVE: Ms. Dent returns to the office for a pre-operative appointment for their right SI Joint Fusion. Patient reports a constant aching and sharp lumbar pain ongoing since 2014 and has progressed over the past year with no known injury or trauma to indicate an exact onset of their symptoms. Patient does have a history of a L4-L5 decompression with cage placement at L4-L5 performed by Dr. Varela. In addition to their lumbar pain, they do report that it radiates into the right lower extremity, associatedwithnumbness and tingling through the L5-S1 dermatome. Patient reports that her pain radiates across her lower back to the right side and radiates into her right groin and along her right hip with a burning sensation. Overall the patient has seen a progressive increase in symptoms since their onset and an increase in pain since their last appointment. Ms. Dent symptoms are exacerbated with prolonged standing, ambulation, or sitting to standing position, due to this they notes that it is increasingly difficult for Ms. Dent to complete many of their daily tasks. Patient is having moderate sleep disturbances as well due to their ongoing pain and as sociated symptoms. Regarding treatments, the patient has previously trialed the above listed modalities. Patient has also trialed all above modalities at this time. For their symptoms, the patient has been taking Flexeril. Otherwise the patient denies any f/c/sob/cp, no bladder or bowel retention/incontinence, no perineal numbness/tingling, and ambulates independently. HPI: Ms. Dent presents to the office on 10/30/22 for a follow up of their low back pain. Patient reports a constant aching and sharp lumbar pain ongoing since 2014 and has progressed over the past year with no known injury or trauma to indicate an exact onset of their symptoms. Patient does have a history of a L4-L5 decompression with cage placement at L4-L5 performed by Dr. Varela. In addition to their lumbar pain, they do report that it radiates into the right lower extremity, associatedwithnumbness and tingling through the L5-S1 dermatome. Patient reports that her pain radiates across her lower back to the right side and radiates into her right groin and along her right hip with a burning sensation. Overall the patient has seen a progressive increase in symptoms since their onset. Ms. Dent symptoms are exacerbated with prolonged standing, ambulation, or sitting to standing position, due to this they notes that it is increasingly difficult for Ms. Dent to complete many of their daily tasks. Patient is having moderate sleep disturbances as well due to their ongoing pain and associated symptoms. Regarding treatments, the patient has previously trialed the above listed modalities. She is utilizing shoe lift inserts per her chiropractor with no relief. Patient has also trialed all above modalities at this time. For their symptoms, the patient has been taking Vimpat, flexeril, mobic and ibuprofen. Otherwise the patient denies any f/c/sob/cp, no bladder or bowel retention/incontinence, no perineal numbness/tingling, and ambulates independently. Ms. Dent presents to the office on 10/06/2022 for a follow up of their low back pain and MRI results. Patient reports a constant aching and sharp lumbar pain ongoing since 2014 and has progressed over the past year with no known injury or trauma to indicate an exact onset of their symptoms. Patient does have a history of a L4-L5 decompression with cage placement at L4-L5 performed by Dr. Varela. In addition to their lumbar pain, they do report that it radiates into the right lower extremity, associatedwithnumbness and tingling through the L5- S1 dermatome. Patient reports that her pain radiates across her lower back to the right side and radiates into her right groin and along her right hip with a burning sensation. Overall the patient has seen a progressive increase in symptoms since their onset. Ms. Dent symptoms are exacerbated with prolonged standing, ambulation, or sitting to standing position, due to this they notes that it is increasingly difficult for Ms. Dent to complete many of their daily tasks. Patient is having moderate sleep disturbances as well due to their ongoing pain and associated symptoms. Regarding treatments, the patient has previously trialed the above listed modalities. She is utilizing shoe lift inserts per her chiropractor. Patient denies trialing any other modalities at this time. For their symptoms, the patient has been taking Vimpat, flexeril, mobic and ibuprofen. Otherwise the patient denies any f/c/sob/cp, no bladder or bowel retention/incontinence, no perineal numbness/tingling, and ambulates independently. Ms. Dent presents to the office on 09/08/22 for an evaluation of their low back pain. Patient reports a constant aching and sharp lumbar pain ongoing since 2014 and has progressed over the past year with no known injury or trauma to indicate an exact onset of their symptoms. Patient does have a history of a L4-L5 decompression with cage placement at L4-L5 performed by Dr. Varela. In addition to their lumbar pain, they do report that it radiates into the right lower extremity, associatedwithnumbness and tingling through the L5-S1 dermatome. Patient reports that her pain radiates across her lower back to the right side and radiates into her right groin and along her right hip with a burning sensation. Overall the patient has seen a progressive increase in symptoms since their onset. Ms. Dent symptoms are exacerbated with prolonged standing, ambulation, or sitting to standing position, due to this they notes that it is increasingly difficult for Ms. Dent to complete many of their daily tasks. Patient is having moderate sleep disturbances as well due to their ongoing pain and associated symptoms. Regarding treatments, the patient has previously trialed the above listed modalities. She is utilizing shoe lift inserts per her chiropractor. Patient denies trialing any other modalities at this time. For their symptoms, the patient has been taking Vimpat. Otherwise the patient denies any f/c/sob/cp, no bladder or bowel retention/incontinence, no perineal numbness/tingling, and ambulates independently. The patients' past social, medical, family, surgical history, as well as review of systems, have been reviewed. Please refer to the Neurosurgery History and Physical form that has been scanned in to our electronic medical record system. 14 points review of systems completed and as stated in HPI, all other systems reviewed are negative. Social History: Reviewed, see appropriate section of the chart for details. P3 Family History: Reviewed, see appropriate section of the chart for details. P2 Past Medical History: Reviewed, see appropriate section of the chart for details. P1 Current Medications: Rx: aspirin 81 mg tablet,delayed release Ref: 0 Instructions: take 1 tablet (81 mg) by oral route once daily Rx: atorvastatin 80 mg tablet Ref: 0 Instructions: take 1 tablet (80 mg) by oral route once daily Rx: cholecalciferol (vitamin D3) 1,250 mcg (50,000 unit) capsule Ref: 0 Instructions: take 1 capsule (1,250 mcg) by oral route once weekly Rx: hydrOXYzine HCL 25 mg tablet Ref: 0 Instructions: take 1 tablet (25 mg) by oral route 3 times per day as needed Rx: lacosamide 200 mg tablet Ref: 0 Instructions: take 1 tablet (200 mg) by oral route 2 times per day Rx: metFORMIN 500 mg tablet Ref: 0 Instructions: take 1 tablet (500 mg) by oral route 2 times per day with morning andevening meals Rx: omeprazole 40 mg capsule,delayed release Ref: 0 Instructions: take 1 capsule (40 mg) by oral route once daily before a meal Rx: Vraylar 1.5 mg capsule Ref: 0 Instructions: take 1 capsule (1.5 mg) by oral route once daily P1 PHYSICAL EXAMINATION: General: Awake, alert, appropriate for age, in no acute distress. HEENT: No unusual neck masses around region of lateral neck triangle, thyroid, supraclavicular groove Heart: Regular rate and rhythm, normal S1, S2 and no murmur/gallop. Lungs: Clear to auscultation bilaterally with no use of accessory muscles. Extremities: Skin warm and dry without acute lesions, coloration, temperature, skin intact, no tenderness or erythema Integument: Hairy patches: ABSENT Dorsal skin dimples: ABSENT Cafe au lait spots: ABSENT Surgical incisions: Healed lumbar Palpation: Please see Pain drawing on Intake sheet for further detail. Midline spinal tenderness: No E6 Cervical Tenderness: No E6 Paralumbar tenderness:Yes E6 Parathoracic tenderness: No E6 Buttocks tenderness: No E6 SI testing: Sacroiliac Tenderness (Vitaliy's Finger sign): yes Laterality: Right Hip Thrust: +right Compression: +right Distraction: Neg FABER4: + right Gaselen's: +Right Thigh thrust: +right POSTURAL and MUSCULO-SKELETAL EVALUATION: Coronal Balance: NEUTRAL Recumbent testing: Patient is able to lay flat on back Sagittal Balance: NEUTRAL Shoulder Profile: LEVEL Pelvic Girdle: LEVEL Neck ROM: UNRESTRICTED Lumbar ROM: RESTRICTED Shoulder ROM: Symmetrical Hip ROM: Symmetrical Knee ROM: Symmetrical Hands: Normal appearance, symmetrical Feet: Normal appearance, Symmetrical VASCULAR STATUS : LEFT RIGHT Wrist Pulses INTACT INTACT Pedal Pulses (Dors. pedis & post.tibialis) INTACT INTACT Color NORMAL NORMAL Edema Absent Absent NEUROLOGIC EXAMINATION: Mental Status:Awake and alert, fully oriented, with normal attention, concentration and memory, and fluent, appropriate speech. Cranial Nerves: I: Olfactory not tested. II: Visual acuity normal, no visual field deficit noted with confrontation. III,IV: Normal pupillary reflexes & intact extraocular movements without nystagmus. V,: Intact symmetrical facial sensation. VII: Intact symmetrical facial motor movement VIII: Hearing intact. IX,X: Intact gag, swallow, & normal voice. XI: Sternocleidomastoid, trapezius function intact. XII: Tongue midline with normal movements. L'hermitte's Sign: Negative / absent Spurling'Sign: Absent bilaterally. Cubital percussion test: Absent bilaterally. Carson-Tinel sign - Carpal region: Absent bilaterally. Straight Leg Raising: Absent bilaterally. Crossed straight leg raise: negative O8 Positive Fortins finger Positive compression Positive hip thrust Negative distraction MOTOR EXAM (0-5/5, N/T Muscle appearance: Symmetrical, without signs of atrophy or dystrophy UPPER EXTREMITY RIGHT LEFT Shoulder Abduction 5/5 5/5 Biceps 5/5 5/5 Triceps 5/5 5/5 Wrist Extension 5/5 5/5 Hand Intrnsics 5/5 5/5 Network Development Coordinator 5/5 5/5 Hand and finger dexterity intact bilaterally? yes Disdiadochokinesis examination negative bilaterally? yes LOWER EXTREMITY RIGHT LEFT Hip Flexion 4/5 5/5 Knee Extension 4/5 5/5 Knee Flexion 4/5 5/5 Dorsiflexion 4/5 5/5 Plantarflexion 4/5 5/5 EHL 4/5 5/5 FHL 4/5 5/5 Toe heel walk / heel-toe walk intact while maintaining satisfactory balance? yes Single leg stance: intact Trendelenburg sign negative bilaterally REFLEXES(0-4/2, NT)Upper Extremi tyLower Extremity Right 2 2 Left 2 2 Pathological Reflexes RIGHT LEFT Carson's Absent Absent Clonus Absent Absent Babinski Absent Absent Sensory system (0-4, N/T) Test type RU JULIET RL LL Joint-Position 2 2 2 2 Vibration 2 2 2 2 Pain & LT sense 2 2 2 2 Dermatomal Deficit: None None L5 None Gait and Functional Evaluation: Ambulatory aids: Independent Romberg's test: Intact bilaterally Steady Gait with pain due to SIJ on the Right. Sit to stand is delayed due to Right SIJ pain RADIOGRAPHIC STUDIES: Xray AP lateral right hip done in office today: Images reviewed. No evidence of any femoral acetabular OA that would be contributing to her Sx of SI pain. SI visualized is sclerotic. No fracture. No lesions. Xray AP pelvis done in office today: Images reviewed with patient. b/l SIJ sclerosis and OA. No hip OA. No fracture. No lesions. Congruent pelvis. XRay Lumbar Multiview (AP, Lateral, Flexion, Extension) with AP pelvis; 5 views taken at [facility] on 09/08/22: Reviewed with pt Demonstrates post surgical changes at L5-S1 with interbody fusion present. NO posterior hardware. No instability. Very mild ASD noted L4-5 related to disc height loss and facet arthrosis. No fracture. No lesions. PI:LL <10. AP pelvis demonstrates level pelvis no fracture. Sclerosis of the SI joints b/l R>L MRI Lumbar Spine at [facility] 09/15/2022: Images Reviewed in office with the patient. L1-2 Mild spondylosis, no stenosis L2-3 Mild spondylosis, no stenosis L3-4 Mild spondylosis, no stenosis L4-5 Mild spondylosis, disc height loss, mild ASD noted with facet arthropathy, moderate. No stenosis L5-S1 Post surgical changes with interbody fusion in place. No posterior instrumentation noted. No severe stenosis noted. Alignment: Stable Coronal alignment: Maintained Fracture: None Lesion: None IMP RESSION: It was my pleasure to have seen and examined Lary. I reviewed the patient's clinical syndrome, physical findings, and imaging studies during the appointment today. It is my impression that the patient has a diagnosis of. 1. Right degenerative sacroiliitis 2.Status post L5-S1 fusion 3. RLE radiculopathy 4. Right low back pain I outlined the natural course history without intervention and various interventional options. PLAN All options were reviewed today, we decided the best course of action would be: - Prescription for Gabapentin 300mg ordered today -Advised patient to continue with supplements, health maintenance, and home exercise programs. Patient expressed understanding and will continue with these modalities. - I discussed treatment options with the patient, including operative and non- operative options, and they have elected to proceed with the following surgical procedure: Right SI fusion The indications, risks, benefits, and alternatives to surgery were discussed w ith the patient at length. Specifically (but not limited to) the risks of infection, stiffness, recurrence of symptoms, need for revision surgery, local numbness, neurovascular injury, and blood clots were discussed. The patient's questions were answered. The decision to proceed was made. Consent will be obtained for the procedure. -Ambulate daily -Take pain medications as needed and as directed -Ice and rest for pain and swelling control. Ms. Dent is presenting for evaluation of low back pain. It was my pleasure to have seen and examined Ms. Dent. In our visit today we have had a chance to go over subjective complaints, physical examination findings and treatments including the natural course history without intervention and various interventional options. Xray AP lateral right hip done in office today: Images reviewed. No evidence of any femoral acetabular OA that would be contributing to her Sx of SI pain. SI visualized is sclerotic. No fracture. No lesions. Xray AP pelvis done in office today: Images reviewed with patient. b/l SIJ sclerosis and OA. No hip OA. No fracture. No lesions. Congruent pelvis. XRay Lumbar Multiview (AP, Lateral, Flexion, Extension) with AP pelvis; 5 views taken at [facility] on 09/08/22: Reviewed with pt Demonstrates post surgical changes at L5-S1 with interbody fusion present. NO posterior hardware. No instability. Very mild ASD noted L4-5 related to disc height loss and facet arthrosis. No fracture. No lesions. PI:LL <10. AP pelvis demonstrates level pelvis no fracture. Sclerosis of the SI joints b/l R>L MRI Lumbar Spine at [facility] 09/15/2022: Images Reviewed in office with the patient. L1-2 Mild spondylosis, no stenosis L2-3 Mild spondylosis, no stenosis L3-4 Mild spondylosis, no stenosis L4-5 Mild spondylosis, disc height loss, mild ASD noted with facet arthropathy, moderate. No stenosis L5-S1 Post surgical changes with interbody fusion in place. No posterior instrumentation noted. No severe stenosis noted. Alignment: Stable Coronal alignment: Maintained Fracture: None Lesion: None On physical exam, Ms. Dent demonstrates:Positive SIJ testing, negative lumbar testing. Positive pain with SIJ motion and provocative motions. I have explained to the patient that as their condition progresses it will cause further neurological deficits and eventual paralysis. Based on the patients imaging, physical exam, and the rapid progression and disabling nature of their symptoms, at this time I recommend surgery in the form of a: Right SI fusion . I discussed the risk and benefits of this procedure at length with Ms. Dent. The patient agreed to considered pursuing the procedure abovementioned. Prior to surgery, she should follow up with her PCP (Cardio, ID, IM etc) for clearance. Questions were invited and answered, and the patient wishes to proceed as outlined below. Currently, I am recommendin. Right sacrolilliac joint fusion 2.Follow up with PCP for surgical clearance 3.Review of surgical risks and benefits as well as an educational packet on the proposed surgical procedure. Risks: All surgical procedures come with inherent risks, including those related to positioning, anesthesia, intraoperative findings, and postoperative complications. It is important to understand that surgery does not come with any guarantee of a successful outcome as complications and adverse events are always possible. The patient was given a handout in office today discussing the surgical procedure and risks associated with the intervention, both of which were discussed with the patient. These risks include but are not limited to the fo llowing: * Experiencing same, different or even worse symptoms in back, neck, arms, or legs compared to before surgery. Requiring further surgery or other forms of treatment presently or at some time in the future at same or other levels of the intended spine surgery. On an extreme but fortunately relatively rare basis severe complication such as blindness, stroke, heart attack, temporary and/or permanent nerve injury, paralysis, coma, or may occur, sometimes without known explanation. Surgical complications may include but are not limited to risk of infection, fluid accumulation in the surgical dissection site, including a seroma or hematoma, that requires additional surgery, wound drainage, bleeding, new numbness or weakness, vision changes/loss, spinal fluid leakage, non-healing and/or infected incision, headaches, difficulty or inability to swallow, hoarseness, hemopneumothorax, pneumothorax, impotence, retrograde ejaculation, vaginal dryness; injury to nerves, spinal cord, blood vessels, lymphatics or other vital organs (i.e., bowel injury, injury to the great vessels); heterotopic bone formation; complications related to the hardware such as screw s, rods, cages including misplaced hardware, device failure, instrumentation at the wrong spine level, hardware fracture/breakage, or hardware loosening; vertebral failure of the spinal column above or below the newly placed hardware; retained surgical instrumentations or devices and the need for further surgery. * Medical risks of the planned spine surgery include but are not limited to generalized Infections to the whole body or local areas outside of the surgical site (sepsis), heart attack, bleeding, anaphylaxis, meningitis, seizure, epilepsy, hearing loss, burn lombardo, laceration of the head or other areas of the body, bruising, hypersensitivity of the skin, bladder over distension; allergic reaction; shoulder injury related to positioning; fat, blood and air clots to other areas of the body like heart, lungs, brain; failure of internal organs such as lungs, kidneys, liver and excessive bleeding. If blood transfusions are necessary, note that transfusions may cause intolerance reactions such as anaphylaxis or other complex reactions. Despite best efforts, the results of spine surgery might not heal in terms of bone, soft tissues such as skin, fascia, ligaments, and joints. Additionally, in order to achieve best possible results, spine surgery may be carried out beyond the initially planned levels and involve decompression, fusion including insertion of hardware at levels other than the original intended area of surgical interest change some portions of the procedure in order to ensure the best possible outcomes. With spine surgery and spinal fusion, there are different off label uses of instrumentation (devices, implants and hardware) as well as biological substances (bone morphogenic proteins, demineralized bone matrix) as well as using extra bone from allograft sources (i.e. cadaver bone) or autograft (iliac crest bone, ribs, or the spine itself). The patient has been given information about these practices and their inherent risks and benefits. [facility] is an educational center that serves as a training facility for neurosurgical and orthopedic PLANT CUSTODIAN and Nursing students. Physician assistants are medically trained surgical providers who function in the outpatient, inpatient, and operating room setting under the direct supervision of the attending surgeon. [facility] has multiple operating rooms with single and overlapping rooms running daily. They currently function under the required guidelines as produced by the [facility] Finance Committee with regards to the overlapping rooms and will continue to comply with changes to this policy as they occur. The requirements include and are complied with as follows: (1) the critical portions of the overlapping rooms will not occur at the same time, (2) the attending phys ician will be physically present during the critical portions of the procedure and immediately available during the entire case, and (3) a back-up attending is designated should the primary attending not be immediately available. The patient has had a chance to review all the listed information, has been given print outs detailing this information, and has had all his/her questions answered to their satisfaction. It was my pleasure to have seen and examined Ms. Dent. In our visit today we have had a chance to go over my understanding of our patient's current condition, the natural course history without intervention and various interventional options. Questions were invited and answered, and the patient wishes to proceed as outlined above. I have seen and examined the patient for 25 minutes and we have spent more than 50% of the time in repeat and detailed counseling about the patient's condition, its natural course history with out and as much as can be predicted with surgery and re-review of various surgical treatment options. In conclusion, Ms. Dent requested we proceed with the above suggested surgery and are willing to accept risks and limitations of the suggested surgery as nature of the disease process and our best attempts at treatment for the condition. Thank you again for allowing us to be part of your patient's care. Please don't hesitate to contact me if you have any further questions. SIJ TESTING and INDICATIONS PATIENT SUMMARY: Percutaneous minimally invasive fusion/stabilization of the sacroiliac joint (SIJ) for the treatment of back pain is indicated for the treatment of SIJ pain for patients with low back/buttock pain who meet all of the following criteria: a) Have undergone and failed a minimum six months of intensive non-operative treatment that must include medication optimization, activity modification, and active physical therapy: YES, patient has failed 2 years of conservative treatments including PT, HEP, HMP, injections >4, medications. b) Patients report of non-radiating, unilateral pain that is caudal to the lumbar spine (L5 vertebrae), localized over the posterior SIJ, and consistent with SIJ pain:YES, pt reports pain in SIJ on the Right that is non radiating and consistent with SIJ pain c) Localized tenderness with palpation of the posterior SIJ in the absence of tenderness of similar severity elsewhere (e.g. greater trochanter, lumbar spine, coccyx) and other obvious sources for their pain do not exist:YES, she has no TTP of the GT, lumbar spine, coccyx or other sources. d) Positive response to the thigh thrust test OR compression test AND 2 of the following additional provocative tests: Gaenslens test, Distraction test, Patricks sign:YES, all provocative signs, save distraction, were positive as outlined above. e) Absence of generalized pain behavior (e.g. somatoform disorder) or generalized pain disorders (e.g. fibromyalgia):YES, pt has no somatoform disorders f) Diagnostic imaging studies that include ALL of the followin. Imaging (plain radiographs and a CT or MRI) of the SI joint that excludes the presence of destructive lesions (e.g. tumor, infection) or inflammatory arthropathy that would not be properly addressed by percutaneous SIJ fusion:YES, she has completed extensive imaging work up all pointing to degenerative SIJ as the source. 2. Imaging of the ipsilateral hip (plain radiographs) to rule out osteoarthritis:YES, as noted above. No Hip OA to contribute to her sx 3. Imaging of the lumbar spine (CT or MRI) to rule out neural compression or other degenerative condition that can be causing low back or buttock pain: YES, she has had imaging to rule out her lumbar spine as the cause. g) At least 75 percent reduction of pain for the expected duration of the anesthetic used following an image-guided, contrast-enhanced SIJ injection on two separate occasions:YES, she has had several injection rounds. The most recent 2 months ago were SIJ injections two of them 6 weeks apart both giving >80% relief in her symptoms that did not last. Follow-up: Post procedure Patient Education: (Informational booklet, instructions, etc) given at today's appointment: Yes .ED:Patient Education: Y Medications Reviewed: YES In our visit today Ms. Dent and I have had a chance to go over my understanding of the patient's current condition, the natural course history without intervention and various interventional options. Questions were invited and answered, and the patient wishes to proceed as outlined above. I will be sure to keep you updated afterMs. Dent returns here for further follow-up. Thank you again for your referral. Please do not hesitate to contact me if you have any further questions. Signed and authenticated by: Carl Gamble DO [facility] [address] [place] [address] This message is confidential, intended only for the named recipient(s) and may contain information that is privileged or exempt from disclosure under applicable law. If you are not the intended recipient(s), you are notified that the dissemination, distribution or copying of this information is strictly prohibited. If you received this message in error, please notify the sender then delete this message. SCRIBE SIGN CC: Deric Ortiz DO Past Medical History Past Medical History: Blood Disorder, COPD, Diabetes Mellitus, GERD/Reflux, Hyperlipidemia, Musculoskeletal Disorder, Osteoarthritis (OA), Skin Disorder, Sleep Apnea/CPAP/BIPAP Additional Past Medical History / Comment(s): Possible TIA, having MRI on Thursday, thinks symptoms of TIA were side effects from Vimpat, has been off Vimpat for one week now. Restless leg syndrome, osteopenia, STRESS HIVES, DDD, SPINAL STENOSIS, HERNIA, BILATERAL PLANTAR FASCIITIS, CHRONIC UTI'S, OCCULAR HYPERTENSION, HX STOMACH ULCERS, IBS, Factor 5 Leiden, no cpap use. History of Any Multi-Drug Resistant Organisms: None Reported Past Surgical History: Back Surgery, Bariatric Surgery, Breast Surgery, Section, Cholecystectomy, Hernia Repair, Orthopedic Surgery, Tubal Ligation, Uterine Ablation Additional Past Surgical History / Comment(s): LEFT HAND SURGERY, EGD WITH DILATION, REVISION OF GASTROJEJUNOSTOMY, HX GASTRIC BYPASS, RIGHT GANGLION CYST REMOVED, LEFT THUMB TRIGGER FINGER RELEASE, BILATERAL CARPAL TUNNEL SURGERY WITH REVISION, BENIGN CYSTS REMOVED FROM OVARY, PILONIDAL CYST REMOVED, MULTIPLE D&C's, SECTION X2, WRIST TENDONITIS SURGERY, pain injections, DECOMPRESSION BACK SURGERY L-4 & L-5 AND FUSION OF L5 & S1, BILATERAL BREAST REDUCTION, MULTIPLE HERNIA SURGERIES, 2 cysts removed from rectum. Past Anesthesia/Blood Transfusion Reactions: No Reported Reaction Additional Past Anesthesia/Blood Transfusion Reaction / Comment(s): . Past Psychological History: Anxiety, Bipolar, Depression Smoking Status: Current every day smoker Past Alcohol Use History: None Reported Additional Past Alcohol Use History / Comment(s): STARTED SMOKING AT AGE 15,currently down to 6 cigarettes daily. Past Drug Use History: None Reported Additional Drug Use History / Comment(s): CBD oil, edibles, none in 3 months - Past Family History Sister(s) Family Medical History: Cancer Additional Family Medical History / Comment(s): Rectal and lung cancer. 3 sisters and a neice with factor V. Brother(s) Family Medical History: Cancer, Deep Vein Thrombosis (DVT) Additional Family Medical History / Comment(s): NON-HODGKIN'S LYMPHOMA. 3 other brothers had a Factor V Leiden mutation. Mother Family Medical History: Cancer, Congestive Heart Failure (CHF) Additional Family Medical History / Comment(s): NON-HODGKIN'S LYMPHOMA. Father Family Medical History: Congestive Heart Failure (CHF) Daughter(s) Family Medical History: Blood Disorder Additional Family Medical History / Comment(s): Factor V. Medications and Allergies Home Medications Medication Instructions Recorded Confirmed Type hydrOXYzine HCL [Atarax] 25 mg PO TID PRN 08/02/19 11/12/22 History Cariprazine HCl [Vraylar] 1.5 mg PO QAM 09/09/19 11/12/22 History Albuterol Sulfate [Proair Hfa] 1 puff INHALATION BID 12/03/20 11/12/22 History Fluticasone Nasal Saltese [Flonase 1 spr NASAL BID PRN 11/12/21 11/12/22 History Nasal Saltese] Aspirin [Adult Low Dose Aspirin EC] 81 mg PO DAILY 12/09/21 11/12/22 History Atorvastatin [Lipitor] 80 mg PO HS 12/20/21 11/12/22 History Ergocalciferol [Vitamin D2 (1250 1,250 mcg PO SÁNCHEZ 05/19/22 11/12/22 History Mcg = 28691 Iu)] Cyclobenzaprine [Flexeril] 5 mg PO TID PRN 11/12/22 11/12/22 History Omeprazole (Unknown Dose) 1 tab PO QAM 11/12/22 11/12/22 History Allergies Allergy/AdvReac Type Severity Reaction Status Date / Time cephalexin [From Keflex] Allergy rectal Verified 11/12/22 12:04 bleeding Cephalosporins AdvReac RECTAL Verified 11/12/22 12:04 BLEEDING famotidine [From Pepcid] AdvReac Confusion Verified 11/12/22 12:04 lurasidone [From Latuda] AdvReac SUICIDAL Verified 11/12/22 12:04 THOUGHTS olanzapine [From Zyprexa] AdvReac WEIGHT GAIN Verified 11/12/22 12:04 Physical Examination Osteopathic Statement: *. No significant issues noted on an osteopathic structural exam other than those noted in the History and Physical/Consult.
[~2022-11-18 05:51] MED LIST changes: +ACETAMINOPHEN TAB 500 MG TAB PO PRN; +GABAPENTIN 300 MG CAP PO PRN; -HEPARIN SODIUM,PORCINE/PF 5,000 UNIT/0.5 ML SYRINGE SQ PRN; +HYDROmorphone 0.5 MG/0.5 ML SYRINGE IVP PRN; -LIDOCAINE 1% (10MG/ML) FOR IV START INTRADERMA PRN; +ONDANSETRON 4 MG/2 ML VIAL IVP PRN; +TRANEXAMIC ACID IN NACL,ISO-OS 1,000 MG in SALINE 1 100ML.BAG IVPB PRN; +fentaNYL (PF) 50 MCG/ML 2 ML AMP IV PRN
[2022-11-18 06:41] LABS: Glucose,Whole Blood 125 mg/dL (70-110)
[2022-11-18] MEDS ORDERED: KETAMINE 10 MG/ML 20 ML VIAL ONE (07:25)
[2022-11-18] MEDS ORDERED: fentaNYL (PF) 50 MCG/ML 2 ML AMP ONE (07:25)
[2022-11-18] MEDS ORDERED: SUCCINYLCHOLINE CHLORIDE 200 MG/10 ML VIAL IV ONE (07:25)
[2022-11-18] MEDS ORDERED: MIDAZOLAM 2 MG/2 ML VIAL ONE (07:25)
[2022-11-18] MEDS ORDERED: PROPOFOL 10 MG/ML 20 ML VIAL IV ONE (07:25)
[2022-11-18] MEDS ORDERED: TRANEXAMIC ACID IN NACL,ISO-OS 1,000 MG/100 ML BAG ONE (07:25)
[2022-11-18] MEDS ORDERED: LIDOCAINE 2% INJ 20 MG/ML (2 ML VIAL) ONE (07:25)
[2022-11-18] MEDS ORDERED: THROMBIN (BOVINE) 5,000 UNIT VIAL TOPICAL ONE (08:11)
[2022-11-18] MEDS ORDERED: GELATIN SPONGE,ABSORB (LARGE) 1 EACH SPONGE TOPICAL ONE (08:11)
[2022-11-18] MEDS ORDERED: LACTATED RINGERS 1,000 ML IV ONE (08:11)
[2022-11-18] MEDS ORDERED: BUPIVACAIN-EPI 0.25%-1:200,000 30 ML VIAL SQ ONE (08:11)
--- NOTE | 2022-11-18 09:21 | P.OP ---
Date of Procedure: 11/18/22 Preoperative Diagnosis: 1. Right degenerative sacroiliitis 2. Right low back pain Postoperative Diagnosis: 1. Right degenerative sacroiliitis 2. Right low back pain Procedure(s) Performed: 1. Right MIS SIJ fusion (69928) Use of IONM Implants: SI bone Torque screws x3 Anesthesia: GETA Surgeon: Carl Gamble Sterile Supply Technician #1: Wilberto Mustafa (Was present and assisted with all aspects of the case from positioning to dressing placement) Estimated Blood Loss (ml): 20 IV fluids (ml): 500 Urine output (ml): 200 Pathology: none sent Condition: stable Disposition: PACU Indications for Procedure: Ms. Dent is presenting for evaluation of low back pain. It was my pleasure to have seen and examined Ms. Dent. In our visit today we have had a chance to go over subjective complaints, physical examination findings and treatments including the natural course history without intervention and various interventional options. Xray AP lateral right hip done in office today: Images reviewed. No evidence of any femoral acetabular OA that would be contributing to her Sx of SI pain. SI visualized is sclerotic. No fracture. No lesions. Xray AP pelvis done in office today: Images reviewed with patient. b/l SIJ sclerosis and OA. No hip OA. No fracture. No lesions. Congruent pelvis. XRay Lumbar Multiview (AP, Lateral, Flexion, Extension) with AP pelvis; 5 views taken at [facility] on 09/08/22: Reviewed with pt Demonstrates post surgical changes at L5-S1 with interbody fusion present. NO posterior hardware. No instability. Very mild ASD noted L4-5 related to disc height loss and facet arthrosis. No fracture. No lesions. PI:LL <10. AP pelvis demonstrates level pelvis no fracture. Sclerosis of the SI joints b/l R>L MRI Lumbar Spine at [facility] 09/15/2022: Images Reviewed in office with the patient. L1-2 Mild spondylosis, no stenosis L2-3 Mild spondylosis, no stenosis L3-4 Mild spondylosis, no stenosis L4-5 Mild spondylosis, disc height loss, mild ASD noted with facet arthrop athy, moderate. No stenosis L5-S1 Post surgical changes with interbody fusion in place. No posterior instrumentation noted. No severe stenosis noted. Alignment: Stable Coronal alignment: Maintained Fracture: None Lesion: None On physical exam, Ms. Dent demonstrates:Positive SIJ testing, negative lumbar testing. Positive pain with SIJ motion and provocative motions. I have explained to the patient that as their condition progresses it will cause further neurological deficits and eventual paralysis. Based on the patients imaging, physical exam, and the rapid progression and disabling nature of their symptoms, at this time I recommend surgery in the form of a: Right SI fusion . I discussed the risk and benefits of this procedure at length with Ms. Dent. The patient agreed to considered pursuing the procedure abovementioned. Prior to surgery, she should follow up with her PCP (Cardio, ID, IM etc) for joselin yin. Questions were invited and answered, and the patient wishes to proceed as outlined below. Currently, I am recommendin. Right sacrolilliac joint fusion Description of Procedure: The patient was seen and examined in the preoperative area. All preoperative protocols were followed. Informed consent was obtained risks and benefits of the procedure were discussed at length. Risks including bleeding infection damage to the surrounding tissue and risk of reoperation were discussed with the patient. Risk of anesthesia up to and including was a discussed with the patient. These are outlined in the risk review. They were willing to accept these risks and all of the risks of surgery. The patient was given a weight- based dose of antibiotics in the form of 2 g Ancef. The patient was seen and evaluated by the anesthesia team who deemed them fit for surgery. The site was marked, the patient was willing to proceed with the procedure. The patient was transferred to the operative suite by the Department of anesthesia. They were then drifted off to sleep by the department anesthesia and GETA was performed. The patient tolerated this well. [Paige catheter was placed by nursing staff, atraumatically]. Once confirmation of lines and ventilation the patient was transferred to a [prone Santiago table very carefully]. All bony prominences including wrists, elbows, axilla, chest, hips, and thighs, and feet were padded very well. Special attention was paid to the genitalia and these were padded accordingly. SCDs were placed on bilateral lower extremities and were connected. Arms were well padded and placed [on arm boards up and out in the 90/90 position]. Once in position, again we confirmed good ventilation capabilities and that lines were running appropriately. The patient's lumbopelvicspine was then exposed. 1010s were placed outlining the incision site. Standard alcohol was used to clean the incision site and allowed to dry. C-arm was used to biomark the patient and confirm level for incision which was marked with a skin marker. Operative briefing was performed with all teams and everyone in agreement to proceed. The patient was then prepped and draped in a normal sterile fashion. Timeout was then performed and all parties were in agreement with the procedure to be performed. Skin incision was made over the previously bowel marked area and blunt dissection taking and the gluteal fascia which was bluntly split. The pin was then used in the lateral position to obtain optimal starting point for the first S1 trans-SI joint screw. Once in optimal position inlet and outlet views confirmed its position and it was placed across the joint, parallel guide was then used to target the anterior inferior screw and the posterior caudal screw. These pins were placed and sent across the SI joints and confirmed to be in good position on lateral, inlet, outlet views. Once they were confirmed they were measured. The soft tissue protector was placed over and the screws were placed over pins. This was done in the outlet view to ensure it was seating across the joint and within the correct space. Also allowed for visualization of the S1 foramen which was stable and protected. Once screws were placed the pins were removed neuro monitoring was then used with a probe to test the screws and the screws tested stable. Final imaging confirmed good placement of all screws. The wound was then copiously irrigated with normal sterile saline. Deep fascia was closed with 0 Vicryl superficial subcu closed with 2-0 Vicryl and skin closed with 30 strata fix. The wound was then cleaned and dressed with glue tape and an operative foam dressing. The patient was transferred back to their hospital bed atraumatically. Patient was then awakened and extubated by the department of anesthesia having tolerated the procedure very well with no complications. They were transferred to the postoperative care unit in stable condition.
[2022-11-18 09:24] VITALS: TEMP 96.8
[2022-11-18] MEDS: HYDROmorphone 0.5 MG/0.5 ML SYRINGE IVP ONE ×3 (09:33→09:55)
[2022-11-18 09:50] VITALS: RESP 16
[2022-11-18] MEDS ORDERED: HYDROcodone/APAP 10-325MG 1 EACH TAB ONE (11:15)
[2022-11-18] MEDS ORDERED: HYDROcodone/APAP 10-325MG 1 EACH TAB PO ONE (11:16)
[2022-11-18 11:42] VITALS: BP 144/71; PULSE 85
--- NOTE | 2022-11-20 08:31 | FL ---
Intraoperative/procedural fluoroscopic services were provided. Total fluoroscopy time is 2 minutes 47 seconds with a total of 6 submitted images to PACS. Please see the operative/procedural note for fur ther details. DAP: 08.689
== END 2022-11-18 12:03 | disposition home or self-care (01) ==
LOC: OR 05:51
PROVIDERS: ATTEND Orthopaedic Surgery
DX: M46.1 Sacroiliitis, not elsewhere classified (principal); M47.26 Other spondylosis with radiculopathy, lumbar region; G89.29 Other chronic pain; Z98.1 Arthrodesis status; J44.9 Chronic obstructive pulmonary disease, unspecified; E11.9 Type 2 diabetes mellitus without complications; K21.9 Gastro-esophageal reflux disease without esophagitis; G25.81 Restless legs syndrome; M85.80 Other specified disorders of bone density and structure, unspecified site; Z87.39 Personal history of other diseases of the musculoskeletal system and connective tissue; Z86.73 Personal history of transient ischemic attack (TIA), and cerebral infarction without residual deficits; G47.33 Obstructive sleep apnea (adult) (pediatric); F17.210 Nicotine dependence, cigarettes, uncomplicated; D68.51 Activated protein C resistance; F41.8 Other specified anxiety disorders; F12.90 Cannabis use, unspecified, uncomplicated; Z87.11 Personal history of peptic ulcer disease; Z98.84 Bariatric surgery status; Z90.49 Acquired absence of other specified parts of digestive tract; Z80.0 Family history of malignant neoplasm of digestive organs; Z80.1 Family history of malignant neoplasm of trachea, bronchus and lung; Z82.49 Family history of ischemic heart disease and other diseases of the circulatory system; Z79.82 Long term (current) use of aspirin; Z79.51 Long term (current) use of inhaled steroids; Z79.899 Other long term (current) drug therapy; Z79.84 Long term (current) use of oral hypoglycemic drugs; Z88.1 Allergy status to other antibiotic agents; Z88.8 Allergy status to other drugs, medicaments and biological substances
CPT/HCPCS: 27279; 81025; 86900; 86901; 86850; 72100; C1713; C1762; J0690; J2405; J1170

== ENCOUNTER 2023-01-12 08:25 | Day surgery (SDC) | payer MEDICARE, OTHER ==
[2023-01-08 12:12] VITALS: BMI 38.1
[~2023-01-12 08:25] MED LIST changes: -GABAPENTIN 300 MG CAP PO PRN; +HEPARIN SODIUM,PORCINE/PF 5,000 UNIT/0.5 ML SYRINGE SQ PRN; -HYDROmorphone 0.5 MG/0.5 ML SYRINGE IVP PRN; +MIDAZOLAM 2 MG/2 ML VIAL IV PRN; -ONDANSETRON 4 MG/2 ML VIAL IVP PRN; -TRANEXAMIC ACID IN NACL,ISO-OS 1,000 MG in SALINE 1 100ML.BAG IVPB PRN; -fentaNYL (PF) 50 MCG/ML 2 ML AMP IV PRN
[2023-01-12 09:03] VITALS: TEMP 97.3
[2023-01-12 09:23] LABS: Glucose,Whole Blood 104 mg/dL (70-110)
[2023-01-12] MEDS ORDERED: MIDAZOLAM 2 MG/2 ML VIAL IVP ONE (09:30)
[2023-01-12] MEDS ORDERED: fentaNYL (PF) 50 MCG/ML 2 ML AMP IVP ONE (09:31)
[2023-01-12 09:49] VITALS: RESP 16
[2023-01-12] MEDS ORDERED: ROPIVACAINE 5 MG/ML 30 ML VIAL ONE (10:20)
[2023-01-12] MEDS ORDERED: ROCURONIUM 10 MG/ML (5 ML VIAL) IV ONE (10:20)
[2023-01-12] MEDS ORDERED: LIDOCAINE 2% INJ 20 MG/ML (2 ML VIAL) ONE (10:20)
[2023-01-12] MEDS ORDERED: NEOSTIGMINE 1 MG/ML 10 ML VIAL ONE (10:20)
[2023-01-12] MEDS ORDERED: HYDROmorphone (PF) 1 MG/ML ONE (10:20)
[2023-01-12] MEDS ORDERED: LIDOCAINE 4% LTA KIT (4 ML) TOPICAL ONE (10:20)
[2023-01-12] MEDS ORDERED: fentaNYL (PF) 50 MCG/ML 2 ML AMP ONE (10:20)
[2023-01-12] MEDS ORDERED: SODIUM CHLORIDE 0.9% (PF) 10 ML VIAL ONE (10:20)
[2023-01-12] MEDS ORDERED: SUCCINYLCHOLINE CHLORIDE 200 MG/10 ML VIAL IV ONE (10:20)
[2023-01-12] MEDS ORDERED: GLYCOPYRROLATE 0.2 MG/ML 2 ML VIAL ONE (10:20)
[2023-01-12] MEDS ORDERED: PROPOFOL 10 MG/ML 20 ML VIAL IV ONE (10:20)
--- NOTE | 2023-01-12 10:45 | P.ANPRN ---
Procedure Note - Anesthesia - Nerve Block Performed Bilateral Rectus Abdominis Single Time Out Performed: Yes Date of Procedure: 01/12/23 Procedure Start Time: :30 Procedure Stop Time: :38 Location of Patient: PreOp Indication: Acute Post-Operative Pain, Requested by Surgeon Sedation Type: Sedate with meaningful contact maintained Preparation: Sterile Prep Position: Supine Needle Types: Pajunk Needle Gauge: 21 Ultrasound used to visualize needle placement: Yes Ultrasound used to observe medication spread: Yes Injectate: Other (see comment) (0.25% ropivicaine 20 ml left, 20 ml right) Blood Aspirated: No Pain Paresthesia on Injection Noted: No Resistance on Injection: Normal Events: Uneventful and Well Tolerated
[2023-01-12] MEDS: HYDROmorphone 0.5 MG/0.5 ML SYRINGE IVP PRN ×2 (11:25→11:41)
[2023-01-12] MEDS ORDERED: LACTATED RINGERS 1,000 ML IV ONE (12:22)
[2023-01-12] MEDS ORDERED: KETOROLAC 15 MG/ML 1 ML VIAL ONE (13:03)
[2023-01-12 13:05] VITALS: BP 126/76; PULSE 89
--- NOTE | 2023-01-22 11:47 | P.OP ---
Date of Procedure: 01/12/23 Preoperative Diagnosis: Incisional hernia Postoperative Diagnosis: Incisional hernia Procedure(s) Performed: Open repair of incisional hernia with onlay Prolene mesh Anesthesia: DELMA Surgeon: Dillon Alvarado Estimated Blood Loss (ml): 10 Pathology: none sent Condition: stable Disposition: PACU Operative Findings: In by 4 cm fascial defect Prolene onlay mesh repair Description of Procedure: The patient's placed on the operative table in the supine position she received general endotracheal tube anesthesia. Her abdomen was prepped and draped in usual sterile fashion. The patient had a incisional hernia located in the upper midline position. The skin was incised over the hernia. Then using the electrocautery the subcutaneous tissue divided off of the hernia. The hernia defect measured approximately 10 x 4 cm. The fascial defect was then closed using interrupted 0 Ethibond suture. After the fascial repair was performed previously a piece of Prolene mesh was placed on top of the fascia and secured with secure strap tacker. A DANILO drains placed over top of the mesh and brought through separate stab incision. The deep layer was closed with 0 Vicryl. Skin was closed with cortez. Patient tolerated procedure well and sent to recovery room stable condition.
== END 2023-01-12 14:05 | disposition home or self-care (01) ==
LOC: OR 08:25
PROVIDERS: ATTEND Surgery
DX: K43.2 Incisional hernia without obstruction or gangrene (principal); G89.18 Other acute postprocedural pain; J44.9 Chronic obstructive pulmonary disease, unspecified; E78.5 Hyperlipidemia, unspecified; K21.9 Gastro-esophageal reflux disease without esophagitis; F41.9 Anxiety disorder, unspecified; F32.A Depression, unspecified; M19.90 Unspecified osteoarthritis, unspecified site; E11.9 Type 2 diabetes mellitus without complications; F17.200 Nicotine dependence, unspecified, uncomplicated; F12.90 Cannabis use, unspecified, uncomplicated; Z87.39 Personal history of other diseases of the musculoskeletal system and connective tissue; Z98.84 Bariatric surgery status; Z98.0 Intestinal bypass and anastomosis status; Z90.49 Acquired absence of other specified parts of digestive tract; Z88.1 Allergy status to other antibiotic agents; Z88.8 Allergy status to other drugs, medicaments and biological substances; Z79.01 Long term (current) use of anticoagulants; Z79.82 Long term (current) use of aspirin; Z79.84 Long term (current) use of oral hypoglycemic drugs; Z79.51 Long term (current) use of inhaled steroids; Z79.899 Other long term (current) drug therapy
CPT/HCPCS: 81025; 64488; 49593; C1781; J2250; J0330; J1100; J2710; J0690; J2405; J3010; J1170 ×2; J2795; J1885; J2704; J1644; J2001

== ENCOUNTER → 2023-01-27 | Outpatient (CLI) | payer MEDICARE, OTHER ==
[2023-01-27 11:25] VITALS: BP 102/59; PULSE 86; RESP 17; TEMP 98.3
--- NOTE | 2023-01-27 12:11 | P.HPOB ---
History of Present Illness H&P Date: 01/27/23 Chief Complaint: The patient is here for her routine gynecologic exam and ma mmogram. This is a 52-year-old with an LMP of 2014. She is status post tubal ligation. She has been amenorrheic since her 2015 endometrial ablation. She denies any vaginal bleeding. She was found to have a small amount of endometrial fluid by a CT scan of the aorta on 03/04/2022. Pelvic ultrasound was done shortly thereafter and also showed small amount of endometrial fluid. She is without gynecologic complaints Review of Systems The patient has gained 13 pounds over the last year. She denies respiratory, cardiac, or G.I. problems. Past Medical History Past Medical History: Blood Disorder, COPD, Diabetes Mellitus, GERD/Reflux, Hyperlipidemia, Osteoarthritis (OA), Skin Disorder, Sleep Apnea/CPAP/BIPAP Additional Past Medical History / Comment(s): Type 2 diabetes, restless leg syndrome, osteopenia. STRESS HIVES. DDD, SPINAL STENOSIS, Recurrent abdominal HERNIA, BILATERAL PLANTAR FASCIITIS, CHRONIC UTI'S, OCCULAR HYPERTENSION , HX STOMACH ULCERS, IBS. 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 History of Any Multi-Drug Resistant Organisms: None Reported Past Surgical History: Back Surgery, Bariatric Surgery, Breast Surgery, Section, Cholecystectomy, Hernia Repair, Orthopedic Surgery, Tubal Ligation, Uterine Ablation Additional Past Surgical History / Comment(s): 09/19/20 LEFT HAND SURGERY @ [facility]. EGD WITH DILATION, REVISION OF GASTROJEJUNOSTOMY, HX GASTRIC BYPASS, RT GANGLION CYST , LEFT THUMB TRIGGER FINGER, CARPAL TUNNEL ALYSON AND REVISION. BENIGN CYSTS REMOVED FROM OVARY, PILONIDAL CYST SURGERY , MULTIPLE. D&C's, C- SECTION X2, WRIST TENDONITIS SURGERY. Pain Injections. Endometrial ablation 2014. DECOMPRESSION BACK SURGERY L-4 & L-5 AND FUSION L5 & S1 MAR 2019, 2021 ALYSON BREAST REDUCTION. MULTIPLE ABDOMINAL HERNIA SURGERIES, "2 cysts removed from rectum", RT SI FUSION 11/18/22 Past Anesthesia/Blood Transfusion Reactions: No Reported Reaction Additional Past Anesthesia/Blood Transfusion Reaction / Comment(s): . Past Psychological History: Anxiety, Bipolar, Depression Additional Psychological History / Comment(s): . Smoking Status: Current every day smoker (Half a pack per day.) Past Alcohol Use History: None Reported Additional Past Alcohol Use History / Comment(s): STARTED SMOKING AT AGE 15 down to 6 cigarettes daily Past Drug Use History: None Reported, Marijuana (About 2 times per month.) Additional Drug Use History / Comment(s): CBD oil, edibles - Past Family History Sister(s) Family Medical History: Cancer Additional Family Medical History / Comment(s): Rectal and lung cancer. 3 sisters and a neice with factor V. Brother(s) Family Medical History: Cancer, Deep Vein Thrombosis (DVT) Additional Family Medical History / Comment(s): NON-HODGKIN'S LYMPHOMA. 3 other brothers had a Factor V Leiden mutation. Mother Family Medical History: Cancer, Congestive Heart Failure (CHF) Additional Family Medical History / Comment(s): NON-HODGKIN'S LYMPHOMA. Father Family Medical History: Congestive Heart Failure (CHF) Daughter(s) Family Medical History: Blood Disorder Additional Family Medical History / Comment(s): Factor V. Medications and Allergies Home Medications Medication Instructions Recorded Confirmed Type hydrOXYzine HCL [Atarax] 25 mg PO TID PRN 08/02/19 01/27/23 History Cariprazine HCl [Vraylar] 1.5 mg PO QAM 09/09/19 01/27/23 History Albuterol Sulfate [Proair Hfa] 1 puff INHALATION BID 12/03/20 01/27/23 History Fluticasone Nasal [place] [Flonase 1 spr NASAL BID PRN 11/12/21 01/27/23 History Nasal [place]] Aspirin [Adult Low Dose Aspirin EC] 81 mg PO DAILY 12/09/21 01/27/23 History Atorvastatin [Lipitor] 80 mg PO HS 12/20/21 01/27/23 History Ergocalciferol [Vitamin D2 (1250 1,250 mcg PO SÁNCHEZ 05/19/22 01/27/23 History Mcg = 81961 Iu)] Cyclobenzaprine [Flexeril] 5 mg PO TID PRN 11/12/22 01/27/23 History Butalb/Acetaminophen/Caffeine 1 tab PO DAILY PRN 11/18/22 01/27/23 History [Esgic 50-325-40 Capsule] Gabapentin [Neurontin] 300 mg PO TID 11/18/22 01/27/23 History metFORMIN HCL [Glucophage] 500 mg PO BID 11/18/22 01/27/23 History Omeprazole 20 mg PO DAILY 01/08/23 01/27/23 History Rivaroxaban [Xarelto] 10 mg PO DAILY 01/08/23 01/27/23 History Acetaminophen Tab [Tylenol] 650 mg PO Q6H #30 tab 01/12/23 01/27/23 Rx Docusate [Colace] 100 mg PO BID #20 capsule 01/12/23 01/27/23 Rx Ibuprofen [Motrin] 600 mg PO Q6HR PRN #40 tab 01/12/23 01/27/23 Rx Allergies Allergy/AdvReac Type Severity Reaction Status Date / Time cephalexin [From Keflex] Allergy rectal Verified 01/27/23 11:22 bleeding Cephalosporins AdvReac RECTAL Verified 01/27/23 11:22 BLEEDING famotidine [From Pepcid] AdvReac Confusion Verified 01/27/23 11:22 lurasidone [From Latuda] AdvReac SUICIDAL Verified 01/27/23 11:22 THOUGHTS olanzapine [From Zyprexa] AdvReac WEIGHT GAIN Verified 01/27/23 11:22 Exam Vital Signs Temp Pulse Resp BP Pulse Ox 01/27/23 11:22 98.3 F 86 17 102/59 96 Intake and Output 01/26/23 01/27/23 01/27/23 22:59 06:59 14:59 Other: Weight 88.451 kg Height 4 feet 11 inches, weight 195 pounds, BMI 39.4. This is a well-developed well-nourished heavyset female who is alert and oriented times 3 in no acute distress. HEENT: Within normal limits. NECK: Supple without mass or thyromegaly. CHEST AND LUNGS: Clear to auscultation. HEART: Regular rate and rhythm. BREASTS: Are without mass or discharge. AXILLARY EXAM: Negative for adenopathy. BACK: Negative for CVA tenderness. ABDOMEN: Soft, obese, nontender, without palpable masses. There are cortez in her upper midline incision which seems to be healing well from her recent hernia surgery. PELVIC EXAM: Normal external genitalia. Cervix and vagina appear normal. There is no unusual discharge. There is no evidence of prolapse. The uterus is midposition, nongravid size and nontender. There are no palpable adnexal masses or tenderness. Bimanual examination is somewhat limited secondary to her size per RECTAL EXAM: Rectovaginal exam is negative for mass or tenderness and is negative for occult blood. EXTREMITIES: Nontender. IMPRESSION: 1. 52-year-old perimenopausal female status post endometrial ablation with resulting amenorrhea, with normal gynecologic exam. 2. History of osteopenia. 3. History of small endometrial fluid noted by CTA and pelvic ultrasound in 2021. This was an incidental finding. This may be related to her previous endometrial ablation. PLAN: 1. Pap smear was deferred since she had a negative Pap smear cotest on 11/12/2021. 2. Self breast awareness was discussed with the patient. We have also discussed symptoms associated with inflammatory breast cancer. 3. Screening mammogram will be done today. 4. Osteoporosis prevention was discussed. I have stressed the importance of adequate calcium, vitamin D and regular exercise. Recommended amounts of calcium and vitamin D were also discussed. Bone density test will be done today. 5. I recommended a follow-up pelvic ultrasound because of her endometrial fluid noted by CTA and pelvic ultrasound last year. The order slip was given to the patient for this. 6. She was advised to return in one year for her annual well woman exam.
--- NOTE | 2023-01-27 13:55 | MM ---
Reason for Exam: Screening (asymptomatic). Last screening mammogram was performed 12 month(s) ago. Patient History: Menarche at age 13. First Full-Term at age 23. 08/12/2021, Bilateral Reduction. Maternal cousin had breast cancer. Maternal aunt (Sarah) had breast cancer. Maternal aunt (Jimena) had breast cancer. Maternal aunt (Kathy) had breast cancer. Maternal aunt (Regine) had breast cancer. Maternal aunt had breast cancer. Risk Values: Sunitha 5 year model risk: 0.9%. NCI Lifetime model risk: 8.8%. Prior Study Comparison: 12/13/2019 Bilateral Screening Mammogram, [facility]. 01/17/2021 Bilateral Screening Mammogram, [facility]. 01/23/2022 Bilateral MG 3D screening mammo w/cad, [facility]. Tissue Density: There are scattered fibroglandular densities. Findings: Analyzed By CAD. Right breast grouped calcifications: MLO view are new from prior exam in 22 located 6.3 cm from the nipple on MLO view. Additional site of grouped calcifications laterally on CC view 6.1 cm nipple also present. Left breast: There is no suspicious group of microcalcifications or new suspicious mass in either breast. Overall Assessment: Incomplete: need additional imaging evaluation, BI-RAD 0 Management: Diagnostic Mammogram of the right breast. [facility] will attempt to contact patient to return for supplemental views and ultrasound if indicated. Patient should continue monthly self-breast exams. A clinical breast exam by your physician is recommended on an annual basis. This exam should not preclude additional follow-up of suspicious palpable abnormalities. Note on Sunitha scores and lifetime risk: 1. A Sunitha score greater than 3% is considered moderate risk. If this is the case, consider specialist referral to assess eligibility for a risk reducing agent. 2. If overall lifetime risk for the development of breast cancer is 20% or higher, the patient may qualify for future screening with alternating mammogram and breast MRI. Electronically signed and approved by: Luis Alberto Reinoso DO
== END ==
LOC: WWCWWP 11:15
PROVIDERS: ATTEND Obstetrics & Gynecology
DX: Z12.31 Encounter for screening mammogram for malignant neoplasm of breast (principal); N95.1 Menopausal and female climacteric states; E11.9 Type 2 diabetes mellitus without complications; D68.51 Activated protein C resistance; E78.5 Hyperlipidemia, unspecified; G25.81 Restless legs syndrome; G47.30 Sleep apnea, unspecified; I10 Essential (primary) hypertension; J44.9 Chronic obstructive pulmonary disease, unspecified; K21.9 Gastro-esophageal reflux disease without esophagitis; K58.9 Irritable bowel syndrome, unspecified; M19.90 Unspecified osteoarthritis, unspecified site; M85.80 Other specified disorders of bone density and structure, unspecified site; Z79.01 Long term (current) use of anticoagulants; Z79.84 Long term (current) use of oral hypoglycemic drugs; Z80.3 Family history of malignant neoplasm of breast; Z87.11 Personal history of peptic ulcer disease; Z88.1 Allergy status to other antibiotic agents; Z87.440 Personal history of urinary (tract) infections; Z90.49 Acquired absence of other specified parts of digestive tract; Z90.721 Acquired absence of ovaries, unilateral; Z98.84 Bariatric surgery status; Z99.89 Dependence on other enabling machines and devices; Z87.891 Personal history of nicotine dependence; Z79.51 Long term (current) use of inhaled steroids; Z88.4 Allergy status to anesthetic agent; Z88.8 Allergy status to other drugs, medicaments and biological substances
CPT/HCPCS: 77063; 77067

== ENCOUNTER → 2023-01-29 | Outpatient (CLI) | payer MEDICARE, OTHER ==
--- NOTE | 2023-01-29 08:11 | MM ---
Reason for Exam: Additional evaluation requested from abnormal screening. Last screening mammogram was performed less than 1 month ago. Patient History: Menarche at age 13. First Full-Term at age 23. 08/12/2021, Bilateral Reduction. Maternal cousin had breast cancer. Maternal aunt (Sarah) had breast cancer. Maternal aunt (Jimena) had breast cancer. Maternal aunt (Kathy) had breast cancer. Maternal aunt (Regine) had breast cancer. Maternal aunt had breast cancer. Risk Values: Sunitha 5 year model risk: 0.9%. NCI Lifetime model risk: 8.8%. Tissue Density: Right: There are scattered fibroglandular densities. Findings: Analyzed By CAD. Interval bilateral breast reductions noted. Round area of central fat density 2:00 right breast suspected fat necrosis. Associated peripheral calcifications likely early developing fat necrosis calcifications. Small grouped heterogeneous calcifications 9:00 right breast probably fat necrosis calcification as well. Asymmetric density lateral posterior right breast incompletely disperses on 3-D images but may correspond to postsurgical change. 6 month follow-up to reassess these findings. Overall Assessment: Probably benign, BI-RAD 3 Management: Diagnostic Mammogram of the right breast in 6 months. Results were given to the patient verbally at the time of exam. Patient should continue monthly self-breast exams. A clinical breast exam by your physician is recommended on an annual basis. This exam should not preclude additional follow-up of suspicious palpable abnormalities. Note on Sunitha scores and lifetime risk: 1. A Sunitha score greater than 3% is considered moderate risk. If this is the case, consider specialist referral to assess eligibility for a risk reducing agent. 2. If overall lifetime risk for the development of breast cancer is 20% or higher, the patient may qualify for future screening with alternating mammogram and breast MRI. Electronically signed and approved by: Holden Michel M.D. Radiologist
== END | disposition home or self-care (01) ==
LOC: RADMAMWWP 07:37
PROVIDERS: ATTEND Obstetrics & Gynecology
DX: R92.8 Other abnormal and inconclusive findings on diagnostic imaging of breast (principal); Z80.3 Family history of malignant neoplasm of breast
CPT/HCPCS: 77061; 77065

== ENCOUNTER → 2023-03-19 | Outpatient (CLI) | payer MEDICARE, OTHER ==
--- NOTE | 2023-03-19 15:50 | US ---
EXAMINATION TYPE: US pelvis complete transvag DATE OF EXAM: 03/19/2023 COMPARISON: Pelvic ultrasound 03/21/2022 CLINICAL INDICATION: Female, 52 years old with history of N93.8 vaginal/uterine bleed; follow up flu id in endometrium. History endometrial ablation and tubal ligation with clips TECHNIQUE: Transvaginal (TV) and Transabdominal (TA) . Transabdominal sonographic images of the pel vis were acquired. 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 Uterus: Anteverted Heterogenous. 2. Endometrium: Fluid visualized within endometrial canal 3. Right Ovary: Obscured by overlying bowel gas 4. Left Ovary: Obscured by overlying bowel gas 5. Bilateral Adnexa: wnl 6. Posterior cul-de-sac: no free fluid Heterogenous anteverted uterus. Endometrium demonstrates small amount of fluid. Normal thickness. Bot h ovaries are obscured by overlying bowel gas. No free fluid. Right tubal ligation clip identified. IMPRESSION: Small amount of fluid redemonstrated within the endometrium.
--- NOTE | 2023-03-19 19:50 | BD ---
EXAMINATION TYPE: Axial Bone Density DATE OF EXAM: 03/19/2023 CLINICAL HISTORY: 52 years old Female. ICD-10 CODE: Z78.0 MENOPAUSAL STATE Height: 58.5in Weight: 191lb FRAX RISK QUESTIONS: Secondary Osteoporosis: 3. Menopause before 45: yes Current Tobacco Use: yes RISK FACTORS HISTORY OF: Surgery to Spine/Hip(right/left)/Wrist (right/left): lumbar fusion 2016, cervical fusion 2019, bruno ca rpal tunnel, left trapeziotomy When: Family History of Osteoporosis: yes Active: yes Postmenopausal woman: yes Lost more than 2 inches in height since high school: yes Poor Health: fair MEDICATIONS: Additional Medications: metformin, ozempic, cholesterol med, vitamin d, reflux med Additional History: right SI joint fusion, diabetic EXAM MEASUREMENTS: Bone mineral densitometry was performed using the Rezolve System. Bone mineral density about the R hip (g/cm2): 0.875 Bone mineral density about the L hip (g/cm2): 0.885 T Score values are as follows: -----R Neck: -2.5 -----L Neck: -2.4 -----R Total: -1.1 -----L Total: -1.0 Z Score values are as follows: -----R Neck: -2.2 -----L Neck: -2.1 -----R Total: -1.1 -----L Total: -1.0 Bone mineral density has: Increased 4.6% since study of: 11-26-2018 FRAX%s: The graph provided illustrates a 6.8% chance for a major osteoporotic fx and a 2.2% chance fo r the hips probability for fx in 10 years time. IMPRESSION: Osteopenia (T Score between -2.5 and -1). There is slightly increased risk of fracture and the patient may be considered for treatment. Re-Screen 2-5 years. NOTE: T-SCORE=SD OF THE YOUNG ADULT MEAN.
--- NOTE | 2023-03-25 13:43 | P.PN ---
Progress Note - Text Progress Note Date: 03/25/23 OUTPATIENT FOLLOW-UP NOTE TEST(S)/RESULTS: Test results from 03/19/2023 include pelvic ultrasound which showed a small amount of endometrial fluid which was previously seen on a previous ultrasound. The endometrial thickness was 2 mm. Bone density test shows osteopenia with slight improvement from her previous 2019 bone density test. METHOD OF NOTIFICATION: The patient was notified by phone. PATIENT COMMENTS: The patient states she believes she accidentally threw away the order slip for her unilateral diagnostic mammogram that was due in July 2023. DIAGNOSIS: Osteopenia. Stable postmenopausal endometrial fluid possibly related to her past endometrial ablation DISCUSSION: I stressed the importance of adequate calcium, vitamin D, and regular exercise. We will plan on repeating the bone density test in 2 years. We will continue to do yearly pelvic ultrasounds because of the endometrial fluid. PLAN: As above. Right diagnostic mammogram in July 2023. Another order slip will be mailed to the patient for this. She will return in January 2024 for her annual well woman examination.
== END | disposition home or self-care (01) ==
LOC: RADUSWWP 13:50
PROVIDERS: ATTEND Obstetrics & Gynecology
DX: M81.0 Age-related osteoporosis without current pathological fracture (principal); M85.89 Other specified disorders of bone density and structure, multiple sites; N93.8 Other specified abnormal uterine and vaginal bleeding; E11.9 Type 2 diabetes mellitus without complications; Z78.0 Asymptomatic menopausal state
CPT/HCPCS: 76830; 76856; 77080

== ENCOUNTER → 2023-03-19 | Outpatient (CLI) | payer MEDICARE, OTHER ==
--- NOTE | 2023-03-19 14:01 | XR ---
EXAMINATION TYPE: XR chest 2V DATE OF EXAM: 03/19/2023 1:52 PM COMPARISON: Chest radiographs from 11/05/2022 TECHNIQUE: XR chest 2V Frontal and lateral views of the chest. CLINICAL INDICATION:Female, 52 years old with history of R91.1 SPN; FINDINGS: Lungs/Pleura: There is no evidence of pleural effusion, focal consolidation, or pneumothorax. Mild h yperinflation with flattening of the hemidiaphragms. Pulmonary vascularity: Unremarkable. Heart/mediastinum: Cardiomediastinal silhouette is unremarkable. Musculoskeletal: No acute osseous pathology. Cervical fusion hardware. IMPRESSION: 1. No acute cardiopulmonary disease process. Known right lower lobe pulmonary nodule is not well appr eciated on radiograph. Consider CT chest for further evaluation as clinically indicated. 2. COPD changes.
== END | disposition home or self-care (01) ==
LOC: RADXRMAIN 13:33
PROVIDERS: ATTEND Internal Medicine Sleep Medicine
DX: J44.9 Chronic obstructive pulmonary disease, unspecified (principal); R91.1 Solitary pulmonary nodule
CPT/HCPCS: 71046

== ENCOUNTER 2023-06-14 20:22 | Emergency (ER) | payer MEDICARE, OTHER ==
[2023-06-14 20:35] VITALS: TEMP 98.2
--- NOTE | 2023-06-14 20:49 | ED ---
General Adult HPI - General Chief complaint: Fall Stated complaint: rib pain- fall Time Seen by Provider: 06/14/23 20:42 Source: patient, RN notes reviewed, old records reviewed Mode of arrival: wheelchair Limitations: no limitations - History of Present Illness Initial comments: 53-year-old female with right-sided rib pain after fall. Patient fell on wet steps, injuring both her low back, right lateral chest wall and right shoulder. No significant head or neck trauma. No loss conscious. No anticoagulation. - Related Data Home Medications Medication Instructions Recorded Confirmed hydrOXYzine HCL [Atarax] 25 mg PO TID PRN 08/02/19 01/27/23 Cariprazine HCl [Vraylar] 1.5 mg PO QAM 09/09/19 01/27/23 Albuterol Sulfate [Proair Hfa] 1 puff INHALATION BID 12/03/20 01/27/23 Fluticasone Nasal Olar [Flonase 1 spr NASAL BID PRN 11/12/21 01/27/23 Nasal Olar] Aspirin [Adult Low Dose Aspirin EC] 81 mg PO DAILY 12/09/21 01/27/23 Atorvastatin [Lipitor] 80 mg PO HS 12/20/21 01/27/23 Ergocalciferol [Vitamin D2 (1250 1,250 mcg PO SÁNCHEZ 05/19/22 01/27/23 Mcg = [id number] Iu)] Cyclobenzaprine [Flexeril] 5 mg PO TID PRN 11/12/22 01/27/23 Butalb/Acetaminophen/Caffeine 1 tab PO DAILY PRN 11/18/22 01/27/23 [Esgic 50-325-40 Capsule] Gabapentin [Neurontin] 300 mg PO TID 11/18/22 01/27/23 metFORMIN HCL [Glucophage] 500 mg PO BID 11/18/22 01/27/23 Omeprazole 20 mg PO DAILY 01/08/23 01/27/23 Rivaroxaban [Xarelto] 10 mg PO DAILY 01/08/23 01/27/23 Previous Rx's Medication Instructions Recorded Acetaminophen Tab [Tylenol] 650 mg PO Q6H #30 tab 01/12/23 Docusate [Colace] 100 mg PO BID #20 capsule 01/12/23 Ibuprofen [Motrin] 600 mg PO Q6HR PRN #40 tab 01/12/23 HYDROcodone/APAP 7.5-325MG [Marshall 1 tab PO Q6HR PRN 3 Days #12 tab 06/14/23 7.5-325] Allergies Allergy/AdvReac Type Severity Reaction Status Date / Time cephalexin [From Keflex] Allergy rectal Verified 06/14/23 20:25 bleeding Cephalosporins AdvReac RECTAL Verified 06/14/23 20:25 BLEEDING famotidine [From Pepcid] AdvReac Confusion Verified 06/14/23 20:25 lurasidone [From Latuda] AdvReac SUICIDAL Verified 06/14/23 20:25 THOUGHTS olanzapine [From Zyprexa] AdvReac WEIGHT GAIN Verified 06/14/23 20:25 Review of Systems ROS Statement: Those systems with pertinent positive or pertinent negative responses have been documented in the HPI. ROS Other: All systems not noted in ROS Statement are negative. Past Medical History Past Medical History: Blood Disorder, COPD, Diabetes Mellitus, GERD/Reflux, Hyperlipidemia, Osteoarthritis (OA), Skin Disorder, Sleep Apnea/CPAP/BIPAP Additional Past Medical History / Comment(s): Type 2 diabetes, restless leg syndrome, osteopenia. STRESS HIVES. DDD, SPINAL STENOSIS, Recurrent abdominal HERNIA, BILATERAL PLANTAR FASCIITIS, CHRONIC UTI'S, OCCULAR HYPERTENSION , HX STOMACH ULCERS, IBS. 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 History of Any Multi-Drug Resistant Organisms: None Reported Past Surgical History: Back Surgery, Bariatric Surgery, Breast Surgery, Section, Cholecystectomy, Hernia Repair, Orthopedic Surgery, Tubal Ligation, Uterine Ablation Additional Past Surgical History / Comment(s): 09/19/20 LEFT HAND SURGERY @ [facility]. EGD WITH DILATION, REVISION OF GASTROJEJUNOSTOMY, HX GASTRIC BYPASS, RT GANGLION CYST , LEFT THUMB TRIGGER FINGER, CARPAL TUNNEL [facility] AND REVISION. BENIGN CYSTS REMOVED FROM OVARY, PILONIDAL CYST SURGERY , MULTIPLE. D&C's, C- SECTION X2, WRIST TENDONITIS SURGERY. Pain Injections. Endometrial ablation 2014. DECOMPRESSION BACK SURGERY L-4 & L-5 AND FUSION L5 & S1 MAR 2019, 2021 [facility] BREAST REDUCTION. MULTIPLE ABDOMINAL HERNIA SURGERIES, "2 cysts removed from rectum", RT SI FUSION 11/18/22 Past Anesthesia/Blood Transfusion Reactions: No Reported Reaction Additional Past Anesthesia/Blood Transfusion Reaction / Comment(s): . Past Psychological History: Anxiety, Bipolar, Depression Smoking Status: Current every day smoker Past Alcohol Use History: None Reported Past Drug Use History: None Reported, Marijuana - Past Family History Sister(s) Family Medical History: Cancer Additional Family Medical History / Comment(s): Rectal and lung cancer. 3 sisters and a neice with factor V. Brother(s) Family Medical History: Cancer, Deep Vein Thrombosis (DVT) Additional Family Medical History / Comment(s): NON-HODGKIN'S LYMPHOMA. 3 other brothers had a Factor V Leiden mutation. Mother Family Medical History: Cancer, Congestive Heart Failure (CHF) Additional Family Medical History / Comment(s): NON-HODGKIN'S LYMPHOMA. Father Family Medical History: Congestive Heart Failure (CHF) Daughter(s) Family Medical History: Blood Disorder Additional Family Medical History / Comment(s): Factor V. General Exam Limitations: no limitations General appearance: alert, in no apparent distress Head exam: Present: atraumatic, normocephalic ENT exam: Present: normal exam Neck exam: Present: normal inspection. Absent: tenderness, meningismus Respiratory exam: Present: normal lung sounds bilaterally, chest wall tenderness. Absent: respiratory distress Cardiovascular Exam: Present: regular rate, normal rhythm GI/Abdominal exam: Present: soft. Absent: distended, tenderness, guarding Extremities exam: Absent: full ROM (Decreased Range of motion of the right shoulder secondary to pain) Back exam: Present: paraspinal tenderness (Lumbar) Neurological exam: Present: alert, oriented X3, CN II-XII intact. Absent: motor sensory deficit Psychiatric exam: Present: normal affect, normal mood Skin exam: Present: warm, dry, intact Course Vital Signs 06/14/23 20:26 Temperature 98.2 F Pulse Rate 101 H Respiratory 18 Rate Blood Pressure 116/83 O2 Sat by Pulse 98 Oximetry Medical Decision Making - Medical Decision Making 53-year-old female status post mechanical fall with right lateral rib pain and right shoulder pain and low back pain. Was pt. sent in by a medical professional or institution (, PA, PANEL MAKER, urgent care, hospital, or fdc...) When possible be specific @ -No Did you speak to anyone other than the patient for history (EMS, parent, family, police, friend...)? What history was obtained from this source @ -No Did you review nursing and triage notes (agree or disagree)? Why? @ -I reviewed and agree with nursing and triage notes Were old charts reviewed (outside hosp., previous admission, EMS record, old EKG, old radiological studies, urgent care reports/EKG's, fdc records)? Report findings @ -No old charts were reviewed Differential Diagnosis (chest pain, altered mental status, abdominal pain women, abdominal pain men, vaginal bleeding, weakness, fever, dyspnea, syncope, headache, dizziness, GI bleed, back pain, seizure, CVA, palpatations, mental health, musculoskeletal)? @Trichomoniasis injury after mechanical fall EKG interpreted by me (3pts min.). @ -As above X-rays interpreted by me (1pt min.). @ -X-rays were performed of the ribs, chest, right shoulder and lumbosacral spine. There is no acute bony abdomen, no fracture dislocation, no pneumothorax. No traumatic injury identified on x-ray. CT interpreted by me (1pt min.). @ -None done U/S interpreted by me (1pt. min.). @ -None done What testing was considered but not performed or refused? (CT, X-rays, U/S, labs)? Why? @ -None What meds were considered but not given or refused? Why? @ -None Did you discuss the management of the patient with other professionals (professionals i.e. , PA, PANEL MAKER, lab, RT, psych nurse, social scientist, mine safety director, teacher, campus police officer, case packer and sealer)? Give summary @ -No Was smoking cessation discussed for >3mins.? @ -No Was critical care preformed (if so, how long)? @ -No Were there social determinants of health that impacted care today? How? (Homelessness, low income, unemployed, alcoholism, drug addiction, transportation, low edu. Level, literacy, decrease access to med. care, fdc, rehab)? @ -No Was there de-escalation of care discussed even if they declined (Discuss DNR or withdrawal of care, Hospice)? DNR status @ -No What co-morbidities impacted this encounter? (DM, HTN, Smoking, COPD, CAD, Cancer, CVA, ARF, Chemo, Hep., AIDS, mental health diagnosis, sleep apnea, morbid obesity)? @ -[COPD, lumbosacral surgery Was patient admitted / discharged? Hospital course, mention meds given and route, prescriptions, significant lab abnormalities, going to OR and other pertinent info. @ -53-year-old female status post fall. Patient's chief complaint is lateral chest wall pain. X-ray negative for displaced fracture. She also had right shoulder and right lumbar paraspinal pain. These x-rays were also negative. Patient will be prescribed Marshall for pain. She's given strict return parameters and she will follow closely with her primary care provider. Undiagnosed new problem with uncertain prognosis? @ -No Drug Therapy requiring intensive monitoring for toxicity (Heparin, Nitro, Insulin, Cardizem)? @ -No Were any procedures done? @ -No Diagnosis/symptom? @Rib contusion status post fall Acute, or Chronic, or Acute on Chronic? @ -[Acute Uncomplicated (without systemic symptoms) or Complicated (systemic symptoms)? @ -default Side effects of treatment? @ -No Exacerbation, Progression, or Severe Exacerbation? @ -No Poses a threat to life or bodily function? How? (Chest pain, USA, NV, pneumonia, PE, COPD, DKA, ARF, appy, cholecystitis, CVA, Diverticulitis, Homicidal, Suicidal, threat to staff... and all critical care pts) @ -[Low risk at this time Disposition Clinical Impression: Fall, Contusion of rib on right side Disposition: HOME SELF-CARE Condition: Fair Instructions (If sedation given, give patient instructions): Fall Prevention (ED), Rib Contusion (ED) Prescriptions: HYDROcodone/APAP 7.5-325MG [Marshall 7.5-325] 1 tab PO Q6HR PRN 3 Days #12 tab PRN Reason: Pain Is patient prescribed a controlled substance at d/c from ED?: No Referrals: Deric Ortiz MD [Primary Care Provider] - 1-2 days Time of Disposition: 21:33
--- NOTE | 2023-06-14 21:13 | XR ---
EXAMINATION TYPE: XR shoulder limited RT DATE OF EXAM: 06/14/2023 9:02 PM CLINICAL INDICATION:Female, 53 years old with history of fall; [facility] COMPARISON: None TECHNIQUE: XR shoulder limited RT; shoulder was examined in AP, internally rotated and scapular Y pr ojections. FINDINGS: No evidence of acute osseous pathology, joint dislocation, or soft tissue swelling. The remaining po rtions of the visualized chest are unremarkable. IMPRESSION: No acute osseous pathology.
--- NOTE | 2023-06-14 21:15 | XR ---
EXAMINATION TYPE: XR lumbosacral spine min 4V DATE OF EXAM: 06/14/2023 9:08 PM CLINICAL INDICATION:Female, 53 years old with history of fall; [facility] COMPARISON: 04/01/2019. TECHNIQUE: XR lumbosacral spine min 4V - Frontal, lateral and coned in L5-S1 lateral views of the spi ne. FINDINGS: No evidence of any acute osseous pathology. No evidence of loss of vertebral body height i s seen. There is normal alignment of the lumbar vertebral bodies. Mild degeneration changes with oste ophyte and facet joint arthropathy. Fixation changes to the right sacroiliac joint in the L5-S1 disc space. Hardware appears intact. Atherosclerosis of the arterial vasculature. Upper quadrant cholecyst ectomy clips. Surgical clips around the gastroesophageal junction. IMPRESSION: 1. No acute fracture. 2. Postsurgical changes with mild multilevel disc degeneration. Hardware appears intact.
--- NOTE | 2023-06-14 21:17 | XR ---
EXAMINATION TYPE: XR ribs RT w pa chest xray DATE OF EXAM: 06/14/2023 9:02 PM CLINICAL INDICATION:Female, 53 years old with history of fall COMPARISON: 03/19/2023 TECHNIQUE: XR ribs RT w pa chest xray; Frontal and oblique views of the ribs with frontal chest radio graph. FINDINGS: The ribs have a normal appearance. No evidence of fracture. Overall, the lungs are clear. The cardiac silhouette is normal in size. The remaining osseous structures are intact. IMPRESSION: No acute osseous pathology.
[2023-06-14] MEDS ORDERED: HYDROcodone/APAP 7.5-325MG 1 EACH TAB PO ONE (21:29)
[2023-06-14 22:31] VITALS: BP 102/74; PULSE 94; RESP 20
== END 2023-06-14 22:00 | disposition home or self-care (01) ==
LOC: EC 20:22
DX: S20.211A Contusion of right front wall of thorax, initial encounter (principal); M54.50 Low back pain, unspecified; M25.551 Pain in right hip; E11.9 Type 2 diabetes mellitus without complications; I10 Essential (primary) hypertension; J44.9 Chronic obstructive pulmonary disease, unspecified; K21.9 Gastro-esophageal reflux disease without esophagitis; E78.5 Hyperlipidemia, unspecified; F31.9 Bipolar disorder, unspecified; F41.9 Anxiety disorder, unspecified; F17.200 Nicotine dependence, unspecified, uncomplicated; F12.90 Cannabis use, unspecified, uncomplicated; Z79.82 Long term (current) use of aspirin; Z79.84 Long term (current) use of oral hypoglycemic drugs; Z79.899 Other long term (current) drug therapy; Z88.1 Allergy status to other antibiotic agents; Z88.8 Allergy status to other drugs, medicaments and biological substances; W10.9XXA Fall (on) (from) unspecified stairs and steps, initial encounter
CPT/HCPCS: 72110; 99284

== ENCOUNTER → 2023-06-30 | Outpatient (CLI) | payer MEDICARE, OTHER ==
[2023-06-30 08:44] LABS: INR 0.9 (<1.2); Partial Thromboplastin Time 22.6 sec (22.0-30.0); Prothrombin Time 9.8 sec (10.0-12.5)
[2023-06-30 11:41] LABS: ALT 17 U/L (8-44); AST 15 U/L (13-35); Albumin 4.4 g/dL (3.8-4.9); Albumin/Globulin Ratio 1.69 Ratio (1.60-3.17); Alkaline Phosphatase 134 U/L (41-126); BUN/Creat Ratio 16.33 Ratio (12.00-20.00); Blood Urea Nitrogen 14.7 mg/dL (9.0-27.0); Calcium 9.8 mg/dL (8.7-10.3); Carbon Dioxide 26.1 mmol/L (21.6-31.8); Chloride 103 mmol/L (96-109); Globulin 2.6 g/dL (1.6-3.3); Glucose 109 mg/dL (70-110); Sodium 141 mmol/L (135-145); Total Bilirubin 0.2 mg/dL (0.3-1.2)
[2023-06-30 15:45] LABS: HGB 14.8 g/dL (12.0-15.0); MCH 31.8 pg (27.0-32.0); MCHC 32.9 g/dL (32.0-37.0); MCV 96.8 FL (80.0-97.0); Mean Platelet Volume 9.3 FL (9.5-12.2); NRBC Per 100 WBC 0 X 10*3/uL (0.00-0.01); Platelet Count 449 X 10*3/uL (140-440); RBC 4.65 X 10*6/uL (4.10-5.20); RDW 13.8 % (11.5-14.5); WBC 12.47 X 10*3/uL (4.50-10.00)
== END | disposition home or self-care (01) ==
LOC: LABPAT 06:50
PROVIDERS: ATTEND Orthopaedic Surgery
DX: Z01.818 Encounter for other preprocedural examination (principal); I44.4 Left anterior fascicular block; M13.88 Other specified arthritis, other site; M25.872 Other specified joint disorders, left ankle and foot; R94.31 Abnormal electrocardiogram [ECG] [EKG]; Z22.322 Carrier or suspected carrier of Methicillin resistant Staphylococcus aureus
CPT/HCPCS: 80053; 82306; 85027; 85610; 85730; 86850; 86900; 86901; 87070; 93005

== ENCOUNTER 2023-07-10 11:52 | Day surgery (SDC) | payer MEDICARE, OTHER ==
[2023-07-06 10:39] VITALS: BMI 40.4
--- NOTE | 2023-07-10 07:47 | P.HPOR ---
History of Present Illness H&P Date: 07/02/23 .D:Date: 07/02/23 : 10:01am .T:Title: [facility] History and Physical Date of :[birth year] B46Eceabxanz: NKDA Age: 53 year Height: 4'11" Weight: 202 lbs BMI: 40.80 kg/m2 Occupation: Disabled VAS: 7 Hand:Right Spine Surgery Risk Review Ms. Dent is presenting for evaluation of left-sided low back, left buttock, and left lower extremity sterling, left lower extremity numbness and tingling. It was my pleasure to have seen and examined Ms. Dent. In our visit today we have had a chance to go over subjective complaints, physical examination findings and treatments including the natural course history without intervention and various interventional options. The patients imaging demonstrates: 06/14/23 Lumbosacral films taken in [facility] AP/LAT: Good healing previous fusions. No hip pathology. Continued Left SIJ sclerotic changes. No fractures. 05/21/2023 XRays AP/lateral 2 views, taken at [facility] of the Lumbar Spine: Alignment normal, reasonable LL. NO fracture. No lesions. Disc degeneration moderate lumbar spine. Facet arthrosis. SIJ arthrosis noted on the left. 12/03/22: AP/LAT pelvis films: Post surgical hardware in place R SIJ fusion. Good alignment. Previous L5-S1 anterior fusion in place still no complicating process. L SIJ sclerosis. No hip pathology. Previous image workup also included MRI of L spine on 09/15/22; MRI Pelvis w/p on 07/25/22; MR sacrum w/o on 07/25/22 all of wich did not show any correlation with symptoms of SIJ issues. MRI Lumbar Spine at [facility] 09/15/2022: Images Reviewed in office with the patient. L1-2 Mild spondylosis, no stenosis L2-3 Mild spondylosis, no stenosis L3-4 Mild spondylosis, no stenosis L4-5 Mild spondylosis, disc height loss, mild ASD noted with facet arthropathy, moderate. No stenosis L5-S1 Post surgical changes with interbody fusion in place. No posterior instrumentation noted. No severe stenosis noted. Alignment: Stable Coronal alignment: Maintained Fracture: None Lesion: None On physical exam, Ms. Dent demonstrates: An ache-like, burning pain throughout the low back that radiates down into the left buttock and posterior aspect of the left lower extremity with a sharp, shooting quality. The patient notes that her left leg pain is associated with intermittent numbness and tingling. The patient states that her symptoms are exacerbated by prolonged sitting, when getting up from a chair, and when going up and down the stairs. The patient reports experiencing moderate to severe sleep disturbances related to her ongoing pain and associated symptoms. I have explained to the patient that as their condition progresses it will cause further neurological deficits and eventual paralysis. Based on the patients imaging, physical exam, and the rapid progression and disabling nature of their symptoms, at this time I recommend surgery in the form of a: Left SI joint fusion. I discussed the risk and benefits of this procedure at length with Ms. Dent. The patient agreed to considered pursuing the procedure above mentioned . Prior to surgery, she should follow up with her PCP (Cardio, ID, IM etc) for clearance. Questions were invited and answered, and the patient wishes to proceed as outlined below. Currently, I am recommendin.Left SI joint fusion 2.Review of surgical risks and benefits as well as an educational packet on the proposed surgical procedure. Risks: All surgical procedures come with inherent risks, including those related to positioning, anesthesia, intraoperative findings, and postoperative complication s. It is important to understand that surgery does not come with any guarantee of a successful outcome as complications and adverse events are always possible. The patient was given a handout in office today discussing the surgical procedure and risks associated with the intervention, both of which were discussed with the patient. These risks include but are not limited to the following: * Experiencing same, different or even worse symptoms in back, neck, arms, or legs compared to before surgery. Requiring further surgery or other forms of treatment presently or at some time in the future at same or other levels of the intended spine surgery. On an extreme but fortunately relatively rare basis severe complication such as blindness, stroke, heart attack, temporary and/or permanent nerve injury, paralysis, coma, or may occur, sometimes without known explanation. Surgical complications may include but are not limited to risk of infection, fluid accumulation in the surgical dissection site, including a seroma or hematoma, that requires additional surgery, wound drainage, bleeding, new numbness or weakness, vision changes/loss, spinal fluid leakage, non-healing and/or infected incision, headaches, difficulty or inability to swallow, hoarseness, hemopneumothorax, pneumothorax, impotence, retrograde ejaculation, vaginal dryness; injury to nerves, spinal cord, blood vessels, lymphatics or other vital organs (i.e., bowel injury, injury to the great vessels); heterotopic bone formation; complications related to the hardware such as screws, rods, cages including misplaced hardware, device failure, instrumentation at the wrong spine level, hardware fracture/breakage, or hardware loosening; vertebral failure of the spinal column above or below the newly placed hardware; retained surgical instrumentations or devices and the need for further surgery. * Medical risks of the planned spine surgery include but are not limited to generalized Infections to the whole body or local areas outside of the surgical site (sepsis), heart attack, bleeding, anaphylaxis, meningitis, seizure, epilepsy, hearing loss, burn lombardo, laceration of the head or other areas of the body, bruising, hypersensitivity of the skin, bladder over distension; allergic reaction; shoulder injury related to positioning; fat, blood and air clots to other areas of the body like heart, lungs, brain; failure of internal organs such as lungs, kidneys, liver and excessive bleeding. If blood transfusions are necessary, note that transfusions may cause intolerance reactions such as anaphylaxis or other complex reactions. Despite best efforts, the results of spine surgery might not heal in terms of bone, soft tissues such as skin, fascia, ligaments, and joints. Additionally, in order to achieve best possible results, spine surgery may be carried out beyond the initially planned levels and involve decompression, fusion including insertion of hardware at levels other than the original intended area of surgical interest change some portions of the procedure in order to ensure the best possible outcomes. With spine surgery and spinal fusion, there are different off label uses of instrumentation (devices, implants and hardware) as well as biological substances (bone morphogenic proteins, demineralized bone matrix) as well as using extra bone from allograft sources (i.e. cadaver bone) or autograft (iliac crest bone, ribs, or the spine itself). The patient has been given information about these practices and their inherent risks and benefits. [facility] is an educational center that serves as a training facility for neurosurgical and orthopedic STAGE SETTING PAINTER APPRENTICE and Nursing students. Physician assistants are medically trained surgical providers who function in the outpatient, inpati ent, and operating room setting under the direct supervision of the attending surgeon. [facility] has multiple operating rooms with single and overlapping rooms running daily. They currently function under the required guidelines as produced by the [facility] Finance Committee with regards to the overlapping rooms and will continue to comply with changes to this policy as they occur. The r equirements include and are complied with as follows: (1) the critical portions of the overlapping rooms will not occur at the same time, (2) the attending physician will be physically present during the critical portions of the procedure and immediately available during the entire case, and (3) a back-up attending is designated should the primary attending not be immediately available. The patient has had a chance to review all the listed information, has been given print outs detailing this information, and has had all his/her questions answered to their satisfaction. It was my pleasure to have seen and examined Ms. Dent. In our visit today we have had a chance to go over my understanding of our patient's current condition, the natural course history without intervention and various interventional options. Questions were invited and answered, and the patient wishes to proceed as outlined above. I have seen and examined the patient for 25 minutes and we have spent more than 50% of the time in repeat and detailed counseling about the patient's condition, its natural course history with out and as much as can be predicted with surgery and re-review of various surgical treatment options. In conclusion, Ms. Dent requested we proceed with the above suggested surgery and are willing to accept risks and limitations of the suggested surgery as nature of the disease process and our best attempts at treatment for the condition. Thank you again for allowing us to be part of your patient's care. Please don't hesitate to contact me if you have any further questions. Follow- up: Post procedure Patient Education: (Informational booklet, instructions, etc) given at today's appointment: Yes .ED:Patient Education: Y Medications Reviewed: YES In our visit today Ms. Dent and I have had a chance to go over my understanding of the patient's current condition, the natural course history without intervention and various interventional options. Questions were invited and answered, and the patient wishes to proceed as outlined above. I will be sure to keep you updated afterMs. Dent returns here for further follow-up. Thank you again for your referral. Please do not hesitate to contact me if you have any further questions. Signed and authenticated by: Carl Davis [facility] [address] [place] [address] This message is confidential, intended only for the named recipient(s) and may contain information that is privileged or exempt from disclosure under applicable law. If you are not the intended recipient(s), you are notified that the dissemination, distribution or copying of this information is strictly prohibited. If you received this message in error, please notify the sender then delete this message. Patient verbalizes understanding of the information discussed. The above note was initiated by Kathy Banegas, physician recording application assistant for Dr. Carl Gamble. This note has been reviewed by Dr. Gamble, who has made his personal changes and impressions for this document. CC: Deric Ortiz DO # SIGNED BY Carl Gamble (GOO)07/06/2023 08:32AM Past Medical History Past Medical History: Blood Disorder, COPD, Diabetes Mellitus, GERD/Reflux, Hyperlipidemia, Osteoarthritis (OA), Skin Disorder, Sleep Apnea/CPAP/BIPAP Additional Past Medical History / Comment(s): restless leg syndrome, osteopenia, DDD, SPINAL STENOSIS, Recurrent abdominal HERNIA, BILATERAL PLANTAR FASCIITIS, CHRONIC UTI'S, OCCULAR HYPERTENSION , HX STOMACH ULCERS, IBS, factor V LEIDEN, CPAP USE History of Any Multi-Drug Resistant Organisms: None Reported Past Surgical History: Back Surgery, Bariatric Surgery, Breast Surgery, Section, Cholecystectomy, Hernia Repair, Orthopedic Surgery, Tubal Ligation, Uterine Ablation Additional Past Surgical History / Comment(s): LEFT HAND SURGERY, EGD WITH DILATION, REVISION OF GASTROJEJUNOSTOMY, HX GASTRIC BYPASS, RT GANGLION CYST, LEFT THUMB TRIGGER FINGER, CARPAL TUNNEL ALYSON. AND REVISION, BENIGN CYSTS REMOVED FROM OVARY, PILONIDAL CYST SURGERY, MULTIPLE D&C's, C- SECTION X2, WRIST TENDONITIS SURGERY, Pain Injections, DECOMPRESSION BACK SURGERY L-4 & L-5 AND FUSION L5 & S1 MAR 2019, ALYSON BREAST REDUCTION, MULTIPLE ABDOMINAL HERNIA SURGERIES, 2 cysts removed from rectum, RT SI FUSION, CERVICAL FUSION Past Anesthesia/Blood Transfusion Reactions: No Reported Reaction Additional Past Anesthesia/Blood Transfusion Reaction / Comment(s): . Past Psychological History: Anxiety, Bipolar, Depression Additional Psychological History / Comment(s): . Smoking Status: Current every day smoker Past Alcohol Use History: None Reported Additional Past Alcohol Use History / Comment(s): STARTED SMOKING AT AGE 15 down to 6 cigarettes daily Past Drug Use History: None Reported Additional Drug Use History / Comment(s): edibles on rare occasion - Past Family History Sister(s) Family Medical History: Cancer Additional Family Medical History / Comment(s): Rectal and lung cancer. 3 sisters and a niece with factor V. Brother(s) Family Medical History: Cancer, Deep Vein Thrombosis (DVT) Additional Family Medical History / Comment(s): NON-HODGKIN'S LYMPHOMA. 3 other brothers had a Factor V Leiden mutation. Mother Family Medical History: Cancer, Congestive Heart Failure (CHF) Additional Family Medical History / Comment(s): NON-HODGKIN'S LYMPHOMA. Father Family Medical History: Congestive Heart Failure (CHF) Daughter(s) Family Medical History: Blood Disorder Additional Family Medical History / Comment(s): Factor V. Medications and Allergies Home Medications Medication Instructions Recorded Confirmed Type hydrOXYzine HCL [Atarax] 25 mg PO TID PRN 08/02/19 07/06/23 History Cariprazine HCl [Vraylar] 1.5 mg PO QAM 09/09/19 07/06/23 History Albuterol Sulfate [Proair Hfa] 1 puff INHALATION BID PRN 12/03/20 07/06/23 History Fluticasone Nasal [place] [Flonase 1 spr NASAL BID PRN 11/12/21 07/06/23 History Nasal [place]] Aspirin [Adult Low Dose Aspirin EC] 81 mg PO DAILY 12/09/21 07/06/23 History Atorvastatin [Lipitor] 80 mg PO HS 12/20/21 07/06/23 History Ergocalciferol [Vitamin D2 (1250 1,250 mcg PO SÁNCHEZ 05/19/22 07/06/23 History Mcg = 44500 Iu)] Cyclobenzaprine [Flexeril] 5 mg PO TID PRN 11/12/22 07/06/23 History metFORMIN HCL [Glucophage] 500 mg PO BID 11/18/22 07/06/23 History Omeprazole 40 mg PO DAILY 01/08/23 07/06/23 History Rivaroxaban [Xarelto] 10 mg PO DAILY 01/08/23 07/06/23 History Ibuprofen [Motrin] 600 mg PO Q6HR PRN #40 tab 01/12/23 07/06/23 Rx Evolocumab [Repatha Sureclick] 140 mg SQ Q14D 07/06/23 07/06/23 History Gabapentin 1,200 mg PO TID 07/06/23 07/06/23 History HYDROcodone/APAP 5-325MG [[place] 1 tab PO TID 07/06/23 07/06/23 History 5-325] Lidocaine 5% Patch [Lidoderm] 1 patch TOPICAL DAILY 07/06/23 07/06/23 History Semaglutide [Ozempic] 0.25 mg SQ Q7D 07/06/23 07/06/23 History Allergies Allergy/AdvReac Type Severity Reaction Status Date / Time cephalexin [From Keflex] Allergy rectal Verified 07/06/23 09:52 bleeding Cephalosporins AdvReac RECTAL Verified 07/06/23 09:52 BLEEDING famotidine [From Pepcid] AdvReac Confusion Verified 07/06/23 09:52 lurasidone [From Latuda] AdvReac SUICIDAL Verified 07/06/23 09:52 THOUGHTS olanzapine [From Zyprexa] AdvReac WEIGHT GAIN Verified 07/06/23 09:52 Physical Examination Osteopathic Statement: *. No significant issues noted on an osteopathic struc tural exam other than those noted in the History and Physical/Consult.
[~2023-07-10 11:52] MED LIST changes: +CLINDAMYCIN 900 MG in DEXTROSE 5% IN WATER 50 ML IVPB PRN; -DEXAMETHASONE SOD PHOSPHATE 4 MG/ML 1 ML VIAL IV ONE; +GABAPENTIN 300 MG CAP PO PRN; -HEPARIN SODIUM,PORCINE/PF 5,000 UNIT/0.5 ML SYRINGE SQ PRN; +HYDROmorphone 0.5 MG/0.5 ML SYRINGE IVP PRN; -ONDANSETRON 4 MG/2 ML VIAL IVP ONE; +ONDANSETRON 4 MG/2 ML VIAL IVP PRN; -SCOPOLAMINE 1 MG/72 HR PATCH TRANSDERM ONE; +TRANEXAMIC 1,000 MG/100ML-NACL 1,000 MG in SALINE 1 100ML.BAG IVPB PRN
[2023-07-10 12:43] LABS: Glucose,Whole Blood 117 mg/dL (70-110)
[2023-07-10] MEDS ORDERED: LACTATED RINGERS 1,000 ML IV ONE (12:43)
[2023-07-10] MEDS ORDERED: GLYCOPYRROLATE 0.2 MG/ML 2 ML VIAL ONE (13:30)
[2023-07-10] MEDS ORDERED: PROPOFOL 10 MG/ML 20 ML VIAL IV ONE (13:30)
[2023-07-10] MEDS ORDERED: NEOSTIGMINE 1 MG/ML 10 ML VIAL ONE (13:30)
[2023-07-10] MEDS ORDERED: KETOROLAC 15 MG/ML 1 ML VIAL ONE (13:30)
[2023-07-10] MEDS ORDERED: fentaNYL (PF) 50 MCG/ML 2 ML AMP ONE (13:30)
[2023-07-10] MEDS ORDERED: ROCURONIUM 10 MG/ML (5 ML VIAL) IV ONE (13:30)
[2023-07-10] MEDS ORDERED: PHENYLEPHRINE-0.9% NACL SYG 1,000 MCG/10 ML SYRINGE ONE (13:30)
[2023-07-10] MEDS ORDERED: SUCCINYLCHOLINE CHLORIDE 200 MG/10 ML VIAL IV ONE (13:30)
[2023-07-10] MEDS ORDERED: HYDROmorphone (PF) 1 MG/ML ONE (13:30)
[2023-07-10] MEDS ORDERED: KETAMINE HCL IN 0.9 % NACL 50 MG/5 ML SYRINGE ONE (13:30)
[2023-07-10] MEDS ORDERED: LIDOCAINE 1% INJ 10MG/ML (20 ML MDV) ONE (13:30)
[2023-07-10] MEDS ORDERED: TRANEXAMIC 1,000 MG/100ML-NACL PREMIX BAG ONE (13:30)
[2023-07-10] MEDS ORDERED: MIDAZOLAM 2 MG/2 ML VIAL ONE (13:30)
[2023-07-10] MEDS ORDERED: GELATIN SPONGE,ABSORB (LARGE) 1 EACH SPONGE MISCELLANE ONE (14:16)
[2023-07-10] MEDS ORDERED: THROMBIN (BOVINE) 5,000 UNIT VIAL MISCELLANE ONE (14:16)
--- NOTE | 2023-07-10 16:05 | P.OP ---
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 All screws testing >18 mA Implants: SI Bone Torque screws 50, 45, 45 mm Anesthesia: GETA Surgeon: Carl Gamble Estimated Blood Loss (ml): 40 IV fluids (ml): 1,000 Urine output (ml): 0 Pathology: none sent Condition: stable Disposition: PACU Indications for Procedure: Ms. Dent is presenting for evaluation of left-sided low back, left buttock, and left lower extremity sterling, left lower extremity numbness and tingling. It was my pleasure to have seen and examined Ms. Dent. In our visit today we have had a chance to go over subjective complaints, physical examination findings and treatments including the natural course history without intervention and various interventional options. The patients imaging demonstrates: 06/14/23 Lumbosacral films taken in [facility] AP/LAT: Good healing previous fusions. No hip pathology. Continued Left SIJ sclerotic changes. No fractures. 05/21/2023 XRays AP/lateral 2 views, taken at [facility] of [facility] Lumbar Spine: Alignment normal, reasonable LL. NO fracture. No lesions. Disc degeneration moderate lumbar spine. Facet arthrosis. SIJ arthrosis noted on the left. 12/03/22: AP/LAT pelvis films: Post surgical hardware in place R SIJ fusion. Good alignment. Previous L5-S1 anterior fusion in place still no complicating process. L SIJ sclerosis. No hip pathology. Previous image workup also included MRI of L spine on 09/15/22; MRI Pelvis w/p on 07/25/22; MR sacrum w/o on 07/25/22 all of wich did not show any correlation with symptoms of SIJ issues. MRI Lumbar Spine at [facility] 09/15/2022: Images Reviewed in office with the patient. L1-2 Mild spondylosis, no stenosis L2-3 Mild spondylosis, no stenosis L3-4 Mild spondylosis, no stenosis L4-5 Mild spondylosis, disc height loss, mild ASD noted with facet arthropathy, moderate. No stenosis L5-S1 Post surgical changes with interbody fusion in place. No posterior instrumentation noted. No severe stenosis noted. Alignment: Stable Coronal alignment: Maintained Fracture: None Lesion: None On physical exam, Ms. Dent demonstrates: An ache-like, burning pain throughout the low back that radiates down into the left buttock and posterior aspect of the left lower extremity with a sharp, shooting quality. The patient notes that her left leg pain is associated with intermittent numbness and tingling. The patient states that her symptoms are exacerbated by prolonged sitting, when getting up from a chair, and when going up and down the stairs. The patient reports experiencing moderate to severe sleep disturbances related to her ongoing pain and associated symptoms. I have explained to the patient that as their condition progresses it will cause further neurological deficits and eventual paralysis. Based on the patients imaging, physical exam, and the rapid progression and disabling nature of their symptoms, at this time I recommend surgery in the form of a: Left SI joint fusion. I discussed the risk and benefits of this procedure at length with Ms. Dent. The patient agreed to considered pursuing the procedure above mentioned. Prior to surgery, she should follow up with her PCP (Cardio, ID, IM etc) for clearance. Questions were invited and answered, and the patient wishes to proceed as outlined below. Currently, I am recommendin.Left SI joint fusion Description of Procedure: Left SI fusion MIS The patient was seen and examined in the preoperative area. All preoperative protocols were followed. Informed consent was obtained risks and benefits of the procedure were discussed at length. Risks including bleeding infection damage to the surrounding tissue and risk of reoperation were discussed with the patient. Risk of anesthesia up to and including was a discussed with the patient. These are outlined in the risk review. They were willing to accept these risks and all of the risks of surgery. The patient was given a weight-based dose of antibiotics in the form of 2 g Ancef. The patient was seen and evaluated by the anesthesia team who deemed them fit for surgery. The site was marked, the patient was willing to proceed with the procedure. The patient was transferred to the operative suite by the Department of anesthesia. They were then drifted off to sleep by the department anesthesia and GETA was performed. The patient tolerated this well. Once confirmation of lines and ventilation the patient was transferred to a [prone Santiago table very carefully]. All bony prominences including wrists, elbows, axilla, chest, hips, and thighs, and feet were padded very well. Special attention was paid to the genitalia and these were padded accordingly. SCDs were placed on bilateral lower extremities and were connected. Arms were well padded and placed [on arm boards up and out in the 90/90 position]. Once in position, again we confirmed good ventilation capabilities and that lines were running appropriately. The patient's lumbopelvic spine was then exposed. 1010s were placed outlining the incision site. Standard alcohol was used to clean the incision site and allowed to dry. C-arm was used to biomark the patient and confirm level for incision which was marked with a skin marker. Operative briefing was performed with all teams and everyone in agreement to proceed. The patient was then prepped and draped in a normal sterile fashion. Timeout was then performed and all parties were in agreement with the procedure to be performed. Skin nicks were made on the right PSIS and pins placed for tracker. Once secured, 3D zhiem spin obtined for [employer] navigation for screw placement. Once spin was registered and confirmed accurate, Skin incision was then made over the previously marked area over the left upper buttock region of the patient following the alar lines and mid sacral line. Blunt dissection was then taken down to the ilium. The first pin was then selected and placed optimally within the SI region superiorly. This was then measured and drilled and a screw placed. Then using the parallel guide and colton a second screw was placed in the anterior inferior position in a similar fashion this was then repeated for the inferior posterior screw. All screws had excellent purchase and were confirmed to be in good position on AP lateral inlet and outlet views. Neuro monitoring was then used to test the superior screw for L5 and S1 and these tested above 18 mA. No neuro monitoring changes during surgery no EMG. Final fluoroscopic images then confirmed good placement of hardware. We then thoroughly irrigated the wound. Deep fascia was closed with 0 Vicryl superficial closed with 2-0 Vicryl and skin closed with cortez. The wound was then cleaned and dressed with skin glue which was allowed to dry and then a Band-Aid. The patient was transferred back to their hospital bed atraumatically. Patient was then awakened and extubated by the department of anesthesia having tolerated the procedure very well with no complications. They were transferred to the postoperative care unit in stable condition.
[2023-07-10 16:16] VITALS: TEMP 97
--- NOTE | 2023-07-10 16:16 | FL ---
EXAMINATION TYPE: FL guidance operating room, XR lumbar spine 2 or 3V Intraoperative/procedural fluor oscopic services were provided. Total fluoroscopy time is 57 minutes with a total of 8 submitted imag es to PACS. Please see the operative/procedural note for further details. DAP: [id number] [id number]
[2023-07-10 17:24] VITALS: RESP 16
[2023-07-10] MEDS ORDERED: HYDROcodone/APAP 10-325MG 1 EACH TAB PO ONE (17:48)
[2023-07-10] MEDS ORDERED: HYDROcodone/APAP 10-325MG 1 EACH TAB ONE (17:50)
[2023-07-10 18:09] VITALS: BP 128/78; PULSE 68
== END 2023-07-10 18:21 | disposition home or self-care (01) ==
LOC: OR 11:52
PROVIDERS: ATTEND Orthopaedic Surgery
DX: M46.1 Sacroiliitis, not elsewhere classified (principal); M53.3 Sacrococcygeal disorders, not elsewhere classified; D68.51 Activated protein C resistance; M47.816 Spondylosis without myelopathy or radiculopathy, lumbar region; E11.9 Type 2 diabetes mellitus without complications; E78.5 Hyperlipidemia, unspecified; G25.81 Restless legs syndrome; G47.30 Sleep apnea, unspecified; I10 Essential (primary) hypertension; J44.9 Chronic obstructive pulmonary disease, unspecified; K21.9 Gastro-esophageal reflux disease without esophagitis; M51.36 Other intervertebral disc degeneration, lumbar region; F17.210 Nicotine dependence, cigarettes, uncomplicated; Z79.01 Long term (current) use of anticoagulants; Z79.84 Long term (current) use of oral hypoglycemic drugs; Z88.1 Allergy status to other antibiotic agents; Z98.84 Bariatric surgery status
CPT/HCPCS: 72100; 27279; 61783; J2405; J0736; 81025

== ENCOUNTER → 2023-08-04 | Outpatient (CLI) | payer MEDICARE, OTHER ==
--- NOTE | 2023-08-04 14:55 | CT ---
EXAMINATION TYPE: CT chest wo con DATE OF EXAM: 08/04/2023 COMPARISON: Radiograph 06/14/2023 HISTORY: 53-year-old female R91.1, SOLITARY PULMONARY NODULE TECHNIQUE: Contiguous axial scanning of the chest without IV contrast. Coronal/sagittal reconstructi ons performed. CT DLP: 489.5mGycm. Automatic exposure control utilized for a dose reduction. FINDINGS: Heart normal size with trace anterior pericardial fluid. Aorta normal caliber with conventional arch vessel branching anatomy. No thoracic lymphadenopathy by CT size criteria. Some mosaic attenuation of moderate emphysematous change seen throughout the lungs. Strandy atelectas is or scarring anteriorly mid and lower lungs. No consolidation or pleural effusion. 5 mm posterior right midlung pulmonary nodule remains unchanged, axial image 26. 3 mm medial right upper lobe pulmonary nodule, axial image 15 is unchanged. There appear to be postsurgical change below the GE junction probably related to gastrojejunostomy. C linically correlate. Cholecystectomy clips. ACF hardware. No osseous destructive process. IMPRESSION: 1. COPD with moderate emphysema. Areas of mosaic attenuation likely reflect air trapping and small ai rways disease. 2. A couple pulmonary nodules measuring up to 5 mm remain unchanged suggesting a benign etiology. 3. Strandy atelectasis or scarring anterior mid and lower lungs.
== END | disposition home or self-care (01) ==
LOC: RADCTMAIN 12:23
PROVIDERS: ATTEND Internal Medicine
DX: J43.9 Emphysema, unspecified (principal); J44.9 Chronic obstructive pulmonary disease, unspecified; J98.11 Atelectasis; R91.8 Other nonspecific abnormal finding of lung field; R91.1 Solitary pulmonary nodule
CPT/HCPCS: 71250

== ENCOUNTER → 2023-08-10 | Outpatient (CLI) | payer MEDICARE, OTHER ==
--- NOTE | 2023-08-10 11:19 | MM ---
Reason for Exam: Follow-up at short interval from prior study. Last screening mammogram was performed 6 month(s) ago. Patient History: Menarche at age 13. First Full-Term at age 23. 08/12/2021, Bilateral Reduction. Maternal cousin had breast cancer. Maternal aunt (Sarah) had breast cancer. Maternal aunt (Jimena) had breast cancer. Maternal aunt (Kathy) had breast cancer. Maternal aunt (Regine) had breast cancer. Maternal aunt had breast cancer. Risk Values: Sunitha 5 year model risk: 1.0%. NCI Lifetime model risk: 8.7%. Prior Study Comparison: 01/23/2022 Bilateral MG 3D screening mammo w/cad, [facility]. 01/27/2023 Bilateral MG 3D screening mammo w/cad, [facility]. 01/29/2023 Right MG 3D work up w/cad RT, [facility]. Tissue Density: Right: There are scattered fibroglandular densities. Findings: Analyzed By CAD. Postsurgical change of reduction mammoplasty redemonstrated on the right. Mixed density area with increasing calcifications along the retroareolar plane again noted. Some coarse increasing calcifications also present at the upper outer quadrant middle depth. Findings most suggestive of progressive fat necrosis calcifications. Ongoing short interval follow-up recommended. Overall Assessment: Probably benign, BI-RAD 3 Management: Diagnostic Mammogram of both breasts in 6 months. Total one-year follow-up right breast and annual exam of the left breast. Results were given to the patient verbally at the time of exam. Patient should continue monthly self-breast exams. A clinical breast exam by your physician is recommended on an annual basis. This exam should not preclude additional follow-up of suspicious palpable abnormalities. Note on Sunitha scores and lifetime risk: 1. A Sunitha score greater than 3% is considered moderate risk. If this is the case, consider specialist referral to assess eligibility for a risk reducing agent. 2. If overall lifetime risk for the development of breast cancer is 20% or higher, the patient may qualify for future screening with alternating mammogram and breast MRI. Electronically signed and approved by: Holden Michel M.D. Radiologist
== END | disposition home or self-care (01) ==
LOC: RADMAMWWP 10:32
PROVIDERS: ATTEND Obstetrics & Gynecology
DX: R92.321 Mammographic fibroglandular density, right breast (principal); Z80.3 Family history of malignant neoplasm of breast
CPT/HCPCS: 77061; 77065

== ENCOUNTER 2023-09-04 11:26 | Emergency (ER) | payer MEDICARE, OTHER ==
[2023-09-04 12:31] VITALS: RESP 16; TEMP 97.9
--- NOTE | 2023-09-04 12:46 | ED ---
General Adult HPI - General Chief complaint: Back Pain/Injury Stated complaint: Weakness in L and R legs Time Seen by Provider: 09/04/23 11:51 Source: patient, RN notes reviewed Mode of arrival: ambulatory Limitations: no limitations - History of Present Illness Initial comments: 53-year-old female presents to the emergency department for evaluation of back pain radiating down bilateral legs. Patient reports that this is a chronic issue but states that it has been getting worse recently. She follows with Dr. Gamble for this, she also follows with neurology for injections. States that she has an appointment tomorrow with her neurologist. She denies loss of bowel or bladder function, saddle anesthesia, urinary retention, fever, chills, numbness, tingling down her legs. - Related Data Home Medications Medication Instructions Recorded Confirmed hydrOXYzine HCL [Atarax] 25 mg PO TID PRN 08/02/19 07/10/23 Cariprazine HCl [Vraylar] 1.5 mg PO QAM 09/09/19 07/10/23 Albuterol Sulfate [Proair Hfa] 1 puff INHALATION BID PRN 12/03/20 07/06/23 Fluticasone Nasal [place] [Flonase 1 spr NASAL BID PRN 11/12/21 07/10/23 Nasal [place]] Aspirin [Adult Low Dose Aspirin EC] 81 mg PO DAILY 12/09/21 07/06/23 Atorvastatin [Lipitor] 80 mg PO HS 12/20/21 07/10/23 Ergocalciferol [Vitamin D2 (1250 1,250 mcg PO SÁNCHEZ 05/19/22 07/10/23 Mcg = 86424 Iu)] Cyclobenzaprine [Flexeril] 5 mg PO TID PRN 11/12/22 07/10/23 metFORMIN HCL [Glucophage] 500 mg PO BID 11/18/22 07/10/23 Omeprazole 40 mg PO DAILY 01/08/23 07/10/23 Rivaroxaban [Xarelto] 10 mg PO DAILY 01/08/23 07/06/23 Evolocumab [Repatha Sureclick] 140 mg SQ Q14D 07/06/23 07/06/23 Gabapentin 1,200 mg PO TID 07/06/23 07/10/23 HYDROcodone/APAP 5-325MG [[place] 1 tab PO TID 07/06/23 07/10/23 5-325] Lidocaine 5% Patch [Lidoderm] 1 patch TOPICAL DAILY 07/06/23 07/10/23 Semaglutide [Ozempic] 0.25 mg SQ Q7D 07/06/23 07/06/23 Previous Rx's Medication Instructions Recorded Ibuprofen [Motrin] 600 mg PO Q6HR PRN #40 tab 01/12/23 Cyclobenzaprine [Flexeril] 10 mg PO HS PRN #40 tab 07/10/23 Gabapentin 300 mg PO TID #90 cap 07/10/23 HYDROcodone/APAP 10-325MG [[place] 1 tab PO Q4HR PRN 7 Days #42 tab 07/10/23 10-325] cefaDROXiL [Duricef] 500 mg PO Q12HR 3 Days #8 cap 07/10/23 Allergies Allergy/AdvReac Type Severity Reaction Status Date / Time cephalexin [From Keflex] Allergy rectal Verified 09/04/23 11:44 bleeding Cephalosporins AdvReac RECTAL Verified 09/04/23 11:44 BLEEDING famotidine [From Pepcid] AdvReac Confusion Verified 09/04/23 11:44 lurasidone [From Latuda] AdvReac SUICIDAL Verified 09/04/23 11:44 THOUGHTS olanzapine [From Zyprexa] AdvReac WEIGHT GAIN Verified 09/04/23 11:44 Review of Systems ROS Statement: Those systems with pertinent positive or pertinent negative responses have been documented in the HPI. ROS Other: All systems not noted in ROS Statement are negative. Past Medical History Past Medical History: Blood Disorder, COPD, Diabetes Mellitus, GERD/Reflux, Hyperlipidemia, Osteoarthritis (OA), Skin Disorder, Sleep Apnea/CPAP/BIPAP Additional Past Medical History / Comment(s): Type 2 diabetes, restless leg syndrome, osteopenia. STRESS HIVES. DDD, SPINAL STENOSIS, Recurrent abdominal HERNIA, BILATERAL PLANTAR FASCIITIS, CHRONIC UTI'S, OCCULAR HYPERTENSION , HX STOMACH ULCERS, IBS. 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 Past [employer] APPLIANCES history: HPV on a Pap smear and history of genital warts in the past. History of Any Multi-Drug Resistant Organisms: None Reported Past Surgical History: Back Surgery, Bariatric Surgery, Breast Surgery, Section, Cholecystectomy, Hernia Repair, Orthopedic Surgery, Tubal Ligation, Uterine Ablation Additional Past Surgical History / Comment(s): 09/19/20 LEFT HAND SURGERY @ [facility]. EGD WITH DILATION, REVISION OF GASTROJEJUNOSTOMY, HX GASTRIC BYPASS, RT GANGLION CYST , LEFT THUMB TRIGGER FINGER, CARPAL TUNNEL [facility] AND REVISION. BENIGN CYSTS REMOVED FROM OVARY, PILONIDAL CYST SURGERY , MULTIPLE. D&C's, C- SECTION X2, WRIST TENDONITIS SURGERY. Pain Injections. Endometrial ablation 2014. DECOMPRESSION BACK SURGERY L-4 & L-5 AND FUSION L5 & S1 MAR 2019, 2021 [facility] BREAST REDUCTION. MULTIPLE ABDOMINAL HERNIA SURGERIES, "2 cysts removed from rectum", RT SI FUSION 11/18/22 Past Anesthesia/Blood Transfusion Reactions: No Reported Reaction Additional Past Anesthesia/Blood Transfusion Reaction / Comment(s): . Past Psychological History: Anxiety, Bipolar, Depression Past Drug Use History: None Reported, Marijuana - Past Family History Sister(s) Family Medical History: Cancer Additional Family Medical History / Comment(s): Rectal and lung cancer. 3 siste rs and a niece with factor V. Brother(s) Family Medical History: Cancer, Deep Vein Thrombosis (DVT) Additional Family Medical History / Comment(s): NON-HODGKIN'S LYMPHOMA. 3 other brothers had a Factor V Leiden mutation. Mother Family Medical History: Cancer, Congestive Heart Failure (CHF) Additional Family Medical History / Comment(s): NON-HODGKIN'S LYMPHOMA. Father Family Medical History: Congestive Heart Failure (CHF) Daughter(s) Family Medical History: Blood Disorder Additional Family Medical History / Comment(s): Factor V. General Exam Limitations: no limitations General appearance: alert, in no apparent distress Head exam: Present: atraumatic, normocephalic, normal inspection Eye exam: Present: normal appearance, PERRL, EOMI. Absent: scleral icterus, conjunctival injection, periorbital swelling ENT exam: Present: normal exam, mucous membranes moist Neck exam: Present: normal inspection. Absent: tenderness, meningismus, lymphadenopathy Course Vital Signs 09/04/23 09/04/23 11:41 11:44 Temperature 97.9 F Pulse Rate 107 H 68 Respiratory 16 16 Rate Blood Pressure 125/77 130/80 O2 Sat by Pulse 96 98 Oximetry Medical Decision Making - Medical Decision Making Was pt. sent in by a medical professional or institution (, PA, IN[employer], urgent care, hospital, or group home...) When possible be specific @ -No Did you speak to anyone other than the patient for history (EMS, parent, family, police, friend...)? What history was obtained from this source @ -No Did you review nursing and triage notes (agree or disagree)? Why? @ -I reviewed and agree with nursing and triage notes Were old charts reviewed (outside hosp., previous admission, EMS record, old EKG, old radiological studies, urgent care reports/EKG's, group home records)? Report findings @ -No old charts were reviewed Differential Diagnosis (chest pain, altered mental status, abdominal pain women, abdominal pain men, vaginal bleeding, weakness, fever, dyspnea, syncope, headache, dizziness, GI bleed, back pain, seizure, CVA, palpatations, mental health, musculoskeletal)? @ -Differential Back Pain: Strain, zoster, cauda equina syndrome, epidural abscess, vertebral osteomyelitis, discitis, fracture, subluxation, disc herniation, DJD, spinal stenosis, dissection, AAA, pancreatitis, peptic ulcer disease, pyelonephritis, kidney stone, this is not meant to be an all-inclusive list. EKG interpreted by me (3pts min.). @ -None X-rays interpreted by me (1pt min.). @ -None done CT interpreted by me (1pt min.). @ -CT lumbar spine obtained shows no acute osseous abnormalities, no acute process U/S interpreted by me (1pt. min.). @ -None done What testing was considered but not performed or refused? (CT, X-rays, U/S, labs)? Why? @ -None What meds were considered but not given or refused? Why? @ -None Did you discuss the management of the patient with other professionals (professionals i.e. , PA, [employer], lab, RT, psych nurse, social staff worker, photofinishing laboratory worker, teacher, bsa/aml compliance officer, test case developer)? Give summary @ -No Was smoking cessation discussed for >3mins.? @ -No Was critical care preformed (if so, how long)? @ -No Were there social determinants of health that impacted care today? How? (Homelessness, low income, unemployed, alcoholism, drug addiction, transportation, low edu. Level, literacy, decrease access to med. care, [facility], rehab)? @ -No Was there de-escalation of care discussed even if they declined (Discuss DNR or withdrawal of care, Hospice)? DNR status @ -No What co-morbidities impacted this encounter? (DM, HTN, Smoking, COPD, CAD, Cancer, CVA, ARF, Chemo, Hep., AIDS, mental health diagnosis, sleep apnea, morbid obesity)? @ -None Was patient admitted / discharged? Hospital course, mention meds given and route, prescriptions, significant lab abnormalities, going to OR and other pertinent info. @ -Discharged. Patient presented to the emergency department for evaluation of low back pain. Patient states that this is a chronic issue but has been getting worse recently. She states that she is scheduled for CT scan later this week. She has no red flag symptoms at this time. CT is obtained today which show no acute osseous abnormalities. Patient given medication for pain control. Advised to follow-up with her neurologist and orthopedic spine surgeon as scheduled this week. Patient understanding and agreeable with plan. Patient stable at time of discharge. Case discussed with Dr. Brumfield Undiagnosed new problem with uncertain prognosis? @ -No Drug Therapy requiring intensive monitoring for toxicity (Heparin, Nitro, Insulin, Cardizem)? @ -No Were any procedures done? @ -No Diagnosis/symptom? @ -Back pain Acute, or Chronic, or Acute on Chronic? @ -Acute on chronic Uncomplicated (without systemic symptoms) or Complicated (systemic symptoms)? @ -Uncomplicated Side effects of treatment? @ -No Exacerbation, Progression, or Severe Exacerbation? @ -No Poses a threat to life or bodily function? How? (Chest pain, [place], NC, pneumonia, PE, COPD, DKA, ARF, appy, cholecystitis, CVA, Diverticulitis, Homicidal, Suicidal, threat to staff... and all critical care pts) @ -No Disposition Clinical Impression: Back pain Disposition: HOME SELF-CARE Condition: Stable Instructions (If sedation given, give patient instructions): Acute Low Back Pain (ED) Additional Instructions: Please follow up with Dr. Gamble and your neurologist. Return to the emergency department for new or worsening symptoms. Is patient prescribed a controlled substance at d/c from ED?: No Referrals: Michael Cheney MD [Primary Care Provider] - 1-2 days
--- NOTE | 2023-09-04 13:21 | CT ---
EXAMINATION TYPE: CT lumbar spine wo con, CT pelvis wo con at CT pelvis without contrast. DATE OF EXAM: 09/04/2023 1:09 PM COMPARISON: None available. HISTORY: Back pain and bilateral leg weakness. CT DLP: 1865.9 mGycm Automated exposure control for dose reduction was used. Unenhanced CT of the lumbar spine and pelvis was performed. Bone and soft tissue window settings are submitted as well as coronal and sagittal reconstructions. FINDINGS: LUMBAR SPINE: The vertebral bodies are well aligned without evidence of fracture, subluxation or dislocation. The vertebral body heights and disc spaces are maintained. However, there is a disc prosthesis at L5- S1. Minimal scattered degenerative facet arthropathy is seen throughout the lumbar spine. There is no sig nificant central canal or neural foraminal stenosis seen on the scope of this examination. PELVIS: A new that There is no adenopathy or free fluid seen within the pelvic region. There is several sigmoid colonic diverticuli within the visualized portions the colon without evidence of diverticulitis. There is prior fusion of the SI joints bilaterally with 3 screws traversing the sacroiliac joints. There is no fracture, subluxation or dislocation otherwise seen. The hip joint spaces appear preserved. IMPRESSION: 1. Prior surgical changes as above with no acute osseous abnormalities. 2. Additional findings as above.
[2023-09-04 14:35] VITALS: BP 130/80; PULSE 68
== END 2023-09-04 14:15 | disposition home or self-care (01) ==
LOC: EC 11:26
DX: M54.50 Low back pain, unspecified (principal); E11.9 Type 2 diabetes mellitus without complications; E78.5 Hyperlipidemia, unspecified; G47.30 Sleep apnea, unspecified; I10 Essential (primary) hypertension; J44.9 Chronic obstructive pulmonary disease, unspecified; K21.9 Gastro-esophageal reflux disease without esophagitis; M19.90 Unspecified osteoarthritis, unspecified site; F41.9 Anxiety disorder, unspecified; F31.9 Bipolar disorder, unspecified; F12.90 Cannabis use, unspecified, uncomplicated; Z79.01 Long term (current) use of anticoagulants; Z79.84 Long term (current) use of oral hypoglycemic drugs; Z79.899 Other long term (current) drug therapy; Z88.1 Allergy status to other antibiotic agents; Z88.8 Allergy status to other drugs, medicaments and biological substances; Z90.49 Acquired absence of other specified parts of digestive tract
CPT/HCPCS: 72131; 72192; 99285

== ENCOUNTER → 2023-10-05 | Outpatient (CLI) | payer MEDICARE, OTHER ==
--- NOTE | 2023-10-05 11:52 | MR ---
EXAMINATION TYPE: MR lumbar wo con DATE OF EXAM: 10/05/2023 COMPARISON: CT scan 09/04/2013 HISTORY: Mid/Low back pain into bruno hips and legs TECHNIQUE: T1 and T2 axial and sagittal images of the lumbar spine are submitted. FINDINGS: There is no abnormal signal seen within the visualized spinal cord or paraspinal soft tissu es. At L1-2 there is no disc herniation or canal stenosis. No foraminal impingement. At L2-3 there is no disc herniation or canal stenosis. No foraminal encroachment. At L3-4 there is mild degenerative disc disease with mild facet arthropathy. No canal stenosis. Mild disc sagittal bulging At L4-5 there is disc desiccation but no evidence of disc herniation or canal stenosis. There is face t arthropathy. Neural foramina are demonstrated mild narrowing of the left due to minimal disc bulgin g and hypertrophic changes.. At L5-S1 there is postsurgical change with disc spacer and laminectomy. No obvious canal stenosis or disc herniation. Neural foramina remain patent with mild narrowing bilaterally greater on the left IMPRESSION: 1. Postsurgical changes L5-S1 with no obvious disc herniation or canal stenosis. Mild narrowing of th e neural foramina bilaterally greater on the left. 2. Mild facet arthropathy and degenerative disc disease L3-4 and L4-5. Mild disc bulging but no discr ete herniation or canal stenosis. EXAMINATION TYPE: MR thoracic spine wo con DATE OF EXAM: 10/05/2023 COMPARISON: None HISTORY: Mid/Low back pain into bruno hips and legs Standard multiplanar, multisequence MRI departmental protocol Multiplanar, multisequence images of the thoracic spine were acquired without contrast. FINDINGS: Minimal disc bulging seen at T8-T9, T11-T12, and 12-L1 with no evidence of disc herniation or canal s tenosis. Remaining levels demonstrate no evidence of disc herniation, canal stenosis, or foraminal. No abnormal signal seen in the spinal cord. Disc height and signal is maintained in all levels. There is multilevel mild degenerative disc diseas e. Visualized aorta canal. Paraspinal soft tissues demonstrate no abnormal. Incidental note made of postsurgical changes involving the lower cervical spine. IMPRESSION: 1. Multilevel mild degenerative disc disease with no evidence of discrete herniation or canal stenosi s 2. Minimal disc bulging T8-T9, T11-T12 and T12-L1. No discrete herniation.
== END | disposition home or self-care (01) ==
LOC: RADMRIMAIN 08:52
PROVIDERS: ATTEND Orthopaedic Surgery
DX: M47.816 Spondylosis without myelopathy or radiculopathy, lumbar region (principal); M99.73 Connective tissue and disc stenosis of intervertebral foramina of lumbar region; M51.35 Other intervertebral disc degeneration, thoracolumbar region; M48.061 Spinal stenosis, lumbar region without neurogenic claudication; M51.25 Other intervertebral disc displacement, thoracolumbar region; M48.04 Spinal stenosis, thoracic region; Z98.890 Other specified postprocedural states
CPT/HCPCS: 72146; 72148

== ENCOUNTER 2023-10-26 09:32 | Day surgery (SDC) | payer MEDICARE, OTHER ==
[2023-10-21 13:53] VITALS: BMI 39.2
[2023-10-26] MEDS: LACTATED RINGERS 1,000 ML IV SCH (10:00)
[2023-10-26 10:08] VITALS: TEMP 97.7
[2023-10-26 10:21] LABS: Glucose,Whole Blood 105 mg/dL (70-110)
[2023-10-26] MEDS ORDERED: PROPOFOL 10 MG/ML 20 ML VIAL IV ONE (11:37)
--- NOTE | 2023-10-26 11:44 | P.GSHP ---
History of Present Illness H&P Date: 10/26/23 Chief Complaint: constipation, screening colonoscopy this is a 53-year-old female who presents today for screening colonoscopy. Patient has issue constipation. Past Medical History Past Medical History: Blood Disorder, COPD, Diabetes Mellitus, GERD/Reflux, Hyperlipidemia, Osteoarthritis (OA), Skin Disorder, Sleep Apnea/CPAP/BIPAP Additional Past Medical History / Comment(s): Type 2 diabetes, restless leg s yndrome, osteopenia, DDD, SPINAL STENOSIS, recurrent abdominal hernia, BILATERAL PLANTAR FASCIITIS, CHRONIC UTI'S, OCCULAR HYPERTENSION, HX STOMACH ULCERS, IBS, Factor V Leiden, CPAP use, bilateral leg weakness, hip and groin pain, hobbling, not using any assistive device. History of Any Multi-Drug Resistant Organisms: None Reported Past Surgical History: Back Surgery, Bariatric Surgery, Breast Surgery, Section, Cholecystectomy, Hernia Repair, Orthopedic Surgery, Tubal Ligation, Uterine Ablation Additional Past Surgical History / Comment(s): LEFT HAND SURGERY, EGD WITH DILATION, REVISION OF GASTROJEJUNOSTOMY, HX GASTRIC BYPASS WITH REVERSAL, RIGHT GANGLION CYST REMOVED, LEFT THUMB TRIGGER FINGER RELEASE, BILATERAL CARPAL TUNNEL WITH REVISION, BENIGN CYSTS REMOVED FROM OVARY, PILONIDAL CYSTECTOMY , MULTIPLE D&C's, X2, WRIST TENDONITIS SURGERY, Pain Injections, DECOMPRESSION BACK SURGERY L4-L5 AND FUSION L5-S1, BILATERAL BREAST REDUCTION, MULTIPLE ABDOMINAL HERNIA SURGERIES, "2 cysts removed from rectum", CERVICAL FUSION, BILATERAL SI JOINT FUSION, ALL TOENAILS REMOVED. Past Anesthesia/Blood Transfusion Reactions: No Reported Reaction Additional Past Anesthesia/Blood Transfusion Reaction / Comment(s): . Smoking Status: Current every day smoker - Past Family History Sister(s) Family Medical History: Cancer Additional Family Medical History / Comment(s): Colorectal cancer X2, lung cancer. 3 sisters and a niece with factor V. Brother(s) Family Medical History: Cancer, Deep Vein Thrombosis (DVT) Additional Family Medical History / Comment(s): NON-HODGKIN'S LYMPHOMA. 3 other brothers had a Factor V Leiden mutation. Mother Family Medical History: Cancer, Congestive Heart Failure (CHF) Additional Family Medical History / Comment(s): NON-HODGKIN'S LYMPHOMA. Father Family Medical History: Congestive Heart Failure (CHF) Daughter(s) Family Medical History: Blood Disorder Additional Family Medical History / Comment(s): Factor V. Medications and Allergies Home Medications Medication Instructions Recorded Confirmed Type hydrOXYzine HCL [Atarax] 25 mg PO TID PRN 08/02/19 10/26/23 History Cariprazine HCl [Vraylar] 1.5 mg PO QAM 09/09/19 10/26/23 History Fluticasone Nasal [place] [Flonase 1 spr NASAL BID PRN 11/12/21 10/26/23 History Nasal [place]] Aspirin [Adult Low Dose Aspirin EC] 81 mg PO DAILY 12/09/21 10/26/23 History Ergocalciferol [Vitamin D2 (1250 1,250 mcg PO SÁNCHEZ 05/19/22 10/26/23 History Mcg = 90624 Iu)] Omeprazole 40 mg PO QAM 01/08/23 10/26/23 History Ibuprofen [Motrin] 600 mg PO Q6HR PRN #40 tab 01/12/23 10/26/23 Rx Evolocumab [Repatha Sureclick] 140 mg SQ Q14D 07/06/23 10/26/23 History Gabapentin 600 mg PO TID 07/06/23 10/26/23 History Lidocaine 5% Patch [Lidoderm] 1 patch TOPICAL DAILY PRN 07/06/23 10/26/23 History Albuterol Sulfate [Ventolin HFA] 1 - 2 puff INHALATION Q4-6H PRN 10/21/23 10/26/23 History Ezetimibe [Zetia] 10 mg PO HS 10/21/23 10/26/23 History HYDROcodone/APAP 10-325MG [[place] 1 tab PO TID PRN 10/21/23 10/26/23 History 10-325] Ipratropium-Albuterol Nebulize 3 ml INHALATION DAILY 10/21/23 10/26/23 History [Duoneb 0.5 mg-3 mg/3 ml Soln] Semaglutide [Ozempic] 1 mg SQ TU 10/21/23 10/26/23 History Allergies Allergy/AdvReac Type Severity Reaction Status Date / Time cephalexin [From Keflex] Allergy rectal Verified 10/26/23 09:55 bleeding Cephalosporins AdvReac RECTAL Verified 10/26/23 09:55 BLEEDING famotidine [From Pepcid] AdvReac Confusion Verified 10/26/23 09:55 lurasidone [From Latuda] AdvReac SUICIDAL Verified 10/26/23 09:55 THOUGHTS olanzapine [From Zyprexa] AdvReac WEIGHT GAIN Verified 10/26/23 09:55 Surgical - Exam Vital Signs Temp Pulse Resp BP Pulse Ox 97.7 F 99 17 130/86 94 L 10/26/23 09:50 10/26/23 09:50 10/26/23 09:50 10/26/23 09:50 10/26/23 09:50 - General well developed, well nourished, no distress - Eyes PERRL - ENT normal pinna - Neck no masses - Respiratory normal expansion - Cardiovascular Rhythm: regular - Abdomen Abdomen: soft, non tender Assessment and Plan Assessment: constipation. We'll perform screening colonoscopy.
--- NOTE | 2023-10-26 12:11 | P.OP ---
Date of Procedure: 10/26/23 Preoperative Diagnosis: constipation Postoperative Diagnosis: diverticulosis Procedure(s) Performed: colonoscopy Anesthesia: MAC Surgeon: Dillon Alvarado Pathology: none sent Condition: stable Disposition: PACU Description of Procedure: the patient's placed on the endoscopy table in the lateral position. She received IV sedation. Digital rectal exam was performed. This revealed no abnormalities. Flexible colonoscope was then placed patient anus and passed throughout the entire colon. The ileocecal valve was visualized. The cecum, ascending and transverse colon appeared normal. The descending and sigmoid colon had some mild diverticular changes. Scope was brought back the rectum and this appeared normal. Scope withdrawn for patient.
[2023-10-26 12:30] LABS: Glucose,Whole Blood 97 mg/dL (70-110)
[2023-10-26 13:01] VITALS: BP 126/78; PULSE 79; RESP 16
== END 2023-10-26 13:08 | disposition home or self-care (01) ==
LOC: ORWHC2ENDO 09:32
PROVIDERS: ATTEND Surgery
DX: K57.30 Diverticulosis of large intestine without perforation or abscess without bleeding (principal); K58.9 Irritable bowel syndrome, unspecified; K21.9 Gastro-esophageal reflux disease without esophagitis; M85.80 Other specified disorders of bone density and structure, unspecified site; J44.9 Chronic obstructive pulmonary disease, unspecified; I10 Essential (primary) hypertension; G25.81 Restless legs syndrome; E78.5 Hyperlipidemia, unspecified; E11.9 Type 2 diabetes mellitus without complications; D68.51 Activated protein C resistance; G47.33 Obstructive sleep apnea (adult) (pediatric); F17.200 Nicotine dependence, unspecified, uncomplicated; Z80.0 Family history of malignant neoplasm of digestive organs; Z87.11 Personal history of peptic ulcer disease; Z88.1 Allergy status to other antibiotic agents; Z90.49 Acquired absence of other specified parts of digestive tract; Z98.51 Tubal ligation status; Z98.84 Bariatric surgery status; Z88.8 Allergy status to other drugs, medicaments and biological substances; Z79.82 Long term (current) use of aspirin; Z79.899 Other long term (current) drug therapy
CPT/HCPCS: 81025; 45378; J2704

== ENCOUNTER 2023-12-12 16:46 | Emergency (ER) | payer MEDICARE, OTHER ==
--- NOTE | 2023-12-12 17:15 | ED ---
Fall HPI - General Chief Complaint: Fall Stated Complaint: Right ankle pain Time Seen by Provider: 12/12/23 16:54 Source: patient, EMS, RN notes reviewed Mode of arrival: EMS - History of Present Illness Initial Comments: 53-year-old female presenting to the ED status post fall. Patient states that she was stepping off of her back deck when she twisted her right ankle causing h er to fall forward landing onto her left knee. During the fall states that she also twisted her left ankle. Patient is on baby aspirin however denies head injury at this time. There is no preceding dizziness, chest pain, shortness of breath prior to the fall. Now notes pain of bilateral ankles and her left knee. No other injuries at this time. No other complaints. - Related Data Home Medications Medication Instructions Recorded Confirmed hydrOXYzine HCL [Atarax] 25 mg PO TID PRN 08/02/19 10/26/23 Cariprazine HCl [Vraylar] 1.5 mg PO QAM 09/09/19 10/26/23 Fluticasone Nasal [place] [Flonase 1 spr NASAL BID PRN 11/12/21 10/26/23 Nasal [place]] Aspirin [Adult Low Dose Aspirin EC] 81 mg PO DAILY 12/09/21 10/26/23 Ergocalciferol [Vitamin D2 (1250 1,250 mcg PO SÁNCHEZ 05/19/22 10/26/23 Mcg = 06923 Iu)] Omeprazole 40 mg PO QAM 01/08/23 10/26/23 Evolocumab [Repatha Sureclick] 140 mg SQ Q14D 07/06/23 10/26/23 Gabapentin 600 mg PO TID 07/06/23 10/26/23 Lidocaine 5% Patch [Lidoderm] 1 patch TOPICAL DAILY PRN 07/06/23 10/26/23 Albuterol Sulfate [Ventolin HFA] 1 - 2 puff INHALATION Q4-6H PRN 10/21/23 10/26/23 Ezetimibe [Zetia] 10 mg PO HS 10/21/23 10/26/23 HYDROcodone/APAP 10-325MG [[place] 1 tab PO TID PRN 10/21/23 10/26/23 10-325] Ipratropium-Albuterol Nebulize 3 ml INHALATION DAILY 10/21/23 10/26/23 [Duoneb 0.5 mg-3 mg/3 ml Soln] Semaglutide [Ozempic] 1 mg SQ TU 10/21/23 10/26/23 Previous Rx's Medication Instructions Recorded Ibuprofen [Motrin] 600 mg PO Q6HR PRN #40 tab 01/12/23 Allergies Allergy/AdvReac Type Severity Reaction Status Date / Time cephalexin [From Keflex] Allergy rectal Verified 10/26/23 09:55 bleeding Cephalosporins AdvReac RECTAL Verified 10/26/23 09:55 BLEEDING famotidine [From Pepcid] AdvReac Confusion Verified 10/26/23 09:55 lurasidone [From Latuda] AdvReac SUICIDAL Verified 10/26/23 09:55 THOUGHTS olanzapine [From Zyprexa] AdvReac WEIGHT GAIN Verified 10/26/23 09:55 Review of Systems ROS Statement: Those systems with pertinent positive or pertinent negative responses have been documented in the HPI. ROS Other: All systems not noted in ROS Statement are negative. Past Medical History Past Medical History: Blood Disorder, COPD, Diabetes Mellitus, GERD/Reflux, Hyperlipidemia, Osteoarthritis (OA), Skin Disorder, Sleep Apnea/CPAP/BIPAP Additional Past Medical History / Comment(s): Type 2 diabetes, restless leg syndrome, osteopenia, DDD, SPINAL STENOSIS, recurrent abdominal hernia, BILATERAL PLANTAR FASCIITIS, CHRONIC UTI'S, OCCULAR HYPERTENSION, HX STOMACH ULCERS, IBS, Factor V Leiden, CPAP use, bilateral leg weakness, hip and groin pain, hobbling, not using any assistive device. History of Any Multi-Drug Resistant Organisms: None Reported Past Surgical History: Back Surgery, Bariatric Surgery, Breast Surgery, Section, Cholecystectomy, Hernia Repair, Orthopedic Surgery, Tubal Ligation, Uterine Ablation Additional Past Surgical History / Comment(s): LEFT HAND SURGERY, EGD WITH DILATION, REVISION OF GASTROJEJUNOSTOMY, HX GASTRIC BYPASS WITH REVERSAL, RIGHT GANGLION CYST REMOVED, LEFT THUMB TRIGGER FINGER RELEASE, BILATERAL CARPAL TUNNEL WITH REVISION, BENIGN CYSTS REMOVED FROM OVARY, PILONIDAL CYSTECTOMY , MULTIPLE D&C's, X2, WRIST TENDONITIS SURGERY, Pain Injections, DECOMPRESSION BACK SURGERY L4-L5 AND FUSION L5-S1, BILATERAL BREAST REDUCTION, MULTIPLE ABDOMINAL HERNIA SURGERIES, "2 cysts removed from rectum", CERVICAL FUSION, BILATERAL SI JOINT FUSION, ALL TOENAILS REMOVED. Past Anesthesia/Blood Transfusion Reactions: No Reported Reaction Additional Past Anesthesia/Blood Transfusion Reaction / Comment(s): . Past Psychological History: Anxiety, Bipolar, Depression Smoking Status: Current every day smoker - Past Family History Sister(s) Family Medical History: Cancer Additional Family Medical History / Comment(s): Colorectal cancer X2, lung c ancer. 3 sisters and a niece with factor V. Brother(s) Family Medical History: Cancer, Deep Vein Thrombosis (DVT) Additional Family Medical History / Comment(s): NON-HODGKIN'S LYMPHOMA. 3 other brothers had a Factor V Leiden mutation. Mother Family Medical History: Cancer, Congestive Heart Failure (CHF) Additional Family Medical History / Comment(s): NON-HODGKIN'S LYMPHOMA. Father Family Medical History: Congestive Heart Failure (CHF) Daughter(s) Family Medical History: Blood Disorder Additional Family Medical History / Comment(s): Factor V. General Exam Limitations: no limitations General appearance: alert, in no apparent distress Head exam: Present: atraumatic, normocephalic Eye exam: Present: normal appearance Neck exam: Present: normal inspection Respiratory exam: Present: normal lung sounds bilaterally Cardiovascular Exam: Present: regular rate GI/Abdominal exam: Present: soft, normal bowel sounds. Absent: distended, tenderness, guarding, rebound, rigid Extremities exam: Present: normal inspection, full ROM (Full active range of motion of the left knee. Abrasion noted over the left knee.), other (Intact dorsi and plantarflexion bilaterally. DP/PT pulses intact. No gross deformity noted. Does have tenderness to palpation over the lateral malleolus of the right ankle and over the lateral portion of the midfoot left foot.) Back exam: Present: other (No midline spinal tenderness to palpation.) Neurological exam: Present: alert, oriented X3 Skin exam: Present: warm, dry Course Vital Signs 12/12/23 12/12/23 16:51 19:39 Temperature 97.9 F 98.2 F Pulse Rate 94 84 Respiratory 20 17 Rate Blood Pressure 148/85 100/62 O2 Sat by Pulse 97 96 Oximetry Medical Decision Making - Medical Decision Making Was pt. sent in by a medical professional or institution (, PA, STALLION MANAGER, urgent care, hospital, or group home...) When possible be specific @ -No Did you speak to anyone other than the patient for history (EMS, parent, family, police, friend...)? What history was obtained from this source @ -No Did you review nursing and triage notes (agree or disagree)? Why? @ -I reviewed and agree with nursing and triage notes Were old charts reviewed (outside hosp., previous admission, EMS record, old EKG, old radiological studies, urgent care reports/EKG's, group home records)? Report findings @ -No old charts were reviewed Differential Diagnosis (chest pain, altered mental status, abdominal pain women, abdominal pain men, vaginal bleeding, weakness, fever, dyspnea, syncope, headache, dizziness, GI bleed, back pain, seizure, CVA, palpatations, mental health, musculoskeletal)? @ -Differential Musculoskeletal Muscular strain, contusion, ligament sprain, fracture, arthritis, septic arthritis, bursitis, cellulitis, muscle spasm, nerve compression, DVT, arterial occlusion, herpes zoster, electrolyte abnormality, tumor.... This is not meant to be in all inclusive list EKG interpreted by me (3pts min.). @ -None X-rays interpreted by me (1pt min.). @ -Pending CT interpreted by me (1pt min.). @ -None done U/S interpreted by me (1pt. min.). @ -None done What testing was considered but not performed or refused? (CT, X-rays, U/S, labs)? Why? @ -None What meds were considered but not given or refused? Why? @ -None Did you discuss the management of the patient with other professionals (professionals i.e. , PA, STALLION MANAGER, lab, RT, psych nurse, certified social workers in health care, slasher tender, teacher, founder and chief technical officer, machine adjuster leader case trim)? Give summary @ -No Was smoking cessation discussed for >3mins.? @ -No Was critical care preformed (if so, how long)? @ -No Were there social determinants of health that impacted care today? How? (Homelessness, low income, unemployed, alcoholism, drug addiction, tra nsportation, low edu. Level, literacy, decrease access to med. care, correction, rehab)? @ -No Was there de-escalation of care discussed even if they declined (Discuss DNR or withdrawal of care, Hospice)? DNR status @ -No What co-morbidities impacted this encounter? (DM, HTN, Smoking, COPD, CAD, Cancer, CVA, ARF, Chemo, Hep., AIDS, mental health diagnosis, sleep apnea, morbid obesity)? @ -None Was patient admitted / discharged? Hospital course, mention meds given and route, prescriptions, significant lab abnormalities, going to OR and other pertinent info. @ -Patient left AMA Patient left AGAINST MEDICAL ADVICE prior to completion of imaging studies. Disposition Clinical Impression: Ankle pain, Knee pain Disposition: LEFT AGAINST MEDICAL ADVICE Referrals: Michael Cheney MD [Primary Care Provider] - 1-2 days
[2023-12-12] MEDS: ACETAMINOPHEN TAB 500 MG TAB PO STA (17:23)
[2023-12-12] MEDS: MORPHINE SULFATE 2 MG/ML SYRINGE IM ONE (17:23)
[2023-12-12 19:48] VITALS: BP 100/62; PULSE 84; RESP 17; TEMP 98.2
[2023-12-12] MEDS: KETOROLAC 15 MG/ML 1 ML VIAL IM STA (19:55)
--- NOTE | 2023-12-12 20:07 | XR ---
EXAMINATION TYPE: XR knee complete LT DATE OF EXAM: 12/12/2023 5:36 PM CLINICAL INDICATION:Female, 53 years old with history of s/p fall; [facility] COMPARISON: None. TECHNIQUE: XR knee complete LT; examined in Frontal, lateral and oblique projections. FINDINGS: Osseous mineralization appears appropriate. No evidence of destructive lesion or aggressive periostit is. No acute fracture or dislocation. Mild tricompartmental osteoarthritis. Soft tissue fullness sugg ests possible small suprapatellar joint effusion. Couple small round dystrophic soft tissue calcifica tions inferior and anterior to the patella. IMPRESSION: * No acute fracture or dislocation. * Mild tricompartmental osteoarthritis. * Possible small suprapatellar effusion.
--- NOTE | 2023-12-12 20:14 | XR ---
EXAMINATION TYPE: XR ankle complete bilateral DATE OF EXAM: 12/12/2023 5:36 PM CLINICAL INDICATION:Female, 53 years old with history of s/p fall; [facility] COMPARISON: None TECHNIQUE: The bilateral ankles are imaged in frontal lateral and oblique projections. FINDINGS: On the right, there is transverse lucency through the lateral malleolus consistent with acute nondisp laced fracture. There is regional soft tissue swelling. Ankle mortise is preserved. No significant in terosseous widening. Talar dome appears intact. Nofgi-el-vhtleikq sized plantar calcaneal spur. On the left, no acute fracture lucency or significant malalignment is seen. There is mild soft tissue swelling suggested about the ankle. Ankle mortise is preserved. Talar dome looks normal. There is a small to moderate-sized plantar calcaneal spur. No radiopaque foreign body is seen. IMPRESSION: * Right ankle demonstrates an acute nondisplaced transverse fracture through the lateral malleolus, with regional soft tissue swelling. * Left ankle shows mild soft tissue swelling about the ankle without evidence of fracture or disloca tion.
== END 2023-12-12 20:06 | disposition left against medical advice (07) ==
LOC: EC 16:46
DX: M25.571 Pain in right ankle and joints of right foot (principal); M25.572 Pain in left ankle and joints of left foot; M25.562 Pain in left knee; F17.200 Nicotine dependence, unspecified, uncomplicated; Z88.1 Allergy status to other antibiotic agents; Z53.29 Procedure and treatment not carried out because of patient's decision for other reasons; Z88.8 Allergy status to other drugs, medicaments and biological substances
CPT/HCPCS: 73610; 73562; 99284; 96372 ×2; J2270; J1885

== ENCOUNTER → 2024-01-01 | Outpatient (CLI) | payer MEDICARE, OTHER ==
--- NOTE | 2024-01-05 10:49 | XR ---
EXAMINATION TYPE: XR ankle complete RT, XR tibia fibula RT DATE OF EXAM: 01/01/2024 12:20 PM CLINICAL INDICATION:Female, 53 years old with history of M79.604,PAIN IN RIGHT LEG, M25.571 PAIN IN A NKLE; [facility] COMPARISON: 12/12/2023 TECHNIQUE: XR ankle complete RT, XR tibia fibula RT; ankle is imaged in fronta l, lateral and oblique projections. Anterior and lateral views of the tibia. FINDINGS/IMPRESSION: * Fracture of the distal right fibula with incomplete osseous fusion. Fracture line remains. No chandu tional fractures identified. There is associated soft tissue swelling. * Mild degeneration changes of the knee with joint space narrowing osteophyte formation.
== END | disposition home or self-care (01) ==
LOC: RADXRMAIN 11:53
PROVIDERS: ATTEND Psychiatry & Neurology Pain Medicine
DX: M17.11 Unilateral primary osteoarthritis, right knee (principal); M25.761 Osteophyte, right knee; M24.871 Other specific joint derangements of right ankle, not elsewhere classified

== ENCOUNTER → 2024-04-19 | Outpatient (CLI) | payer MEDICARE, OTHER ==
[2024-04-19 08:07] VITALS: BP 130/88; PULSE 89; RESP 17; TEMP 97.9
--- NOTE | 2024-04-19 08:57 | P.HPOB ---
History of Present Illness H&P Date: 04/19/24 Chief Complaint: The patient is here for her routine gynecologic exam and ma mmogram. This is a 53-year-old G2, P2 with an LMP of 2014. The patient is status post tubal ligation. She has been amenorrheic since her endometrial ablation in 2014. She denies any vaginal bleeding. She was found to have a small amount of endometrial fluid by ultrasound and this has been followed conservatively. She has experienced some tolerable hot flashes during the past 2 years. She states she has been experiencing genital sores just inside of the left labia. Most recently she had this occur about 2 weeks ago. She states in general, it is not painful, but can burn when she touches it or wipes the area or if the urine hits the area. She states it is no longer there. They tend to go away after a short amount of time. She states she has had these types of sores since about 2011. At that time her sexual partner was not faithful. She had been treated with some type of brief medication during these episodes by her previous insurance inspector. She is not aware of the name of the medication and is not aware of the diagnosis that was being treated. She states the worst episode was the first time she noticed it around 2011. Review of Systems The patient has lost 17 pounds over the last year. She denies respiratory, cardiac, or G.I. problems. Past Medical History Past Medical History: Blood Disorder, COPD, Diabetes Mellitus, GERD/Reflux, Hyperlipidemia, Osteoarthritis (OA), Skin Disorder, Sleep Apnea/CPAP/BIPAP Additional Past Medical History / Comment(s): Type 2 diabetes, restless leg syndrome, osteopenia, DDD, SPINAL STENOSIS, recurrent abdominal hernia, BILATERAL PLANTAR FASCIITIS, CHRONIC UTI'S, OCCULAR HYPERTENSION, HX STOMACH ULCERS, IBS, Factor V Leiden, CPAP use, bilateral leg weakness, hip and groin pain, hobbling, not using any assistive device. 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 History of Any Multi-Drug Resistant Organisms: None Reported Past Surgical History: Back Surgery, Bariatric Surgery, Breast Surgery, Section, Cholecystectomy, Hernia Repair, Orthopedic Surgery, Tubal Ligation, Uterine Ablation Additional Past Surgical History / Comment(s): LEFT HAND SURGERY, EGD WITH DILATION, REVISION OF GASTROJEJUNOSTOMY, HX GASTRIC BYPASS WITH REVERSAL, RIGHT GANGLION CYST REMOVED, LEFT THUMB TRIGGER FINGER RELEASE, BILATERAL CARPAL TUNNEL WITH REVISION, BENIGN CYSTS REMOVED FROM OVARY, PILONIDAL CYSTECTOMY , MULTIPLE D&C's, X2, WRIST TENDONITIS SURGERY, Pain Injections, DECOMPRESSION BACK SURGERY L4-L5 AND FUSION L5-S1, BILATERAL BREAST REDUCTION, MULTIPLE ABDOMINAL HERNIA SURGERIES, "2 cysts removed from rectum", CERVICAL FUSION, BILATERAL SI JOINT FUSION, ALL TOENAILS REMOVED. Colonoscopy 2023(next after 5yr). Past Anesthesia/Blood Transfusion Reactions: No Reported Reaction Additional Past Anesthesia/Blood Transfusion Reaction / Comment(s): . Past Psychological History: Anxiety, Bipolar, Depression Additional Psychological History / Comment(s): . Smoking Status: Current every day smoker (Three quarters of a pack per day.) Past Alcohol Use History: None Reported Additional Past Alcohol Use History / Comment(s): STARTED SMOKING AT AGE 15, 1/2 PPD. Past Drug Use History: Marijuana (She previously smoked marijuana, but states she only uses edibles at this time.) Additional Drug Use History / Comment(s): CBD oil, edibles Additional History: She is currently with her partner and has been with him since about 2016. They live together, but are not sexually active. She is disabled. - Past Family History Sister(s) Family Medical History: Cancer Additional Family Medical History / Comment(s): Colorectal cancer X2, lung cancer. 3 sisters and a niece with factor V. Brother(s) Family Medical History: Cancer, Deep Vein Thrombosis (DVT) Additional Family Medical History / Comment(s): NON-HODGKIN'S LYMPHOMA. 3 other brothers had a Factor V Leiden mutation. Mother Family Medical History: Cancer, Congestive Heart Failure (CHF) Additional Family Medical History / Comment(s): NON-HODGKIN'S LYMPHOMA. Father Family Medical History: Congestive Heart Failure (CHF) Daughter(s) Family Medical History: Blood Disorder Additional Family Medical History / Comment(s): Factor V. Medications and Allergies Home Medications Medication Instructions Recorded Confirmed Type hydrOXYzine HCL [Atarax] 25 mg PO TID PRN 08/02/19 04/19/24 History Cariprazine HCl [Vraylar] 1.5 mg PO QAM 09/09/19 04/19/24 History Fluticasone Nasal [place] [Flonase 1 spr NASAL BID PRN 11/12/21 04/19/24 History Nasal [place]] Aspirin [Adult Low Dose Aspirin EC] 81 mg PO DAILY 12/09/21 04/19/24 History Ergocalciferol [Vitamin D2 (1250 1,250 mcg PO SÁNCHEZ 05/19/22 04/19/24 History Mcg = 22110 Iu)] Omeprazole 40 mg PO QAM 01/08/23 04/19/24 History Evolocumab [Repatha Sureclick] 140 mg SQ Q14D 07/06/23 04/19/24 History Gabapentin 600 mg PO TID 07/06/23 04/19/24 History Lidocaine 5% Patch [Lidoderm] 1 patch TOPICAL DAILY PRN 07/06/23 04/19/24 History Albuterol Sulfate [Ventolin HFA] 1 - 2 puff INHALATION Q4-6H PRN 10/21/23 04/19/24 History Ezetimibe [Zetia] 10 mg PO HS 10/21/23 04/19/24 History HYDROcodone/APAP 10-325MG [[place] 1 tab PO TID PRN 10/21/23 04/19/24 History 10-325] Semaglutide [Ozempic] 1 mg SQ TU 10/21/23 04/19/24 History Allergies Allergy/AdvReac Type Severity Reaction Status Date / Time cephalexin [From Keflex] Allergy rectal Verified 04/19/24 07:59 bleeding Penicillins Allergy Itching Unverified 04/19/24 08:07 Cephalosporins AdvReac RECTAL Verified 04/19/24 07:59 BLEEDING famotidine [From Pepcid] AdvReac Confusion Verified 04/19/24 07:59 lurasidone [From Latuda] AdvReac SUICIDAL Verified 04/19/24 07:59 THOUGHTS olanzapine [From Zyprexa] AdvReac WEIGHT GAIN Verified 04/19/24 07:59 Exam Vital Signs Temp Pulse Resp BP Pulse Ox 04/19/24 08:00 97.9 F 89 17 130/88 96 Intake and Output 04/18/24 04/19/24 04/19/24 22:59 06:59 14:59 Other: Weight 80.739 kg Height 4 feet 11 inches, weight 178 pounds, BMI 36.0. This is a well-developed well-nourished white female who is alert and oriented times 3 in no acute distress. HEENT: Within normal limits. NECK: Supple without mass or thyromegaly. CHEST AND LUNGS: Clear to auscultation. HEART: Regular rate and rhythm. BREASTS: Are without mass or discharge. Breasts are consistent with bilateral breast reduction surgery. There is some firmness above the left nipple which was noticed with previous exams. She states she noticed different changes since her breast reduction surgery. AXILLARY EXAM: Negative for adenopathy. BACK: Negative for CVA tenderness. ABDOMEN: Soft, nontender, without palpable masses. PELVIC EXAM: Normal external genitalia with minimal atrophy. Cervix and vagina appear normal with minimal atrophy. There is no unusual discharge. There is no evidence of prolapse. The uterus is midposition, nongravid size and nontender. There are no palpable adnexal masses or tenderness. RECTAL EXAM: Rectovaginal exam is negative for mass or tenderness and is negative for occult blood. EXTREMITIES: Nontender. IMPRESSION: 1. 53-year-old perimenopausal female with amenorrhea following her endometrial ablation years ago. Normal gynecologic exam. 2. Suspected genital HSV based on her description of her recurrent symptoms. No significant physical findings on exam today. 3. History of osteopenia 4. History of small endometrial fluid by ultrasound which has been followed conservatively. This may be related to her previous endometrial ablation. PLAN: 1. Pap smear was deferred since she had a negative Pap smear cotest on 11/12/2021. 2. Self breast awareness was discussed with the patient. We have also discussed symptoms associated with inflammatory breast cancer. 3. Bilateral mammogram was done today. 4. We have had a long discussion regarding genital HSV. Since her symptoms seem very typical for genital HSV she will be treated with Valtrex 500 mg p.o. twice daily x 3 days and she is to start this at the onset of an outbreak. Also asked her to call to see if she could make an appointment to see me right away when she does notice the symptoms so we can try to confirm that this is genital HSV. Electronic prescription will be sent to [facility] pharmacy on [address]. 5. Pelvic ultrasound was recommended to reevaluate the endometrial fluid. If it remains a minimal amount of endometrial fluid, we will probably discontinue these since this is probably related to her endometrial ablation. The order slip was given to the patient for this. 6. Osteoporosis prevention was discussed. I have stressed the importance of adequate calcium, vitamin D and regular exercise. Recommended amounts of calcium and vitamin D were also discussed. She will repeat the bone density test in 1 to 2 years. 7. She was advised to return in one year for her annual well woman exam and as needed.
--- NOTE | 2024-04-20 10:01 | MM ---
Reason for Exam: Screening (asymptomatic). Last mammogram was performed 1 year(s) and 3 month(s) ago. Patient History: Menarche at age 13. First Full-Term at age 23. 08/12/2021, Bilateral Reduction. Maternal cousin had breast cancer, age 50. Maternal aunt (Sarah) had breast cancer. Maternal aunt (Jimena) had breast cancer. Maternal aunt (Kathy) had breast cancer. Maternal aunt (Regine) had breast cancer. Maternal aunt had breast cancer. Risk Values: Sunitha 5 year model risk: 1.0%. NCI Lifetime model risk: 8.7%. Prior Study Comparison: 01/27/2023 Bilateral MG 3D screening mammo w/cad, [facility]. 01/29/2023 Right MG 3D work up w/cad RT, [facility]. 08/10/2023 Right MG 3D diag mammo w/cad RT, [facility]. Tissue Density: The breasts are almost entirely fatty. Findings: Analyzed By CAD. Right breast: There is no suspicious group of microcalcifications or new suspicious mass. Benign-appearing calcifications right breast. Left breast: There is no suspicious group of microcalcifications or new suspicious mass. Benign-appearing calcifications left breast. Overall Assessment: Benign, BI-RAD 2 Management: Screening Mammogram of both breasts in [address] [facility] will attempt to contact patient to return for supplemental views and ultrasound if indicated. Patient should continue monthly self-breast exams. A clinical breast exam by your physician is recommended on an annual basis. This exam should not preclude additional follow-up of suspicious palpable abnormalities. Note on Sunitha scores and lifetime risk: 1. A Sunitha score greater than 3% is considered moderate risk. If this is the case, consider specialist referral to assess eligibility for a risk reducing agent. 2. If overall lifetime risk for the development of breast cancer is 20% or higher, the patient may qualify for future screening with alternating mammogram and breast MRI. [facility], , 04/20/2024 9:58 AM. Electronically signed and approved by: Luis Alberto Reinoso DO
== END | disposition home or self-care (01) ==
LOC: RADMAMWWP 07:26
PROVIDERS: ATTEND Obstetrics & Gynecology
DX: Z12.31 Encounter for screening mammogram for malignant neoplasm of breast (principal); Z80.3 Family history of malignant neoplasm of breast; R92.313 Mammographic fatty tissue density, bilateral breasts
CPT/HCPCS: 77063; 77067

== ENCOUNTER 2024-11-10 06:42 | Day surgery (SDC) | payer MEDICARE, OTHER ==
[2024-11-04 11:37] VITALS: BMI 35.1
[~2024-11-10 06:42] MED LIST changes: -ACETAMINOPHEN TAB 500 MG TAB PO PRN; -CLINDAMYCIN 900 MG in DEXTROSE 5% IN WATER 50 ML IVPB PRN; -GABAPENTIN 300 MG CAP PO PRN; -HYDROmorphone 0.5 MG/0.5 ML SYRINGE IVP PRN; -LACTATED RINGERS 1,000 ML IV SCH; +LIDOCAINE 1% (10MG/ML) FOR IV START INTRADERMA PRN; -MIDAZOLAM 2 MG/2 ML VIAL IV PRN; -ONDANSETRON 4 MG/2 ML VIAL IVP PRN; -TRANEXAMIC 1,000 MG/100ML-NACL 1,000 MG in SALINE 1 100ML.BAG IVPB PRN
[2024-11-10] MEDS: LACTATED RINGERS 1,000 ML IV ONE (07:23)
[2024-11-10 07:24] LABS: Glucose,Whole Blood 112 mg/dL (70-110)
[2024-11-10] MEDS: LACTATED RINGERS 1,000 ML IV SCH (07:26)
[2024-11-10 07:28] VITALS: RESP 16; TEMP 98
[2024-11-10] MEDS ORDERED: LIDOCAINE 1% INJ 10MG/ML (20 ML MDV) ONE (07:35)
[2024-11-10] MEDS ORDERED: PROPOFOL 10 MG/ML 20 ML VIAL IV ONE (07:35)
--- NOTE | 2024-11-10 08:00 | P.GSHP ---
History of Present Illness H&P Date: 11/10/24 Chief Complaint: History of Anna's esophagus Is a 54-year-old female with history of gerd. Patient had an EGD performed in 2019 which showed evidence of esophagitis with Anna's esophagus. Patient presents today for evaluation. Past Medical History Past Medical History: Blood Disorder, COPD, Diabetes Mellitus, GERD/Reflux, Hyperlipidemia, Osteoarthritis (OA), Skin Disorder, Sleep Apnea/CPAP/BIPAP Additional Past Medical History / Comment(s): Type 2 diabetes, restless leg syndrome, osteopenia, DDD, SPINAL STENOSIS, recurrent abdominal hernia, BILATERAL PLANTAR FASCIITIS, CHRONIC UTI'S, OCCULAR HYPERTENSION, HX STOMACH ULCERS, IBS, Factor V Leiden, CPAP use, bilateral leg weakness, hip and groin pain. History of Any Multi-Drug Resistant Organisms: None Reported Past Surgical History: Back Surgery, Bariatric Surgery, Breast Surgery, Section, Cholecystectomy, Hernia Repair, Orthopedic Surgery, Tubal Ligation, Uterine Ablation Additional Past Surgical History / Comment(s): LEFT HAND SURGERY, EGD WITH DILATION, REVISION OF GASTROJEJUNOSTOMY, HX GASTRIC BYPASS WITH REVERSAL, RIGHT GANGLION CYST REMOVED, LEFT THUMB TRIGGER FINGER RELEASE, BILATERAL CARPAL TUNNEL WITH REVISION, BENIGN CYSTS REMOVED FROM OVARY, PILONIDAL CYSTECTOMY , MULTIPLE D&C's, X2, WRIST TENDONITIS SURGERY, Pain Injections, DE COMPRESSION BACK SURGERY L4-L5 AND FUSION L5-S1, BILATERAL BREAST REDUCTION, MULTIPLE ABDOMINAL HERNIA SURGERIES, "2 cysts removed from rectum", CERVICAL FUSION, BILATERAL SI JOINT FUSION, Colonoscopy. Past Anesthesia/Blood Transfusion Reactions: No Reported Reaction Additional Past Anesthesia/Blood Transfusion Reaction / Comment(s): . Smoking Status: Current every day smoker - Past Family History Sister(s) Family Medical History: Cancer Additional Family Medical History / Comment(s): Colorectal cancer X2, lung cancer. 3 sisters and a niece with factor V. Brother(s) Family Medical History: Cancer, Deep Vein Thrombosis (DVT) Additional Family Medical History / Comment(s): NON-HODGKIN'S LYMPHOMA. 3 other brothers had a Factor V Leiden mutation. Mother Family Medical History: Cancer, Congestive Heart Failure (CHF) Additional Family Medical History / Comment(s): NON-HODGKIN'S LYMPHOMA. Father Family Medical History: Congestive Heart Failure (CHF) Daughter(s) Family Medical History: Blood Disorder Additional Family Medical History / Comment(s): Factor V. Medications and Allergies Home Medications Medication Instructions Recorded Confirmed Type hydrOXYzine HCL [Atarax] 25 mg PO TID PRN 08/02/19 11/10/24 History Cariprazine HCl [Vraylar] 1.5 mg PO QAM 09/09/19 11/10/24 History Aspirin [Adult Low Dose Aspirin EC] 81 mg PO DAILY 12/09/21 11/10/24 History Omeprazole 40 mg PO BID 01/08/23 11/10/24 History Evolocumab [Repatha Sureclick] 140 mg SQ Q14D 07/06/23 11/10/24 History Gabapentin 600 mg PO TID 07/06/23 11/10/24 History Albuterol Sulfate [Ventolin HFA] 1 - 2 puff INHALATION Q4-6H PRN 10/21/23 11/10/24 History Ezetimibe [Zetia] 10 mg PO HS 10/21/23 11/10/24 History HYDROcodone/APAP 10-325MG [[place] 1 tab PO QID 10/21/23 11/10/24 History 10-325] Semaglutide [Ozempic] 1 mg SQ TU 10/21/23 11/10/24 History Cholecalciferol [Vitamin D3 (10 10 mcg PO DAILY 11/04/24 11/10/24 History Mcg = 400 Iu)] icosapent ethyL [Icosapent Ethyl] 2 gm PO BID 11/04/24 11/10/24 History valACYclovir HCL [Valtrex] 500 mg PO BID PRN 11/04/24 11/10/24 History Allergies Allergy/AdvReac Type Severity Reaction Status Date / Time cephalexin [From Keflex] Allergy rectal Verified 11/10/24 07:25 bleeding Penicillins Allergy Itching Verified 11/10/24 07:25 Cephalosporins AdvReac RECTAL Verified 11/10/24 07:25 BLEEDING famotidine [From Pepcid] AdvReac Confusion Verified 11/10/24 07:25 lurasidone [From Latuda] AdvReac SUICIDAL Verified 11/10/24 07:25 THOUGHTS olanzapine [From Zyprexa] AdvReac WEIGHT GAIN Verified 11/10/24 07:25 Surgical - Exam Vital Signs Temp Pulse Resp BP Pulse Ox 98 F 100 16 123/67 95 11/10/24 07:15 11/10/24 07:15 11/10/24 07:15 11/10/24 07:15 11/10/24 07:15 - General well developed, well nourished, no distress - Eyes PERRL - ENT normal pinna - Neck no masses - Respiratory normal expansion - Cardiovascular Rhythm: regular - Abdomen Abdomen: soft, non tender Results - Labs Abnormal Lab Results - Last 24 Hours (Table) 11/10/24 Range/Units 07:19 POC Glucose (mg/dL) 112 H (70-110) mg/dL Assessment and Plan Plan: History of Anna's esophagus. Will perform EGD.
--- NOTE | 2024-11-10 08:04 | P.OP ---
Date of Procedure: 11/10/24 Preoperative Diagnosis: Anna's esophagus Postoperative Diagnosis: Mild esophagitis Procedure(s) Performed: EGD Anesthesia: MAC Surgeon: Dillon Alvarado Pathology: other (Esophagus) Condition: stable Disposition: PACU Description of Procedure: The patient was placed on the endoscopy table in the lateral position. He received IV sedation. The gastroscope was then placed oropharynx passed into the esophagus into the stomach. Patient had a previous partial gastrectomy. The gastrojejunostomy was visualized it appeared to be patent. There is no evidence of any outlet obstruction of the stomach. Scope was withdrawn. The visually stomach appeared normal. The GE junction was at 40 cm. The distal esophagus was mildly inflamed. A biopsy performed. The proximal esophagus appeared normal. Scope withdrawn for the patient.
[2024-11-10 08:25] VITALS: BP 118/78; PULSE 84
== END 2024-11-10 08:42 | disposition home or self-care (01) ==
LOC: ORWHC2ENDO 06:42
PROVIDERS: ATTEND Surgery
DX: K21.00 Gastro-esophageal reflux disease with esophagitis, without bleeding (principal); K58.9 Irritable bowel syndrome, unspecified; D68.51 Activated protein C resistance; E11.9 Type 2 diabetes mellitus without complications; E78.5 Hyperlipidemia, unspecified; F17.210 Nicotine dependence, cigarettes, uncomplicated; I10 Essential (primary) hypertension; G47.33 Obstructive sleep apnea (adult) (pediatric); G25.81 Restless legs syndrome; J44.9 Chronic obstructive pulmonary disease, unspecified; M85.80 Other specified disorders of bone density and structure, unspecified site; Z90.49 Acquired absence of other specified parts of digestive tract; Z87.440 Personal history of urinary (tract) infections; Z87.19 Personal history of other diseases of the digestive system; Z87.11 Personal history of peptic ulcer disease; Z80.1 Family history of malignant neoplasm of trachea, bronchus and lung; Z80.0 Family history of malignant neoplasm of digestive organs; Z82.49 Family history of ischemic heart disease and other diseases of the circulatory system; Z88.1 Allergy status to other antibiotic agents; Z98.51 Tubal ligation status; Z98.890 Other specified postprocedural states; Z88.0 Allergy status to penicillin; Z90.721 Acquired absence of ovaries, unilateral; Z98.84 Bariatric surgery status; Z79.51 Long term (current) use of inhaled steroids; Z79.82 Long term (current) use of aspirin; Z79.899 Other long term (current) drug therapy
CPT/HCPCS: 81025; 88305; 43239; J2003; J2704